=== PATIENT | female | born 1970 | race Caucasian/White ===

== ENCOUNTER 2021-03-16 16:47 | Inpatient (IN) | payer OTHER ==
[2021-03-16] MEDS ORDERED: ACETAMINOPHEN 1000 MG/100 ML VIAL (NON FORMULARY) IVPB ONE (17:46)
[2021-03-16] MEDS ORDERED: LACTATED RINGERS SOLUTION 1000 ML INFUS.BAG IV ONE (18:04)
[2021-03-16] MEDS ORDERED: CEFTRIAXONE 1 GM in DEXTROSE 5%-WATER - 100 ML IVPB ONE (18:04)
[2021-03-16] MEDS ORDERED: ALBUTEROL SO4 2.5/IPRATROPIUM 0.5 INH SOL 3 ML VIAL.NEB. NEB ONE ×5 (18:04→19:19)
[2021-03-16] MEDS ORDERED: ONDANSETRON 4 MG/2 ML VIAL IVPUSH ONE (18:04)
[2021-03-16] MEDS ORDERED: FAMOTIDINE 20 MG/50 ML IVPB 20 MG/50 ML MG IVPB ONE (18:04)
[2021-03-16] MEDS ORDERED: ACETAMINOPHEN INJECTION 100 ML IVPB ONE (18:05)
[2021-03-16] MEDS ORDERED: ONDANSETRON 4 MG/2 ML VIAL ONE (18:05)
[2021-03-16] MEDS ORDERED: PIPERACILLIN/TAZOB 4.5 GM 4.5 GM in DEXTROSE 5%-WATER 100 ML IVPB ONE (18:06)
[2021-03-16 19:08] LABS: VENOUS O2 SATURATION 30.8 % (70-80); VENOUS PCO2 49.2 mmHg (38-52); VENOUS PH 7.3 (7.310-7.410)
[2021-03-16 19:09] LABS: BASO % 0.6 % (0-2.0); EOS % 3.2 % (0-4.5); HEMATOCRIT 32.3 % (32.4-45.2); HEMOGLOBIN 10.9 GM/dL (10.7-15.3); LYMPH % 22.6 % (8-40); MCH 29.3 pg (25.7-33.7); MCHC 33.8 g/dl (32.0-36.0); MEAN CELL VOLUME 86.6 fl (80-96); MEAN PLT VOLUME 8.6 fl (7.5-11.1); NEUT % 59.6 % (42.8-82.8); PLATELET COUNT 246 10^3/uL (134-434); RBC 3.73 M/mm3 (3.60-5.2); RDW 14.6 % (11.6-15.6); WHITE BLOOD COUNT 5.8 K/mm3 (4.0-10.0)
[2021-03-16 19:16] LABS: INR 1.01 (0.83-1.09); PROTHROMBIN TIME (PATIENT) 12.4 SEC (9.7-13.0)
[2021-03-16 19:19] LABS: ACTIVATED PTT 26.4 SECONDS (25.2-36.5)
[2021-03-16] MEDS ORDERED: PIPERACILLIN/TAZOB 4.5 GM 4.5 GM/100 ML BAG IVPB ONE (19:20)
[2021-03-16 19:40] LABS: CHLORIDE 102 mmol/L (98-107); SODIUM 134 mmol/L (136-145)
[2021-03-16 19:44] LABS: BILIRUBIN,DIRECT 0.1 mg/dL (0.0-0.2); CALCIUM 9.4 mg/dL (8.5-10.1)
[2021-03-16 19:45] LABS: ALBUMIN 2.1 g/dl (3.4-5.0); ANION GAP 9 MMOL/L (8-16); CO2 22 mmol/L (21-32)
[2021-03-16 19:46] LABS: EPI CELLS >36 /uL (0-25.1); HYALINE CASTS 192 /uL (0-3.1); PH,URINE 6.5 (5.0-8.0); URINE APPEARANCE TURBID; URINE BACTERIA 132 /uL (0-1359); URINE BILIRUBIN NEGATIVE (NEGATIVE); URINE COLOR YELLOW; URINE GLUCOSE (UA) TRACE (NEGATIVE); URINE KETONE NEGATIVE (NEGATIVE); URINE LEUK ESTERASE 3+ (NEGATIVE); URINE NITRITE NEGATIVE (NEGATIVE); URINE PROTEIN 3+ (NEGATIVE); URINE UROBILINOGEN 0.2 mg/dL (0.2-1.0); URINE WBC 25804 /uL (0-25.8)
[2021-03-16 19:48] LABS: CREATININE 3.4 mg/dL (0.55-1.3); SGOT/AST 6 U/L (15-37); SGPT/ALT 15 U/L (13-61)
[2021-03-16 19:49] LABS: BILIRUBIN,TOTAL 0.7 mg/dL (0.2-1); N-TERMINAL BNP 841.2 pg/ml (5-125)
[2021-03-16 19:50] LABS: TOT PROT 7.2 g/dl (6.4-8.2)
[2021-03-16 19:51] LABS: ALK PHOS 106 U/L (45-117)
[2021-03-16 19:54] LABS: GLUCOSE,RANDOM 431 mg/dL (74-106)
[2021-03-16] MEDS ORDERED: LACTATED RINGERS SOLUTION 1,000 ML/1,000 ML INFUS.BAG IV SCH (21:00)
[2021-03-16 23:57] LABS: URINE RBC 708 /uL (0-23.9); YEAST MODERATE (NEGATIVE)
[2021-03-17] MEDS ORDERED: PIPERACILLIN/TAZOBACTAM 2.25 GM VIAL IVPB ONE ×3 (03:36→20:49)
[2021-03-17] MEDS ORDERED: DEXTROSE 5%-WATER - 50 ML IVPB ONE ×3 (03:36→20:49)
[2021-03-17] MEDS: PIPERACILLIN/TAZOB 2.25 GM 2.25 GM in DEXTROSE 5%-WATER - 50 ML IVPB SCH ×3 (03:47→18:54)
[2021-03-17 05:12] VITALS: BMI 45.1
[2021-03-17] MEDS: INSULIN SLIDING SCALE (NOVOLOG) 1 VIAL SQ SCH ×2 (06:13→12:14)
[2021-03-17 07:59] LABS: HEMATOCRIT 28.8 % (32.4-45.2); HEMOGLOBIN 9.6 GM/dL (10.7-15.3); MCH 29.8 pg (25.7-33.7); MCHC 33.3 g/dl (32.0-36.0); MEAN CELL VOLUME 89.7 fl (80-96); MEAN PLT VOLUME 8.5 fl (7.5-11.1); PLATELET COUNT 234 10^3/uL (134-434); RBC 3.21 M/mm3 (3.60-5.2); RDW 15.1 % (11.6-15.6)
[2021-03-17 08:11] LABS: INR 1.04 (0.83-1.09); PROTHROMBIN TIME (PATIENT) 12.8 SEC (9.7-13.0)
[2021-03-17 08:14] LABS: ACTIVATED PTT 22.4 SECONDS (25.2-36.5)
[2021-03-17 08:29] LABS: ALBUMIN 1.9 g/dl (3.4-5.0)
[2021-03-17 08:30] LABS: BILIRUBIN,TOTAL 0.2 mg/dL (0.2-1); BLOOD UREA NITROGEN 46.5 mg/dL (7-18); TOT PROT 6.8 g/dl (6.4-8.2)
[2021-03-17 08:32] LABS: CALCIUM 8.8 mg/dL (8.5-10.1); MAGNESIUM 1.6 mg/dL (1.8-2.4)
[2021-03-17] MEDS ORDERED: CARVEDILOL 25 MG TABLET (FP) PO SCH (10:00)
[2021-03-17] MEDS ORDERED: amLODIPine BESYLATE 5 MG TABLET (FP) PO SCH (10:00)
[2021-03-17] MEDS ORDERED: LIDOCAINE HCL/PF 2% SDV 5ML VIAL ONE (15:50)
[2021-03-17] MEDS ORDERED: MIDAZOLAM HCL 2 MG/2 ML SINGLE DOSE VIAL ONE (15:51)
[2021-03-17] MEDS ORDERED: PROPOFOL 20 ML ONE ×2 (15:51)
[2021-03-17] MEDS ORDERED: ceFAZolin SODIUM 1 GM VIAL IVPB ONE (16:20)
[2021-03-17] MEDS ORDERED: ceFAZolin SODIUM 1 GM VIAL ONE ×2 (16:25→16:26)
[2021-03-17] MEDS ORDERED: ONDANSETRON 4 MG/2 ML VIAL ONE (17:34)
[2021-03-17] MEDS ORDERED: ONDANSETRON 4 MG/2 ML VIAL IVPUSH ONE (17:35)
[2021-03-17] MEDS ORDERED: LACTATED RINGERS SOLUTION 1,000 ML/1,000 ML INFUS.BAG IV SCH (17:36)
[2021-03-17] MEDS ORDERED: PIPERACILLIN/TAZOB 2.25 GM 2.25 GM in DEXTROSE 5%-WATER - 50 ML IVPB SCH (18:00)
[2021-03-17] MEDS ORDERED: PROMETHAZINE HCL 25 MG/1 ML VIAL ONE (18:22)
[2021-03-17] MEDS ORDERED: PROMETHAZINE HCL 25 MG/1 ML VIAL IVPB ONE (18:34)
[2021-03-17] MEDS ORDERED: PROMETHAZINE HCL 25 MG/1 ML VIAL IVPB PRN (18:38)
[2021-03-17] MEDS ORDERED: NALOXONE HCL 0.4 MG/ML VIAL ONE (18:38)
[2021-03-17] MEDS ORDERED: NALOXONE HCL 0.4 MG/ML VIAL IVPUSH PRN (18:38)
[2021-03-17] MEDS ORDERED: NALOXONE HCL 0.4 MG/ML VIAL IVPUSH ONE (18:41)
[2021-03-17] MEDS ORDERED: ONDANSETRON 4 MG/2 ML VIAL IVPUSH PRN (18:41)
[2021-03-17] MEDS: CARVEDILOL 25 MG TABLET (FP) PO SCH (21:04)
[2021-03-17] MEDS: ATORVASTATIN CA 20 MG TABLET (FP) PO SCH (21:04)
[2021-03-17] MEDS: EZETIMIBE 10 MG TABLET (FP) PO SCH (21:05)
[2021-03-17] MEDS: LACTATED RINGERS SOLUTION 1,000 ML IV SCH (21:07)
[2021-03-17] MEDS: oxyCODONE HCL 5 MG TABLET PO PRN (21:59)
[2021-03-17] MEDS ORDERED: ATORVASTATIN CA 20 MG TABLET (FP) PO SCH (22:00)
[2021-03-17] MEDS ORDERED: INSULIN SLIDING SCALE (NOVOLOG) 1 VIAL SQ SCH (22:00)
[2021-03-17] MEDS ORDERED: EZETIMIBE 10 MG TABLET (FP) PO SCH (22:00)
[2021-03-18] MEDS ORDERED: DEXTROSE 5%-WATER - 50 ML IVPB ONE ×3 (01:05→17:11)
[2021-03-18] MEDS ORDERED: PIPERACILLIN/TAZOBACTAM 2.25 GM VIAL IVPB ONE ×3 (01:05→17:11)
[2021-03-18] MEDS: PIPERACILLIN/TAZOB 2.25 GM 2.25 GM in DEXTROSE 5%-WATER - 50 ML IVPB SCH ×3 (01:19→17:34)
[2021-03-18] MEDS ORDERED: PIPERACILLIN/TAZOB 2.25 GM 2.25 GM in DEXTROSE 5%-WATER - 50 ML IVPB SCH (03:00)
[2021-03-18] MEDS: LACTATED RINGERS SOLUTION 1,000 ML IV SCH ×3 (04:53→22:43)
[2021-03-18] MEDS: ACETAMINOPHEN 325 MG TABLET (FP) PO PRN ×2 (05:30→12:35)
[2021-03-18] MEDS: INSULIN SLIDING SCALE (NOVOLOG) 1 VIAL SQ SCH ×4 (06:31→22:36)
[2021-03-18] MEDS: INSULIN (LEVEMIR) 100 UNITS/ML UNITS SQ SCH (06:31)
[2021-03-18 08:25] LABS: BASO % 0.7 % (0-2.0); EOS % 4.7 % (0-4.5); HEMATOCRIT 27.6 % (32.4-45.2); HEMOGLOBIN 9.3 GM/dL (10.7-15.3); LYMPH % 24.8 % (8-40); MCH 29.5 pg (25.7-33.7); MCHC 33.8 g/dl (32.0-36.0); MEAN CELL VOLUME 87.1 fl (80-96); MEAN PLT VOLUME 8.7 fl (7.5-11.1); MONO % 13.8 % (3.8-10.2); PLATELET COUNT 237 10^3/uL (134-434); RBC 3.17 M/mm3 (3.60-5.2); RDW 14.9 % (11.6-15.6); WHITE BLOOD COUNT 4.8 K/mm3 (4.0-10.0)
[2021-03-18 08:41] LABS: BLOOD UREA NITROGEN 41.7 mg/dL (7-18); CALCIUM 8.2 mg/dL (8.5-10.1); MAGNESIUM 1.6 mg/dL (1.8-2.4)
[2021-03-18 08:44] LABS: CREATININE 4.1 mg/dL (0.55-1.3)
[2021-03-18] MEDS: TAMSULOSIN HCL 0.4 MG CAP PO SCH (09:05)
[2021-03-18] MEDS: CARVEDILOL 25 MG TABLET (FP) PO SCH ×2 (09:05→22:36)
[2021-03-18] MEDS: amLODIPine BESYLATE 5 MG TABLET (FP) PO SCH (09:05)
[2021-03-18] MEDS: oxyCODONE HCL 5 MG TABLET PO PRN (12:35)
[2021-03-18] MEDS ORDERED: FLUCONAZOLE 100 MG/NS 50 ML IVPB ONE (17:00)
[2021-03-18 17:47] LABS: EPI CELLS >36 /uL (0-25.1); HYALINE CASTS 6 /uL (0-3.1); URINE APPEARANCE TURBID; URINE BACTERIA 159 /uL (0-1359); URINE BILIRUBIN NEGATIVE (NEGATIVE); URINE COLOR YELLOW; URINE GLUCOSE (UA) TRACE (NEGATIVE); URINE KETONE NEGATIVE (NEGATIVE); URINE LEUK ESTERASE 3+ (NEGATIVE); URINE NITRITE NEGATIVE (NEGATIVE); URINE PROTEIN 3+ (NEGATIVE); URINE UROBILINOGEN 0.2 mg/dL (0.2-1.0); URINE WBC 7570 /uL (0-25.8)
[2021-03-18] MEDS: EZETIMIBE 10 MG TABLET (FP) PO SCH (22:36)
[2021-03-18] MEDS: ATORVASTATIN CA 20 MG TABLET (FP) PO SCH (22:36)
[2021-03-19] MEDS ORDERED: PIPERACILLIN/TAZOBACTAM 2.25 GM VIAL IVPB ONE ×3 (03:31→17:05)
[2021-03-19] MEDS ORDERED: DEXTROSE 5%-WATER - 50 ML IVPB ONE ×3 (03:32→17:05)
[2021-03-19] MEDS: PIPERACILLIN/TAZOB 2.25 GM 2.25 GM in DEXTROSE 5%-WATER - 50 ML IVPB SCH ×3 (03:33→17:11)
[2021-03-19] MEDS: INSULIN (LEVEMIR) 100 UNITS/ML UNITS SQ SCH (06:31)
[2021-03-19] MEDS: INSULIN SLIDING SCALE (NOVOLOG) 1 VIAL SQ SCH ×4 (06:32→21:52)
[2021-03-19] MEDS: TAMSULOSIN HCL 0.4 MG CAP PO SCH (09:11)
[2021-03-19] MEDS: amLODIPine BESYLATE 5 MG TABLET (FP) PO SCH (09:11)
[2021-03-19] MEDS: CARVEDILOL 25 MG TABLET (FP) PO SCH ×2 (09:11→21:52)
[2021-03-19 09:44] LABS: BASO % 0.7 % (0-2.0); EOS % 4.5 % (0-4.5); HEMATOCRIT 28.7 % (32.4-45.2); HEMOGLOBIN 9.8 GM/dL (10.7-15.3); LYMPH % 29.2 % (8-40); MCH 29.4 pg (25.7-33.7); MEAN CELL VOLUME 86.5 fl (80-96); MEAN PLT VOLUME 8.7 fl (7.5-11.1); MONO % 10.8 % (3.8-10.2); NEUT % 54.8 % (42.8-82.8); PLATELET COUNT 242 10^3/uL (134-434); RBC 3.32 M/mm3 (3.60-5.2); RDW 14.5 % (11.6-15.6); WHITE BLOOD COUNT 5.7 K/mm3 (4.0-10.0)
[2021-03-19 10:13] LABS: CALCIUM 8.4 mg/dL (8.5-10.1)
[2021-03-19 10:14] LABS: ALBUMIN 1.9 g/dl (3.4-5.0); BLOOD UREA NITROGEN 39.2 mg/dL (7-18)
[2021-03-19 10:17] LABS: CREATININE 3.5 mg/dL (0.55-1.3)
[2021-03-19 10:19] LABS: BILIRUBIN,TOTAL 0.1 mg/dL (0.2-1); TOT PROT 6.8 g/dl (6.4-8.2)
[2021-03-19] MEDS ORDERED: INSULIN (NOVOLOG) ASPART 100 UNITS/ML 10ML VIAL ONE (11:06)
[2021-03-19] MEDS ORDERED: ALBUTEROL SO4 2.5/IPRATROPIUM 0.5 INH SOL 3 ML VIAL.NEB. NEB PRN (15:46)
[2021-03-19] MEDS: oxyCODONE HCL 5 MG TABLET PO PRN (16:31)
[2021-03-19] MEDS ORDERED: FLUCONAZOLE 100 MG/NS 50 ML IVPB ONE (19:05)
[2021-03-19] MEDS: EZETIMIBE 10 MG TABLET (FP) PO SCH (21:52)
[2021-03-19] MEDS: ATORVASTATIN CA 20 MG TABLET (FP) PO SCH (21:52)
[2021-03-20] MEDS: oxyCODONE HCL 5 MG TABLET PO PRN ×3 (00:01→15:31)
[2021-03-20] MEDS: ACETAMINOPHEN 325 MG TABLET (FP) PO PRN (00:02)
[2021-03-20] MEDS ORDERED: PIPERACILLIN/TAZOBACTAM 2.25 GM VIAL IVPB ONE ×3 (01:42→17:20)
[2021-03-20] MEDS ORDERED: DEXTROSE 5%-WATER - 50 ML IVPB ONE ×3 (01:42→17:20)
[2021-03-20] MEDS: PIPERACILLIN/TAZOB 2.25 GM 2.25 GM in DEXTROSE 5%-WATER - 50 ML IVPB SCH ×4 (01:59→18:16)
[2021-03-20] MEDS: LACTATED RINGERS SOLUTION 1,000 ML IV SCH ×2 (06:17→20:40)
[2021-03-20] MEDS: INSULIN (LEVEMIR) 100 UNITS/ML UNITS SQ SCH ×2 (06:47→22:14)
[2021-03-20] MEDS: INSULIN SLIDING SCALE (NOVOLOG) 1 VIAL SQ SCH ×4 (06:49→21:09)
[2021-03-20] MEDS: TAMSULOSIN HCL 0.4 MG CAP PO SCH (08:37)
[2021-03-20] MEDS: CARVEDILOL 25 MG TABLET (FP) PO SCH ×2 (09:29→21:04)
[2021-03-20 09:55] LABS: BASO % 0.4 % (0-2.0); EOS % 5.2 % (0-4.5); HEMATOCRIT 25.1 % (32.4-45.2); HEMOGLOBIN 8.4 GM/dL (10.7-15.3); LYMPH % 33.2 % (8-40); MCH 29.3 pg (25.7-33.7); MCHC 33.7 g/dl (32.0-36.0); MEAN CELL VOLUME 87.1 fl (80-96); MEAN PLT VOLUME 8.5 fl (7.5-11.1); MONO % 10.2 % (3.8-10.2); PLATELET COUNT 215 10^3/uL (134-434); RBC 2.88 M/mm3 (3.60-5.2); RDW 14.6 % (11.6-15.6); WHITE BLOOD COUNT 5.1 K/mm3 (4.0-10.0)
[2021-03-20 10:00] LABS: ALK PHOS 68 U/L (45-117)
[2021-03-20 10:01] LABS: SGPT/ALT 11 U/L (13-61)
[2021-03-20] MEDS ORDERED: INSULIN (NOVOLOG) ASPART 100 UNITS/ML 10ML VIAL ONE ×2 (11:15→21:02)
[2021-03-20] MEDS: amLODIPine BESYLATE 5 MG TABLET (FP) PO SCH (11:32)
[2021-03-20 11:43] LABS: ALBUMIN 1.6 g/dl (3.4-5.0); BILIRUBIN,TOTAL 0.1 mg/dL (0.2-1); BLOOD UREA NITROGEN 40.6 mg/dL (7-18); CALCIUM 8.2 mg/dL (8.5-10.1); CHLORIDE 111 mmol/L (98-107); CO2 21 mmol/L (21-32); CREATININE 3.1 mg/dL (0.55-1.3); GLUCOSE,RANDOM 231 mg/dL (74-106); MAGNESIUM 1.5 mg/dL (1.8-2.4); SGOT/AST 12 U/L (15-37); SODIUM 140 mmol/L (136-145); TOT PROT 6.1 g/dl (6.4-8.2)
[2021-03-20] MEDS ORDERED: FLUCONAZOLE 100 MG/NS 50 ML IVPB ONE (17:15)
[2021-03-20] MEDS: EZETIMIBE 10 MG TABLET (FP) PO SCH (21:04)
[2021-03-20] MEDS: ATORVASTATIN CA 20 MG TABLET (FP) PO SCH (21:04)
[2021-03-20] MEDS ORDERED: INSULIN SLIDING SCALE (NOVOLOG) 1 VIAL SQ SCH (21:46)
[2021-03-20] MEDS ORDERED: INSULIN (LEVEMIR) 100 UNITS/ML UNITS SQ SCH ×2 (21:47→22:00)
[2021-03-21] MEDS: PIPERACILLIN/TAZOB 2.25 GM 2.25 GM in DEXTROSE 5%-WATER - 50 ML IVPB SCH ×2 (01:10→09:01)
[2021-03-21] MEDS: oxyCODONE HCL 5 MG TABLET PO PRN ×2 (04:48→21:12)
[2021-03-21] MEDS: INSULIN (LEVEMIR) 100 UNITS/ML UNITS SQ SCH ×2 (05:59→21:17)
[2021-03-21] MEDS: INSULIN SLIDING SCALE (NOVOLOG) 1 VIAL SQ SCH ×5 (06:00→21:17)
[2021-03-21 08:25] LABS: BASO % 0.7 % (0-2.0); EOS % 4.5 % (0-4.5); HEMATOCRIT 25.7 % (32.4-45.2); HEMOGLOBIN 8.6 GM/dL (10.7-15.3); MCH 29.4 pg (25.7-33.7); MCHC 33.6 g/dl (32.0-36.0); MEAN CELL VOLUME 87.4 fl (80-96); MEAN PLT VOLUME 8.4 fl (7.5-11.1); MONO % 11.8 % (3.8-10.2); PLATELET COUNT 252 10^3/uL (134-434); RBC 2.94 M/mm3 (3.60-5.2); RDW 14.3 % (11.6-15.6); WHITE BLOOD COUNT 5.7 K/mm3 (4.0-10.0)
[2021-03-21 08:43] LABS: CALCIUM 8.3 mg/dL (8.5-10.1)
[2021-03-21 08:44] LABS: ALBUMIN 1.8 g/dl (3.4-5.0); BLOOD UREA NITROGEN 40.4 mg/dL (7-18)
[2021-03-21 08:47] LABS: CREATININE 3.1 mg/dL (0.55-1.3); PHOSPHOROUS 4.2 mg/dL (2.5-4.9)
[2021-03-21 08:48] LABS: BILIRUBIN,TOTAL 0.2 mg/dL (0.2-1); TOT PROT 6.8 g/dl (6.4-8.2)
[2021-03-21] MEDS: TAMSULOSIN HCL 0.4 MG CAP PO SCH (08:58)
[2021-03-21] MEDS: amLODIPine BESYLATE 5 MG TABLET (FP) PO SCH (08:59)
[2021-03-21] MEDS: CARVEDILOL 25 MG TABLET (FP) PO SCH ×2 (08:59→21:12)
[2021-03-21] MEDS ORDERED: INSULIN (NOVOLOG) ASPART 100 UNITS/ML 10ML VIAL ONE (11:38)
[2021-03-21] MEDS: POLYETHYLENE GLYCOL (HEALTHYLAX) 3350 17 GM PACKET PO SCH ×2 (13:42→21:12)
[2021-03-21] MEDS: FLUCONAZOLE 100 MG TABLET (UD) PO SCH (17:44)
[2021-03-21] MEDS: AMOX TR/POT CLAV 500MG/125MG TABLETS (FP) PO SCH (17:44)
[2021-03-21] MEDS: ATORVASTATIN CA 20 MG TABLET (FP) PO SCH (21:12)
[2021-03-21] MEDS: EZETIMIBE 10 MG TABLET (FP) PO SCH (21:12)
[2021-03-22] MEDS: POLYETHYLENE GLYCOL (HEALTHYLAX) 3350 17 GM PACKET PO SCH ×3 (06:15→21:33)
[2021-03-22] MEDS: INSULIN (LEVEMIR) 100 UNITS/ML UNITS SQ SCH ×2 (06:16→21:33)
[2021-03-22] MEDS: INSULIN SLIDING SCALE (NOVOLOG) 1 VIAL SQ SCH ×4 (06:16→21:28)
[2021-03-22] MEDS ORDERED: Methylnaltrexone Bromide 12 MG/0.6 ML KIT SQ ONE (10:00)
[2021-03-22] MEDS ORDERED: PEG 3350/NA SULF BICARB CL/KCL 4000 ML SOLN.RECON PO ONE (10:00)
[2021-03-22 10:01] LABS: BASO % 0.6 % (0-2.0); EOS % 5.1 % (0-4.5); HEMATOCRIT 26.9 % (32.4-45.2); LYMPH % 31.8 % (8-40); MCH 29.2 pg (25.7-33.7); MCHC 33.3 g/dl (32.0-36.0); MEAN CELL VOLUME 87.7 fl (80-96); MEAN PLT VOLUME 8.2 fl (7.5-11.1); MONO % 10.4 % (3.8-10.2); NEUT % 52.1 % (42.8-82.8); PLATELET COUNT 296 10^3/uL (134-434); RBC 3.07 M/mm3 (3.60-5.2); RDW 14.9 % (11.6-15.6); WHITE BLOOD COUNT 5.7 K/mm3 (4.0-10.0)
[2021-03-22 10:30] LABS: CALCIUM 8.5 mg/dL (8.5-10.1)
[2021-03-22 10:31] LABS: BLOOD UREA NITROGEN 44.8 mg/dL (7-18)
[2021-03-22 10:34] LABS: CREATININE 2.9 mg/dL (0.55-1.3)
[2021-03-22 10:36] LABS: TOT PROT 7.2 g/dl (6.4-8.2)
[2021-03-22 10:43] LABS: BILIRUBIN,TOTAL 0.3 mg/dL (0.2-1)
[2021-03-22] MEDS: amLODIPine BESYLATE 5 MG TABLET (FP) PO SCH (10:46)
[2021-03-22] MEDS: CARVEDILOL 25 MG TABLET (FP) PO SCH ×2 (10:46→21:33)
[2021-03-22] MEDS: oxyCODONE HCL 5 MG TABLET PO PRN ×2 (10:46→17:48)
[2021-03-22] MEDS: FLUCONAZOLE 100 MG TABLET (UD) PO SCH (10:47)
[2021-03-22] MEDS: TAMSULOSIN HCL 0.4 MG CAP PO SCH (10:47)
[2021-03-22] MEDS ORDERED: INSULIN (NOVOLOG) ASPART 100 UNITS/ML 10ML VIAL ONE (11:49)
[2021-03-22] MEDS: AMOX TR/POT CLAV 500MG/125MG TABLETS (FP) PO SCH (16:33)
[2021-03-22] MEDS ORDERED: BISACODYL 5 MG TABLET.DR (FP) PO ONE (20:00)
[2021-03-22] MEDS: EZETIMIBE 10 MG TABLET (FP) PO SCH (21:33)
[2021-03-22] MEDS: ATORVASTATIN CA 20 MG TABLET (FP) PO SCH (21:33)
[2021-03-23] MEDS: oxyCODONE HCL 5 MG TABLET PO PRN ×2 (01:14→13:57)
[2021-03-23] MEDS: INSULIN SLIDING SCALE (NOVOLOG) 1 VIAL SQ SCH ×4 (06:42→21:24)
[2021-03-23] MEDS: INSULIN (LEVEMIR) 100 UNITS/ML UNITS SQ SCH ×2 (06:54→21:23)
[2021-03-23] MEDS: POLYETHYLENE GLYCOL (HEALTHYLAX) 3350 17 GM PACKET PO SCH ×3 (06:54→21:23)
[2021-03-23 08:12] LABS: ALBUMIN 1.8 g/dl (3.4-5.0); BLOOD UREA NITROGEN 48.7 mg/dL (7-18)
[2021-03-23 08:13] LABS: BASO % 0.3 % (0-2.0); CALCIUM 8.2 mg/dL (8.5-10.1); EOS % 3.3 % (0-4.5); HEMATOCRIT 24.4 % (32.4-45.2); HEMOGLOBIN 8.2 GM/dL (10.7-15.3); MAGNESIUM 1.6 mg/dL (1.8-2.4); MCH 29.5 pg (25.7-33.7); MCHC 33.5 g/dl (32.0-36.0); MEAN CELL VOLUME 88.1 fl (80-96); MONO % 8.9 % (3.8-10.2); NEUT % 69.5 % (42.8-82.8); PLATELET COUNT 247 10^3/uL (134-434); RBC 2.77 M/mm3 (3.60-5.2); RDW 14.5 % (11.6-15.6); WHITE BLOOD COUNT 6.5 K/mm3 (4.0-10.0)
[2021-03-23 08:17] LABS: CREATININE 3.2 mg/dL (0.55-1.3)
[2021-03-23 08:18] LABS: BILIRUBIN,TOTAL 0.2 mg/dL (0.2-1); TOT PROT 6.3 g/dl (6.4-8.2)
[2021-03-23] MEDS: amLODIPine BESYLATE 5 MG TABLET (FP) PO SCH (10:57)
[2021-03-23] MEDS: TAMSULOSIN HCL 0.4 MG CAP PO SCH (10:57)
[2021-03-23] MEDS: FLUCONAZOLE 100 MG TABLET (UD) PO SCH (10:57)
[2021-03-23] MEDS: CARVEDILOL 25 MG TABLET (FP) PO SCH ×2 (10:57→21:22)
[2021-03-23] MEDS ORDERED: SODIUM CHLORIDE 0.45% 1,000 ML IV SCH (14:30)
[2021-03-23] MEDS: AMOX TR/POT CLAV 500MG/125MG TABLETS (FP) PO SCH (17:23)
[2021-03-23] MEDS: EZETIMIBE 10 MG TABLET (FP) PO SCH (21:23)
[2021-03-23] MEDS: ATORVASTATIN CA 20 MG TABLET (FP) PO SCH (21:23)
[2021-03-24] MEDS: POLYETHYLENE GLYCOL (HEALTHYLAX) 3350 17 GM PACKET PO SCH (06:17)
[2021-03-24] MEDS: INSULIN SLIDING SCALE (NOVOLOG) 1 VIAL SQ SCH ×4 (06:35→22:48)
[2021-03-24] MEDS: INSULIN (LEVEMIR) 100 UNITS/ML UNITS SQ SCH ×2 (06:36→22:46)
[2021-03-24] MEDS ORDERED: PT OWN MED DRAWER 7, Y5N ONE ×3 (09:18→17:49)
[2021-03-24] MEDS: TAMSULOSIN HCL 0.4 MG CAP PO SCH (09:24)
[2021-03-24] MEDS: CARVEDILOL 25 MG TABLET (FP) PO SCH ×2 (09:24→22:46)
[2021-03-24] MEDS: FLUCONAZOLE 100 MG TABLET (UD) PO SCH (09:25)
[2021-03-24] MEDS: amLODIPine BESYLATE 5 MG TABLET (FP) PO SCH (09:25)
[2021-03-24 10:29] LABS: BASO % 0.3 % (0-2.0); EOS % 2.3 % (0-4.5); HEMATOCRIT 26.9 % (32.4-45.2); HEMOGLOBIN 9.1 GM/dL (10.7-15.3); MCHC 33.9 g/dl (32.0-36.0); MEAN CELL VOLUME 88.5 fl (80-96); MEAN PLT VOLUME 8.1 fl (7.5-11.1); MONO % 7.6 % (3.8-10.2); NEUT % 74.8 % (42.8-82.8); PLATELET COUNT 278 10^3/uL (134-434); RBC 3.04 M/mm3 (3.60-5.2); WHITE BLOOD COUNT 8.7 K/mm3 (4.0-10.0)
[2021-03-24 10:50] LABS: BLOOD UREA NITROGEN 56.2 mg/dL (7-18); CALCIUM 8.5 mg/dL (8.5-10.1)
[2021-03-24 10:54] LABS: BILIRUBIN,TOTAL 0.6 mg/dL (0.2-1); TOT PROT 7.2 g/dl (6.4-8.2)
[2021-03-24] MEDS: AMOX TR/POT CLAV 500MG/125MG TABLETS (FP) PO SCH (18:18)
[2021-03-24] MEDS: ACETAMINOPHEN 1000 MG/100 ML VIAL (NON FORMULARY) IVPB PRN (18:18)
[2021-03-24] MEDS: ATORVASTATIN CA 20 MG TABLET (FP) PO SCH (22:46)
[2021-03-24] MEDS: EZETIMIBE 10 MG TABLET (FP) PO SCH (22:46)
[2021-03-25] MEDS: ACETAMINOPHEN 1000 MG/100 ML VIAL (NON FORMULARY) IVPB PRN (01:27)
[2021-03-25] MEDS: INSULIN SLIDING SCALE (NOVOLOG) 1 VIAL SQ SCH ×4 (06:35→23:05)
[2021-03-25] MEDS: INSULIN (LEVEMIR) 100 UNITS/ML UNITS SQ SCH ×2 (07:52→23:05)
[2021-03-25] MEDS: TAMSULOSIN HCL 0.4 MG CAP PO SCH (07:52)
[2021-03-25] MEDS ORDERED: PT OWN MED DRAWER 7, Y5N ONE ×2 (10:00→17:06)
[2021-03-25] MEDS: CARVEDILOL 25 MG TABLET (FP) PO SCH ×2 (10:01→23:10)
[2021-03-25] MEDS: FLUCONAZOLE 100 MG TABLET (UD) PO SCH (10:01)
[2021-03-25] MEDS: amLODIPine BESYLATE 5 MG TABLET (FP) PO SCH (10:01)
[2021-03-25] MEDS: HYDROCORTISONE 1% TOPICAL CREAM 30 GM TUBE TP SCH (10:01)
[2021-03-25 11:31] LABS: BASO % 0.2 % (0-2.0); EOS % 1.9 % (0-4.5); HEMATOCRIT 25.3 % (32.4-45.2); HEMOGLOBIN 8.5 GM/dL (10.7-15.3); MCH 29.6 pg (25.7-33.7); MCHC 33.7 g/dl (32.0-36.0); MEAN CELL VOLUME 87.8 fl (80-96); MEAN PLT VOLUME 7.9 fl (7.5-11.1); MONO % 6.3 % (3.8-10.2); NEUT % 82.6 % (42.8-82.8); PLATELET COUNT 300 10^3/uL (134-434); RBC 2.88 M/mm3 (3.60-5.2); RDW 14.8 % (11.6-15.6); WHITE BLOOD COUNT 9.9 K/mm3 (4.0-10.0)
[2021-03-25 12:00] LABS: ALBUMIN 1.8 g/dl (3.4-5.0); BLOOD UREA NITROGEN 55.6 mg/dL (7-18); CALCIUM 8.9 mg/dL (8.5-10.1)
[2021-03-25] MEDS ORDERED: SODIUM CHLORIDE 0.45% 1,000 ML IV SCH (12:00)
[2021-03-25 12:03] LABS: CREATININE 3.6 mg/dL (0.55-1.3)
[2021-03-25 12:05] LABS: BILIRUBIN,TOTAL 0.2 mg/dL (0.2-1); TOT PROT 7.2 g/dl (6.4-8.2)
[2021-03-25] MEDS ORDERED: TRIPLE LUMEN FLUSH 4 ML ML IVPUSH PRN (13:26)
[2021-03-25] MEDS ORDERED: POLYETHYLENE GLYCOL (HEALTHYLAX) 3350 17 GM PACKET PO ONE (16:53)
[2021-03-25] MEDS ORDERED: INSULIN (NOVOLOG) ASPART 100 UNITS/ML 10ML VIAL ONE (17:23)
[2021-03-25] MEDS: AMOX TR/POT CLAV 500MG/125MG TABLETS (FP) PO SCH (17:27)
[2021-03-25] MEDS: NYSTATIN POWDER 100,000 UNITS/GM - 15 GM TOPICAL POWDER TP SCH (20:40)
[2021-03-25] MEDS ORDERED: oxyCODONE HCL 5 MG TABLET PO ONE (23:00)
[2021-03-25] MEDS ORDERED: ACETAMINOPHEN 325 MG TABLET (FP) PO ONE (23:00)
[2021-03-25] MEDS: ATORVASTATIN CA 20 MG TABLET (FP) PO SCH (23:10)
[2021-03-25] MEDS: EZETIMIBE 10 MG TABLET (FP) PO SCH (23:11)
[2021-03-26] MEDS: INSULIN (LEVEMIR) 100 UNITS/ML UNITS SQ SCH ×2 (06:33→21:41)
[2021-03-26] MEDS: INSULIN SLIDING SCALE (NOVOLOG) 1 VIAL SQ SCH ×4 (06:34→21:41)
[2021-03-26] MEDS ORDERED: INSULIN (NOVOLOG) ASPART 100 UNITS/ML 10ML VIAL ONE (06:42)
[2021-03-26] MEDS ORDERED: PT OWN MED DRAWER 7, Y5N ONE (11:58)
[2021-03-26] MEDS: HYDROCORTISONE 1% TOPICAL CREAM 30 GM TUBE TP SCH (12:03)
[2021-03-26] MEDS: amLODIPine BESYLATE 5 MG TABLET (FP) PO SCH (12:03)
[2021-03-26] MEDS: CARVEDILOL 25 MG TABLET (FP) PO SCH ×2 (12:03→21:40)
[2021-03-26] MEDS: FLUCONAZOLE 100 MG TABLET (UD) PO SCH (12:03)
[2021-03-26] MEDS: NYSTATIN POWDER 100,000 UNITS/GM - 15 GM TOPICAL POWDER TP SCH (12:04)
[2021-03-26] MEDS: TAMSULOSIN HCL 0.4 MG CAP PO SCH (12:04)
[2021-03-26 12:24] LABS: BASO % 0.3 % (0-2.0); EOS % 2.9 % (0-4.5); HEMATOCRIT 23.8 % (32.4-45.2); HEMOGLOBIN 7.9 GM/dL (10.7-15.3); LYMPH % 14.8 % (8-40); MCH 29.5 pg (25.7-33.7); MCHC 33.3 g/dl (32.0-36.0); MEAN CELL VOLUME 88.6 fl (80-96); MONO % 7.7 % (3.8-10.2); NEUT % 74.3 % (42.8-82.8); PLATELET COUNT 290 10^3/uL (134-434); RBC 2.69 M/mm3 (3.60-5.2); RDW 15.2 % (11.6-15.6)
[2021-03-26 12:47] LABS: ALBUMIN 1.7 g/dl (3.4-5.0)
[2021-03-26 12:48] LABS: BLOOD UREA NITROGEN 56.8 mg/dL (7-18)
[2021-03-26 12:52] LABS: CREATININE 3.2 mg/dL (0.55-1.3)
[2021-03-26 12:53] LABS: BILIRUBIN,TOTAL 0.2 mg/dL (0.2-1)
[2021-03-26] MEDS: oxyCODONE HCL 5 MG TABLET PO PRN (15:29)
[2021-03-26] MEDS: AMOX TR/POT CLAV 500MG/125MG TABLETS (FP) PO SCH (19:04)
[2021-03-26] MEDS: EZETIMIBE 10 MG TABLET (FP) PO SCH (21:40)
[2021-03-26] MEDS: ATORVASTATIN CA 20 MG TABLET (FP) PO SCH (21:40)
[2021-03-27] MEDS: oxyCODONE HCL 5 MG TABLET PO PRN ×2 (01:12→08:14)
[2021-03-27] MEDS: INSULIN (LEVEMIR) 100 UNITS/ML UNITS SQ SCH ×2 (06:04→21:29)
[2021-03-27] MEDS: INSULIN SLIDING SCALE (NOVOLOG) 1 VIAL SQ SCH ×4 (06:04→21:29)
[2021-03-27] MEDS ORDERED: PT OWN MED DRAWER 7, Y5N ONE ×2 (09:25→16:58)
[2021-03-27] MEDS: NYSTATIN POWDER 100,000 UNITS/GM - 15 GM TOPICAL POWDER TP SCH (09:51)
[2021-03-27] MEDS: TAMSULOSIN HCL 0.4 MG CAP PO SCH (09:51)
[2021-03-27] MEDS: FLUCONAZOLE 100 MG TABLET (UD) PO SCH (09:51)
[2021-03-27] MEDS: amLODIPine BESYLATE 5 MG TABLET (FP) PO SCH (09:51)
[2021-03-27] MEDS: CARVEDILOL 25 MG TABLET (FP) PO SCH ×2 (09:51→21:20)
[2021-03-27] MEDS: HYDROCORTISONE 1% TOPICAL CREAM 30 GM TUBE TP SCH (09:51)
[2021-03-27 10:45] LABS: BASO % 0.4 % (0-2.0); EOS % 3.7 % (0-4.5); HEMATOCRIT 23.6 % (32.4-45.2); HEMOGLOBIN 7.8 GM/dL (10.7-15.3); LYMPH % 18.4 % (8-40); MCH 29.4 pg (25.7-33.7); MCHC 33.1 g/dl (32.0-36.0); MEAN CELL VOLUME 88.9 fl (80-96); MONO % 8.7 % (3.8-10.2); NEUT % 68.8 % (42.8-82.8); PLATELET COUNT 341 10^3/uL (134-434); RBC 2.66 M/mm3 (3.60-5.2); RDW 15.2 % (11.6-15.6); WHITE BLOOD COUNT 8.6 K/mm3 (4.0-10.0)
[2021-03-27 11:20] LABS: ALBUMIN 1.8 g/dl (3.4-5.0); BLOOD UREA NITROGEN 59.8 mg/dL (7-18); CALCIUM 8.8 mg/dL (8.5-10.1)
[2021-03-27 11:23] LABS: CREATININE 3.3 mg/dL (0.55-1.3)
[2021-03-27 11:25] LABS: BILIRUBIN,TOTAL 0.4 mg/dL (0.2-1); TOT PROT 7.2 g/dl (6.4-8.2)
[2021-03-27] MEDS: AMOX TR/POT CLAV 500MG/125MG TABLETS (FP) PO SCH (16:52)
[2021-03-27] MEDS: ATORVASTATIN CA 20 MG TABLET (FP) PO SCH (21:20)
[2021-03-27] MEDS: EZETIMIBE 10 MG TABLET (FP) PO SCH (21:20)
[2021-03-28] MEDS: oxyCODONE HCL 5 MG TABLET PO PRN ×2 (01:03→10:48)
[2021-03-28] MEDS: INSULIN (LEVEMIR) 100 UNITS/ML UNITS SQ SCH ×2 (06:17→21:20)
[2021-03-28] MEDS: INSULIN SLIDING SCALE (NOVOLOG) 1 VIAL SQ SCH ×4 (06:18→21:20)
[2021-03-28 08:27] LABS: BASO % 0.4 % (0-2.0); EOS % 3.8 % (0-4.5); HEMATOCRIT 27.5 % (32.4-45.2); HEMOGLOBIN 9.1 GM/dL (10.7-15.3); LYMPH % 14.7 % (8-40); MCH 28.4 pg (25.7-33.7); MCHC 33.1 g/dl (32.0-36.0); MEAN CELL VOLUME 85.6 fl (80-96); MEAN PLT VOLUME 7.9 fl (7.5-11.1); MONO % 8.1 % (3.8-10.2); PLATELET COUNT 343 10^3/uL (134-434); RBC 3.21 M/mm3 (3.60-5.2); RDW 18.1 % (11.6-15.6); WHITE BLOOD COUNT 8.7 K/mm3 (4.0-10.0)
[2021-03-28 08:50] LABS: BLOOD UREA NITROGEN 57.8 mg/dL (7-18); CALCIUM 8.4 mg/dL (8.5-10.1)
[2021-03-28 08:51] LABS: ALBUMIN 1.8 g/dl (3.4-5.0)
[2021-03-28 08:54] LABS: CREATININE 3.1 mg/dL (0.55-1.3)
[2021-03-28 08:55] LABS: BILIRUBIN,TOTAL 0.2 mg/dL (0.2-1)
[2021-03-28 08:56] LABS: TOT PROT 7.2 g/dl (6.4-8.2)
[2021-03-28] MEDS ORDERED: PT OWN MED DRAWER 7, Y5N ONE ×3 (10:39→16:52)
[2021-03-28] MEDS: TAMSULOSIN HCL 0.4 MG CAP PO SCH (10:46)
[2021-03-28] MEDS: CARVEDILOL 25 MG TABLET (FP) PO SCH ×2 (10:46→21:20)
[2021-03-28] MEDS: amLODIPine BESYLATE 5 MG TABLET (FP) PO SCH (10:46)
[2021-03-28] MEDS: FLUCONAZOLE 100 MG TABLET (UD) PO SCH (10:47)
[2021-03-28] MEDS: HYDROCORTISONE 1% TOPICAL CREAM 30 GM TUBE TP SCH (10:47)
[2021-03-28] MEDS: NYSTATIN POWDER 100,000 UNITS/GM - 15 GM TOPICAL POWDER TP SCH (10:48)
[2021-03-28] MEDS: SODIUM ZIRCONIUM CYCLOSILICATE (LOKELMA) 5 GM PACKET PO SCH (14:12)
[2021-03-28] MEDS: SODIUM CHLORIDE 0.45% 1,000 ML IV SCH (14:12)
[2021-03-28] MEDS: AMOX TR/POT CLAV 500MG/125MG TABLETS (FP) PO SCH (17:26)
[2021-03-28] MEDS ORDERED: diphenhydrAMINE HCL 25 MG CAPSULE (FP) PO ONE (19:35)
[2021-03-28] MEDS ORDERED: MELATONIN 5 MG TABLETS PO ONE (19:59)
[2021-03-28] MEDS ORDERED: INSULIN (NOVOLOG) ASPART 100 UNITS/ML 10ML VIAL ONE (21:16)
[2021-03-28] MEDS: ATORVASTATIN CA 20 MG TABLET (FP) PO SCH (21:20)
[2021-03-28] MEDS: EZETIMIBE 10 MG TABLET (FP) PO SCH (21:20)
[2021-03-29] MEDS: SODIUM CHLORIDE 0.45% 1,000 ML IV SCH (03:53)
[2021-03-29] MEDS: INSULIN SLIDING SCALE (NOVOLOG) 1 VIAL SQ SCH ×2 (05:59→10:57)
[2021-03-29] MEDS: INSULIN (LEVEMIR) 100 UNITS/ML UNITS SQ SCH (05:59)
[2021-03-29] MEDS ORDERED: INSULIN (NOVOLOG) ASPART 100 UNITS/ML 10ML VIAL ONE (07:29)
[2021-03-29] MEDS: TAMSULOSIN HCL 0.4 MG CAP PO SCH (08:47)
[2021-03-29] MEDS ORDERED: PT OWN MED DRAWER 7, Y5N ONE (09:22)
[2021-03-29] MEDS: FLUCONAZOLE 100 MG TABLET (UD) PO SCH (09:23)
[2021-03-29] MEDS: HYDROCORTISONE 1% TOPICAL CREAM 30 GM TUBE TP SCH (09:23)
[2021-03-29] MEDS: amLODIPine BESYLATE 5 MG TABLET (FP) PO SCH (09:23)
[2021-03-29] MEDS: NYSTATIN POWDER 100,000 UNITS/GM - 15 GM TOPICAL POWDER TP SCH (09:23)
[2021-03-29] MEDS: SODIUM ZIRCONIUM CYCLOSILICATE (LOKELMA) 5 GM PACKET PO SCH (09:23)
[2021-03-29] MEDS: CARVEDILOL 25 MG TABLET (FP) PO SCH (09:23)
[2021-03-29 10:48] LABS: HEMATOCRIT 28.5 % (32.4-45.2); HEMOGLOBIN 9.4 GM/dL (10.7-15.3); MCH 28.2 pg (25.7-33.7); MEAN CELL VOLUME 85.4 fl (80-96); MEAN PLT VOLUME 7.4 fl (7.5-11.1); PLATELET COUNT 307 10^3/uL (134-434); RBC 3.34 M/mm3 (3.60-5.2); RDW 17.5 % (11.6-15.6); WHITE BLOOD COUNT 7.6 K/mm3 (4.0-10.0)
[2021-03-29 11:09] LABS: CALCIUM 8.5 mg/dL (8.5-10.1)
[2021-03-29 11:10] LABS: MAGNESIUM 1.7 mg/dL (1.8-2.4)
[2021-03-29 11:13] LABS: CREATININE 2.8 mg/dL (0.55-1.3)
[2021-03-29] MEDS: oxyCODONE HCL 5 MG TABLET PO PRN (13:20)
[2021-03-29 14:27] VITALS: BP 122/69; PULSE 64; TEMP 98.4
[2021-03-29 14:37] LABS: PHOSPHOROUS 4.8 mg/dL (2.5-4.9)
== END 2021-03-29 16:18 | DRG 660 ==
LOC: JER 16:47 → JERBED 20:52 → J6S 03-17 03:10
PROVIDERS: ADMIT Internal Medicine; ATTEND Family Medicine
PROC: BT14ZZZ Fluoroscopy of Kidneys, Ureters and Bladder (ICD-10-PCS; 2021-03-17)
PROC: 0TC68ZZ Extirpation of Matter from Right Ureter, Via Natural or Artificial Opening Endoscopic (ICD-10-PCS; principal; 2021-03-17 15:30)
PROC: 0T788DZ Dilation of Bilateral Ureters with Intraluminal Device, Via Natural or Artificial Opening Endoscopic (ICD-10-PCS; 2021-03-17 15:30)
PROC: 0TP98DZ Removal of Intraluminal Device from Ureter, Via Natural or Artificial Opening Endoscopic (ICD-10-PCS; 2021-03-17 15:30)
PROC: 0T9030Z Drainage of Right Kidney with Drainage Device, Percutaneous Approach (ICD-10-PCS; 2021-03-22)
PROC: 0T9030Z Drainage of Right Kidney with Drainage Device, Percutaneous Approach (ICD-10-PCS; 2021-03-24)
DX: N17.9 Acute kidney failure, unspecified (principal); N39.0 Urinary tract infection, site not specified; Z68.42 Body mass index [BMI] 45.0-49.9, adult; N13.6 Pyonephrosis; E78.5 Hyperlipidemia, unspecified; J45.909 Unspecified asthma, uncomplicated; J44.9 Chronic obstructive pulmonary disease, unspecified; Z79.4 Long term (current) use of insulin; I12.9 Hypertensive chronic kidney disease with stage 1 through stage 4 chronic kidney disease, or unspecified chronic kidney disease; R31.9 Hematuria, unspecified; R30.0 Dysuria; N18.9 Chronic kidney disease, unspecified; D64.9 Anemia, unspecified; E87.5 Hyperkalemia; E11.610 Type 2 diabetes mellitus with diabetic neuropathic arthropathy; E11.65 Type 2 diabetes mellitus with hyperglycemia; E66.01 Morbid (severe) obesity due to excess calories
CPT/HCPCS: 36415; 36430; 50432; 71045-TC-FY; 74176-TC; 76775-TC; 76856-TC; 76942-TC; 80048; 80053; 81003; 82010; 82248; 82550; 82570; 82728; 82803; 82962; 83036; 83540; 83550; 83605; 83615; 83735; 83880; 84100; 84300; 84484; 85025; 85027; 85610; 85730; 86140; 86850; 86900; 86901; 86922; 87040; 87070; 87075; 87086; 87102; 87116; 87205; 87210; 88300-TC; 93005; 93010; 94760; 97116-GP; 97162-GP; 99285-25; C1729; C1769; C9803; J0131; P9058; U0003; U0005

== ENCOUNTER 2021-11-01 16:58 | Inpatient (IN) | payer OTHER ==
[2021-11-01 17:07] VITALS: BMI 45.3
[2021-11-01] MEDS ORDERED: ACETAMINOPHEN 1000 MG/100 ML BAG IVPB ONE (19:25)
[2021-11-01] MEDS ORDERED: SODIUM CHLORIDE 0.9% 500 ML INFUS.BAG IV ONE (19:25)
[2021-11-01] MEDS ORDERED: ACETAMINOPHEN INJECTION 100 ML IVPB ONE (19:48)
[2021-11-01 20:15] LABS: BASO % 0.9 % (0-2.0); EOS % 3.1 % (0-4.5); HEMATOCRIT 30.1 % (32.4-45.2); LYMPH % 21.7 % (8-40); MCH 28.8 pg (25.7-33.7); MCHC 33.1 g/dl (32.0-36.0); MEAN CELL VOLUME 87.1 fl (80-96); MEAN PLT VOLUME 7.7 fl (7.5-11.1); MONO % 9.7 % (3.8-10.2); NEUT % 64.6 % (42.8-82.8); PLATELET COUNT 293 10^3/uL (134-434); RBC 3.45 M/mm3 (3.60-5.2); RDW 14.8 % (11.6-15.6); WHITE BLOOD COUNT 6.3 K/mm3 (4.0-10.0)
[2021-11-01 20:16] LABS: CALCIUM 8.4 mg/dL (8.5-10.1)
[2021-11-01 20:18] LABS: ALBUMIN 2.3 g/dl (3.4-5.0); BLOOD UREA NITROGEN 49.6 mg/dL (7-18)
[2021-11-01 20:20] LABS: CREATININE 2.8 mg/dL (0.55-1.3)
[2021-11-01 20:21] LABS: TOT PROT 6.4 g/dl (6.4-8.2)
[2021-11-01 20:22] LABS: BILIRUBIN,TOTAL 0.1 mg/dL (0.2-1)
[2021-11-01 23:38] LABS: EPI CELLS >36 /uL (0-25.1); HYALINE CASTS 9 /uL (0-3.1); PH,URINE 6.5 (5.0-8.0); URINE APPEARANCE TURBID; URINE BACTERIA 6230 /uL (0-1359); URINE BILIRUBIN NEGATIVE (NEGATIVE); URINE COLOR YELLOW; URINE GLUCOSE (UA) NEGATIVE (NEGATIVE); URINE KETONE NEGATIVE (NEGATIVE); URINE LEUK ESTERASE 3+ (NEGATIVE); URINE NITRITE POSITIVE (NEGATIVE); URINE PROTEIN 4+ (NEGATIVE); URINE UROBILINOGEN 0.2 mg/dL (0.2-1.0); URINE WBC 9082 /uL (0-25.8)
[2021-11-01] MEDS ORDERED: CEFTRIAXONE 1 GM in DEXTROSE 5%-WATER - 100 ML IVPB ONE (23:40)
[2021-11-01] MEDS ORDERED: CEFTRIAXONE 1 GM/50 ML BAG ONE (23:51)
[2021-11-02 00:20] LABS: URINE RBC 166.6 /uL (0-23.9); YEAST NONE SEEN (NEGATIVE)
[2021-11-02] MEDS ORDERED: SODIUM CHLORIDE 1,000 ML IV SCH (01:45)
[2021-11-02] MEDS ORDERED: INSULIN (LEVEMIR) 100 UNITS/ML UNITS SQ ONE (01:50)
[2021-11-02] MEDS ORDERED: ALBUTEROL SO4 2.5/IPRATROPIUM 0.5 INH SOL 3 ML VIAL.NEB. NEB PRN (01:54)
[2021-11-02] MEDS ORDERED: PIPERACILLIN/TAZOB 2.25 GM 2.25 GM/50 ML BAG IVPB ONE (01:56)
[2021-11-02] MEDS: PIPERACILLIN/TAZOB 2.25 GM 2.25 GM in DEXTROSE 5%-WATER - 50 ML IVPB SCH ×5 (02:12→19:24)
[2021-11-02] MEDS: FLUCONAZOLE 100 MG TABLET (UD) PO SCH ×2 (02:12→09:24)
[2021-11-02] MEDS: TAMSULOSIN HCL 0.4 MG CAP PO SCH ×4 (02:12→21:26)
[2021-11-02] MEDS ORDERED: DEXTROSE 5%-WATER - 50 ML IVPB ONE ×3 (05:07→11:06)
[2021-11-02] MEDS ORDERED: PIPERACILLIN/TAZOBACTAM 2.25 GM VIAL IVPB ONE ×2 (05:07→09:20)
[2021-11-02] MEDS ORDERED: amLODIPine BESYLATE 5 MG TABLET (FP) PO ONE (05:15)
[2021-11-02] MEDS ORDERED: LOSARTAN POTASSIUM 50 MG TABLET PO ONE (05:15)
[2021-11-02] MEDS ORDERED: cefTRIAXone SODIUM 1 GM VIAL ONE (11:06)
[2021-11-02] MEDS: amLODIPine BESYLATE 5 MG TABLET (FP) PO SCH (11:09)
[2021-11-02] MEDS: CEFTRIAXONE 1 GM in DEXTROSE 5%-WATER - 50 ML IVPB SCH (11:09)
[2021-11-02] MEDS: CARVEDILOL 25 MG TABLET (FP) PO SCH ×2 (11:09→21:26)
[2021-11-02] MEDS ORDERED: INSULIN (NOVOLOG) ASPART 100 UNITS/ML 10ML VIAL ONE (11:33)
[2021-11-02] MEDS: INSULIN SLIDING SCALE (NOVOLOG) 1 VIAL SQ SCH ×3 (12:03→21:28)
[2021-11-02] MEDS: HYDROCORTISONE 1% TOPICAL CREAM 30 GM TUBE TP SCH ×2 (16:46→21:27)
[2021-11-02] MEDS: NYSTATIN POWDER 100,000 UNITS/GM - 15 GM TOPICAL POWDER TP SCH (16:47)
[2021-11-02] MEDS: INSULIN (LEVEMIR) 100 UNITS/ML UNITS SQ SCH (21:26)
[2021-11-02] MEDS ORDERED: EZETIMIBE 10 MG TABLET (FP) PO SCH (22:00)
[2021-11-02] MEDS ORDERED: ATORVASTATIN CA 40 MG TABLET (FP) PO SCH (22:00)
[2021-11-02] MEDS ORDERED: MELATONIN 5 MG TABLETS PO PRN (23:28)
[2021-11-02] MEDS ORDERED: ACETAMINOPHEN 1000 MG/100 ML BAG IVPB ONE (23:28)
[2021-11-03] MEDS: BUDESONIDE/FORMETEROL FUMARATE 160/4.5 mcg INHALER IH SCH ×3 (01:18→21:01)
[2021-11-03] MEDS: INSULIN SLIDING SCALE (NOVOLOG) 1 VIAL SQ SCH ×4 (06:10→21:01)
[2021-11-03] MEDS: INSULIN (LEVEMIR) 100 UNITS/ML UNITS SQ SCH ×2 (06:11→21:00)
[2021-11-03 08:38] LABS: INR 1.03 (0.83-1.09); PROTHROMBIN TIME (PATIENT) 11.8 SEC (9.7-13.0)
[2021-11-03 08:41] LABS: ACTIVATED PTT 21.9 SECONDS (25.2-36.5)
[2021-11-03] MEDS: amLODIPine BESYLATE 5 MG TABLET (FP) PO SCH ×2 (08:46→10:44)
[2021-11-03] MEDS: CARVEDILOL 25 MG TABLET (FP) PO SCH ×3 (08:46→21:13)
[2021-11-03 08:47] LABS: BASO % 0.6 % (0-2.0); EOS % 2.9 % (0-4.5); HEMATOCRIT 28.5 % (32.4-45.2); HEMOGLOBIN 9.1 GM/dL (10.7-15.3); LYMPH % 23.5 % (8-40); MCH 28.8 pg (25.7-33.7); MCHC 32.1 g/dl (32.0-36.0); MEAN CELL VOLUME 89.6 fl (80-96); MEAN PLT VOLUME 7.8 fl (7.5-11.1); MONO % 8.7 % (3.8-10.2); NEUT % 64.3 % (42.8-82.8); PLATELET COUNT 241 10^3/uL (134-434); RBC 3.18 M/mm3 (3.60-5.2); RDW 14.8 % (11.6-15.6); WHITE BLOOD COUNT 5.3 K/mm3 (4.0-10.0)
[2021-11-03 09:05] LABS: ALBUMIN 2.1 g/dl (3.4-5.0); CALCIUM 8.6 mg/dL (8.5-10.1)
[2021-11-03 09:06] LABS: BLOOD UREA NITROGEN 49.7 mg/dL (7-18)
[2021-11-03 09:08] LABS: CREATININE 3.1 mg/dL (0.55-1.3); PHOSPHOROUS 5.4 mg/dL (2.5-4.9)
[2021-11-03 09:09] LABS: BILIRUBIN,TOTAL 0.3 mg/dL (0.2-1); TOT PROT 5.7 g/dl (6.4-8.2)
[2021-11-03] MEDS ORDERED: ONDANSETRON 4 MG/2 ML VIAL IVPUSH PRN ×2 (09:52→12:34)
[2021-11-03] MEDS ORDERED: cefTRIAXone SODIUM 1 GM VIAL ONE (09:53)
[2021-11-03] MEDS ORDERED: DEXTROSE 5%-WATER - 50 ML IVPB ONE (09:53)
[2021-11-03] MEDS: CEFTRIAXONE 1 GM in DEXTROSE 5%-WATER - 50 ML IVPB SCH (09:56)
[2021-11-03] MEDS ORDERED: LACTATED RINGERS SOLUTION 1,000 ML IV SCH ×2 (10:00→12:34)
[2021-11-03] MEDS ORDERED: PROPOFOL 20 ML ONE (11:07)
[2021-11-03] MEDS ORDERED: SUCCINYLCHOLINE CHLORIDE 200 MG/10 ML SYRINGE ONE (11:07)
[2021-11-03] MEDS ORDERED: FENTANYL CITRATE/PF 50 MCG/ML VIAL ONE ×3 (11:07→11:39)
[2021-11-03] MEDS ORDERED: MIDAZOLAM HCL 2 MG/2 ML SINGLE DOSE VIAL ONE ×3 (11:08→11:55)
[2021-11-03] MEDS ORDERED: PHENYLEPHRINE HCL 10 MG/1 ML SINGLE DOSE VIAL ONE (11:51)
[2021-11-03] MEDS ORDERED: ALBUTEROL SO4 2.5/IPRATROPIUM 0.5 INH SOL 3 ML VIAL.NEB. NEB PRN (12:34)
[2021-11-03] MEDS ORDERED: FENTANYL CITRATE/PF 50 MCG/ML VIAL IVPUSH PRN ×2 (12:34)
[2021-11-03] MEDS ORDERED: VANCOMYCIN/WATER FOR INJ (PEG) 1,000 MG/200 ML BAG IVPB ONE (14:45)
[2021-11-03] MEDS: TAMSULOSIN HCL 0.4 MG CAP PO SCH ×2 (14:46→21:13)
[2021-11-03] MEDS: FLUCONAZOLE 100 MG TABLET (UD) PO SCH (14:46)
[2021-11-03] MEDS: NYSTATIN POWDER 100,000 UNITS/GM - 15 GM TOPICAL POWDER TP SCH (14:46)
[2021-11-03] MEDS: HYDROCORTISONE 1% TOPICAL CREAM 30 GM TUBE TP SCH ×2 (14:46→21:14)
[2021-11-03] MEDS: SODIUM CHLORIDE NASAL SPRAY 44 ML BOTTLE NS PRN (16:28)
[2021-11-03] MEDS ORDERED: INSULIN (NOVOLOG) ASPART 100 UNITS/ML 10ML VIAL ONE (20:57)
[2021-11-03] MEDS ORDERED: INSULIN (LEVEMIR) 100 UNITS/ML UNITS SQ ONE (20:57)
[2021-11-03] MEDS: EZETIMIBE 10 MG TABLET (FP) PO SCH (21:13)
[2021-11-03] MEDS: ATORVASTATIN CA 40 MG TABLET (FP) PO SCH (21:13)
[2021-11-04] MEDS: MELATONIN 5 MG TABLETS PO PRN ×2 (01:01→22:07)
[2021-11-04] MEDS: INSULIN (LEVEMIR) 100 UNITS/ML UNITS SQ SCH ×2 (06:16→22:09)
[2021-11-04] MEDS: INSULIN SLIDING SCALE (NOVOLOG) 1 VIAL SQ SCH ×4 (06:17→22:05)
[2021-11-04] MEDS ORDERED: cefTRIAXone SODIUM 1 GM VIAL ONE (09:46)
[2021-11-04] MEDS ORDERED: DEXTROSE 5%-WATER - 50 ML IVPB ONE (09:47)
[2021-11-04] MEDS: CARVEDILOL 25 MG TABLET (FP) PO SCH ×2 (09:53→22:05)
[2021-11-04] MEDS: amLODIPine BESYLATE 5 MG TABLET (FP) PO SCH (09:53)
[2021-11-04] MEDS: TAMSULOSIN HCL 0.4 MG CAP PO SCH ×2 (09:54→22:05)
[2021-11-04] MEDS: CEFTRIAXONE 1 GM in DEXTROSE 5%-WATER - 50 ML IVPB SCH (09:55)
[2021-11-04] MEDS: NYSTATIN POWDER 100,000 UNITS/GM - 15 GM TOPICAL POWDER TP SCH (10:00)
[2021-11-04] MEDS ORDERED: FLUCONAZOLE 100 MG TABLET (UD) PO SCH (10:00)
[2021-11-04] MEDS: SODIUM BICARBONATE 8.4% - 75 MEQ in SODIUM CHLORIDE 0.45% 1,000 ML IV SCH (10:01)
[2021-11-04] MEDS: BUDESONIDE/FORMETEROL FUMARATE 160/4.5 mcg INHALER IH SCH ×2 (10:01→22:06)
[2021-11-04 10:47] LABS: CALCIUM 8.6 mg/dL (8.5-10.1)
[2021-11-04 10:48] LABS: ALBUMIN 2.2 g/dl (3.4-5.0); BLOOD UREA NITROGEN 54.4 mg/dL (7-18)
[2021-11-04 10:51] LABS: CREATININE 3.5 mg/dL (0.55-1.3); PHOSPHOROUS 5.8 mg/dL (2.5-4.9)
[2021-11-04 10:52] LABS: BILIRUBIN,TOTAL 0.2 mg/dL (0.2-1)
[2021-11-04] MEDS ORDERED: SODIUM ZIRCONIUM CYCLOSILICATE (LOKELMA) 5 GM PACKET PO SCH (11:39)
[2021-11-04 12:21] LABS: BASO % 0.6 % (0-2.0); EOS % 3.3 % (0-4.5); HEMATOCRIT 26.8 % (32.4-45.2); HEMOGLOBIN 8.6 GM/dL (10.7-15.3); MCH 28.6 pg (25.7-33.7); MCHC 32.1 g/dl (32.0-36.0); MEAN CELL VOLUME 89.2 fl (80-96); MEAN PLT VOLUME 7.9 fl (7.5-11.1); MONO % 9.1 % (3.8-10.2); PLATELET COUNT 221 10^3/uL (134-434); RBC 3.01 M/mm3 (3.60-5.2); RDW 14.5 % (11.6-15.6); WHITE BLOOD COUNT 5.6 K/mm3 (4.0-10.0)
[2021-11-04] MEDS: HYDROCORTISONE 1% TOPICAL CREAM 30 GM TUBE TP SCH ×2 (12:27→22:08)
[2021-11-04] MEDS ORDERED: VANCOMYCIN/WATER FOR INJ (PEG) 1,000 MG/200 ML BAG IVPB ONE (15:30)
[2021-11-04] MEDS: POLYETHYLENE GLYCOL (HEALTHYLAX) 3350 17 GM PACKET PO SCH (22:04)
[2021-11-04] MEDS: SODIUM ZIRCONIUM CYCLOSILICATE (LOKELMA) 5 GM PACKET PO SCH (22:04)
[2021-11-04] MEDS: EZETIMIBE 10 MG TABLET (FP) PO SCH (22:05)
[2021-11-04] MEDS: ATORVASTATIN CA 40 MG TABLET (FP) PO SCH (22:05)
[2021-11-05] MEDS: INSULIN (LEVEMIR) 100 UNITS/ML UNITS SQ SCH ×2 (06:11→21:07)
[2021-11-05] MEDS: INSULIN SLIDING SCALE (NOVOLOG) 1 VIAL SQ SCH ×4 (06:11→21:08)
[2021-11-05] MEDS ORDERED: cefTRIAXone SODIUM 1 GM VIAL ONE (09:49)
[2021-11-05] MEDS ORDERED: DEXTROSE 5%-WATER - 50 ML IVPB ONE (09:49)
[2021-11-05] MEDS: CARVEDILOL 25 MG TABLET (FP) PO SCH ×2 (09:51→21:07)
[2021-11-05] MEDS: CEFTRIAXONE 1 GM in DEXTROSE 5%-WATER - 50 ML IVPB SCH (09:51)
[2021-11-05] MEDS: POLYETHYLENE GLYCOL (HEALTHYLAX) 3350 17 GM PACKET PO SCH ×2 (09:51→21:07)
[2021-11-05] MEDS: amLODIPine BESYLATE 5 MG TABLET (FP) PO SCH (09:51)
[2021-11-05] MEDS: TAMSULOSIN HCL 0.4 MG CAP PO SCH ×2 (09:51→21:07)
[2021-11-05] MEDS: BUDESONIDE/FORMETEROL FUMARATE 160/4.5 mcg INHALER IH SCH ×2 (09:52→21:08)
[2021-11-05] MEDS: NYSTATIN POWDER 100,000 UNITS/GM - 15 GM TOPICAL POWDER TP SCH (09:52)
[2021-11-05] MEDS: HYDROCORTISONE 1% TOPICAL CREAM 30 GM TUBE TP SCH ×2 (09:52→21:07)
[2021-11-05 09:55] LABS: BASO % 0.7 % (0-2.0); EOS % 3.3 % (0-4.5); HEMATOCRIT 30.4 % (32.4-45.2); HEMOGLOBIN 9.7 GM/dL (10.7-15.3); LYMPH % 17.6 % (8-40); MCH 28.9 pg (25.7-33.7); MEAN CELL VOLUME 90.3 fl (80-96); MEAN PLT VOLUME 7.8 fl (7.5-11.1); MONO % 7.6 % (3.8-10.2); NEUT % 70.8 % (42.8-82.8); PLATELET COUNT 234 10^3/uL (134-434); RBC 3.36 M/mm3 (3.60-5.2); RDW 14.9 % (11.6-15.6)
[2021-11-05] MEDS ORDERED: SODIUM ZIRCONIUM CYCLOSILICATE (LOKELMA) 5 GM PACKET PO SCH (10:00)
[2021-11-05 11:03] LABS: ALBUMIN 2.4 g/dl (3.4-5.0); CALCIUM 8.8 mg/dL (8.5-10.1)
[2021-11-05 11:04] LABS: BLOOD UREA NITROGEN 56.7 mg/dL (7-18)
[2021-11-05] MEDS ORDERED: INSULIN (NOVOLOG) ASPART 100 UNITS/ML 10ML VIAL ONE (11:05)
[2021-11-05 11:06] LABS: PHOSPHOROUS 5.6 mg/dL (2.5-4.9)
[2021-11-05 11:07] LABS: CREATININE 3.5 mg/dL (0.55-1.3)
[2021-11-05 11:08] LABS: BILIRUBIN,TOTAL 0.2 mg/dL (0.2-1)
[2021-11-05 11:10] LABS: TOT PROT 6.3 g/dl (6.4-8.2)
[2021-11-05] MEDS: SODIUM BICARBONATE 8.4% - 75 MEQ in SODIUM CHLORIDE 0.45% 1,000 ML IV SCH (11:18)
[2021-11-05] MEDS: SODIUM ZIRCONIUM CYCLOSILICATE (LOKELMA) 5 GM PACKET PO SCH (12:14)
[2021-11-05] MEDS: SODIUM BICARBONATE 8.4% - 150 MEQ in DEXTROSE 5%-WATER - 1,000 ML IV SCH (15:13)
[2021-11-05] MEDS: DOCUSATE SODIUM 100 MG CAPSULE (FP) PO SCH (21:06)
[2021-11-05] MEDS: ATORVASTATIN CA 40 MG TABLET (FP) PO SCH (21:07)
[2021-11-05] MEDS: EZETIMIBE 10 MG TABLET (FP) PO SCH (21:08)
[2021-11-06] MEDS: SODIUM BICARBONATE 8.4% - 150 MEQ in DEXTROSE 5%-WATER - 1,000 ML IV SCH ×3 (05:05→16:52)
[2021-11-06] MEDS: INSULIN (LEVEMIR) 100 UNITS/ML UNITS SQ SCH ×2 (06:47→21:29)
[2021-11-06] MEDS: INSULIN SLIDING SCALE (NOVOLOG) 1 VIAL SQ SCH ×4 (06:51→21:30)
[2021-11-06] MEDS ORDERED: DEXTROSE 5%-WATER - 50 ML IVPB ONE (10:08)
[2021-11-06] MEDS ORDERED: cefTRIAXone SODIUM 1 GM VIAL ONE (10:08)
[2021-11-06] MEDS: amLODIPine BESYLATE 5 MG TABLET (FP) PO SCH (10:14)
[2021-11-06] MEDS: CARVEDILOL 25 MG TABLET (FP) PO SCH ×2 (10:14→21:11)
[2021-11-06] MEDS: TAMSULOSIN HCL 0.4 MG CAP PO SCH ×2 (10:14→21:11)
[2021-11-06] MEDS: POLYETHYLENE GLYCOL (HEALTHYLAX) 3350 17 GM PACKET PO SCH ×2 (10:14→21:11)
[2021-11-06] MEDS: SODIUM ZIRCONIUM CYCLOSILICATE (LOKELMA) 5 GM PACKET PO SCH (10:14)
[2021-11-06] MEDS: CEFTRIAXONE 1 GM in DEXTROSE 5%-WATER - 50 ML IVPB SCH (10:15)
[2021-11-06] MEDS: BUDESONIDE/FORMETEROL FUMARATE 160/4.5 mcg INHALER IH SCH ×2 (10:18→21:31)
[2021-11-06] MEDS: NYSTATIN POWDER 100,000 UNITS/GM - 15 GM TOPICAL POWDER TP SCH (10:19)
[2021-11-06 10:40] LABS: BASO % 0.6 % (0-2.0); EOS % 3.7 % (0-4.5); HEMATOCRIT 27.2 % (32.4-45.2); HEMOGLOBIN 8.9 GM/dL (10.7-15.3); LYMPH % 13.7 % (8-40); MCH 28.6 pg (25.7-33.7); MCHC 32.7 g/dl (32.0-36.0); MEAN CELL VOLUME 87.7 fl (80-96); MEAN PLT VOLUME 8.1 fl (7.5-11.1); MONO % 8.2 % (3.8-10.2); NEUT % 73.8 % (42.8-82.8); PLATELET COUNT 235 10^3/uL (134-434); RDW 14.9 % (11.6-15.6); WHITE BLOOD COUNT 6.5 K/mm3 (4.0-10.0)
[2021-11-06 11:08] LABS: ALBUMIN 2.3 g/dl (3.4-5.0); BLOOD UREA NITROGEN 58.6 mg/dL (7-18); CALCIUM 8.5 mg/dL (8.5-10.1); MAGNESIUM 1.9 mg/dL (1.8-2.4)
[2021-11-06 11:11] LABS: CREATININE 3.4 mg/dL (0.55-1.3); PHOSPHOROUS 5.4 mg/dL (2.5-4.9); URIC ACID 7.2 mg/dL (2.6-7.2)
[2021-11-06 11:13] LABS: BILIRUBIN,TOTAL 0.2 mg/dL (0.2-1); TOT PROT 6.1 g/dl (6.4-8.2)
[2021-11-06] MEDS: HYDROCORTISONE 1% TOPICAL CREAM 30 GM TUBE TP SCH ×2 (12:25→21:29)
[2021-11-06] MEDS ORDERED: SODIUM BICARBONATE 8.4% - 150 MEQ in DEXTROSE 5%-WATER - 1,000 ML IV SCH (16:00)
[2021-11-06] MEDS ORDERED: INSULIN (NOVOLOG) ASPART 100 UNITS/ML 10ML VIAL ONE (21:06)
[2021-11-06] MEDS: ATORVASTATIN CA 40 MG TABLET (FP) PO SCH (21:11)
[2021-11-06] MEDS: EZETIMIBE 10 MG TABLET (FP) PO SCH (21:11)
[2021-11-06] MEDS: DOCUSATE SODIUM 100 MG CAPSULE (FP) PO SCH (21:11)
[2021-11-06] MEDS: MELATONIN 5 MG TABLETS PO PRN (21:28)
[2021-11-07] MEDS: INSULIN SLIDING SCALE (NOVOLOG) 1 VIAL SQ SCH ×4 (06:23→22:13)
[2021-11-07] MEDS: INSULIN (LEVEMIR) 100 UNITS/ML UNITS SQ SCH ×2 (06:24→22:12)
[2021-11-07 08:56] LABS: BASO % 0.3 % (0-2.0); EOS % 2.1 % (0-4.5); HEMOGLOBIN 8.4 GM/dL (10.7-15.3); LYMPH % 12.4 % (8-40); MCH 28.3 pg (25.7-33.7); MCHC 32.2 g/dl (32.0-36.0); MEAN CELL VOLUME 87.9 fl (80-96); MEAN PLT VOLUME 8.6 fl (7.5-11.1); MONO % 7.4 % (3.8-10.2); NEUT % 77.8 % (42.8-82.8); PLATELET COUNT 204 10^3/uL (134-434); RBC 2.95 M/mm3 (3.60-5.2); RDW 14.6 % (11.6-15.6); WHITE BLOOD COUNT 9.8 K/mm3 (4.0-10.0)
[2021-11-07] MEDS: CARVEDILOL 25 MG TABLET (FP) PO SCH ×2 (09:07→22:00)
[2021-11-07] MEDS: amLODIPine BESYLATE 5 MG TABLET (FP) PO SCH (09:07)
[2021-11-07] MEDS: POLYETHYLENE GLYCOL (HEALTHYLAX) 3350 17 GM PACKET PO SCH ×2 (09:07→22:00)
[2021-11-07] MEDS: SODIUM ZIRCONIUM CYCLOSILICATE (LOKELMA) 5 GM PACKET PO SCH (09:07)
[2021-11-07] MEDS: TAMSULOSIN HCL 0.4 MG CAP PO SCH ×2 (09:07→22:00)
[2021-11-07] MEDS: BUDESONIDE/FORMETEROL FUMARATE 160/4.5 mcg INHALER IH SCH ×2 (09:08→22:41)
[2021-11-07] MEDS: HYDROCORTISONE 1% TOPICAL CREAM 30 GM TUBE TP SCH ×3 (09:09→22:25)
[2021-11-07] MEDS: NYSTATIN POWDER 100,000 UNITS/GM - 15 GM TOPICAL POWDER TP SCH (09:09)
[2021-11-07] MEDS: LINEZOLID 600 MG TABLET (RESTRICTED TO ID) PO SCH ×2 (09:10→22:00)
[2021-11-07 09:30] LABS: CALCIUM 8.2 mg/dL (8.5-10.1)
[2021-11-07 09:31] LABS: BLOOD UREA NITROGEN 57.6 mg/dL (7-18); MAGNESIUM 1.8 mg/dL (1.8-2.4)
[2021-11-07 09:34] LABS: BILIRUBIN,TOTAL 0.7 mg/dL (0.2-1)
[2021-11-07 09:35] LABS: TOT PROT 5.4 g/dl (6.4-8.2)
[2021-11-07 09:36] LABS: CREATININE 3.2 mg/dL (0.55-1.3)
[2021-11-07] MEDS: SODIUM BICARBONATE 8.4% - 150 MEQ in DEXTROSE 5%-WATER - 1,000 ML IV SCH (10:46)
[2021-11-07] MEDS: oxyCODONE HCL 5 MG TABLET PO PRN (14:04)
[2021-11-07] MEDS: DOCUSATE SODIUM 100 MG CAPSULE (FP) PO SCH (22:00)
[2021-11-07] MEDS: ATORVASTATIN CA 40 MG TABLET (FP) PO SCH (22:00)
[2021-11-07] MEDS: EZETIMIBE 10 MG TABLET (FP) PO SCH (22:00)
[2021-11-08] MEDS: MELATONIN 5 MG TABLETS PO PRN ×3 (00:01→23:51)
[2021-11-08] MEDS: oxyCODONE HCL 5 MG TABLET PO PRN ×4 (03:19→23:51)
[2021-11-08] MEDS: INSULIN (LEVEMIR) 100 UNITS/ML UNITS SQ SCH ×2 (06:22→23:04)
[2021-11-08] MEDS: INSULIN SLIDING SCALE (NOVOLOG) 1 VIAL SQ SCH ×4 (06:23→23:03)
[2021-11-08] MEDS ORDERED: INSULIN (LEVEMIR) 100 UNITS/ML UNITS SQ ONE (06:49)
[2021-11-08] MEDS: TAMSULOSIN HCL 0.4 MG CAP PO SCH ×2 (09:07→21:52)
[2021-11-08] MEDS ORDERED: INSULIN (NOVOLOG) ASPART 100 UNITS/ML 10ML VIAL ONE (10:28)
[2021-11-08] MEDS: CARVEDILOL 25 MG TABLET (FP) PO SCH ×2 (10:37→21:52)
[2021-11-08] MEDS: amLODIPine BESYLATE 5 MG TABLET (FP) PO SCH (10:37)
[2021-11-08] MEDS: POLYETHYLENE GLYCOL (HEALTHYLAX) 3350 17 GM PACKET PO SCH ×2 (10:37→21:51)
[2021-11-08] MEDS: HYDROCORTISONE 1% TOPICAL CREAM 30 GM TUBE TP SCH ×2 (10:38→21:52)
[2021-11-08] MEDS: NYSTATIN POWDER 100,000 UNITS/GM - 15 GM TOPICAL POWDER TP SCH (10:38)
[2021-11-08] MEDS: BUDESONIDE/FORMETEROL FUMARATE 160/4.5 mcg INHALER IH SCH ×2 (10:38→21:52)
[2021-11-08] MEDS: LINEZOLID 600 MG TABLET (RESTRICTED TO ID) PO SCH ×2 (10:39→21:52)
[2021-11-08 11:10] LABS: BASO % 0.2 % (0-2.0); EOS % 2.8 % (0-4.5); HEMATOCRIT 27.4 % (32.4-45.2); LYMPH % 10.6 % (8-40); MCH 28.7 pg (25.7-33.7); MCHC 32.9 g/dl (32.0-36.0); MEAN CELL VOLUME 87.4 fl (80-96); MEAN PLT VOLUME 8.1 fl (7.5-11.1); MONO % 8.4 % (3.8-10.2); PLATELET COUNT 226 10^3/uL (134-434); RBC 3.13 M/mm3 (3.60-5.2); RDW 14.9 % (11.6-15.6); WHITE BLOOD COUNT 8.7 K/mm3 (4.0-10.0)
[2021-11-08] MEDS: SODIUM ZIRCONIUM CYCLOSILICATE (LOKELMA) 5 GM PACKET PO SCH (11:55)
[2021-11-08 11:56] LABS: ALBUMIN 2.2 g/dl (3.4-5.0); CALCIUM 8.7 mg/dL (8.5-10.1)
[2021-11-08 11:57] LABS: MAGNESIUM 1.9 mg/dL (1.8-2.4)
[2021-11-08 11:58] LABS: BLOOD UREA NITROGEN 60.1 mg/dL (7-18); TOT PROT 6.2 g/dl (6.4-8.2)
[2021-11-08 12:02] LABS: CREATININE 3.5 mg/dL (0.55-1.3)
[2021-11-08 12:10] LABS: BILIRUBIN,TOTAL 0.2 mg/dL (0.2-1)
[2021-11-08] MEDS: SODIUM CHLORIDE NASAL SPRAY 44 ML BOTTLE NS PRN (17:40)
[2021-11-08] MEDS: DOCUSATE SODIUM 100 MG CAPSULE (FP) PO SCH (21:51)
[2021-11-08] MEDS: ATORVASTATIN CA 40 MG TABLET (FP) PO SCH (21:52)
[2021-11-08] MEDS: EZETIMIBE 10 MG TABLET (FP) PO SCH (21:52)
[2021-11-09] MEDS: oxyCODONE HCL 5 MG TABLET PO PRN (04:59)
[2021-11-09] MEDS: INSULIN (LEVEMIR) 100 UNITS/ML UNITS SQ SCH ×2 (06:12→21:04)
[2021-11-09] MEDS: INSULIN SLIDING SCALE (NOVOLOG) 1 VIAL SQ SCH ×4 (06:12→21:06)
[2021-11-09] MEDS ORDERED: INSULIN (NOVOLOG) ASPART 100 UNITS/ML 10ML VIAL ONE (06:41)
[2021-11-09 09:37] LABS: BASO % 0.5 % (0-2.0); EOS % 4.7 % (0-4.5); HEMATOCRIT 23.4 % (32.4-45.2); HEMOGLOBIN 7.6 GM/dL (10.7-15.3); LYMPH % 19.4 % (8-40); MCH 28.7 pg (25.7-33.7); MCHC 32.3 g/dl (32.0-36.0); MEAN CELL VOLUME 88.6 fl (80-96); MEAN PLT VOLUME 8.5 fl (7.5-11.1); MONO % 7.6 % (3.8-10.2); NEUT % 67.8 % (42.8-82.8); PLATELET COUNT 201 10^3/uL (134-434); RBC 2.64 M/mm3 (3.60-5.2); RDW 14.5 % (11.6-15.6); WHITE BLOOD COUNT 6.6 K/mm3 (4.0-10.0)
[2021-11-09] MEDS: POLYETHYLENE GLYCOL (HEALTHYLAX) 3350 17 GM PACKET PO SCH ×2 (09:45→20:59)
[2021-11-09] MEDS: CARVEDILOL 25 MG TABLET (FP) PO SCH ×2 (09:46→20:59)
[2021-11-09] MEDS: amLODIPine BESYLATE 5 MG TABLET (FP) PO SCH (09:46)
[2021-11-09] MEDS: TAMSULOSIN HCL 0.4 MG CAP PO SCH ×2 (09:47→20:59)
[2021-11-09] MEDS: SODIUM ZIRCONIUM CYCLOSILICATE (LOKELMA) 5 GM PACKET PO SCH (09:47)
[2021-11-09] MEDS: LINEZOLID 600 MG TABLET (RESTRICTED TO ID) PO SCH ×2 (09:47→22:43)
[2021-11-09] MEDS: NYSTATIN POWDER 100,000 UNITS/GM - 15 GM TOPICAL POWDER TP SCH (09:49)
[2021-11-09] MEDS: HYDROCORTISONE 1% TOPICAL CREAM 30 GM TUBE TP SCH ×2 (09:49→21:07)
[2021-11-09] MEDS: BUDESONIDE/FORMETEROL FUMARATE 160/4.5 mcg INHALER IH SCH ×2 (09:49→21:05)
[2021-11-09 10:14] LABS: ALBUMIN 1.9 g/dl (3.4-5.0); BLOOD UREA NITROGEN 61.1 mg/dL (7-18); CALCIUM 8.4 mg/dL (8.5-10.1)
[2021-11-09 10:15] LABS: MAGNESIUM 1.9 mg/dL (1.8-2.4)
[2021-11-09 10:17] LABS: CREATININE 3.7 mg/dL (0.55-1.3)
[2021-11-09 10:19] LABS: BILIRUBIN,TOTAL 0.8 mg/dL (0.2-1); TOT PROT 5.3 g/dl (6.4-8.2)
[2021-11-09] MEDS: SODIUM BICARBONATE 650 MG TABLET PO SCH ×2 (11:13→20:59)
[2021-11-09] MEDS ORDERED: FUROSEMIDE 40 MG/4 ML INJECTABLE VIAL IVPUSH ONE (14:37)
[2021-11-09] MEDS: ATORVASTATIN CA 40 MG TABLET (FP) PO SCH (20:59)
[2021-11-09] MEDS: MELATONIN 5 MG TABLETS PO PRN (20:59)
[2021-11-09] MEDS: DOCUSATE SODIUM 100 MG CAPSULE (FP) PO SCH (20:59)
[2021-11-09] MEDS: EZETIMIBE 10 MG TABLET (FP) PO SCH (20:59)
[2021-11-10] MEDS: INSULIN SLIDING SCALE (NOVOLOG) 1 VIAL SQ SCH ×4 (06:03→21:16)
[2021-11-10] MEDS: INSULIN (LEVEMIR) 100 UNITS/ML UNITS SQ SCH ×2 (06:27→21:15)
[2021-11-10] MEDS: TAMSULOSIN HCL 0.4 MG CAP PO SCH ×2 (09:25→21:15)
[2021-11-10 09:38] LABS: BASO % 0.6 % (0-2.0); EOS % 6.2 % (0-4.5); HEMATOCRIT 23.6 % (32.4-45.2); HEMOGLOBIN 7.8 GM/dL (10.7-15.3); LYMPH % 19.6 % (8-40); MCHC 33.2 g/dl (32.0-36.0); MEAN CELL VOLUME 87.3 fl (80-96); MEAN PLT VOLUME 8.4 fl (7.5-11.1); MONO % 9.2 % (3.8-10.2); NEUT % 64.4 % (42.8-82.8); PLATELET COUNT 191 10^3/uL (134-434); RBC 2.71 M/mm3 (3.60-5.2); RDW 14.7 % (11.6-15.6); WHITE BLOOD COUNT 5.1 K/mm3 (4.0-10.0)
[2021-11-10 10:06] LABS: ALBUMIN 1.9 g/dl (3.4-5.0)
[2021-11-10 10:07] LABS: BLOOD UREA NITROGEN 58.4 mg/dL (7-18); CREATININE 3.6 mg/dL (0.55-1.3)
[2021-11-10 10:08] LABS: BILIRUBIN,TOTAL 0.2 mg/dL (0.2-1); CALCIUM 8.6 mg/dL (8.5-10.1); TOT PROT 5.5 g/dl (6.4-8.2)
[2021-11-10 10:09] LABS: MAGNESIUM 1.9 mg/dL (1.8-2.4)
[2021-11-10] MEDS: LINEZOLID 600 MG TABLET (RESTRICTED TO ID) PO SCH ×2 (10:24→21:15)
[2021-11-10] MEDS: TORSEMIDE 20 MG TABLET (FP) PO SCH (10:24)
[2021-11-10] MEDS: amLODIPine BESYLATE 5 MG TABLET (FP) PO SCH (10:24)
[2021-11-10] MEDS: SODIUM ZIRCONIUM CYCLOSILICATE (LOKELMA) 5 GM PACKET PO SCH (10:24)
[2021-11-10] MEDS: SODIUM BICARBONATE 650 MG TABLET PO SCH ×2 (10:25→21:15)
[2021-11-10] MEDS: CARVEDILOL 25 MG TABLET (FP) PO SCH ×2 (10:25→21:15)
[2021-11-10] MEDS: POLYETHYLENE GLYCOL (HEALTHYLAX) 3350 17 GM PACKET PO SCH ×2 (10:25→21:15)
[2021-11-10] MEDS: HYDROCORTISONE 1% TOPICAL CREAM 30 GM TUBE TP SCH ×2 (10:26→21:19)
[2021-11-10] MEDS: NYSTATIN POWDER 100,000 UNITS/GM - 15 GM TOPICAL POWDER TP SCH (10:26)
[2021-11-10] MEDS: BUDESONIDE/FORMETEROL FUMARATE 160/4.5 mcg INHALER IH SCH ×2 (10:26→21:18)
[2021-11-10] MEDS: ATORVASTATIN CA 40 MG TABLET (FP) PO SCH (21:14)
[2021-11-10] MEDS: DOCUSATE SODIUM 100 MG CAPSULE (FP) PO SCH (21:15)
[2021-11-10] MEDS: EZETIMIBE 10 MG TABLET (FP) PO SCH (21:15)
[2021-11-11] MEDS ORDERED: oxyCODONE HCL 5 MG TABLET PO ONE (03:24)
[2021-11-11] MEDS: INSULIN SLIDING SCALE (NOVOLOG) 1 VIAL SQ SCH ×2 (06:14→11:11)
[2021-11-11] MEDS: INSULIN (LEVEMIR) 100 UNITS/ML UNITS SQ SCH (06:14)
[2021-11-11] MEDS: CARVEDILOL 25 MG TABLET (FP) PO SCH (09:29)
[2021-11-11] MEDS: TORSEMIDE 20 MG TABLET (FP) PO SCH (09:29)
[2021-11-11] MEDS: SODIUM BICARBONATE 650 MG TABLET PO SCH (09:29)
[2021-11-11] MEDS: POLYETHYLENE GLYCOL (HEALTHYLAX) 3350 17 GM PACKET PO SCH ×2 (09:29→09:42)
[2021-11-11] MEDS: amLODIPine BESYLATE 5 MG TABLET (FP) PO SCH (09:29)
[2021-11-11] MEDS: TAMSULOSIN HCL 0.4 MG CAP PO SCH (09:29)
[2021-11-11] MEDS: LINEZOLID 600 MG TABLET (RESTRICTED TO ID) PO SCH (09:30)
[2021-11-11] MEDS: SODIUM ZIRCONIUM CYCLOSILICATE (LOKELMA) 5 GM PACKET PO SCH (09:30)
[2021-11-11] MEDS: NYSTATIN POWDER 100,000 UNITS/GM - 15 GM TOPICAL POWDER TP SCH (09:38)
[2021-11-11] MEDS: HYDROCORTISONE 1% TOPICAL CREAM 30 GM TUBE TP SCH (09:40)
[2021-11-11] MEDS: BUDESONIDE/FORMETEROL FUMARATE 160/4.5 mcg INHALER IH SCH (09:40)
[2021-11-11] MEDS ORDERED: oxyCODONE HCL 5 MG TABLET PO PRN (11:00)
[2021-11-11 11:21] VITALS: BP 134/74; PULSE 62; TEMP 97.8
== END 2021-11-11 13:00 | disposition home or self-care (01) | DRG 699 ==
LOC: JER 16:58 → JERBED 23:41 → J8W 11-02 03:55 → J5S 11-04 13:54 → J6S 11-05 02:34
PROVIDERS: ADMIT Hospitalist; ATTEND Nurse Practitioner Family
PROC: 0TP97DZ Removal of Intraluminal Device from Ureter, Via Natural or Artificial Opening (ICD-10-PCS; 2021-11-03)
PROC: 0T777DZ Dilation of Left Ureter with Intraluminal Device, Via Natural or Artificial Opening (ICD-10-PCS; 2021-11-03)
PROC: 0T767DZ Dilation of Right Ureter with Intraluminal Device, Via Natural or Artificial Opening (ICD-10-PCS; principal; 2021-11-03 11:00)
DX: T83.592A Infection and inflammatory reaction due to indwelling ureteral stent, initial encounter (principal); N13.6 Pyonephrosis; Z68.42 Body mass index [BMI] 45.0-49.9, adult; E87.2 Acidosis; E66.01 Morbid (severe) obesity due to excess calories; E11.9 Type 2 diabetes mellitus without complications; J44.9 Chronic obstructive pulmonary disease, unspecified; A49.02 Methicillin resistant Staphylococcus aureus infection, unspecified site; N18.9 Chronic kidney disease, unspecified; Y83.9 Surgical procedure, unspecified as the cause of abnormal reaction of the patient, or of later complication, without mention of misadventure at the time of the procedure; G47.33 Obstructive sleep apnea (adult) (pediatric); E87.5 Hyperkalemia; I10 Essential (primary) hypertension; E88.09 Other disorders of plasma-protein metabolism, not elsewhere classified
CPT/HCPCS: 0241U-QW; 36415; 71045-TC-FY; 74176-TC; 76000-TC-FY; 80048; 80053; 81003; 82570; 82962; 83735; 83880; 84100; 84156; 84300; 84484; 84550; 85025; 85610; 85730; 86850; 86900; 86901; 87040; 87077; 87086; 87186; 93005; 93010; 94640; 94760; 97116-GP; 97162-GP; 99285-25; C9803-CS; G0480; U0003; U0005

== ENCOUNTER 2021-11-17 12:55 | Inpatient (IN) | payer OTHER ==
[2021-11-17] MEDS: ALBUTEROL SO4 2.5/IPRATROPIUM 0.5 INH SOL 3 ML VIAL.NEB. NEB SCH ×4 (16:00→16:53)
[2021-11-17] MEDS ORDERED: ACETAMINOPHEN 1000 MG/100 ML BAG IVPB ONE (16:01)
[2021-11-17] MEDS ORDERED: ALBUTEROL SO4 2.5/IPRATROPIUM 0.5 INH SOL 3 ML VIAL.NEB. NEB ONE (16:02)
[2021-11-17] MEDS ORDERED: ACETAMINOPHEN INJECTION 100 ML IVPB ONE (16:02)
[2021-11-17 16:20] LABS: EOS % 3.9 % (0-4.5); HEMATOCRIT 26.9 % (32.4-45.2); HEMOGLOBIN 8.8 GM/dL (10.7-15.3); LYMPH % 22.8 % (8-40); MCH 28.1 pg (25.7-33.7); MCHC 32.5 g/dl (32.0-36.0); MEAN CELL VOLUME 86.3 fl (80-96); MEAN PLT VOLUME 7.8 fl (7.5-11.1); NEUT % 65.3 % (42.8-82.8); PLATELET COUNT 199 10^3/uL (134-434); RBC 3.11 M/mm3 (3.60-5.2); RDW 14.2 % (11.6-15.6); WHITE BLOOD COUNT 6.2 K/mm3 (4.0-10.0)
[2021-11-17 16:31] LABS: EPI CELLS 6 /uL (0-25.1); HYALINE CASTS 2 /uL (0-3.1); PH,URINE 6.5 (5.0-8.0); URINE APPEARANCE CLOUDY; URINE BACTERIA 53 /uL (0-1359); URINE BILIRUBIN NEGATIVE (NEGATIVE); URINE COLOR YELLOW; URINE GLUCOSE (UA) TRACE (NEGATIVE); URINE KETONE NEGATIVE (NEGATIVE); URINE LEUK ESTERASE 3+ (NEGATIVE); URINE NITRITE NEGATIVE (NEGATIVE); URINE PROTEIN 4+ (NEGATIVE); URINE RBC 86 /uL (0-23.9); URINE UROBILINOGEN 0.2 mg/dL (0.2-1.0); URINE WBC 2120 /uL (0-25.8)
[2021-11-17 16:36] LABS: VENOUS O2 SATURATION 77.4 % (70-80); VENOUS PCO2 38.9 mmHg (38-52); VENOUS PH 7.353 (7.310-7.410)
[2021-11-17 16:45] LABS: INR 1.11 (0.83-1.09); PROTHROMBIN TIME (PATIENT) 12.8 SEC (9.7-13.0)
[2021-11-17 16:47] LABS: ACTIVATED PTT 32.2 SECONDS (25.2-36.5)
[2021-11-17 16:48] LABS: CALCIUM 8.3 mg/dL (8.5-10.1); MAGNESIUM 1.7 mg/dL (1.8-2.4)
[2021-11-17 16:49] LABS: BLOOD UREA NITROGEN 38.2 mg/dL (7-18)
[2021-11-17 16:51] LABS: CREATININE 2.8 mg/dL (0.55-1.3)
[2021-11-17 16:52] LABS: PHOSPHOROUS 4.4 mg/dL (2.5-4.9)
[2021-11-17 16:53] LABS: BILIRUBIN,TOTAL 0.2 mg/dL (0.2-1); TOT PROT 6.4 g/dl (6.4-8.2)
[2021-11-17 16:57] LABS: N-TERMINAL BNP 5670.1 pg/ml (5-125)
[2021-11-17 17:01] LABS: ALBUMIN 2.4 g/dl (3.4-5.0)
[2021-11-17] MEDS ORDERED: ASPIRIN 81 MG CHEWABLE TABLETS PO ONE (18:22)
[2021-11-17] MEDS ORDERED: NITROGLYCERIN SUBLINGUAL 1/150 0.4 MG TAB SL ONE (18:22)
[2021-11-17] MEDS ORDERED: ASPIRIN 81 MG CHEWABLE TABLETS ONE (18:38)
[2021-11-17] MEDS ORDERED: NITROGLYCERIN SUBLINGUAL 1/150 0.4 MG TAB ONE (18:38)
[2021-11-17] MEDS ORDERED: ALBUTEROL SO4 2.5/IPRATROPIUM 0.5 INH SOL 3 ML VIAL.NEB. NEB PRN (22:04)
[2021-11-17] MEDS ORDERED: VANCOMYCIN 750 MG in DEXTROSE 5%-WATER - 150 ML IVPB SCH ×2 (22:15→22:30)
[2021-11-17] MEDS ORDERED: ALPRAZolam 1 MG TABLET PO PRN (22:34)
[2021-11-17] MEDS ORDERED: MELATONIN 5 MG TABLETS PO ONE (22:35)
[2021-11-17] MEDS ORDERED: HEPARIN NA (PORCINE) 5,000 UNITS/ML 1ML VIAL ONE (23:44)
[2021-11-17] MEDS ORDERED: MELATONIN 5 MG TABLETS ONE (23:44)
[2021-11-17] MEDS ORDERED: ALPRAZolam 1 MG TABLET ONE (23:44)
[2021-11-17] MEDS: INSULIN SLIDING SCALE (NOVOLOG) 1 VIAL SQ SCH (23:58)
[2021-11-18] MEDS: BUDESONIDE/FORMETEROL FUMARATE 80/4.5 mcg INHALER IH SCH ×3 (00:02→22:38)
[2021-11-18] MEDS: HEPARIN NA (PORCINE) 5,000 UNITS/ML 1ML VIAL SQ SCH ×4 (00:13→22:36)
[2021-11-18] MEDS ORDERED: MAGNESIUM SULF 50% (8.12 MEQ/2 ML-1 GM VIAL) IVPB ONE ×3 (00:20→05:30)
[2021-11-18 04:32] VITALS: BMI 42.7
[2021-11-18] MEDS: INSULIN SLIDING SCALE (NOVOLOG) 1 VIAL SQ SCH ×4 (06:29→22:36)
[2021-11-18 08:19] LABS: BASO % 0.6 % (0-2.0); EOS % 4.8 % (0-4.5); HEMATOCRIT 24.5 % (32.4-45.2); HEMOGLOBIN 8.2 GM/dL (10.7-15.3); LYMPH % 25.1 % (8-40); MCH 28.6 pg (25.7-33.7); MCHC 33.2 g/dl (32.0-36.0); MEAN PLT VOLUME 7.3 fl (7.5-11.1); MONO % 8.8 % (3.8-10.2); NEUT % 60.7 % (42.8-82.8); PLATELET COUNT 170 10^3/uL (134-434); RBC 2.85 M/mm3 (3.60-5.2); RDW 14.5 % (11.6-15.6); WHITE BLOOD COUNT 5.1 K/mm3 (4.0-10.0)
[2021-11-18 08:48] LABS: CHOLESTEROL 198 mg/dL (50-200); TRIGLYCERIDES 173 mg/dL (0-150)
[2021-11-18 08:55] LABS: HDL CHOLESTEROL 52 mg/dL (40-60); LDL CHOLESTEROL (ONLY SJRH) 120 mg/dL (5-100)
[2021-11-18 09:00] LABS: ALBUMIN 2.2 g/dl (3.4-5.0); BILIRUBIN,TOTAL 0.2 mg/dL (0.2-1); BLOOD UREA NITROGEN 42.2 mg/dL (7-18); CALCIUM 8.2 mg/dL (8.5-10.1); CREATININE 3.1 mg/dL (0.55-1.3); MAGNESIUM 2.1 mg/dL (1.8-2.4); PHOSPHOROUS 4.9 mg/dL (2.5-4.9); TOT PROT 5.7 g/dl (6.4-8.2)
[2021-11-18] MEDS: TORSEMIDE 20 MG TABLET (FP) PO SCH (09:39)
[2021-11-18] MEDS: TAMSULOSIN HCL 0.4 MG CAP PO SCH ×2 (09:39→22:36)
[2021-11-18] MEDS: CARVEDILOL 25 MG TABLET (FP) PO SCH ×2 (09:39→22:35)
[2021-11-18] MEDS: amLODIPine BESYLATE 5 MG TABLET (FP) PO SCH (09:39)
[2021-11-18] MEDS: NYSTATIN POWDER 100,000 UNITS/GM - 15 GM TOPICAL POWDER TP SCH ×2 (09:47→22:37)
[2021-11-18] MEDS ORDERED: UMECLIDINIUM/VILANTEROL (ANORO) 62.5/25 MCG INHALER IH SCH (10:00)
[2021-11-18] MEDS ORDERED: POTASSIUM CHLORIDE TABS 20 MEQ TABLET.ER (FP) PO ONE (10:05)
[2021-11-18] MEDS: ATORVASTATIN CA 20 MG TABLET (FP) PO SCH (22:35)
[2021-11-18] MEDS: EZETIMIBE 10 MG TABLET (FP) PO SCH (22:36)
[2021-11-18] MEDS: MONTELUKAST NA 5 MG TAB.CHEW PO SCH (22:38)
[2021-11-19] MEDS: HEPARIN NA (PORCINE) 5,000 UNITS/ML 1ML VIAL SQ SCH ×3 (06:04→21:31)
[2021-11-19] MEDS: INSULIN SLIDING SCALE (NOVOLOG) 1 VIAL SQ SCH ×4 (06:04→21:33)
[2021-11-19] MEDS: amLODIPine BESYLATE 5 MG TABLET (FP) PO SCH (09:51)
[2021-11-19] MEDS: TORSEMIDE 20 MG TABLET (FP) PO SCH (09:51)
[2021-11-19] MEDS: CARVEDILOL 25 MG TABLET (FP) PO SCH ×2 (09:51→21:32)
[2021-11-19] MEDS: TAMSULOSIN HCL 0.4 MG CAP PO SCH ×2 (09:51→21:32)
[2021-11-19] MEDS: NYSTATIN POWDER 100,000 UNITS/GM - 15 GM TOPICAL POWDER TP SCH ×2 (09:52→21:33)
[2021-11-19] MEDS: BUDESONIDE/FORMETEROL FUMARATE 80/4.5 mcg INHALER IH SCH ×2 (09:53→21:34)
[2021-11-19] MEDS: EZETIMIBE 10 MG TABLET (FP) PO SCH (21:32)
[2021-11-19] MEDS: ATORVASTATIN CA 20 MG TABLET (FP) PO SCH (21:32)
[2021-11-19] MEDS: MONTELUKAST NA 5 MG TAB.CHEW PO SCH (21:34)
[2021-11-20] MEDS ORDERED: MELATONIN 1 MG TABLET PO ONE (02:00)
[2021-11-20] MEDS: HEPARIN NA (PORCINE) 5,000 UNITS/ML 1ML VIAL SQ SCH ×3 (06:00→22:19)
[2021-11-20] MEDS: INSULIN SLIDING SCALE (NOVOLOG) 1 VIAL SQ SCH ×4 (06:00→22:29)
[2021-11-20 07:02] LABS: BASO % 0.6 % (0-2.0); HEMATOCRIT 24.6 % (32.4-45.2); HEMOGLOBIN 8.1 GM/dL (10.7-15.3); LYMPH % 26.3 % (8-40); MCH 28.7 pg (25.7-33.7); MCHC 32.8 g/dl (32.0-36.0); MEAN CELL VOLUME 87.3 fl (80-96); MEAN PLT VOLUME 8.1 fl (7.5-11.1); MONO % 9.2 % (3.8-10.2); NEUT % 58.9 % (42.8-82.8); PLATELET COUNT 188 10^3/uL (134-434); RBC 2.82 M/mm3 (3.60-5.2); RDW 14.6 % (11.6-15.6); WHITE BLOOD COUNT 6.2 K/mm3 (4.0-10.0)
[2021-11-20 07:33] LABS: CALCIUM 8.2 mg/dL (8.5-10.1)
[2021-11-20 07:34] LABS: ALBUMIN 2.3 g/dl (3.4-5.0); BLOOD UREA NITROGEN 61.4 mg/dL (7-18); MAGNESIUM 2.1 mg/dL (1.8-2.4)
[2021-11-20 07:37] LABS: CREATININE 4.2 mg/dL (0.55-1.3)
[2021-11-20 07:38] LABS: BILIRUBIN,TOTAL 0.2 mg/dL (0.2-1); TOT PROT 5.7 g/dl (6.4-8.2)
[2021-11-20] MEDS: TORSEMIDE 20 MG TABLET (FP) PO SCH (10:05)
[2021-11-20] MEDS: amLODIPine BESYLATE 5 MG TABLET (FP) PO SCH (10:06)
[2021-11-20] MEDS: CARVEDILOL 25 MG TABLET (FP) PO SCH ×2 (10:06→22:19)
[2021-11-20] MEDS: TAMSULOSIN HCL 0.4 MG CAP PO SCH ×2 (10:06→22:19)
[2021-11-20] MEDS: BUDESONIDE/FORMETEROL FUMARATE 80/4.5 mcg INHALER IH SCH ×2 (10:07→22:33)
[2021-11-20] MEDS: NYSTATIN POWDER 100,000 UNITS/GM - 15 GM TOPICAL POWDER TP SCH ×2 (10:11→22:29)
[2021-11-20] MEDS: ATORVASTATIN CA 20 MG TABLET (FP) PO SCH (22:12)
[2021-11-20] MEDS: EZETIMIBE 10 MG TABLET (FP) PO SCH (22:19)
[2021-11-20] MEDS: MONTELUKAST NA 5 MG TAB.CHEW PO SCH (22:20)
[2021-11-21] MEDS ORDERED: MELATONIN 5 MG TABLETS PO PRN (00:54)
[2021-11-21] MEDS: HEPARIN NA (PORCINE) 5,000 UNITS/ML 1ML VIAL SQ SCH ×3 (06:00→23:09)
[2021-11-21] MEDS: INSULIN SLIDING SCALE (NOVOLOG) 1 VIAL SQ SCH ×4 (06:00→23:20)
[2021-11-21 07:01] LABS: BASO % 0.6 % (0-2.0); HEMATOCRIT 24.8 % (32.4-45.2); HEMOGLOBIN 8.2 GM/dL (10.7-15.3); LYMPH % 21.5 % (8-40); MCH 28.8 pg (25.7-33.7); MCHC 33.2 g/dl (32.0-36.0); MEAN CELL VOLUME 86.8 fl (80-96); MEAN PLT VOLUME 7.9 fl (7.5-11.1); MONO % 8.2 % (3.8-10.2); NEUT % 64.7 % (42.8-82.8); PLATELET COUNT 193 10^3/uL (134-434); RBC 2.86 M/mm3 (3.60-5.2); RDW 14.8 % (11.6-15.6); WHITE BLOOD COUNT 6.1 K/mm3 (4.0-10.0)
[2021-11-21 07:26] LABS: CALCIUM 8.3 mg/dL (8.5-10.1)
[2021-11-21 07:27] LABS: ALBUMIN 2.3 g/dl (3.4-5.0); BLOOD UREA NITROGEN 72.3 mg/dL (7-18)
[2021-11-21 07:31] LABS: BILIRUBIN,TOTAL 0.2 mg/dL (0.2-1); TOT PROT 5.7 g/dl (6.4-8.2)
[2021-11-21] MEDS: TAMSULOSIN HCL 0.4 MG CAP PO SCH ×2 (09:25→23:09)
[2021-11-21] MEDS ORDERED: VANCOMYCIN 1 GM/200 ML PREMIX BAG IVPB ONE ×3 (10:00→16:00)
[2021-11-21] MEDS: amLODIPine BESYLATE 5 MG TABLET (FP) PO SCH (10:55)
[2021-11-21] MEDS: CARVEDILOL 25 MG TABLET (FP) PO SCH ×2 (10:55→23:09)
[2021-11-21] MEDS: BUDESONIDE/FORMETEROL FUMARATE 80/4.5 mcg INHALER IH SCH ×2 (10:55→23:11)
[2021-11-21] MEDS: NYSTATIN POWDER 100,000 UNITS/GM - 15 GM TOPICAL POWDER TP SCH ×2 (10:55→23:12)
[2021-11-21] MEDS ORDERED: MIDAZOLAM HCL 2 MG/2 ML SINGLE DOSE VIAL ONE ×2 (13:10→13:41)
[2021-11-21] MEDS ORDERED: PROPOFOL 20 ML ONE (13:10)
[2021-11-21] MEDS ORDERED: FENTANYL CITRATE/PF 50 MCG/ML VIAL ONE ×2 (13:10)
[2021-11-21] MEDS ORDERED: SODIUM CHLORIDE 0.45% 1,000 ML IV SCH (13:15)
[2021-11-21] MEDS ORDERED: ceFAZolin SODIUM 1 GM VIAL IVPB ONE (13:40)
[2021-11-21] MEDS ORDERED: DEXAMETHASONE SOD PHOSPHATE 4 MG/1 ML VIAL ONE (14:17)
[2021-11-21] MEDS ORDERED: ceFAZolin SODIUM 1 GM VIAL ONE (14:17)
[2021-11-21] MEDS ORDERED: ALBUTEROL SO4 2.5/IPRATROPIUM 0.5 INH SOL 3 ML VIAL.NEB. NEB PRN (14:30)
[2021-11-21] MEDS ORDERED: ONDANSETRON 4 MG/2 ML VIAL IVPUSH PRN (14:42)
[2021-11-21] MEDS ORDERED: LACTATED RINGERS SOLUTION 1,000 ML IV SCH (14:45)
[2021-11-21] MEDS: SODIUM CHLORIDE 0.45% 1,000 ML IV SCH (18:34)
[2021-11-21] MEDS: EZETIMIBE 10 MG TABLET (FP) PO SCH (23:09)
[2021-11-21] MEDS: ATORVASTATIN CA 20 MG TABLET (FP) PO SCH (23:10)
[2021-11-21] MEDS: MONTELUKAST NA 5 MG TAB.CHEW PO SCH (23:11)
[2021-11-22] MEDS ORDERED: oxyCODONE HCL 5 MG TABLET PO ONE (02:48)
[2021-11-22] MEDS: HEPARIN NA (PORCINE) 5,000 UNITS/ML 1ML VIAL SQ SCH ×3 (06:58→21:42)
[2021-11-22] MEDS: INSULIN SLIDING SCALE (NOVOLOG) 1 VIAL SQ SCH ×4 (06:58→21:52)
[2021-11-22] MEDS: CARVEDILOL 25 MG TABLET (FP) PO SCH ×2 (10:21→21:42)
[2021-11-22] MEDS: TAMSULOSIN HCL 0.4 MG CAP PO SCH ×2 (10:21→21:42)
[2021-11-22] MEDS: amLODIPine BESYLATE 5 MG TABLET (FP) PO SCH (10:21)
[2021-11-22] MEDS: NYSTATIN POWDER 100,000 UNITS/GM - 15 GM TOPICAL POWDER TP SCH ×2 (10:21→21:43)
[2021-11-22] MEDS: BUDESONIDE/FORMETEROL FUMARATE 80/4.5 mcg INHALER IH SCH ×2 (10:22→21:53)
[2021-11-22] MEDS: SODIUM CHLORIDE 0.45% 1,000 ML IV SCH ×2 (10:22→18:20)
[2021-11-22 12:59] LABS: BASO % 0.4 % (0-2.0); EOS % 0.8 % (0-4.5); HEMOGLOBIN 8.8 GM/dL (10.7-15.3); LYMPH % 10.1 % (8-40); MCH 27.9 pg (25.7-33.7); MCHC 31.6 g/dl (32.0-36.0); MEAN CELL VOLUME 88.3 fl (80-96); MEAN PLT VOLUME 7.9 fl (7.5-11.1); MONO % 7.9 % (3.8-10.2); NEUT % 80.8 % (42.8-82.8); PLATELET COUNT 266 10^3/uL (134-434); RBC 3.16 M/mm3 (3.60-5.2); RDW 14.8 % (11.6-15.6); WHITE BLOOD COUNT 7.1 K/mm3 (4.0-10.0)
[2021-11-22 14:09] LABS: CALCIUM 8.5 mg/dL (8.5-10.1)
[2021-11-22 14:10] LABS: ALBUMIN 2.5 g/dl (3.4-5.0); BLOOD UREA NITROGEN 75.4 mg/dL (7-18)
[2021-11-22 14:13] LABS: CREATININE 3.7 mg/dL (0.55-1.3); PHOSPHOROUS 5.7 mg/dL (2.5-4.9)
[2021-11-22 14:14] LABS: BILIRUBIN,TOTAL 0.2 mg/dL (0.2-1); TOT PROT 6.5 g/dl (6.4-8.2)
[2021-11-22] MEDS ORDERED: ACETAMINOPHEN 1000 MG/100 ML BAG IVPB PRN (16:45)
[2021-11-22] MEDS: oxyCODONE HCL 5 MG TABLET PO PRN (16:57)
[2021-11-22] MEDS: ATORVASTATIN CA 20 MG TABLET (FP) PO SCH (21:42)
[2021-11-22] MEDS: EZETIMIBE 10 MG TABLET (FP) PO SCH (21:42)
[2021-11-22] MEDS: MELATONIN 5 MG TABLETS PO PRN (21:42)
[2021-11-22] MEDS: DOCUSATE SODIUM 100 MG CAPSULE (FP) PO SCH (21:42)
[2021-11-22] MEDS: MONTELUKAST NA 5 MG TAB.CHEW PO SCH (21:43)
[2021-11-23] MEDS: HEPARIN NA (PORCINE) 5,000 UNITS/ML 1ML VIAL SQ SCH ×3 (05:56→21:22)
[2021-11-23] MEDS: INSULIN SLIDING SCALE (NOVOLOG) 1 VIAL SQ SCH ×4 (06:02→21:31)
[2021-11-23] MEDS: TAMSULOSIN HCL 0.4 MG CAP PO SCH ×2 (09:59→21:24)
[2021-11-23] MEDS: NYSTATIN POWDER 100,000 UNITS/GM - 15 GM TOPICAL POWDER TP SCH ×2 (09:59→21:24)
[2021-11-23] MEDS: CARVEDILOL 25 MG TABLET (FP) PO SCH ×2 (09:59→21:23)
[2021-11-23] MEDS: amLODIPine BESYLATE 5 MG TABLET (FP) PO SCH (09:59)
[2021-11-23] MEDS: BUDESONIDE/FORMETEROL FUMARATE 80/4.5 mcg INHALER IH SCH ×2 (10:00→21:24)
[2021-11-23 12:55] LABS: BASO % 0.5 % (0-2.0); HEMATOCRIT 27.1 % (32.4-45.2); HEMOGLOBIN 8.7 GM/dL (10.7-15.3); LYMPH % 11.4 % (8-40); MCH 28.1 pg (25.7-33.7); MEAN CELL VOLUME 87.6 fl (80-96); MEAN PLT VOLUME 8.2 fl (7.5-11.1); MONO % 8.3 % (3.8-10.2); NEUT % 75.8 % (42.8-82.8); PLATELET COUNT 244 10^3/uL (134-434); RBC 3.09 M/mm3 (3.60-5.2); RDW 15.3 % (11.6-15.6); WHITE BLOOD COUNT 7.8 K/mm3 (4.0-10.0)
[2021-11-23 13:19] LABS: CALCIUM 8.4 mg/dL (8.5-10.1)
[2021-11-23 13:20] LABS: ALBUMIN 2.5 g/dl (3.4-5.0); BLOOD UREA NITROGEN 76.9 mg/dL (7-18)
[2021-11-23 13:23] LABS: CREATININE 3.5 mg/dL (0.55-1.3); PHOSPHOROUS 5.7 mg/dL (2.5-4.9)
[2021-11-23 13:24] LABS: BILIRUBIN,TOTAL 0.3 mg/dL (0.2-1); TOT PROT 6.1 g/dl (6.4-8.2)
[2021-11-23] MEDS: SODIUM ZIRCONIUM CYCLOSILICATE (LOKELMA) 5 GM PACKET PO SCH (14:48)
[2021-11-23] MEDS: SODIUM BICARBONATE 650 MG TABLET PO SCH ×2 (14:48→21:23)
[2021-11-23] MEDS: MONTELUKAST NA 10 MG TABLET PO SCH (21:23)
[2021-11-23] MEDS: oxyCODONE HCL 5 MG TABLET PO PRN (21:23)
[2021-11-23] MEDS: ATORVASTATIN CA 20 MG TABLET (FP) PO SCH (21:24)
[2021-11-23] MEDS: EZETIMIBE 10 MG TABLET (FP) PO SCH (21:24)
[2021-11-23] MEDS: DOCUSATE SODIUM 100 MG CAPSULE (FP) PO SCH (21:24)
[2021-11-24] MEDS: INSULIN SLIDING SCALE (NOVOLOG) 1 VIAL SQ SCH ×4 (06:16→21:23)
[2021-11-24] MEDS: HEPARIN NA (PORCINE) 5,000 UNITS/ML 1ML VIAL SQ SCH ×3 (06:18→21:13)
[2021-11-24] MEDS: amLODIPine BESYLATE 5 MG TABLET (FP) PO SCH (09:34)
[2021-11-24] MEDS: TAMSULOSIN HCL 0.4 MG CAP PO SCH ×2 (09:34→21:13)
[2021-11-24] MEDS: SODIUM BICARBONATE 650 MG TABLET PO SCH ×2 (09:34→21:13)
[2021-11-24] MEDS: CARVEDILOL 25 MG TABLET (FP) PO SCH ×2 (09:34→21:32)
[2021-11-24] MEDS: NYSTATIN POWDER 100,000 UNITS/GM - 15 GM TOPICAL POWDER TP SCH ×2 (09:35→21:19)
[2021-11-24] MEDS: BUDESONIDE/FORMETEROL FUMARATE 80/4.5 mcg INHALER IH SCH ×2 (09:35→21:18)
[2021-11-24 10:28] LABS: BASO % 0.6 % (0-2.0); EOS % 5.5 % (0-4.5); HEMATOCRIT 26.8 % (32.4-45.2); HEMOGLOBIN 8.5 GM/dL (10.7-15.3); LYMPH % 16.7 % (8-40); MCH 27.7 pg (25.7-33.7); MCHC 31.7 g/dl (32.0-36.0); MEAN CELL VOLUME 87.5 fl (80-96); MEAN PLT VOLUME 7.9 fl (7.5-11.1); MONO % 10.1 % (3.8-10.2); NEUT % 67.1 % (42.8-82.8); PLATELET COUNT 233 10^3/uL (134-434); RBC 3.06 M/mm3 (3.60-5.2); RDW 15.2 % (11.6-15.6); WHITE BLOOD COUNT 5.6 K/mm3 (4.0-10.0)
[2021-11-24 10:51] LABS: CALCIUM 8.5 mg/dL (8.5-10.1)
[2021-11-24 10:52] LABS: ALBUMIN 2.4 g/dl (3.4-5.0); BLOOD UREA NITROGEN 81.5 mg/dL (7-18)
[2021-11-24 10:55] LABS: CREATININE 3.5 mg/dL (0.55-1.3); PHOSPHOROUS 6.1 mg/dL (2.5-4.9)
[2021-11-24 10:56] LABS: BILIRUBIN,TOTAL 0.4 mg/dL (0.2-1); TOT PROT 6.1 g/dl (6.4-8.2)
[2021-11-24] MEDS: SODIUM ZIRCONIUM CYCLOSILICATE (LOKELMA) 5 GM PACKET PO SCH (12:03)
[2021-11-24] MEDS: DOCUSATE SODIUM 100 MG CAPSULE (FP) PO SCH (21:13)
[2021-11-24] MEDS: EZETIMIBE 10 MG TABLET (FP) PO SCH (21:13)
[2021-11-24] MEDS: ATORVASTATIN CA 20 MG TABLET (FP) PO SCH (21:13)
[2021-11-24] MEDS: MELATONIN 5 MG TABLETS PO PRN (21:14)
[2021-11-24] MEDS: oxyCODONE HCL 5 MG TABLET PO PRN (21:16)
[2021-11-24] MEDS: MONTELUKAST NA 10 MG TABLET PO SCH (21:32)
[2021-11-25] MEDS: HEPARIN NA (PORCINE) 5,000 UNITS/ML 1ML VIAL SQ SCH ×3 (05:56→21:34)
[2021-11-25] MEDS: INSULIN SLIDING SCALE (NOVOLOG) 1 VIAL SQ SCH ×4 (06:11→21:51)
[2021-11-25] MEDS: SODIUM BICARBONATE 650 MG TABLET PO SCH ×2 (09:59→21:32)
[2021-11-25] MEDS: BUDESONIDE/FORMETEROL FUMARATE 80/4.5 mcg INHALER IH SCH ×2 (10:00→21:30)
[2021-11-25] MEDS: amLODIPine BESYLATE 5 MG TABLET (FP) PO SCH (10:00)
[2021-11-25] MEDS: TAMSULOSIN HCL 0.4 MG CAP PO SCH ×2 (10:00→21:32)
[2021-11-25] MEDS: CARVEDILOL 25 MG TABLET (FP) PO SCH ×2 (10:00→21:32)
[2021-11-25] MEDS: NYSTATIN POWDER 100,000 UNITS/GM - 15 GM TOPICAL POWDER TP SCH ×2 (10:00→21:30)
[2021-11-25] MEDS: SODIUM ZIRCONIUM CYCLOSILICATE (LOKELMA) 5 GM PACKET PO SCH (12:05)
[2021-11-25] MEDS ORDERED: FUROSEMIDE 40 MG/4 ML INJECTABLE VIAL IVPUSH ONE (13:45)
[2021-11-25 15:24] LABS: BASO % 0.8 % (0-2.0); EOS % 6.1 % (0-4.5); HEMATOCRIT 25.3 % (32.4-45.2); HEMOGLOBIN 8.2 GM/dL (10.7-15.3); LYMPH % 17.5 % (8-40); MCH 28.6 pg (25.7-33.7); MCHC 32.6 g/dl (32.0-36.0); MEAN CELL VOLUME 87.7 fl (80-96); MEAN PLT VOLUME 8.3 fl (7.5-11.1); MONO % 8.2 % (3.8-10.2); NEUT % 67.4 % (42.8-82.8); PLATELET COUNT 233 10^3/uL (134-434); RBC 2.88 M/mm3 (3.60-5.2); WHITE BLOOD COUNT 5.3 K/mm3 (4.0-10.0)
[2021-11-25 15:48] LABS: ALBUMIN 2.4 g/dl (3.4-5.0); CALCIUM 8.2 mg/dL (8.5-10.1)
[2021-11-25 15:49] LABS: BLOOD UREA NITROGEN 84.7 mg/dL (7-18)
[2021-11-25 15:52] LABS: CREATININE 3.4 mg/dL (0.55-1.3); PHOSPHOROUS 5.7 mg/dL (2.5-4.9)
[2021-11-25 15:53] LABS: TOT PROT 6.2 g/dl (6.4-8.2)
[2021-11-25 15:56] LABS: BILIRUBIN,TOTAL 0.2 mg/dL (0.2-1)
[2021-11-25] MEDS: DOCUSATE SODIUM 100 MG CAPSULE (FP) PO SCH (21:32)
[2021-11-25] MEDS: ATORVASTATIN CA 20 MG TABLET (FP) PO SCH (21:32)
[2021-11-25] MEDS: EZETIMIBE 10 MG TABLET (FP) PO SCH (21:32)
[2021-11-25] MEDS: MELATONIN 5 MG TABLETS PO PRN (21:32)
[2021-11-25] MEDS: MONTELUKAST NA 10 MG TABLET PO SCH (21:32)
[2021-11-25] MEDS: oxyCODONE HCL 5 MG TABLET PO PRN (22:05)
[2021-11-26] MEDS: HEPARIN NA (PORCINE) 5,000 UNITS/ML 1ML VIAL SQ SCH ×4 (05:28→22:22)
[2021-11-26] MEDS: INSULIN SLIDING SCALE (NOVOLOG) 1 VIAL SQ SCH ×4 (06:02→22:22)
[2021-11-26] MEDS: SODIUM BICARBONATE 650 MG TABLET PO SCH ×2 (09:50→22:23)
[2021-11-26] MEDS: CARVEDILOL 25 MG TABLET (FP) PO SCH ×2 (09:51→22:22)
[2021-11-26] MEDS: amLODIPine BESYLATE 10 MG TABLET (FP) PO SCH (09:51)
[2021-11-26] MEDS: TAMSULOSIN HCL 0.4 MG CAP PO SCH ×2 (09:51→22:22)
[2021-11-26] MEDS: BUDESONIDE/FORMETEROL FUMARATE 80/4.5 mcg INHALER IH SCH ×2 (09:52→22:25)
[2021-11-26] MEDS: NYSTATIN POWDER 100,000 UNITS/GM - 15 GM TOPICAL POWDER TP SCH ×2 (09:53→22:25)
[2021-11-26] MEDS: SODIUM ZIRCONIUM CYCLOSILICATE (LOKELMA) 5 GM PACKET PO SCH (11:30)
[2021-11-26 12:36] LABS: CALCIUM 8.6 mg/dL (8.5-10.1)
[2021-11-26 12:37] LABS: ALBUMIN 2.4 g/dl (3.4-5.0); BLOOD UREA NITROGEN 85.5 mg/dL (7-18)
[2021-11-26 12:40] LABS: CREATININE 3.3 mg/dL (0.55-1.3)
[2021-11-26 12:42] LABS: BILIRUBIN,TOTAL 0.2 mg/dL (0.2-1); TOT PROT 6.1 g/dl (6.4-8.2)
[2021-11-26] MEDS ORDERED: MELATONIN 5 MG TABLETS PO PRN (13:40)
[2021-11-26] MEDS ORDERED: ALBUTEROL SO4 2.5/IPRATROPIUM 0.5 INH SOL 3 ML VIAL.NEB. NEB PRN (13:40)
[2021-11-26] MEDS: oxyCODONE HCL 5 MG TABLET PO PRN (22:20)
[2021-11-26] MEDS: DOCUSATE SODIUM 100 MG CAPSULE (FP) PO SCH (22:21)
[2021-11-26] MEDS: ATORVASTATIN CA 20 MG TABLET (FP) PO SCH (22:22)
[2021-11-26] MEDS: MONTELUKAST NA 10 MG TABLET PO SCH (22:23)
[2021-11-26] MEDS: EZETIMIBE 10 MG TABLET (FP) PO SCH (22:58)
[2021-11-27] MEDS: HEPARIN NA (PORCINE) 5,000 UNITS/ML 1ML VIAL SQ SCH ×3 (05:01→21:40)
[2021-11-27] MEDS: oxyCODONE HCL 5 MG TABLET PO PRN ×2 (05:11→17:31)
[2021-11-27] MEDS: INSULIN SLIDING SCALE (NOVOLOG) 1 VIAL SQ SCH ×4 (06:22→21:41)
[2021-11-27] MEDS: TAMSULOSIN HCL 0.4 MG CAP PO SCH ×2 (09:56→21:40)
[2021-11-27] MEDS: amLODIPine BESYLATE 10 MG TABLET (FP) PO SCH (09:56)
[2021-11-27] MEDS: SODIUM ZIRCONIUM CYCLOSILICATE (LOKELMA) 5 GM PACKET PO SCH (09:56)
[2021-11-27] MEDS: CARVEDILOL 25 MG TABLET (FP) PO SCH ×2 (09:56→21:39)
[2021-11-27] MEDS: SODIUM BICARBONATE 650 MG TABLET PO SCH ×3 (09:56→21:39)
[2021-11-27] MEDS: BUDESONIDE/FORMETEROL FUMARATE 80/4.5 mcg INHALER IH SCH ×2 (09:57→21:39)
[2021-11-27] MEDS: NYSTATIN POWDER 100,000 UNITS/GM - 15 GM TOPICAL POWDER TP SCH ×2 (10:05→21:38)
[2021-11-27] MEDS: MONTELUKAST NA 10 MG TABLET PO SCH (21:39)
[2021-11-27] MEDS: ATORVASTATIN CA 20 MG TABLET (FP) PO SCH (21:39)
[2021-11-27] MEDS: DOCUSATE SODIUM 100 MG CAPSULE (FP) PO SCH (21:40)
[2021-11-27] MEDS: EZETIMIBE 10 MG TABLET (FP) PO SCH (22:45)
[2021-11-28] MEDS: SODIUM BICARBONATE 650 MG TABLET PO SCH ×3 (05:48→22:38)
[2021-11-28] MEDS: INSULIN SLIDING SCALE (NOVOLOG) 1 VIAL SQ SCH ×4 (06:01→23:00)
[2021-11-28] MEDS: HEPARIN NA (PORCINE) 5,000 UNITS/ML 1ML VIAL SQ SCH ×3 (06:01→22:36)
[2021-11-28] MEDS: NYSTATIN POWDER 100,000 UNITS/GM - 15 GM TOPICAL POWDER TP SCH ×2 (11:16→22:39)
[2021-11-28] MEDS: CARVEDILOL 25 MG TABLET (FP) PO SCH ×2 (11:16→22:37)
[2021-11-28] MEDS: TAMSULOSIN HCL 0.4 MG CAP PO SCH ×2 (11:16→22:36)
[2021-11-28] MEDS: amLODIPine BESYLATE 10 MG TABLET (FP) PO SCH (11:16)
[2021-11-28] MEDS: SODIUM ZIRCONIUM CYCLOSILICATE (LOKELMA) 5 GM PACKET PO SCH (11:16)
[2021-11-28] MEDS: BUDESONIDE/FORMETEROL FUMARATE 80/4.5 mcg INHALER IH SCH ×2 (11:19→22:39)
[2021-11-28 13:24] LABS: BLOOD UREA NITROGEN 89.1 mg/dL (7-18); CALCIUM 8.7 mg/dL (8.5-10.1)
[2021-11-28 13:27] LABS: CREATININE 3.5 mg/dL (0.55-1.3)
[2021-11-28 15:54] LABS: EPI CELLS 15 /uL (0-25.1); HYALINE CASTS 5 /uL (0-3.1); URINE APPEARANCE TURBID; URINE BILIRUBIN NEGATIVE (NEGATIVE); URINE COLOR YELLOW; URINE GLUCOSE (UA) NEGATIVE (NEGATIVE); URINE KETONE NEGATIVE (NEGATIVE); URINE LEUK ESTERASE 3+ (NEGATIVE); URINE NITRITE POSITIVE (NEGATIVE); URINE PROTEIN 3+ (NEGATIVE); URINE RBC 82 /uL (0-23.9); URINE UROBILINOGEN 0.2 mg/dL (0.2-1.0); URINE WBC 5636 /uL (0-25.8)
[2021-11-28] MEDS: TORSEMIDE 20 MG TABLET (FP) PO SCH (16:49)
[2021-11-28 18:34] LABS: URINE BACTERIA 401.8 /uL (0-1359)
[2021-11-28] MEDS: DOCUSATE SODIUM 100 MG CAPSULE (FP) PO SCH (22:36)
[2021-11-28] MEDS: MONTELUKAST NA 10 MG TABLET PO SCH (22:38)
[2021-11-28] MEDS: ATORVASTATIN CA 20 MG TABLET (FP) PO SCH (22:38)
[2021-11-28] MEDS: EZETIMIBE 10 MG TABLET (FP) PO SCH (22:47)
[2021-11-29] MEDS: HEPARIN NA (PORCINE) 5,000 UNITS/ML 1ML VIAL SQ SCH ×3 (06:40→21:50)
[2021-11-29] MEDS: SODIUM BICARBONATE 650 MG TABLET PO SCH ×3 (06:40→21:51)
[2021-11-29] MEDS: INSULIN SLIDING SCALE (NOVOLOG) 1 VIAL SQ SCH ×4 (06:44→22:05)
[2021-11-29] MEDS: TORSEMIDE 20 MG TABLET (FP) PO SCH (09:49)
[2021-11-29] MEDS: TAMSULOSIN HCL 0.4 MG CAP PO SCH ×2 (09:49→21:50)
[2021-11-29] MEDS: amLODIPine BESYLATE 10 MG TABLET (FP) PO SCH (09:49)
[2021-11-29] MEDS: NYSTATIN POWDER 100,000 UNITS/GM - 15 GM TOPICAL POWDER TP SCH ×2 (09:49→22:05)
[2021-11-29] MEDS: SODIUM ZIRCONIUM CYCLOSILICATE (LOKELMA) 5 GM PACKET PO SCH (09:49)
[2021-11-29] MEDS: BUDESONIDE/FORMETEROL FUMARATE 80/4.5 mcg INHALER IH SCH ×2 (09:49→22:04)
[2021-11-29] MEDS: CARVEDILOL 25 MG TABLET (FP) PO SCH ×2 (09:49→21:49)
[2021-11-29 11:46] LABS: CALCIUM 8.4 mg/dL (8.5-10.1)
[2021-11-29 11:47] LABS: BLOOD UREA NITROGEN 95.3 mg/dL (7-18)
[2021-11-29 11:50] LABS: CREATININE 3.8 mg/dL (0.55-1.3); PHOSPHOROUS 5.7 mg/dL (2.5-4.9)
[2021-11-29] MEDS: DOCUSATE SODIUM 100 MG CAPSULE (FP) PO SCH (21:49)
[2021-11-29] MEDS: MONTELUKAST NA 10 MG TABLET PO SCH (21:50)
[2021-11-29] MEDS: ATORVASTATIN CA 20 MG TABLET (FP) PO SCH (21:50)
[2021-11-29] MEDS: EZETIMIBE 10 MG TABLET (FP) PO SCH (21:56)
[2021-11-30] MEDS: HEPARIN NA (PORCINE) 5,000 UNITS/ML 1ML VIAL SQ SCH (06:21)
[2021-11-30] MEDS: SODIUM BICARBONATE 650 MG TABLET PO SCH (06:21)
[2021-11-30] MEDS: INSULIN SLIDING SCALE (NOVOLOG) 1 VIAL SQ SCH (06:26)
[2021-11-30 06:33] VITALS: TEMP 98.3
[2021-11-30] MEDS: amLODIPine BESYLATE 10 MG TABLET (FP) PO SCH (10:10)
[2021-11-30] MEDS: SODIUM ZIRCONIUM CYCLOSILICATE (LOKELMA) 5 GM PACKET PO SCH (10:10)
[2021-11-30] MEDS: TAMSULOSIN HCL 0.4 MG CAP PO SCH (10:10)
[2021-11-30] MEDS: CARVEDILOL 25 MG TABLET (FP) PO SCH (10:10)
[2021-11-30] MEDS: TORSEMIDE 20 MG TABLET (FP) PO SCH (10:10)
[2021-11-30] MEDS: NYSTATIN POWDER 100,000 UNITS/GM - 15 GM TOPICAL POWDER TP SCH (10:25)
[2021-11-30] MEDS: BUDESONIDE/FORMETEROL FUMARATE 80/4.5 mcg INHALER IH SCH (10:25)
[2021-11-30 10:34] VITALS: BP 144/92; PULSE 78
== END 2021-11-30 10:45 | disposition home health service (06) | DRG 660 ==
LOC: JER 12:55 → JERBED 17:44 → OBSVTOIN 21:50 → J4W 11-18 03:39 → J4S 11-25 20:28 → J4W 11-25 21:07 → J7W 11-26 13:33
PROVIDERS: ADMIT Internal Medicine; ATTEND Nurse Practitioner Acute Care
PROC: BT14ZZZ Fluoroscopy of Kidneys, Ureters and Bladder (ICD-10-PCS; 2021-11-21)
PROC: 0TP97DZ Removal of Intraluminal Device from Ureter, Via Natural or Artificial Opening (ICD-10-PCS; principal; 2021-11-21 15:00)
PROC: 0T788DZ Dilation of Bilateral Ureters with Intraluminal Device, Via Natural or Artificial Opening Endoscopic (ICD-10-PCS; 2021-11-21 15:00)
DX: T83.89XA Other specified complication of genitourinary prosthetic devices, implants and grafts, initial encounter (principal); Z68.41 Body mass index [BMI] 40.0-44.9, adult; N13.30 Unspecified hydronephrosis; N17.9 Acute kidney failure, unspecified; N13.2 Hydronephrosis with renal and ureteral calculous obstruction; N18.4 Chronic kidney disease, stage 4 (severe); J44.9 Chronic obstructive pulmonary disease, unspecified; Z79.4 Long term (current) use of insulin; E78.5 Hyperlipidemia, unspecified; E11.22 Type 2 diabetes mellitus with diabetic chronic kidney disease; I12.9 Hypertensive chronic kidney disease with stage 1 through stage 4 chronic kidney disease, or unspecified chronic kidney disease; E66.01 Morbid (severe) obesity due to excess calories; R26.81 Unsteadiness on feet; G47.33 Obstructive sleep apnea (adult) (pediatric); R07.89 Other chest pain; D50.9 Iron deficiency anemia, unspecified; Y83.8 Other surgical procedures as the cause of abnormal reaction of the patient, or of later complication, without mention of misadventure at the time of the procedure; E87.5 Hyperkalemia
CPT/HCPCS: 0241U-QW; 36415; 70450-TC; 71045-TC-FY; 74176-TC; 76000-TC-FY; 76775-TC; 80048; 80053; 80061; 81003; 82272; 82728; 82803; 82962; 83540; 83550; 83735; 83880; 84100; 84443; 84484; 85025; 85045; 85610; 85730; 87077; 87086; 87186; 88300-TC; 93005; 93010; 93306-TC; 93970-TC; 93971; 94150; 94640; 94760; 97116-GP; 97162-GP; 99285-25; G0378; J1644

== ENCOUNTER 2021-12-08 17:53 | Inpatient (IN) | payer OTHER ==
[2021-12-08 18:30] VITALS: BMI 43.9
[2021-12-08] MEDS ORDERED: amLODIPine BESYLATE 10 MG TABLET (FP) PO ONE (19:24)
[2021-12-08] MEDS ORDERED: TORSEMIDE 20 MG TABLET (FP) PO ONE (19:25)
[2021-12-08] MEDS ORDERED: amLODIPine BESYLATE 10 MG TABLET (FP) ONE (19:28)
[2021-12-08 19:48] LABS: VENOUS BASE EXCESS -4.5 mmol/L (-2-2); VENOUS O2 SATURATION 98.9 % (70-80); VENOUS PCO2 32.1 mmHg (38-52); VENOUS PH 7.402 (7.310-7.410)
[2021-12-08 20:13] LABS: BASO % 0.7 % (0-2.0); EOS % 5.5 % (0-4.5); HEMATOCRIT 28.1 % (32.4-45.2); HEMOGLOBIN 8.8 GM/dL (10.7-15.3); LYMPH % 16.9 % (8-40); MCH 28.7 pg (25.7-33.7); MCHC 31.5 g/dl (32.0-36.0); MEAN CELL VOLUME 91.3 fl (80-96); MEAN PLT VOLUME 8.1 fl (7.5-11.1); MONO % 7.7 % (3.8-10.2); NEUT % 69.2 % (42.8-82.8); PLATELET COUNT 201 10^3/uL (134-434); RBC 3.08 M/mm3 (3.60-5.2); WHITE BLOOD COUNT 5.6 K/mm3 (4.0-10.0)
[2021-12-08 20:15] LABS: CHLORIDE 114 mmol/L (98-107); SODIUM 131 mmol/L (136-145)
[2021-12-08 20:16] LABS: ALBUMIN 1.9 g/dl (3.4-5.0); CALCIUM 8.4 mg/dL (8.5-10.1); CO2 24 mmol/L (21-32); GLUCOSE,RANDOM 99 mg/dL (74-106); MAGNESIUM 2.5 mg/dL (1.8-2.4)
[2021-12-08 20:20] LABS: CREATININE 2.6 mg/dL (0.55-1.3)
[2021-12-08 20:23] LABS: ALK PHOS 82 U/L (45-117)
[2021-12-08] MEDS ORDERED: ACETAMINOPHEN 500 MG TABLET (FP) PO ONE (20:25)
[2021-12-08 20:33] LABS: ANION GAP -7 MMOL/L (8-16); BLOOD UREA NITROGEN 50.4 mg/dL (7-18)
[2021-12-08] MEDS ORDERED: diazePAM 2 MG TABLET PO ONE (20:40)
[2021-12-08] MEDS ORDERED: diazePAM 2 MG TABLET ONE (20:41)
[2021-12-08] MEDS ORDERED: ACETAMINOPHEN 325 MG TABLET (FP) ONE (20:44)
[2021-12-08 21:22] LABS: EPI CELLS 7 /uL (0-25.1); HYALINE CASTS 8 /uL (0-3.1); PH,URINE 7.5 (5.0-8.0); URINE APPEARANCE TURBID; URINE BACTERIA 203 /uL (0-1359); URINE BILIRUBIN NEGATIVE (NEGATIVE); URINE COLOR YELLOW; URINE GLUCOSE (UA) NEGATIVE (NEGATIVE); URINE KETONE NEGATIVE (NEGATIVE); URINE LEUK ESTERASE 3+ (NEGATIVE); URINE NITRITE NEGATIVE (NEGATIVE); URINE PROTEIN 4+ (NEGATIVE); URINE RBC 58 /uL (0-23.9); URINE UROBILINOGEN 0.2 mg/dL (0.2-1.0); URINE WBC 3954 /uL (0-25.8)
[2021-12-08] MEDS ORDERED: VANCOMYCIN 1 GM in D5W (PRE-DOCKED) 1,000 MG/250 ML IVPB ONE (21:43)
[2021-12-08] MEDS ORDERED: CEFTRIAXONE 1 GM/50 ML BAG ONE (21:54)
[2021-12-08 22:25] LABS: BLOOD UREA NITROGEN 51.4 mg/dL (7-18); CALCIUM 8.5 mg/dL (8.5-10.1)
[2021-12-08 22:28] LABS: CREATININE 2.8 mg/dL (0.55-1.3)
[2021-12-08 22:31] LABS: BILIRUBIN,TOTAL 0.2 mg/dL (0.2-1); TOT PROT 6.5 g/dl (6.4-8.2)
[2021-12-08 22:59] LABS: ALBUMIN 2.6 g/dl (3.4-5.0)
[2021-12-08] MEDS ORDERED: VANCOMYCIN 500 MG VIAL (RESTRICTED TO ID ONLY) ONE (23:02)
[2021-12-09] MEDS ORDERED: ONDANSETRON 4 MG/2 ML VIAL IVPUSH PRN (01:36)
[2021-12-09] MEDS ORDERED: TIGECYCLINE 100 MG in DEXTROSE 5%-WATER - 100 ML IVPB ONE (01:44)
[2021-12-09] MEDS ORDERED: diphenhydrAMINE HCL 25 MG CAPSULE (FP) PO ONE (01:45)
[2021-12-09] MEDS ORDERED: ALBUTEROL SO4 HFA INHALER IH PRN ×2 (01:46→09:07)
[2021-12-09] MEDS ORDERED: UMECLIDINIUM/VILANTEROL (ANORO) 62.5/25 MCG INHALER IH SCH (02:00)
[2021-12-09] MEDS ORDERED: TAMSULOSIN HCL 0.4 MG CAP ONE ×2 (02:06→23:43)
[2021-12-09] MEDS: TAMSULOSIN HCL 0.4 MG CAP PO SCH ×2 (02:20→23:57)
[2021-12-09] MEDS: HEPARIN NA (PORCINE) 5,000 UNITS/ML 1ML VIAL SQ SCH ×3 (05:25→23:57)
[2021-12-09] MEDS ORDERED: ACETAMINOPHEN 325 MG TABLET (FP) ONE (06:17)
[2021-12-09] MEDS: ACETAMINOPHEN 325 MG TABLET (FP) PO PRN (06:19)
[2021-12-09] MEDS ORDERED: INSULIN SLIDING SCALE (NOVOLOG) 1 VIAL SQ SCH (07:00)
[2021-12-09] MEDS ORDERED: amLODIPine BESYLATE 5 MG TABLET (FP) ONE (09:57)
[2021-12-09] MEDS ORDERED: SODIUM ZIRCONIUM CYCLOSILICATE (LOKELMA) 5 GM PACKET ONE ×3 (09:57→20:15)
[2021-12-09] MEDS ORDERED: CARVEDILOL 25 MG TABLET (FP) ONE ×3 (09:58→23:44)
[2021-12-09] MEDS ORDERED: LOSARTAN 50MG/HCTZ 12.5MG 1 TAB PO SCH (10:00)
[2021-12-09] MEDS ORDERED: SODIUM ZIRCONIUM CYCLOSILICATE (LOKELMA) 5 GM PACKET PO SCH (10:00)
[2021-12-09] MEDS ORDERED: BREXPIPRAZOLE 0.5 MG PO SCH (10:00)
[2021-12-09] MEDS: CARVEDILOL 25 MG TABLET (FP) PO SCH ×3 (10:22→23:57)
[2021-12-09] MEDS: amLODIPine BESYLATE 5 MG TABLET (FP) PO SCH (10:23)
[2021-12-09] MEDS: NYSTATIN POWDER 100,000 UNITS/GM - 15 GM TOPICAL POWDER TP SCH (11:33)
[2021-12-09] MEDS: TORSEMIDE 20 MG TABLET (FP) PO SCH (11:44)
[2021-12-09] MEDS: UMECLIDINIUM/VILANTEROL (ANORO) 62.5/25 MCG INHALER IH SCH (11:44)
[2021-12-09] MEDS: INSULIN SLIDING SCALE (NOVOLOG) 1 VIAL SQ SCH ×3 (12:40→23:58)
[2021-12-09 14:00] LABS: BASO % 0.8 % (0-2.0); EOS % 6.2 % (0-4.5); HEMATOCRIT 27.8 % (32.4-45.2); LYMPH % 19.1 % (8-40); MCH 28.5 pg (25.7-33.7); MCHC 32.4 g/dl (32.0-36.0); MEAN CELL VOLUME 88.1 fl (80-96); MEAN PLT VOLUME 8.3 fl (7.5-11.1); MONO % 7.1 % (3.8-10.2); NEUT % 66.8 % (42.8-82.8); PLATELET COUNT 208 10^3/uL (134-434); RBC 3.16 M/mm3 (3.60-5.2); RDW 15.5 % (11.6-15.6); WHITE BLOOD COUNT 5.7 K/mm3 (4.0-10.0)
[2021-12-09 14:15] LABS: ALBUMIN 2.4 g/dl (3.4-5.0); BLOOD UREA NITROGEN 58.1 mg/dL (7-18); CALCIUM 8.7 mg/dL (8.5-10.1); MAGNESIUM 2.1 mg/dL (1.8-2.4)
[2021-12-09 14:19] LABS: CREATININE 2.9 mg/dL (0.55-1.3); PHOSPHOROUS 4.6 mg/dL (2.5-4.9)
[2021-12-09 14:21] LABS: BILIRUBIN,TOTAL 0.2 mg/dL (0.2-1); TOT PROT 6.2 g/dl (6.4-8.2)
[2021-12-09] MEDS ORDERED: SODIUM ZIRCONIUM CYCLOSILICATE (LOKELMA) 5 GM PACKET PO ONE ×2 (14:21→20:00)
[2021-12-09] MEDS ORDERED: HEPARIN NA (PORCINE) 5,000 UNITS/ML 1ML VIAL ONE ×2 (14:22→23:43)
[2021-12-09] MEDS ORDERED: INSULIN REGULAR HUMAN 100 UNITS/ML *VIAL* (FOR IVP) IVPUSH ONE (14:43)
[2021-12-09] MEDS ORDERED: DEXTROSE 50%-WATER 25 GM/50 ML DISP.SYRIN IVPUSH ONE (14:43)
[2021-12-09] MEDS ORDERED: DEXTROSE 50%-WATER 25 GM/50 ML DISP.SYRIN ONE (14:58)
[2021-12-09] MEDS ORDERED: FUROSEMIDE 40 MG/4 ML INJECTABLE VIAL IVPUSH ONE (15:51)
[2021-12-09] MEDS ORDERED: FUROSEMIDE 40 MG/4 ML INJECTABLE VIAL ONE (16:04)
[2021-12-09] MEDS ORDERED: BACITRACIN 15 GM TUBE TOPICAL OINTMENT TP SCH (22:00)
[2021-12-09] MEDS ORDERED: CEFTRIAXONE 1 GM in DEXTROSE 5%-WATER - 50 ML IVPB SCH (22:00)
[2021-12-09] MEDS ORDERED: ATORVASTATIN CA 20 MG TABLET (FP) ONE (23:42)
[2021-12-09] MEDS ORDERED: MELATONIN 5 MG TABLETS ONE (23:44)
[2021-12-09] MEDS: MELATONIN 5 MG TABLETS PO SCH (23:57)
[2021-12-09] MEDS: ATORVASTATIN CA 20 MG TABLET (FP) PO SCH (23:57)
[2021-12-10] MEDS: BACITRACIN 0.9 GM PACKET TP SCH ×2 (02:09→09:22)
[2021-12-10] MEDS: HEPARIN NA (PORCINE) 5,000 UNITS/ML 1ML VIAL SQ SCH ×3 (06:12→22:16)
[2021-12-10] MEDS ORDERED: CARVEDILOL 25 MG TABLET (FP) ONE ×3 (06:14→21:39)
[2021-12-10] MEDS: CARVEDILOL 25 MG TABLET (FP) PO SCH ×3 (06:21→21:57)
[2021-12-10] MEDS: INSULIN SLIDING SCALE (NOVOLOG) 1 VIAL SQ SCH ×4 (07:24→22:34)
[2021-12-10 07:40] LABS: HEMATOCRIT 28.3 % (32.4-45.2); HEMOGLOBIN 9.2 GM/dL (10.7-15.3); LYMPH % 24.7 % (8-40); MCH 28.3 pg (25.7-33.7); MCHC 32.6 g/dl (32.0-36.0); MEAN CELL VOLUME 86.6 fl (80-96); MEAN PLT VOLUME 8.1 fl (7.5-11.1); MONO % 8.7 % (3.8-10.2); NEUT % 58.6 % (42.8-82.8); PLATELET COUNT 236 10^3/uL (134-434); RBC 3.27 M/mm3 (3.60-5.2); RDW 15.3 % (11.6-15.6); WHITE BLOOD COUNT 5.7 K/mm3 (4.0-10.0)
[2021-12-10 07:55] LABS: BLOOD UREA NITROGEN 69.7 mg/dL (7-18); CALCIUM 8.8 mg/dL (8.5-10.1)
[2021-12-10 07:56] LABS: ALBUMIN 2.6 g/dl (3.4-5.0); MAGNESIUM 2.2 mg/dL (1.8-2.4)
[2021-12-10 08:00] LABS: BILIRUBIN,TOTAL 0.3 mg/dL (0.2-1); CREATININE 3.4 mg/dL (0.55-1.3); TOT PROT 6.3 g/dl (6.4-8.2)
[2021-12-10] MEDS ORDERED: TAMSULOSIN HCL 0.4 MG CAP ONE ×2 (08:31→21:39)
[2021-12-10] MEDS: TAMSULOSIN HCL 0.4 MG CAP PO SCH ×2 (08:34→21:57)
[2021-12-10] MEDS ORDERED: SODIUM ZIRCONIUM CYCLOSILICATE (LOKELMA) 5 GM PACKET ONE ×2 (09:10→19:00)
[2021-12-10] MEDS ORDERED: amLODIPine BESYLATE 5 MG TABLET (FP) ONE (09:10)
[2021-12-10] MEDS: UMECLIDINIUM/VILANTEROL (ANORO) 62.5/25 MCG INHALER IH SCH (09:22)
[2021-12-10] MEDS: amLODIPine BESYLATE 5 MG TABLET (FP) PO SCH (09:22)
[2021-12-10] MEDS: NYSTATIN POWDER 100,000 UNITS/GM - 15 GM TOPICAL POWDER TP SCH (09:22)
[2021-12-10] MEDS: TORSEMIDE 20 MG TABLET (FP) PO SCH (09:22)
[2021-12-10] MEDS: SODIUM ZIRCONIUM CYCLOSILICATE (LOKELMA) 5 GM PACKET PO SCH (09:22)
[2021-12-10] MEDS ORDERED: SODIUM ZIRCONIUM CYCLOSILICATE (LOKELMA) 5 GM PACKET PO ONE ×2 (11:15→16:52)
[2021-12-10] MEDS ORDERED: HEPARIN NA (PORCINE) 5,000 UNITS/ML 1ML VIAL ONE (13:58)
[2021-12-10] MEDS ORDERED: INSULIN (NOVOLOG) ASPART 100 UNITS/ML 10ML VIAL SQ ONE (16:50)
[2021-12-10] MEDS ORDERED: DEXTROSE 50%-WATER - 25 GM/50 ML VIAL IVPUSH ONE (16:51)
[2021-12-10] MEDS ORDERED: MELATONIN 5 MG TABLETS ONE (21:38)
[2021-12-10] MEDS ORDERED: BACITRACIN 0.9 GM PACKET ONE (21:38)
[2021-12-10] MEDS ORDERED: ATORVASTATIN CA 20 MG TABLET (FP) ONE (21:38)
[2021-12-10] MEDS: MELATONIN 5 MG TABLETS PO SCH (21:58)
[2021-12-10] MEDS: ATORVASTATIN CA 20 MG TABLET (FP) PO SCH (21:58)
[2021-12-10] MEDS ORDERED: VANCOMYCIN 1 GM in D5W (PRE-DOCKED) 1,000 MG/250 ML IVPB SCH (22:00)
[2021-12-11] MEDS: HEPARIN NA (PORCINE) 5,000 UNITS/ML 1ML VIAL SQ SCH ×3 (06:23→22:30)
[2021-12-11] MEDS: CARVEDILOL 25 MG TABLET (FP) PO SCH ×3 (10:08→22:31)
[2021-12-11] MEDS ORDERED: amLODIPine BESYLATE 10 MG TABLET (FP) ONE (10:12)
[2021-12-11] MEDS ORDERED: SODIUM ZIRCONIUM CYCLOSILICATE (LOKELMA) 5 GM PACKET ONE (10:12)
[2021-12-11] MEDS ORDERED: TAMSULOSIN HCL 0.4 MG CAP ONE (10:13)
[2021-12-11] MEDS: UMECLIDINIUM/VILANTEROL (ANORO) 62.5/25 MCG INHALER IH SCH (10:22)
[2021-12-11] MEDS: TAMSULOSIN HCL 0.4 MG CAP PO SCH ×2 (10:22→22:31)
[2021-12-11] MEDS: NYSTATIN POWDER 100,000 UNITS/GM - 15 GM TOPICAL POWDER TP SCH (10:23)
[2021-12-11] MEDS: TORSEMIDE 20 MG TABLET (FP) PO SCH (10:23)
[2021-12-11] MEDS: SODIUM ZIRCONIUM CYCLOSILICATE (LOKELMA) 5 GM PACKET PO SCH (10:23)
[2021-12-11] MEDS: amLODIPine BESYLATE 10 MG TABLET (FP) PO SCH (10:23)
[2021-12-11] MEDS: BACITRACIN 0.9 GM PACKET TP SCH ×4 (11:22→22:32)
[2021-12-11] MEDS: INSULIN SLIDING SCALE (NOVOLOG) 1 VIAL SQ SCH ×4 (11:23→22:30)
[2021-12-11 13:46] LABS: BASO % 0.9 % (0-2.0); EOS % 6.4 % (0-4.5); HEMATOCRIT 28.8 % (32.4-45.2); HEMOGLOBIN 9.4 GM/dL (10.7-15.3); LYMPH % 19.5 % (8-40); MCH 28.3 pg (25.7-33.7); MCHC 32.6 g/dl (32.0-36.0); MEAN CELL VOLUME 86.8 fl (80-96); MEAN PLT VOLUME 8.1 fl (7.5-11.1); MONO % 9.1 % (3.8-10.2); NEUT % 64.1 % (42.8-82.8); PLATELET COUNT 220 10^3/uL (134-434); RBC 3.32 M/mm3 (3.60-5.2); RDW 15.2 % (11.6-15.6); WHITE BLOOD COUNT 4.4 K/mm3 (4.0-10.0)
[2021-12-11 13:56] LABS: ALBUMIN 2.5 g/dl (3.4-5.0); CALCIUM 8.4 mg/dL (8.5-10.1)
[2021-12-11 13:57] LABS: BLOOD UREA NITROGEN 71.2 mg/dL (7-18); MAGNESIUM 2.2 mg/dL (1.8-2.4)
[2021-12-11 13:59] LABS: CREATININE 3.6 mg/dL (0.55-1.3)
[2021-12-11 14:01] LABS: BILIRUBIN,TOTAL 0.2 mg/dL (0.2-1); TOT PROT 6.2 g/dl (6.4-8.2)
[2021-12-11] MEDS: MELATONIN 5 MG TABLETS PO SCH (22:30)
[2021-12-11] MEDS: ATORVASTATIN CA 20 MG TABLET (FP) PO SCH (22:30)
[2021-12-11] MEDS: ACETAMINOPHEN 325 MG TABLET (FP) PO PRN (22:44)
[2021-12-12] MEDS: HEPARIN NA (PORCINE) 5,000 UNITS/ML 1ML VIAL SQ SCH ×4 (02:33→22:58)
[2021-12-12] MEDS: MELATONIN 5 MG TABLETS PO SCH ×3 (02:35→22:58)
[2021-12-12] MEDS: CARVEDILOL 25 MG TABLET (FP) PO SCH ×3 (06:15→22:57)
[2021-12-12] MEDS: INSULIN SLIDING SCALE (NOVOLOG) 1 VIAL SQ SCH ×4 (06:16→23:12)
[2021-12-12] MEDS: TORSEMIDE 20 MG TABLET (FP) PO SCH (11:37)
[2021-12-12] MEDS: BACITRACIN 0.9 GM PACKET TP SCH ×3 (11:37→22:59)
[2021-12-12] MEDS: TAMSULOSIN HCL 0.4 MG CAP PO SCH ×2 (11:38→22:58)
[2021-12-12] MEDS: amLODIPine BESYLATE 10 MG TABLET (FP) PO SCH (11:38)
[2021-12-12] MEDS: SODIUM ZIRCONIUM CYCLOSILICATE (LOKELMA) 5 GM PACKET PO SCH ×2 (11:38→11:48)
[2021-12-12 11:53] LABS: BASO % 0.7 % (0-2.0); EOS % 5.8 % (0-4.5); HEMATOCRIT 27.3 % (32.4-45.2); HEMOGLOBIN 8.9 GM/dL (10.7-15.3); LYMPH % 27.2 % (8-40); MCH 28.4 pg (25.7-33.7); MCHC 32.5 g/dl (32.0-36.0); MEAN CELL VOLUME 87.6 fl (80-96); MEAN PLT VOLUME 8.5 fl (7.5-11.1); MONO % 10.5 % (3.8-10.2); NEUT % 55.8 % (42.8-82.8); PLATELET COUNT 215 10^3/uL (134-434); RBC 3.11 M/mm3 (3.60-5.2)
[2021-12-12] MEDS ORDERED: diphenhydrAMINE HCL 25 MG CAPSULE (FP) PO PRN (12:06)
[2021-12-12 12:10] LABS: ALBUMIN 2.4 g/dl (3.4-5.0); BLOOD UREA NITROGEN 82.9 mg/dL (7-18); CALCIUM 8.1 mg/dL (8.5-10.1); MAGNESIUM 2.4 mg/dL (1.8-2.4)
[2021-12-12 12:13] LABS: CREATININE 3.6 mg/dL (0.55-1.3)
[2021-12-12 12:14] LABS: BILIRUBIN,TOTAL 0.2 mg/dL (0.2-1); TOT PROT 5.9 g/dl (6.4-8.2)
[2021-12-12] MEDS: NYSTATIN POWDER 100,000 UNITS/GM - 15 GM TOPICAL POWDER TP SCH (13:48)
[2021-12-12] MEDS: UMECLIDINIUM/VILANTEROL (ANORO) 62.5/25 MCG INHALER IH SCH (14:29)
[2021-12-12] MEDS: ATORVASTATIN CA 20 MG TABLET (FP) PO SCH (22:57)
[2021-12-12] MEDS: ACETAMINOPHEN 325 MG TABLET (FP) PO PRN (23:35)
[2021-12-13] MEDS: CARVEDILOL 25 MG TABLET (FP) PO SCH (06:27)
[2021-12-13] MEDS: HEPARIN NA (PORCINE) 5,000 UNITS/ML 1ML VIAL SQ SCH (06:27)
[2021-12-13] MEDS: INSULIN SLIDING SCALE (NOVOLOG) 1 VIAL SQ SCH ×2 (06:47→11:30)
[2021-12-13] MEDS: TAMSULOSIN HCL 0.4 MG CAP PO SCH (10:07)
[2021-12-13] MEDS: TORSEMIDE 20 MG TABLET (FP) PO SCH (10:07)
[2021-12-13] MEDS: amLODIPine BESYLATE 10 MG TABLET (FP) PO SCH (10:08)
[2021-12-13] MEDS: SODIUM ZIRCONIUM CYCLOSILICATE (LOKELMA) 5 GM PACKET PO SCH ×2 (10:09→10:17)
[2021-12-13] MEDS: UMECLIDINIUM/VILANTEROL (ANORO) 62.5/25 MCG INHALER IH SCH (10:18)
[2021-12-13] MEDS: NYSTATIN POWDER 100,000 UNITS/GM - 15 GM TOPICAL POWDER TP SCH (10:19)
[2021-12-13] MEDS: BACITRACIN 0.9 GM PACKET TP SCH (10:55)
[2021-12-13 12:37] VITALS: BP 140/72; PULSE 78; TEMP 98.4
== END 2021-12-13 13:09 | disposition home or self-care (01) | DRG 690 ==
LOC: JER 17:53 → JERBED 22:44 → J8W 12-11 11:14
PROVIDERS: ADMIT Hospitalist; ATTEND Nurse Practitioner Acute Care
DX: N39.0 Urinary tract infection, site not specified (principal); L03.116 Cellulitis of left lower limb; N18.4 Chronic kidney disease, stage 4 (severe); N13.2 Hydronephrosis with renal and ureteral calculous obstruction; J45.909 Unspecified asthma, uncomplicated; J44.9 Chronic obstructive pulmonary disease, unspecified; E10.9 Type 1 diabetes mellitus without complications; I12.9 Hypertensive chronic kidney disease with stage 1 through stage 4 chronic kidney disease, or unspecified chronic kidney disease; E66.01 Morbid (severe) obesity due to excess calories; D50.9 Iron deficiency anemia, unspecified; E78.5 Hyperlipidemia, unspecified; R21 Rash and other nonspecific skin eruption; R30.0 Dysuria; E87.5 Hyperkalemia; M25.572 Pain in left ankle and joints of left foot; R07.9 Chest pain, unspecified; M54.50 Low back pain, unspecified
CPT/HCPCS: 36415; 71045-TC-FY; 74176-TC; 80053; 81003; 82803; 82962; 83036; 83735; 84100; 84132; 84484; 85025; 87086; 87186; 93005; 93010; 93970-TC; 99285-25; C9803-CS; J1644; J3243; U0003; U0005

== ENCOUNTER 2021-12-30 14:10 | Inpatient (IN) | payer OTHER ==
[2021-12-30 17:35] LABS: EPI CELLS 14 /uL (0-25.1); HYALINE CASTS 9 /uL (0-3.1); PH,URINE 6.5 (5.0-8.0); URINE APPEARANCE TURBID; URINE BACTERIA 276 /uL (0-1359); URINE BILIRUBIN NEGATIVE (NEGATIVE); URINE COLOR YELLOW; URINE GLUCOSE (UA) NEGATIVE (NEGATIVE); URINE KETONE NEGATIVE (NEGATIVE); URINE LEUK ESTERASE 3+ (NEGATIVE); URINE NITRITE NEGATIVE (NEGATIVE); URINE PROTEIN 4+ (NEGATIVE); URINE RBC 96 /uL (0-23.9); URINE UROBILINOGEN 0.2 mg/dL (0.2-1.0); URINE WBC 6557 /uL (0-25.8)
[2021-12-30 18:11] LABS: BASO % 0.8 % (0-2.0); EOS % 4.6 % (0-4.5); HEMATOCRIT 27.5 % (32.4-45.2); LYMPH % 22.7 % (8-40); MCH 28.3 pg (25.7-33.7); MCHC 32.8 g/dl (32.0-36.0); MEAN CELL VOLUME 86.3 fl (80-96); MEAN PLT VOLUME 7.2 fl (7.5-11.1); MONO % 9.8 % (3.8-10.2); NEUT % 62.1 % (42.8-82.8); PLATELET COUNT 248 10^3/uL (134-434); RBC 3.19 M/mm3 (3.60-5.2); RDW 14.9 % (11.6-15.6); WHITE BLOOD COUNT 4.6 K/mm3 (4.0-10.0)
[2021-12-30 18:30] LABS: ALBUMIN 2.3 g/dl (3.4-5.0); CALCIUM 8.4 mg/dL (8.5-10.1)
[2021-12-30 18:31] LABS: BLOOD UREA NITROGEN 43.5 mg/dL (7-18); MAGNESIUM 1.8 mg/dL (1.8-2.4)
[2021-12-30 18:33] LABS: CHOLESTEROL 282 mg/dL (50-200)
[2021-12-30 18:33] LABS: CREATININE 3.1 mg/dL (0.55-1.3); PHOSPHOROUS 4.5 mg/dL (2.5-4.9)
[2021-12-30 18:34] LABS: LDL CHOLESTEROL (ONLY SJRH) 167 mg/dL (5-100); TRIGLYCERIDES 263 mg/dL (0-150)
[2021-12-30 18:35] LABS: BILIRUBIN,TOTAL 0.1 mg/dL (0.2-1); TOT PROT 6.1 g/dl (6.4-8.2)
[2021-12-30 18:36] LABS: ACTIVATED PTT 28.4 SECONDS (25.2-36.5); HDL CHOLESTEROL 57 mg/dL (40-60); INR 0.97 (0.83-1.09); PROTHROMBIN TIME (PATIENT) 11.2 SEC (9.7-13.0)
[2021-12-30] MEDS ORDERED: CEFTRIAXONE 1,000 MG in DEXTROSE 5%-WATER - 50 ML IVPB ONE (19:07)
[2021-12-30] MEDS ORDERED: CEFTRIAXONE 1 GM/50 ML BAG ONE (19:19)
[2021-12-30] MEDS: SODIUM CHLORIDE 1,000 ML IV SCH (19:32)
[2021-12-30] MEDS ORDERED: ACETAMINOPHEN 1000 MG/100 ML BAG IVPB ONE (19:54)
[2021-12-30] MEDS ORDERED: ACETAMINOPHEN INJECTION 100 ML IVPB ONE (23:03)
[2021-12-30] MEDS ORDERED: CARVEDILOL 25 MG TABLET (FP) ONE (23:03)
[2021-12-30] MEDS: CARVEDILOL 25 MG TABLET (FP) PO SCH (23:10)
[2021-12-30] MEDS ORDERED: LINEZOLID 600 MG PREMIX BAG 600 MG in PREMIX 300 IVPB SCH (23:45)
[2021-12-31] MEDS ORDERED: CARVEDILOL 25 MG TABLET (FP) ONE ×3 (07:11→22:53)
[2021-12-31] MEDS: CARVEDILOL 25 MG TABLET (FP) PO SCH ×3 (07:22→23:04)
[2021-12-31] MEDS: INSULIN SLIDING SCALE (NOVOLOG) 1 VIAL SQ SCH ×4 (07:30→23:04)
[2021-12-31] MEDS ORDERED: amLODIPine BESYLATE 10 MG TABLET (FP) PO SCH (10:00)
[2021-12-31] MEDS ORDERED: POLYETHYLENE GLYCOL (HEALTHYLAX) 3350 17 GM PACKET ONE (10:01)
[2021-12-31] MEDS ORDERED: amLODIPine BESYLATE 10 MG TABLET (FP) ONE (10:01)
[2021-12-31] MEDS: POLYETHYLENE GLYCOL (HEALTHYLAX) 3350 17 GM PACKET PO SCH (11:30)
[2021-12-31] MEDS: amLODIPine BESYLATE 10 MG TABLET (FP) PO SCH (11:30)
[2021-12-31 12:06] LABS: BASO % 0.8 % (0-2.0); EOS % 5.7 % (0-4.5); HEMATOCRIT 27.3 % (32.4-45.2); HEMOGLOBIN 8.9 GM/dL (10.7-15.3); LYMPH % 18.8 % (8-40); MCH 28.7 pg (25.7-33.7); MCHC 32.7 g/dl (32.0-36.0); MEAN CELL VOLUME 87.8 fl (80-96); MEAN PLT VOLUME 7.6 fl (7.5-11.1); MONO % 10.5 % (3.8-10.2); NEUT % 64.2 % (42.8-82.8); PLATELET COUNT 240 10^3/uL (134-434); RDW 15.3 % (11.6-15.6); WHITE BLOOD COUNT 4.5 K/mm3 (4.0-10.0)
[2021-12-31 12:34] LABS: CALCIUM 8.4 mg/dL (8.5-10.1); MAGNESIUM 1.7 mg/dL (1.8-2.4)
[2021-12-31 12:35] LABS: ALBUMIN 2.2 g/dl (3.4-5.0)
[2021-12-31 12:37] LABS: PHOSPHOROUS 5.2 mg/dL (2.5-4.9)
[2021-12-31 12:38] LABS: CREATININE 3.4 mg/dL (0.55-1.3)
[2021-12-31 12:39] LABS: BILIRUBIN,TOTAL 0.2 mg/dL (0.2-1); TOT PROT 5.9 g/dl (6.4-8.2)
[2021-12-31] MEDS: LINEZOLID 600 MG PREMIX BAG 600 MG/300 ML BAG IVPB SCH ×2 (13:17→14:25)
[2021-12-31] MEDS: SODIUM CHLORIDE 1,000 ML IV SCH (16:26)
[2021-12-31] MEDS ORDERED: ATORVASTATIN CA 20 MG TABLET (FP) ONE (22:53)
[2021-12-31] MEDS: ATORVASTATIN CA 20 MG TABLET (FP) PO SCH (23:04)
[2022-01-01] MEDS ORDERED: CARVEDILOL 25 MG TABLET (FP) ONE ×3 (06:20→22:17)
[2022-01-01] MEDS: CARVEDILOL 25 MG TABLET (FP) PO SCH ×3 (06:27→22:23)
[2022-01-01] MEDS: INSULIN SLIDING SCALE (NOVOLOG) 1 VIAL SQ SCH ×4 (07:55→22:23)
[2022-01-01] MEDS ORDERED: POLYETHYLENE GLYCOL (HEALTHYLAX) 3350 17 GM PACKET ONE (09:20)
[2022-01-01] MEDS ORDERED: amLODIPine BESYLATE 10 MG TABLET (FP) ONE (09:20)
[2022-01-01] MEDS: POLYETHYLENE GLYCOL (HEALTHYLAX) 3350 17 GM PACKET PO SCH (09:23)
[2022-01-01] MEDS: amLODIPine BESYLATE 10 MG TABLET (FP) PO SCH (09:23)
[2022-01-01] MEDS ORDERED: ALBUTEROL SO4 0.042% IH SOL 1.25 MG/3 ML VIAL.NEB NEB PRN (11:25)
[2022-01-01] MEDS: SODIUM BICARBONATE 8.4% - 75 MEQ in SODIUM CHLORIDE 0.45% 1,000 ML IV SCH (12:33)
[2022-01-01] MEDS ORDERED: ATORVASTATIN CA 20 MG TABLET (FP) ONE (22:17)
[2022-01-01] MEDS: ATORVASTATIN CA 20 MG TABLET (FP) PO SCH (22:22)
[2022-01-02] MEDS ORDERED: CARVEDILOL 25 MG TABLET (FP) ONE ×3 (06:02→22:36)
[2022-01-02] MEDS: CARVEDILOL 25 MG TABLET (FP) PO SCH ×3 (06:09→22:59)
[2022-01-02] MEDS: INSULIN SLIDING SCALE (NOVOLOG) 1 VIAL SQ SCH ×4 (07:58→22:59)
[2022-01-02] MEDS ORDERED: POLYETHYLENE GLYCOL (HEALTHYLAX) 3350 17 GM PACKET ONE (09:43)
[2022-01-02] MEDS ORDERED: amLODIPine BESYLATE 10 MG TABLET (FP) ONE (09:44)
[2022-01-02] MEDS: amLODIPine BESYLATE 10 MG TABLET (FP) PO SCH (09:46)
[2022-01-02] MEDS: POLYETHYLENE GLYCOL (HEALTHYLAX) 3350 17 GM PACKET PO SCH (09:46)
[2022-01-02 13:38] LABS: BASO % 0.8 % (0-2.0); EOS % 6.2 % (0-4.5); HEMATOCRIT 27.4 % (32.4-45.2); HEMOGLOBIN 8.8 GM/dL (10.7-15.3); LYMPH % 19.9 % (8-40); MCH 28.2 pg (25.7-33.7); MCHC 32.2 g/dl (32.0-36.0); MEAN CELL VOLUME 87.8 fl (80-96); MEAN PLT VOLUME 7.8 fl (7.5-11.1); MONO % 10.3 % (3.8-10.2); NEUT % 62.8 % (42.8-82.8); PLATELET COUNT 268 10^3/uL (134-434); RBC 3.13 M/mm3 (3.60-5.2); RDW 14.6 % (11.6-15.6); WHITE BLOOD COUNT 4.3 K/mm3 (4.0-10.0)
[2022-01-02 13:51] LABS: CALCIUM 8.5 mg/dL (8.5-10.1)
[2022-01-02 13:52] LABS: ALBUMIN 2.3 g/dl (3.4-5.0); BLOOD UREA NITROGEN 64.9 mg/dL (7-18); MAGNESIUM 1.9 mg/dL (1.8-2.4)
[2022-01-02 13:55] LABS: PHOSPHOROUS 5.8 mg/dL (2.5-4.9)
[2022-01-02 13:56] LABS: BILIRUBIN,TOTAL 0.3 mg/dL (0.2-1); TOT PROT 6.3 g/dl (6.4-8.2)
[2022-01-02] MEDS ORDERED: SODIUM ZIRCONIUM CYCLOSILICATE (LOKELMA) 5 GM PACKET PO ONE (14:28)
[2022-01-02] MEDS: SODIUM BICARBONATE 8.4% - 75 MEQ in SODIUM CHLORIDE 0.45% 1,000 ML IV SCH (14:38)
[2022-01-02] MEDS ORDERED: SODIUM ZIRCONIUM CYCLOSILICATE (LOKELMA) 5 GM PACKET ONE (14:40)
[2022-01-02] MEDS: SODIUM BICARBONATE 650 MG TABLET PO SCH ×2 (18:23→23:00)
[2022-01-02] MEDS ORDERED: DOCUSATE SODIUM 100 MG CAPSULE (FP) PO SCH (22:00)
[2022-01-02] MEDS ORDERED: ATORVASTATIN CA 20 MG TABLET (FP) ONE (22:35)
[2022-01-02] MEDS ORDERED: SENNOSIDES 8.6MG TABLET (FP) PO ONE (22:36)
[2022-01-02] MEDS ORDERED: DOCUSATE SODIUM 100 MG CAPSULE (FP) PO ONE (22:36)
[2022-01-02] MEDS ORDERED: MELATONIN 5 MG TABLETS ONE (22:51)
[2022-01-02] MEDS ORDERED: MELATONIN 5 MG TABLETS PO ONE (22:56)
[2022-01-02] MEDS: ATORVASTATIN CA 20 MG TABLET (FP) PO SCH (22:59)
[2022-01-02] MEDS: SENNOSIDES 8.6MG TABLET (FP) PO SCH (23:00)
[2022-01-03] MEDS ORDERED: CARVEDILOL 25 MG TABLET (FP) ONE (06:54)
[2022-01-03] MEDS: CARVEDILOL 25 MG TABLET (FP) PO SCH ×4 (06:58→22:02)
[2022-01-03] MEDS ORDERED: POLYETHYLENE GLYCOL (HEALTHYLAX) 3350 17 GM PACKET ONE (09:08)
[2022-01-03] MEDS ORDERED: SENNOSIDES 8.6MG TABLET (FP) PO ONE (09:09)
[2022-01-03] MEDS ORDERED: amLODIPine BESYLATE 10 MG TABLET (FP) ONE (09:09)
[2022-01-03] MEDS: INSULIN SLIDING SCALE (NOVOLOG) 1 VIAL SQ SCH ×4 (09:19→22:04)
[2022-01-03] MEDS: POLYETHYLENE GLYCOL (HEALTHYLAX) 3350 17 GM PACKET PO SCH (11:32)
[2022-01-03] MEDS: amLODIPine BESYLATE 10 MG TABLET (FP) PO SCH (11:32)
[2022-01-03] MEDS: SENNOSIDES 8.6MG TABLET (FP) PO SCH ×2 (11:32→22:03)
[2022-01-03] MEDS ORDERED: GENTAMICIN 80 MG PREMIXED IVPB 80 MG/100 ML BAG IVPB ONE ×2 (11:36→14:00)
[2022-01-03] MEDS ORDERED: MIDAZOLAM HCL 2 MG/2 ML SINGLE DOSE VIAL ONE (12:25)
[2022-01-03] MEDS ORDERED: ceFAZolin SODIUM 1 GM VIAL ONE (12:58)
[2022-01-03] MEDS ORDERED: ceFAZolin SODIUM 1 GM VIAL IVPB ONE (12:59)
[2022-01-03] MEDS ORDERED: ONDANSETRON 4 MG/2 ML VIAL IVPUSH PRN (13:45)
[2022-01-03] MEDS ORDERED: ALBUTEROL SO4 0.042% IH SOL 1.25 MG/3 ML VIAL.NEB NEB PRN (14:00)
[2022-01-03] MEDS ORDERED: GENTAMICIN SO4 80 MG/2 ML VIAL ONE (14:05)
[2022-01-03] MEDS: LACTATED RINGERS SOLUTION 1,000 ML IV SCH (15:00)
[2022-01-03] MEDS: SODIUM BICARBONATE 650 MG TABLET PO SCH ×2 (19:06→22:02)
[2022-01-03] MEDS: DOCUSATE SODIUM 100 MG CAPSULE (FP) PO SCH (22:02)
[2022-01-03] MEDS: ATORVASTATIN CA 20 MG TABLET (FP) PO SCH (22:02)
[2022-01-03] MEDS: ACETAMINOPHEN 325 MG TABLET (FP) PO PRN (22:03)
[2022-01-04] MEDS: LACTATED RINGERS SOLUTION 1,000 ML IV SCH (04:18)
[2022-01-04] MEDS: CARVEDILOL 25 MG TABLET (FP) PO SCH ×3 (07:55→22:01)
[2022-01-04] MEDS: INSULIN SLIDING SCALE (NOVOLOG) 1 VIAL SQ SCH ×4 (07:56→22:01)
[2022-01-04 10:25] LABS: BASO % 0.7 % (0-2.0); EOS % 5.4 % (0-4.5); HEMOGLOBIN 7.6 GM/dL (10.7-15.3); LYMPH % 19.5 % (8-40); MCH 29.1 pg (25.7-33.7); MCHC 33.2 g/dl (32.0-36.0); MEAN CELL VOLUME 87.5 fl (80-96); MEAN PLT VOLUME 8.2 fl (7.5-11.1); MONO % 13.1 % (3.8-10.2); NEUT % 61.3 % (42.8-82.8); PLATELET COUNT 235 10^3/uL (134-434); RBC 2.63 M/mm3 (3.60-5.2); RDW 14.9 % (11.6-15.6); WHITE BLOOD COUNT 3.7 K/mm3 (4.0-10.0)
[2022-01-04 10:44] LABS: MAGNESIUM 1.9 mg/dL (1.8-2.4)
[2022-01-04 10:46] LABS: PHOSPHOROUS 6.7 mg/dL (2.5-4.9)
[2022-01-04 10:47] LABS: CREATININE 4.5 mg/dL (0.55-1.3)
[2022-01-04] MEDS: SENNOSIDES 8.6MG TABLET (FP) PO SCH ×2 (11:22→22:01)
[2022-01-04] MEDS: SODIUM BICARBONATE 650 MG TABLET PO SCH ×2 (11:22→22:01)
[2022-01-04] MEDS: POLYETHYLENE GLYCOL (HEALTHYLAX) 3350 17 GM PACKET PO SCH (11:22)
[2022-01-04] MEDS: amLODIPine BESYLATE 10 MG TABLET (FP) PO SCH (11:22)
[2022-01-04] MEDS: SODIUM CHLORIDE 0.45% 1,000 ML IV SCH (14:06)
[2022-01-04] MEDS: SODIUM ZIRCONIUM CYCLOSILICATE (LOKELMA) 5 GM PACKET PO SCH (14:06)
[2022-01-04] MEDS: ATORVASTATIN CA 20 MG TABLET (FP) PO SCH (22:01)
[2022-01-04] MEDS: DOCUSATE SODIUM 100 MG CAPSULE (FP) PO SCH (22:01)
[2022-01-05] MEDS: SODIUM CHLORIDE 0.45% 1,000 ML IV SCH ×2 (06:29→15:35)
[2022-01-05] MEDS: CARVEDILOL 25 MG TABLET (FP) PO SCH ×3 (06:29→21:40)
[2022-01-05] MEDS: INSULIN SLIDING SCALE (NOVOLOG) 1 VIAL SQ SCH ×4 (06:29→21:41)
[2022-01-05 09:40] LABS: BASO % 0.8 % (0-2.0); EOS % 6.3 % (0-4.5); HEMATOCRIT 23.2 % (32.4-45.2); HEMOGLOBIN 7.6 GM/dL (10.7-15.3); LYMPH % 19.7 % (8-40); MCH 28.8 pg (25.7-33.7); MCHC 32.7 g/dl (32.0-36.0); MEAN PLT VOLUME 8.5 fl (7.5-11.1); MONO % 12.7 % (3.8-10.2); NEUT % 60.5 % (42.8-82.8); PLATELET COUNT 228 10^3/uL (134-434); RBC 2.63 M/mm3 (3.60-5.2); WHITE BLOOD COUNT 3.6 K/mm3 (4.0-10.0)
[2022-01-05 09:56] LABS: ALBUMIN 1.9 g/dl (3.4-5.0); BLOOD UREA NITROGEN 83.4 mg/dL (7-18); CALCIUM 7.9 mg/dL (8.5-10.1)
[2022-01-05 09:57] LABS: MAGNESIUM 1.8 mg/dL (1.8-2.4)
[2022-01-05 09:59] LABS: CREATININE 4.6 mg/dL (0.55-1.3); PHOSPHOROUS 6.4 mg/dL (2.5-4.9)
[2022-01-05 10:00] LABS: TOT PROT 5.3 g/dl (6.4-8.2)
[2022-01-05 10:01] LABS: BILIRUBIN,TOTAL 0.1 mg/dL (0.2-1)
[2022-01-05] MEDS: SENNOSIDES 8.6MG TABLET (FP) PO SCH ×2 (10:43→21:40)
[2022-01-05] MEDS: POLYETHYLENE GLYCOL (HEALTHYLAX) 3350 17 GM PACKET PO SCH (10:43)
[2022-01-05] MEDS: amLODIPine BESYLATE 10 MG TABLET (FP) PO SCH (10:43)
[2022-01-05] MEDS: SODIUM ZIRCONIUM CYCLOSILICATE (LOKELMA) 5 GM PACKET PO SCH (10:43)
[2022-01-05] MEDS: SODIUM BICARBONATE 650 MG TABLET PO SCH (10:44)
[2022-01-05] MEDS: SODIUM BICARBONATE 8.4% - 75 MEQ in DEXTROSE 5%-WATER - 1,000 ML IV SCH (18:31)
[2022-01-05] MEDS: ATORVASTATIN CA 20 MG TABLET (FP) PO SCH (21:40)
[2022-01-05] MEDS: DOCUSATE SODIUM 100 MG CAPSULE (FP) PO SCH (21:40)
[2022-01-06] MEDS: INSULIN SLIDING SCALE (NOVOLOG) 1 VIAL SQ SCH ×4 (06:37→21:25)
[2022-01-06] MEDS: CARVEDILOL 25 MG TABLET (FP) PO SCH ×3 (06:38→21:16)
[2022-01-06] MEDS: SODIUM BICARBONATE 8.4% - 75 MEQ in DEXTROSE 5%-WATER - 1,000 ML IV SCH ×2 (10:21→22:00)
[2022-01-06] MEDS: SODIUM ZIRCONIUM CYCLOSILICATE (LOKELMA) 5 GM PACKET PO SCH (10:22)
[2022-01-06] MEDS: SENNOSIDES 8.6MG TABLET (FP) PO SCH ×2 (10:22→21:17)
[2022-01-06] MEDS: amLODIPine BESYLATE 10 MG TABLET (FP) PO SCH (10:22)
[2022-01-06] MEDS: POLYETHYLENE GLYCOL (HEALTHYLAX) 3350 17 GM PACKET PO SCH (10:22)
[2022-01-06 11:00] LABS: BASO % 0.8 % (0-2.0); EOS % 6.4 % (0-4.5); HEMATOCRIT 22.5 % (32.4-45.2); HEMOGLOBIN 7.5 GM/dL (10.7-15.3); LYMPH % 22.4 % (8-40); MCH 28.6 pg (25.7-33.7); MCHC 33.1 g/dl (32.0-36.0); MEAN CELL VOLUME 86.4 fl (80-96); MEAN PLT VOLUME 8.2 fl (7.5-11.1); MONO % 11.9 % (3.8-10.2); NEUT % 58.5 % (42.8-82.8); PLATELET COUNT 232 10^3/uL (134-434); RBC 2.61 M/mm3 (3.60-5.2); RDW 15.2 % (11.6-15.6); WHITE BLOOD COUNT 3.6 K/mm3 (4.0-10.0)
[2022-01-06 11:26] LABS: CALCIUM 7.9 mg/dL (8.5-10.1)
[2022-01-06 11:27] LABS: BLOOD UREA NITROGEN 80.4 mg/dL (7-18); MAGNESIUM 1.7 mg/dL (1.8-2.4)
[2022-01-06 11:30] LABS: CREATININE 4.3 mg/dL (0.55-1.3); PHOSPHOROUS 6.9 mg/dL (2.5-4.9)
[2022-01-06] MEDS ORDERED: IRON SUCROSE INJECTION 100 MG in SODIUM CHLORIDE 95 ML IVPB ONE (11:30)
[2022-01-06] MEDS ORDERED: SODIUM ZIRCONIUM CYCLOSILICATE (LOKELMA) 5 GM PACKET PO ONE (13:30)
[2022-01-06] MEDS: ATORVASTATIN CA 20 MG TABLET (FP) PO SCH (21:16)
[2022-01-06] MEDS: DOCUSATE SODIUM 100 MG CAPSULE (FP) PO SCH (21:16)
[2022-01-06] MEDS: ACETAMINOPHEN 325 MG TABLET (FP) PO PRN (21:34)
[2022-01-07] MEDS: CARVEDILOL 25 MG TABLET (FP) PO SCH ×3 (05:45→21:37)
[2022-01-07] MEDS ORDERED: INSULIN (NOVOLOG) ASPART 100 UNITS/ML 10ML VIAL ONE (07:54)
[2022-01-07] MEDS: INSULIN SLIDING SCALE (NOVOLOG) 1 VIAL SQ SCH ×4 (10:15→21:35)
[2022-01-07] MEDS: POLYETHYLENE GLYCOL (HEALTHYLAX) 3350 17 GM PACKET PO SCH (10:16)
[2022-01-07] MEDS: amLODIPine BESYLATE 10 MG TABLET (FP) PO SCH (10:16)
[2022-01-07] MEDS: SENNOSIDES 8.6MG TABLET (FP) PO SCH ×2 (10:16→21:37)
[2022-01-07] MEDS: SODIUM BICARBONATE 8.4% - 75 MEQ in DEXTROSE 5%-WATER - 1,000 ML IV SCH ×3 (10:22→21:39)
[2022-01-07 13:26] LABS: BASO % 0.7 % (0-2.0); EOS % 5.5 % (0-4.5); HEMATOCRIT 27.3 % (32.4-45.2); LYMPH % 19.5 % (8-40); MCH 28.3 pg (25.7-33.7); MEAN CELL VOLUME 85.8 fl (80-96); MEAN PLT VOLUME 8.3 fl (7.5-11.1); MONO % 9.1 % (3.8-10.2); NEUT % 65.2 % (42.8-82.8); PLATELET COUNT 298 10^3/uL (134-434); RBC 3.18 M/mm3 (3.60-5.2); RDW 15.1 % (11.6-15.6); WHITE BLOOD COUNT 4.7 K/mm3 (4.0-10.0)
[2022-01-07 13:39] LABS: CALCIUM 8.3 mg/dL (8.5-10.1)
[2022-01-07 13:40] LABS: BLOOD UREA NITROGEN 79.4 mg/dL (7-18); MAGNESIUM 1.6 mg/dL (1.8-2.4)
[2022-01-07 13:43] LABS: CREATININE 4.2 mg/dL (0.55-1.3); PHOSPHOROUS 7.1 mg/dL (2.5-4.9)
[2022-01-07] MEDS: SODIUM ZIRCONIUM CYCLOSILICATE (LOKELMA) 10 GM PACKET PO SCH (14:19)
[2022-01-07] MEDS: DOCUSATE SODIUM 100 MG CAPSULE (FP) PO SCH (21:37)
[2022-01-07] MEDS: ATORVASTATIN CA 20 MG TABLET (FP) PO SCH (21:37)
[2022-01-07] MEDS: ACETAMINOPHEN 325 MG TABLET (FP) PO PRN (22:05)
[2022-01-08] MEDS: SODIUM BICARBONATE 8.4% - 75 MEQ in DEXTROSE 5%-WATER - 1,000 ML IV SCH (01:21)
[2022-01-08] MEDS: CARVEDILOL 25 MG TABLET (FP) PO SCH ×3 (06:09→22:55)
[2022-01-08] MEDS: INSULIN SLIDING SCALE (NOVOLOG) 1 VIAL SQ SCH ×4 (06:09→22:55)
[2022-01-08] MEDS: SODIUM ZIRCONIUM CYCLOSILICATE (LOKELMA) 10 GM PACKET PO SCH (09:52)
[2022-01-08] MEDS: SENNOSIDES 8.6MG TABLET (FP) PO SCH ×2 (09:52→22:55)
[2022-01-08] MEDS: amLODIPine BESYLATE 10 MG TABLET (FP) PO SCH (09:52)
[2022-01-08] MEDS: POLYETHYLENE GLYCOL (HEALTHYLAX) 3350 17 GM PACKET PO SCH (09:52)
[2022-01-08] MEDS ORDERED: SODIUM CHLORIDE 0.45% 1,000 ML IV SCH (14:00)
[2022-01-08] MEDS: SODIUM BICARBONATE 650 MG TABLET PO SCH ×2 (14:08→22:55)
[2022-01-08] MEDS ORDERED: SODIUM CHLORIDE NASAL SPRAY 44 ML BOTTLE NS PRN (18:53)
[2022-01-08] MEDS: ATORVASTATIN CA 20 MG TABLET (FP) PO SCH (22:54)
[2022-01-08] MEDS: DOCUSATE SODIUM 100 MG CAPSULE (FP) PO SCH (22:54)
[2022-01-09] MEDS: INSULIN SLIDING SCALE (NOVOLOG) 1 VIAL SQ SCH ×4 (06:27→23:19)
[2022-01-09] MEDS: SODIUM BICARBONATE 650 MG TABLET PO SCH ×4 (06:27→23:12)
[2022-01-09] MEDS: CARVEDILOL 25 MG TABLET (FP) PO SCH ×4 (06:27→23:11)
[2022-01-09] MEDS: SODIUM ZIRCONIUM CYCLOSILICATE (LOKELMA) 10 GM PACKET PO SCH (10:00)
[2022-01-09] MEDS: POLYETHYLENE GLYCOL (HEALTHYLAX) 3350 17 GM PACKET PO SCH (10:00)
[2022-01-09] MEDS: amLODIPine BESYLATE 10 MG TABLET (FP) PO SCH (10:01)
[2022-01-09] MEDS: SENNOSIDES 8.6MG TABLET (FP) PO SCH ×2 (10:01→23:12)
[2022-01-09 11:14] LABS: CALCIUM 7.7 mg/dL (8.5-10.1)
[2022-01-09 11:15] LABS: ALBUMIN 1.9 g/dl (3.4-5.0); BLOOD UREA NITROGEN 84.3 mg/dL (7-18); MAGNESIUM 1.6 mg/dL (1.8-2.4)
[2022-01-09 11:16] LABS: EOS % 5.3 % (0-4.5); HEMATOCRIT 21.6 % (32.4-45.2); HEMOGLOBIN 7.2 GM/dL (10.7-15.3); LYMPH % 23.2 % (8-40); MCH 28.8 pg (25.7-33.7); MCHC 33.2 g/dl (32.0-36.0); MEAN CELL VOLUME 86.9 fl (80-96); MEAN PLT VOLUME 8.8 fl (7.5-11.1); MONO % 13.4 % (3.8-10.2); NEUT % 57.1 % (42.8-82.8); PLATELET COUNT 224 10^3/uL (134-434); RBC 2.48 M/mm3 (3.60-5.2); RDW 15.1 % (11.6-15.6); WHITE BLOOD COUNT 4.1 K/mm3 (4.0-10.0)
[2022-01-09 11:18] LABS: PHOSPHOROUS 7.4 mg/dL (2.5-4.9)
[2022-01-09 11:19] LABS: BILIRUBIN,TOTAL 0.2 mg/dL (0.2-1); TOT PROT 5.2 g/dl (6.4-8.2)
[2022-01-09] MEDS ORDERED: SODIUM CHLORIDE 0.45% 1,000 ML IV SCH (11:21)
[2022-01-09] MEDS ORDERED: MAGNESIUM 2GM/50ML STERILE WATER IVPB IVPB ONE (12:15)
[2022-01-09] MEDS: SODIUM CHLORIDE 0.45% 1,000 ML IV SCH (12:18)
[2022-01-09] MEDS ORDERED: MAGNESIUM OXIDE 400 MG TABLET (FP) PO ONE (12:19)
[2022-01-09] MEDS: CALCIUM ACETATE 667 MG CAPSULE (FP) PO SCH (17:18)
[2022-01-09] MEDS: DOCUSATE SODIUM 100 MG CAPSULE (FP) PO SCH (23:11)
[2022-01-09] MEDS: ATORVASTATIN CA 20 MG TABLET (FP) PO SCH (23:11)
[2022-01-10] MEDS: MELATONIN 5 MG TABLETS PO PRN ×2 (00:45→22:16)
[2022-01-10] MEDS: INSULIN SLIDING SCALE (NOVOLOG) 1 VIAL SQ SCH ×4 (06:29→22:30)
[2022-01-10] MEDS: SODIUM BICARBONATE 650 MG TABLET PO SCH ×3 (06:30→22:12)
[2022-01-10] MEDS: CARVEDILOL 25 MG TABLET (FP) PO SCH ×3 (06:30→22:12)
[2022-01-10] MEDS: POLYETHYLENE GLYCOL (HEALTHYLAX) 3350 17 GM PACKET PO SCH (09:30)
[2022-01-10] MEDS: SODIUM ZIRCONIUM CYCLOSILICATE (LOKELMA) 10 GM PACKET PO SCH (09:30)
[2022-01-10] MEDS: SENNOSIDES 8.6MG TABLET (FP) PO SCH ×2 (09:30→22:12)
[2022-01-10] MEDS: amLODIPine BESYLATE 10 MG TABLET (FP) PO SCH (09:30)
[2022-01-10] MEDS: CALCIUM ACETATE 667 MG CAPSULE (FP) PO SCH ×3 (09:30→18:04)
[2022-01-10] MEDS: SODIUM CHLORIDE 0.45% 1,000 ML IV SCH (12:14)
[2022-01-10] MEDS: DOCUSATE SODIUM 100 MG CAPSULE (FP) PO SCH (22:12)
[2022-01-10] MEDS: ATORVASTATIN CA 20 MG TABLET (FP) PO SCH (22:16)
[2022-01-11] MEDS: CARVEDILOL 25 MG TABLET (FP) PO SCH ×3 (06:43→21:27)
[2022-01-11] MEDS: SODIUM BICARBONATE 650 MG TABLET PO SCH ×3 (06:43→21:27)
[2022-01-11] MEDS: INSULIN SLIDING SCALE (NOVOLOG) 1 VIAL SQ SCH ×4 (06:43→23:10)
[2022-01-11 09:07] LABS: BASO % 0.6 % (0-2.0); EOS % 4.9 % (0-4.5); HEMATOCRIT 21.7 % (32.4-45.2); HEMOGLOBIN 7.1 GM/dL (10.7-15.3); LYMPH % 20.8 % (8-40); MCH 28.4 pg (25.7-33.7); MCHC 32.6 g/dl (32.0-36.0); MEAN PLT VOLUME 8.4 fl (7.5-11.1); MONO % 12.4 % (3.8-10.2); NEUT % 61.3 % (42.8-82.8); PLATELET COUNT 209 10^3/uL (134-434); RDW 14.6 % (11.6-15.6); WHITE BLOOD COUNT 4.5 K/mm3 (4.0-10.0)
[2022-01-11 09:56] LABS: BLOOD UREA NITROGEN 81.4 mg/dL (7-18); CALCIUM 8.1 mg/dL (8.5-10.1)
[2022-01-11 09:59] LABS: CREATININE 4.1 mg/dL (0.55-1.3); PHOSPHOROUS 7.1 mg/dL (2.5-4.9)
[2022-01-11 10:01] LABS: BILIRUBIN,TOTAL 0.2 mg/dL (0.2-1); TOT PROT 5.4 g/dl (6.4-8.2)
[2022-01-11] MEDS: POLYETHYLENE GLYCOL (HEALTHYLAX) 3350 17 GM PACKET PO SCH (10:17)
[2022-01-11] MEDS: SENNOSIDES 8.6MG TABLET (FP) PO SCH ×2 (10:17→21:27)
[2022-01-11] MEDS: amLODIPine BESYLATE 10 MG TABLET (FP) PO SCH (10:18)
[2022-01-11] MEDS: SODIUM ZIRCONIUM CYCLOSILICATE (LOKELMA) 10 GM PACKET PO SCH (10:18)
[2022-01-11] MEDS: CALCIUM ACETATE 667 MG CAPSULE (FP) PO SCH ×3 (10:18→18:17)
[2022-01-11] MEDS ORDERED: IRON SUCROSE INJECTION 100 MG in SODIUM CHLORIDE 95 ML IVPB ONE (13:00)
[2022-01-11] MEDS: FERROUS SO4 325 MG TABLET (FP) PO SCH (18:17)
[2022-01-11] MEDS: DOCUSATE SODIUM 100 MG CAPSULE (FP) PO SCH (21:27)
[2022-01-11] MEDS: ATORVASTATIN CA 20 MG TABLET (FP) PO SCH (21:28)
[2022-01-11] MEDS: MELATONIN 5 MG TABLETS PO PRN (21:28)
[2022-01-12] MEDS: CARVEDILOL 25 MG TABLET (FP) PO SCH ×3 (06:38→22:49)
[2022-01-12] MEDS: INSULIN SLIDING SCALE (NOVOLOG) 1 VIAL SQ SCH ×4 (06:40→22:46)
[2022-01-12] MEDS: SODIUM ZIRCONIUM CYCLOSILICATE (LOKELMA) 10 GM PACKET PO SCH ×2 (10:08→22:48)
[2022-01-12] MEDS: POLYETHYLENE GLYCOL (HEALTHYLAX) 3350 17 GM PACKET PO SCH (10:08)
[2022-01-12] MEDS: amLODIPine BESYLATE 10 MG TABLET (FP) PO SCH (10:09)
[2022-01-12] MEDS: SENNOSIDES 8.6MG TABLET (FP) PO SCH ×2 (10:09→22:49)
[2022-01-12] MEDS: CALCIUM ACETATE 667 MG CAPSULE (FP) PO SCH ×3 (10:09→18:01)
[2022-01-12] MEDS: FERROUS SO4 325 MG TABLET (FP) PO SCH ×2 (10:09→18:01)
[2022-01-12] MEDS: SODIUM BICARBONATE 650 MG TABLET PO SCH ×2 (10:09→22:49)
[2022-01-12 15:09] LABS: HEMOGLOBIN 7.8 GM/dL (10.7-15.3); MONO % 10.4 % (3.8-10.2)
[2022-01-12 15:25] LABS: ALBUMIN 2.2 g/dl (3.4-5.0); BLOOD UREA NITROGEN 85.3 mg/dL (7-18)
[2022-01-12 15:26] LABS: BASO % 0.9 % (0-2.0); CALCIUM 8.3 mg/dL (8.5-10.1); EOS % 4.2 % (0-4.5); LYMPH % 18.8 % (8-40); MCH 28.2 pg (25.7-33.7); MCHC 32.5 g/dl (32.0-36.0); MEAN CELL VOLUME 86.7 fl (80-96); MEAN PLT VOLUME 8.5 fl (7.5-11.1); NEUT % 65.7 % (42.8-82.8); PLATELET COUNT 215 10^3/uL (134-434); RBC 2.77 M/mm3 (3.60-5.2); RDW 14.8 % (11.6-15.6); WHITE BLOOD COUNT 3.9 K/mm3 (4.0-10.0)
[2022-01-12 15:28] LABS: CREATININE 4.1 mg/dL (0.55-1.3); PHOSPHOROUS 6.6 mg/dL (2.5-4.9)
[2022-01-12 15:29] LABS: BILIRUBIN,TOTAL 0.2 mg/dL (0.2-1); TOT PROT 5.8 g/dl (6.4-8.2)
[2022-01-12] MEDS ORDERED: IRON SUCROSE INJECTION 100 MG in SODIUM CHLORIDE 95 ML IVPB ONE (15:35)
[2022-01-12] MEDS ORDERED: EPOETIN ALFA-EPBX 10,000 UNIT/ML VIAL SQ ONE (15:35)
[2022-01-12] MEDS: MELATONIN 5 MG TABLETS PO PRN (22:46)
[2022-01-12] MEDS: ACETAMINOPHEN 325 MG TABLET (FP) PO PRN (22:48)
[2022-01-12] MEDS: DOCUSATE SODIUM 100 MG CAPSULE (FP) PO SCH (22:48)
[2022-01-12] MEDS: ATORVASTATIN CA 20 MG TABLET (FP) PO SCH (22:49)
[2022-01-13] MEDS: CARVEDILOL 25 MG TABLET (FP) PO SCH ×4 (06:32→21:44)
[2022-01-13] MEDS: INSULIN SLIDING SCALE (NOVOLOG) 1 VIAL SQ SCH ×4 (06:32→21:45)
[2022-01-13] MEDS: POLYETHYLENE GLYCOL (HEALTHYLAX) 3350 17 GM PACKET PO SCH (09:29)
[2022-01-13] MEDS: amLODIPine BESYLATE 10 MG TABLET (FP) PO SCH (09:30)
[2022-01-13] MEDS: CALCIUM ACETATE 667 MG CAPSULE (FP) PO SCH ×3 (09:30→18:31)
[2022-01-13] MEDS: SENNOSIDES 8.6MG TABLET (FP) PO SCH ×2 (09:31→21:44)
[2022-01-13] MEDS: SODIUM BICARBONATE 650 MG TABLET PO SCH ×2 (09:31→21:44)
[2022-01-13] MEDS: FERROUS SO4 325 MG TABLET (FP) PO SCH ×2 (09:31→18:31)
[2022-01-13] MEDS: SODIUM ZIRCONIUM CYCLOSILICATE (LOKELMA) 10 GM PACKET PO SCH ×2 (09:35→22:58)
[2022-01-13 13:46] LABS: BASO % 0.7 % (0-2.0); EOS % 4.6 % (0-4.5); HEMATOCRIT 24.4 % (32.4-45.2); HEMOGLOBIN 8.1 GM/dL (10.7-15.3); LYMPH % 17.4 % (8-40); MCH 28.7 pg (25.7-33.7); MCHC 33.3 g/dl (32.0-36.0); MEAN CELL VOLUME 86.2 fl (80-96); MEAN PLT VOLUME 8.6 fl (7.5-11.1); MONO % 11.4 % (3.8-10.2); NEUT % 65.9 % (42.8-82.8); PLATELET COUNT 213 10^3/uL (134-434); RBC 2.83 M/mm3 (3.60-5.2); RDW 14.7 % (11.6-15.6)
[2022-01-13 14:16] LABS: CALCIUM 8.4 mg/dL (8.5-10.1)
[2022-01-13 14:17] LABS: ALBUMIN 2.4 g/dl (3.4-5.0); MAGNESIUM 1.9 mg/dL (1.8-2.4)
[2022-01-13 14:20] LABS: CREATININE 4.1 mg/dL (0.55-1.3); PHOSPHOROUS 6.7 mg/dL (2.5-4.9)
[2022-01-13 14:22] LABS: BILIRUBIN,TOTAL 0.2 mg/dL (0.2-1); TOT PROT 5.9 g/dl (6.4-8.2)
[2022-01-13] MEDS: DOCUSATE SODIUM 100 MG CAPSULE (FP) PO SCH (21:44)
[2022-01-13] MEDS: ATORVASTATIN CA 20 MG TABLET (FP) PO SCH (21:45)
[2022-01-13] MEDS: MELATONIN 5 MG TABLETS PO PRN (21:49)
[2022-01-14] MEDS: CARVEDILOL 25 MG TABLET (FP) PO SCH ×3 (06:20→21:16)
[2022-01-14] MEDS: INSULIN SLIDING SCALE (NOVOLOG) 1 VIAL SQ SCH ×4 (06:20→21:17)
[2022-01-14] MEDS: CALCIUM ACETATE 667 MG CAPSULE (FP) PO SCH ×3 (10:33→17:43)
[2022-01-14] MEDS: FERROUS SO4 325 MG TABLET (FP) PO SCH ×2 (10:33→17:43)
[2022-01-14] MEDS: POLYETHYLENE GLYCOL (HEALTHYLAX) 3350 17 GM PACKET PO SCH (10:33)
[2022-01-14] MEDS: SODIUM ZIRCONIUM CYCLOSILICATE (LOKELMA) 10 GM PACKET PO SCH ×3 (10:33→23:15)
[2022-01-14] MEDS: amLODIPine BESYLATE 10 MG TABLET (FP) PO SCH (10:34)
[2022-01-14] MEDS: SODIUM BICARBONATE 650 MG TABLET PO SCH ×2 (10:34→21:16)
[2022-01-14] MEDS: SENNOSIDES 8.6MG TABLET (FP) PO SCH ×2 (10:34→21:15)
[2022-01-14 14:38] LABS: BASO % 0.6 % (0-2.0); HEMATOCRIT 23.5 % (32.4-45.2); HEMOGLOBIN 7.7 GM/dL (10.7-15.3); LYMPH % 16.1 % (8-40); MCH 28.2 pg (25.7-33.7); MCHC 32.9 g/dl (32.0-36.0); MEAN CELL VOLUME 85.6 fl (80-96); MEAN PLT VOLUME 8.3 fl (7.5-11.1); NEUT % 67.3 % (42.8-82.8); PLATELET COUNT 197 10^3/uL (134-434); RBC 2.75 M/mm3 (3.60-5.2); RDW 14.9 % (11.6-15.6); WHITE BLOOD COUNT 4.4 K/mm3 (4.0-10.0)
[2022-01-14 14:59] LABS: CALCIUM 8.3 mg/dL (8.5-10.1)
[2022-01-14 15:00] LABS: BLOOD UREA NITROGEN 90.5 mg/dL (7-18); MAGNESIUM 1.8 mg/dL (1.8-2.4)
[2022-01-14 15:03] LABS: CREATININE 4.7 mg/dL (0.55-1.3); PHOSPHOROUS 6.9 mg/dL (2.5-4.9)
[2022-01-14] MEDS: DOCUSATE SODIUM 100 MG CAPSULE (FP) PO SCH (21:15)
[2022-01-14] MEDS: MELATONIN 5 MG TABLETS PO PRN (21:16)
[2022-01-14] MEDS: ATORVASTATIN CA 20 MG TABLET (FP) PO SCH (21:16)
[2022-01-15] MEDS: INSULIN SLIDING SCALE (NOVOLOG) 1 VIAL SQ SCH ×4 (06:51→22:25)
[2022-01-15] MEDS: CARVEDILOL 25 MG TABLET (FP) PO SCH ×3 (06:51→21:19)
[2022-01-15] MEDS: FERROUS SO4 325 MG TABLET (FP) PO SCH ×2 (09:48→17:25)
[2022-01-15] MEDS: SENNOSIDES 8.6MG TABLET (FP) PO SCH ×2 (09:48→21:20)
[2022-01-15] MEDS: CALCIUM ACETATE 667 MG CAPSULE (FP) PO SCH ×3 (09:49→17:25)
[2022-01-15] MEDS: POLYETHYLENE GLYCOL (HEALTHYLAX) 3350 17 GM PACKET PO SCH (09:49)
[2022-01-15] MEDS: SODIUM ZIRCONIUM CYCLOSILICATE (LOKELMA) 10 GM PACKET PO SCH ×2 (09:49→22:26)
[2022-01-15] MEDS: amLODIPine BESYLATE 10 MG TABLET (FP) PO SCH (09:49)
[2022-01-15] MEDS: SODIUM BICARBONATE 650 MG TABLET PO SCH ×2 (09:49→21:19)
[2022-01-15] MEDS: DOCUSATE SODIUM 100 MG CAPSULE (FP) PO SCH (21:19)
[2022-01-15] MEDS: MELATONIN 5 MG TABLETS PO PRN (21:20)
[2022-01-15] MEDS: ATORVASTATIN CA 20 MG TABLET (FP) PO SCH (21:20)
[2022-01-16] MEDS: ACETAMINOPHEN 325 MG TABLET (FP) PO PRN ×2 (01:59→22:20)
[2022-01-16] MEDS: INSULIN SLIDING SCALE (NOVOLOG) 1 VIAL SQ SCH ×4 (06:59→22:22)
[2022-01-16] MEDS: CARVEDILOL 25 MG TABLET (FP) PO SCH ×3 (07:00→22:20)
[2022-01-16] MEDS: POLYETHYLENE GLYCOL (HEALTHYLAX) 3350 17 GM PACKET PO SCH (09:37)
[2022-01-16] MEDS: SODIUM BICARBONATE 650 MG TABLET PO SCH ×2 (09:37→22:20)
[2022-01-16] MEDS: amLODIPine BESYLATE 10 MG TABLET (FP) PO SCH (09:37)
[2022-01-16] MEDS: SODIUM ZIRCONIUM CYCLOSILICATE (LOKELMA) 10 GM PACKET PO SCH ×2 (09:37→23:49)
[2022-01-16] MEDS: FERROUS SO4 325 MG TABLET (FP) PO SCH ×2 (09:37→18:25)
[2022-01-16] MEDS: SENNOSIDES 8.6MG TABLET (FP) PO SCH ×2 (09:37→22:19)
[2022-01-16] MEDS: CALCIUM ACETATE 667 MG CAPSULE (FP) PO SCH ×3 (09:37→18:25)
[2022-01-16 12:32] LABS: BASO % 0.6 % (0-2.0); EOS % 4.8 % (0-4.5); HEMATOCRIT 25.5 % (32.4-45.2); HEMOGLOBIN 8.4 GM/dL (10.7-15.3); LYMPH % 18.7 % (8-40); MCH 28.7 pg (25.7-33.7); MCHC 32.8 g/dl (32.0-36.0); MEAN CELL VOLUME 87.6 fl (80-96); MEAN PLT VOLUME 8.6 fl (7.5-11.1); MONO % 11.7 % (3.8-10.2); NEUT % 64.2 % (42.8-82.8); PLATELET COUNT 206 10^3/uL (134-434); RBC 2.91 M/mm3 (3.60-5.2); RDW 15.4 % (11.6-15.6); WHITE BLOOD COUNT 4.9 K/mm3 (4.0-10.0)
[2022-01-16 13:33] LABS: ALBUMIN 2.5 g/dl (3.4-5.0); BILIRUBIN,TOTAL 0.2 mg/dL (0.2-1); BLOOD UREA NITROGEN 97.1 mg/dL (7-18); CALCIUM 8.4 mg/dL (8.5-10.1); CREATININE 5.2 mg/dL (0.55-1.3); MAGNESIUM 1.9 mg/dL (1.8-2.4); PHOSPHOROUS 6.5 mg/dL (2.5-4.9); TOT PROT 6.7 g/dl (6.4-8.2)
[2022-01-16] MEDS: ATORVASTATIN CA 20 MG TABLET (FP) PO SCH (22:19)
[2022-01-16] MEDS: MELATONIN 5 MG TABLETS PO PRN (22:19)
[2022-01-16] MEDS: DOCUSATE SODIUM 100 MG CAPSULE (FP) PO SCH (22:19)
[2022-01-17] MEDS: CARVEDILOL 25 MG TABLET (FP) PO SCH ×3 (07:04→22:07)
[2022-01-17] MEDS: INSULIN SLIDING SCALE (NOVOLOG) 1 VIAL SQ SCH ×4 (07:04→22:07)
[2022-01-17] MEDS: FERROUS SO4 325 MG TABLET (FP) PO SCH ×2 (09:24→18:40)
[2022-01-17] MEDS: CALCIUM ACETATE 667 MG CAPSULE (FP) PO SCH ×3 (09:24→18:40)
[2022-01-17] MEDS: amLODIPine BESYLATE 10 MG TABLET (FP) PO SCH (09:25)
[2022-01-17] MEDS: POLYETHYLENE GLYCOL (HEALTHYLAX) 3350 17 GM PACKET PO SCH (09:25)
[2022-01-17] MEDS: SENNOSIDES 8.6MG TABLET (FP) PO SCH ×2 (09:25→22:06)
[2022-01-17] MEDS: SODIUM ZIRCONIUM CYCLOSILICATE (LOKELMA) 10 GM PACKET PO SCH ×2 (09:25→21:20)
[2022-01-17] MEDS: SODIUM BICARBONATE 650 MG TABLET PO SCH ×2 (09:26→22:06)
[2022-01-17] MEDS ORDERED: MIDAZOLAM HCL 2 MG/2 ML SINGLE DOSE VIAL ONE (10:11)
[2022-01-17] MEDS ORDERED: SODIUM CHLORIDE 0.45% 1,000 ML IV SCH (11:00)
[2022-01-17] MEDS: MELATONIN 5 MG TABLETS PO PRN (22:06)
[2022-01-17] MEDS: ATORVASTATIN CA 20 MG TABLET (FP) PO SCH (22:06)
[2022-01-17] MEDS: DOCUSATE SODIUM 100 MG CAPSULE (FP) PO SCH (22:07)
[2022-01-18] MEDS: INSULIN SLIDING SCALE (NOVOLOG) 1 VIAL SQ SCH ×4 (07:07→22:15)
[2022-01-18] MEDS: CARVEDILOL 25 MG TABLET (FP) PO SCH ×3 (07:07→22:09)
[2022-01-18] MEDS: FERROUS SO4 325 MG TABLET (FP) PO SCH ×2 (10:20→17:09)
[2022-01-18] MEDS: POLYETHYLENE GLYCOL (HEALTHYLAX) 3350 17 GM PACKET PO SCH (10:21)
[2022-01-18] MEDS: CALCIUM ACETATE 667 MG CAPSULE (FP) PO SCH ×3 (10:21→17:09)
[2022-01-18] MEDS: SODIUM ZIRCONIUM CYCLOSILICATE (LOKELMA) 10 GM PACKET PO SCH ×2 (10:22→23:26)
[2022-01-18] MEDS: SENNOSIDES 8.6MG TABLET (FP) PO SCH ×2 (10:22→22:10)
[2022-01-18] MEDS: amLODIPine BESYLATE 10 MG TABLET (FP) PO SCH (10:22)
[2022-01-18] MEDS: SODIUM BICARBONATE 650 MG TABLET PO SCH ×2 (10:23→22:09)
[2022-01-18 14:24] LABS: BASO % 0.2 % (0-2.0); EOS % 0.8 % (0-4.5); HEMATOCRIT 22.7 % (32.4-45.2); HEMOGLOBIN 7.4 GM/dL (10.7-15.3); LYMPH % 7.7 % (8-40); MCH 28.2 pg (25.7-33.7); MCHC 32.5 g/dl (32.0-36.0); MEAN CELL VOLUME 86.7 fl (80-96); MEAN PLT VOLUME 8.5 fl (7.5-11.1); MONO % 10.2 % (3.8-10.2); NEUT % 81.1 % (42.8-82.8); PLATELET COUNT 202 10^3/uL (134-434); RBC 2.62 M/mm3 (3.60-5.2); RDW 15.2 % (11.6-15.6); WHITE BLOOD COUNT 7.4 K/mm3 (4.0-10.0)
[2022-01-18 14:42] LABS: ALBUMIN 2.1 g/dl (3.4-5.0); CALCIUM 8.3 mg/dL (8.5-10.1)
[2022-01-18 14:43] LABS: BLOOD UREA NITROGEN 84.4 mg/dL (7-18); MAGNESIUM 1.6 mg/dL (1.8-2.4)
[2022-01-18 14:46] LABS: CREATININE 5.4 mg/dL (0.55-1.3); PHOSPHOROUS 5.2 mg/dL (2.5-4.9)
[2022-01-18 14:47] LABS: BILIRUBIN,TOTAL 0.2 mg/dL (0.2-1)
[2022-01-18] MEDS: SODIUM CHLORIDE 0.45% 1,000 ML IV SCH (17:07)
[2022-01-18] MEDS: DOCUSATE SODIUM 100 MG CAPSULE (FP) PO SCH (22:09)
[2022-01-18] MEDS: ATORVASTATIN CA 20 MG TABLET (FP) PO SCH (22:10)
[2022-01-18] MEDS: MELATONIN 5 MG TABLETS PO PRN (22:10)
[2022-01-19] MEDS: INSULIN SLIDING SCALE (NOVOLOG) 1 VIAL SQ SCH ×4 (07:06→22:49)
[2022-01-19] MEDS: CARVEDILOL 25 MG TABLET (FP) PO SCH ×3 (07:06→22:46)
[2022-01-19 09:02] LABS: BASO % 0.3 % (0-2.0); EOS % 1.9 % (0-4.5); HEMATOCRIT 20.7 % (32.4-45.2); LYMPH % 12.4 % (8-40); MCH 28.7 pg (25.7-33.7); MCHC 33.1 g/dl (32.0-36.0); MEAN CELL VOLUME 86.8 fl (80-96); MEAN PLT VOLUME 8.6 fl (7.5-11.1); MONO % 12.8 % (3.8-10.2); NEUT % 72.6 % (42.8-82.8); PLATELET COUNT 170 10^3/uL (134-434); RBC 2.39 M/mm3 (3.60-5.2); RDW 14.8 % (11.6-15.6); WHITE BLOOD COUNT 7.6 K/mm3 (4.0-10.0)
[2022-01-19 09:11] LABS: HEMOGLOBIN 6.9 GM/dL (10.7-15.3)
[2022-01-19 09:47] LABS: ALBUMIN 1.9 g/dl (3.4-5.0)
[2022-01-19 09:50] LABS: CALCIUM 7.7 mg/dL (8.5-10.1); CREATININE 5.3 mg/dL (0.55-1.3)
[2022-01-19 09:51] LABS: MAGNESIUM 1.5 mg/dL (1.8-2.4); PHOSPHOROUS 4.8 mg/dL (2.5-4.9)
[2022-01-19 09:52] LABS: BILIRUBIN,TOTAL 0.5 mg/dL (0.2-1); TOT PROT 5.5 g/dl (6.4-8.2)
[2022-01-19] MEDS: FERROUS SO4 325 MG TABLET (FP) PO SCH ×2 (10:29→17:33)
[2022-01-19] MEDS: POLYETHYLENE GLYCOL (HEALTHYLAX) 3350 17 GM PACKET PO SCH (10:30)
[2022-01-19] MEDS: SODIUM ZIRCONIUM CYCLOSILICATE (LOKELMA) 10 GM PACKET PO SCH (10:30)
[2022-01-19] MEDS: CALCIUM ACETATE 667 MG CAPSULE (FP) PO SCH ×3 (10:30→17:33)
[2022-01-19] MEDS: SODIUM BICARBONATE 650 MG TABLET PO SCH ×2 (10:31→22:46)
[2022-01-19] MEDS: amLODIPine BESYLATE 10 MG TABLET (FP) PO SCH (10:31)
[2022-01-19] MEDS: SENNOSIDES 8.6MG TABLET (FP) PO SCH ×2 (10:31→22:47)
[2022-01-19] MEDS: SODIUM CHLORIDE 0.45% 1,000 ML IV SCH (17:32)
[2022-01-19] MEDS: DOCUSATE SODIUM 100 MG CAPSULE (FP) PO SCH (22:45)
[2022-01-19] MEDS: MELATONIN 5 MG TABLETS PO PRN (22:46)
[2022-01-19] MEDS: ATORVASTATIN CA 20 MG TABLET (FP) PO SCH (22:47)
[2022-01-20] MEDS: CARVEDILOL 25 MG TABLET (FP) PO SCH ×3 (05:38→22:11)
[2022-01-20] MEDS: INSULIN SLIDING SCALE (NOVOLOG) 1 VIAL SQ SCH ×4 (06:19→22:15)
[2022-01-20] MEDS: CALCIUM ACETATE 667 MG CAPSULE (FP) PO SCH ×3 (10:23→17:49)
[2022-01-20] MEDS: FERROUS SO4 325 MG TABLET (FP) PO SCH ×2 (10:23→17:46)
[2022-01-20] MEDS: SODIUM BICARBONATE 650 MG TABLET PO SCH ×2 (10:23→22:12)
[2022-01-20] MEDS: POLYETHYLENE GLYCOL (HEALTHYLAX) 3350 17 GM PACKET PO SCH (10:23)
[2022-01-20] MEDS: SENNOSIDES 8.6MG TABLET (FP) PO SCH ×2 (10:23→22:12)
[2022-01-20] MEDS: amLODIPine BESYLATE 10 MG TABLET (FP) PO SCH (10:23)
[2022-01-20 12:20] LABS: BASO % 0.3 % (0-2.0); HEMATOCRIT 21.7 % (32.4-45.2); HEMOGLOBIN 7.2 GM/dL (10.7-15.3); LYMPH % 10.8 % (8-40); MCH 28.9 pg (25.7-33.7); MCHC 33.2 g/dl (32.0-36.0); MEAN PLT VOLUME 8.7 fl (7.5-11.1); MONO % 11.2 % (3.8-10.2); NEUT % 73.7 % (42.8-82.8); PLATELET COUNT 180 10^3/uL (134-434); RDW 14.7 % (11.6-15.6); WHITE BLOOD COUNT 6.3 K/mm3 (4.0-10.0)
[2022-01-20 12:37] LABS: CALCIUM 8.2 mg/dL (8.5-10.1)
[2022-01-20 12:38] LABS: ALBUMIN 1.8 g/dl (3.4-5.0); BLOOD UREA NITROGEN 80.2 mg/dL (7-18); MAGNESIUM 1.7 mg/dL (1.8-2.4)
[2022-01-20 12:41] LABS: CREATININE 5.2 mg/dL (0.55-1.3); PHOSPHOROUS 5.2 mg/dL (2.5-4.9)
[2022-01-20 12:43] LABS: BILIRUBIN,TOTAL 0.2 mg/dL (0.2-1); TOT PROT 5.7 g/dl (6.4-8.2)
[2022-01-20] MEDS: SODIUM ZIRCONIUM CYCLOSILICATE (LOKELMA) 10 GM PACKET PO SCH (13:36)
[2022-01-20 14:22] LABS: HEMATOCRIT 22.6 % (32.4-45.2); HEMOGLOBIN 7.5 GM/dL (10.7-15.3); MCH 28.8 pg (25.7-33.7); MCHC 33.4 g/dl (32.0-36.0); MEAN CELL VOLUME 86.2 fl (80-96); MEAN PLT VOLUME 8.3 fl (7.5-11.1); PLATELET COUNT 182 10^3/uL (134-434); RBC 2.62 M/mm3 (3.60-5.2); RDW 14.9 % (11.6-15.6)
[2022-01-20 14:51] LABS: CALCIUM 8.4 mg/dL (8.5-10.1)
[2022-01-20 14:52] LABS: BLOOD UREA NITROGEN 80.8 mg/dL (7-18)
[2022-01-20 14:55] LABS: CREATININE 5.2 mg/dL (0.55-1.3)
[2022-01-20] MEDS: MELATONIN 5 MG TABLETS PO PRN (22:11)
[2022-01-20] MEDS: ATORVASTATIN CA 20 MG TABLET (FP) PO SCH (22:12)
[2022-01-20] MEDS: DOCUSATE SODIUM 100 MG CAPSULE (FP) PO SCH (22:12)
[2022-01-21] MEDS: INSULIN SLIDING SCALE (NOVOLOG) 1 VIAL SQ SCH ×4 (06:37→22:04)
[2022-01-21] MEDS: CARVEDILOL 25 MG TABLET (FP) PO SCH ×3 (06:37→22:07)
[2022-01-21] MEDS: CALCIUM ACETATE 667 MG CAPSULE (FP) PO SCH ×3 (09:26→17:35)
[2022-01-21] MEDS: SENNOSIDES 8.6MG TABLET (FP) PO SCH ×2 (11:27→22:07)
[2022-01-21] MEDS: FERROUS SO4 325 MG TABLET (FP) PO SCH ×2 (11:27→17:35)
[2022-01-21] MEDS: SODIUM BICARBONATE 650 MG TABLET PO SCH ×3 (11:27→22:08)
[2022-01-21] MEDS: amLODIPine BESYLATE 10 MG TABLET (FP) PO SCH (11:27)
[2022-01-21] MEDS: POLYETHYLENE GLYCOL (HEALTHYLAX) 3350 17 GM PACKET PO SCH (11:28)
[2022-01-21 14:20] VITALS: BMI 50.3
[2022-01-21] MEDS: ACETAMINOPHEN 325 MG TABLET (FP) PO PRN (15:53)
[2022-01-21] MEDS: SODIUM ZIRCONIUM CYCLOSILICATE (LOKELMA) 10 GM PACKET PO SCH (15:53)
[2022-01-21] MEDS: MELATONIN 5 MG TABLETS PO PRN (22:07)
[2022-01-21] MEDS: DOCUSATE SODIUM 100 MG CAPSULE (FP) PO SCH (22:07)
[2022-01-21] MEDS: ATORVASTATIN CA 20 MG TABLET (FP) PO SCH (22:07)
[2022-01-21] MEDS: BACITRACIN 15 GM TUBE TOPICAL OINTMENT TP SCH (22:08)
[2022-01-22] MEDS: SODIUM BICARBONATE 650 MG TABLET PO SCH ×3 (07:25→21:55)
[2022-01-22] MEDS: CARVEDILOL 25 MG TABLET (FP) PO SCH ×3 (07:25→21:55)
[2022-01-22] MEDS: INSULIN SLIDING SCALE (NOVOLOG) 1 VIAL SQ SCH ×4 (07:48→21:56)
[2022-01-22] MEDS: FERROUS SO4 325 MG TABLET (FP) PO SCH ×2 (08:54→17:37)
[2022-01-22] MEDS: CALCIUM ACETATE 667 MG CAPSULE (FP) PO SCH ×3 (08:54→17:37)
[2022-01-22] MEDS: ACETAMINOPHEN 325 MG TABLET (FP) PO PRN (09:32)
[2022-01-22] MEDS: SENNOSIDES 8.6MG TABLET (FP) PO SCH ×2 (10:43→21:55)
[2022-01-22] MEDS: amLODIPine BESYLATE 10 MG TABLET (FP) PO SCH (10:43)
[2022-01-22] MEDS: POLYETHYLENE GLYCOL (HEALTHYLAX) 3350 17 GM PACKET PO SCH (10:44)
[2022-01-22] MEDS: BACITRACIN 15 GM TUBE TOPICAL OINTMENT TP SCH ×2 (10:44→21:55)
[2022-01-22] MEDS: SODIUM ZIRCONIUM CYCLOSILICATE (LOKELMA) 10 GM PACKET PO SCH (14:00)
[2022-01-22] MEDS: oxyCODONE HCL 5 MG TABLET PO PRN ×2 (15:40→21:56)
[2022-01-22] MEDS: DOCUSATE SODIUM 100 MG CAPSULE (FP) PO SCH (21:55)
[2022-01-22] MEDS: ATORVASTATIN CA 20 MG TABLET (FP) PO SCH (21:55)
[2022-01-22] MEDS: MELATONIN 5 MG TABLETS PO PRN (21:55)
[2022-01-23] MEDS: CARVEDILOL 25 MG TABLET (FP) PO SCH ×3 (06:08→22:02)
[2022-01-23] MEDS: SODIUM BICARBONATE 650 MG TABLET PO SCH ×3 (06:08→22:02)
[2022-01-23] MEDS: INSULIN SLIDING SCALE (NOVOLOG) 1 VIAL SQ SCH ×4 (06:09→22:31)
[2022-01-23] MEDS: FERROUS SO4 325 MG TABLET (FP) PO SCH ×2 (11:39→17:16)
[2022-01-23] MEDS: SENNOSIDES 8.6MG TABLET (FP) PO SCH ×2 (11:39→22:02)
[2022-01-23] MEDS: amLODIPine BESYLATE 10 MG TABLET (FP) PO SCH (11:39)
[2022-01-23] MEDS: CALCIUM ACETATE 667 MG CAPSULE (FP) PO SCH ×3 (11:40→17:15)
[2022-01-23] MEDS: POLYETHYLENE GLYCOL (HEALTHYLAX) 3350 17 GM PACKET PO SCH (11:44)
[2022-01-23] MEDS: BACITRACIN 15 GM TUBE TOPICAL OINTMENT TP SCH ×2 (11:44→22:30)
[2022-01-23 13:23] LABS: BASO % 0.3 % (0-2.0); EOS % 2.7 % (0-4.5); HEMATOCRIT 26.8 % (32.4-45.2); HEMOGLOBIN 8.7 GM/dL (10.7-15.3); LYMPH % 13.2 % (8-40); MCH 28.3 pg (25.7-33.7); MCHC 32.6 g/dl (32.0-36.0); MEAN PLT VOLUME 8.5 fl (7.5-11.1); MONO % 9.3 % (3.8-10.2); NEUT % 74.5 % (42.8-82.8); PLATELET COUNT 262 10^3/uL (134-434); RBC 3.08 M/mm3 (3.60-5.2); RDW 15.1 % (11.6-15.6)
[2022-01-23 13:49] LABS: ALBUMIN 2.1 g/dl (3.4-5.0); BLOOD UREA NITROGEN 76.6 mg/dL (7-18); CALCIUM 8.6 mg/dL (8.5-10.1); MAGNESIUM 1.6 mg/dL (1.8-2.4)
[2022-01-23 13:52] LABS: CREATININE 4.9 mg/dL (0.55-1.3); PHOSPHOROUS 5.2 mg/dL (2.5-4.9)
[2022-01-23 13:53] LABS: BILIRUBIN,TOTAL 0.7 mg/dL (0.2-1); TOT PROT 6.5 g/dl (6.4-8.2)
[2022-01-23] MEDS: SODIUM ZIRCONIUM CYCLOSILICATE (LOKELMA) 10 GM PACKET PO SCH (13:58)
[2022-01-23] MEDS ORDERED: MAGNESIUM OXIDE 400 MG TABLET (FP) PO ONE ×2 (14:01→17:15)
[2022-01-23] MEDS: ATORVASTATIN CA 20 MG TABLET (FP) PO SCH (22:02)
[2022-01-23] MEDS: DOCUSATE SODIUM 100 MG CAPSULE (FP) PO SCH (22:02)
[2022-01-23] MEDS: MELATONIN 5 MG TABLETS PO PRN (22:02)
[2022-01-23] MEDS: oxyCODONE HCL 5 MG TABLET PO PRN (22:05)
[2022-01-24] MEDS: SODIUM BICARBONATE 650 MG TABLET PO SCH ×3 (07:52→22:29)
[2022-01-24] MEDS: CALCIUM ACETATE 667 MG CAPSULE (FP) PO SCH ×3 (07:53→17:41)
[2022-01-24] MEDS: CARVEDILOL 25 MG TABLET (FP) PO SCH ×3 (07:53→22:29)
[2022-01-24] MEDS: FERROUS SO4 325 MG TABLET (FP) PO SCH ×2 (07:53→17:41)
[2022-01-24] MEDS: INSULIN SLIDING SCALE (NOVOLOG) 1 VIAL SQ SCH ×4 (08:04→22:30)
[2022-01-24] MEDS: BACITRACIN 15 GM TUBE TOPICAL OINTMENT TP SCH ×2 (11:09→22:30)
[2022-01-24] MEDS: FUROSEMIDE 40 MG TABLET (FP) PO SCH (11:09)
[2022-01-24] MEDS: amLODIPine BESYLATE 10 MG TABLET (FP) PO SCH (11:09)
[2022-01-24] MEDS: SENNOSIDES 8.6MG TABLET (FP) PO SCH ×2 (11:09→22:29)
[2022-01-24] MEDS: POLYETHYLENE GLYCOL (HEALTHYLAX) 3350 17 GM PACKET PO SCH (11:10)
[2022-01-24 11:48] LABS: HEMATOCRIT 22.2 % (32.4-45.2); HEMOGLOBIN 7.3 GM/dL (10.7-15.3); MCH 28.4 pg (25.7-33.7); MCHC 32.6 g/dl (32.0-36.0); MEAN PLT VOLUME 8.4 fl (7.5-11.1); PLATELET COUNT 210 10^3/uL (134-434); RBC 2.55 M/mm3 (3.60-5.2); RDW 14.9 % (11.6-15.6); WHITE BLOOD COUNT 5.6 K/mm3 (4.0-10.0)
[2022-01-24 12:07] LABS: MAGNESIUM 1.6 mg/dL (1.8-2.4)
[2022-01-24 12:10] LABS: CALCIUM 8.4 mg/dL (8.5-10.1); CREATININE 4.7 mg/dL (0.55-1.3)
[2022-01-24] MEDS ORDERED: EPOETIN ALFA-EPBX 20,000 UNIT/ML VIAL SQ ONE (13:30)
[2022-01-24] MEDS ORDERED: IRON SUCROSE INJECTION 100 MG in SODIUM CHLORIDE 95 ML IVPB ONE (13:45)
[2022-01-24] MEDS: SODIUM ZIRCONIUM CYCLOSILICATE (LOKELMA) 10 GM PACKET PO SCH (15:09)
[2022-01-24 20:24] LABS: HEMATOCRIT 24.5 % (32.4-45.2); HEMOGLOBIN 7.9 GM/dL (10.7-15.3); MCH 27.9 pg (25.7-33.7); MCHC 32.2 g/dl (32.0-36.0); MEAN CELL VOLUME 86.4 fl (80-96); MEAN PLT VOLUME 8.4 fl (7.5-11.1); PLATELET COUNT 243 10^3/uL (134-434); RBC 2.83 M/mm3 (3.60-5.2); WHITE BLOOD COUNT 5.8 K/mm3 (4.0-10.0)
[2022-01-24] MEDS: DOCUSATE SODIUM 100 MG CAPSULE (FP) PO SCH (22:29)
[2022-01-24] MEDS: ATORVASTATIN CA 20 MG TABLET (FP) PO SCH (22:29)
[2022-01-24] MEDS: MELATONIN 5 MG TABLETS PO PRN (22:29)
[2022-01-24] MEDS: oxyCODONE HCL 5 MG TABLET PO PRN (23:38)
[2022-01-25] MEDS: SODIUM BICARBONATE 650 MG TABLET PO SCH ×3 (07:09→21:56)
[2022-01-25] MEDS: CARVEDILOL 25 MG TABLET (FP) PO SCH ×3 (07:09→21:57)
[2022-01-25] MEDS: INSULIN SLIDING SCALE (NOVOLOG) 1 VIAL SQ SCH ×4 (07:12→21:57)
[2022-01-25 09:12] LABS: HEMATOCRIT 20.5 % (32.4-45.2); MCH 28.4 pg (25.7-33.7); MCHC 32.5 g/dl (32.0-36.0); MEAN CELL VOLUME 87.5 fl (80-96); MEAN PLT VOLUME 8.7 fl (7.5-11.1); PLATELET COUNT 210 10^3/uL (134-434); RBC 2.35 M/mm3 (3.60-5.2); RDW 14.7 % (11.6-15.6); WHITE BLOOD COUNT 4.7 K/mm3 (4.0-10.0)
[2022-01-25] MEDS: CALCIUM ACETATE 667 MG CAPSULE (FP) PO SCH ×3 (09:14→17:30)
[2022-01-25] MEDS: FERROUS SO4 325 MG TABLET (FP) PO SCH ×2 (09:14→17:31)
[2022-01-25 09:36] LABS: HEMOGLOBIN 6.7 GM/dL (10.7-15.3)
[2022-01-25] MEDS: amLODIPine BESYLATE 10 MG TABLET (FP) PO SCH (10:34)
[2022-01-25] MEDS: FUROSEMIDE 40 MG TABLET (FP) PO SCH (10:34)
[2022-01-25] MEDS: BACITRACIN 15 GM TUBE TOPICAL OINTMENT TP SCH ×2 (10:34→21:57)
[2022-01-25] MEDS: SENNOSIDES 8.6MG TABLET (FP) PO SCH ×2 (10:34→21:57)
[2022-01-25] MEDS: POLYETHYLENE GLYCOL (HEALTHYLAX) 3350 17 GM PACKET PO SCH (10:34)
[2022-01-25 10:46] LABS: BLOOD UREA NITROGEN 82.8 mg/dL (7-18); MAGNESIUM 1.5 mg/dL (1.8-2.4)
[2022-01-25 10:49] LABS: CREATININE 4.7 mg/dL (0.55-1.3)
[2022-01-25] MEDS ORDERED: MAGNESIUM 2GM/50ML STERILE WATER IVPB IVPB ONE (11:30)
[2022-01-25] MEDS: SODIUM ZIRCONIUM CYCLOSILICATE (LOKELMA) 10 GM PACKET PO SCH (15:24)
[2022-01-25 21:02] LABS: EOS % 4.9 % (0-4.5); HEMATOCRIT 27.5 % (32.4-45.2); HEMOGLOBIN 9.2 GM/dL (10.7-15.3); LYMPH % 14.8 % (8-40); MCH 29.2 pg (25.7-33.7); MCHC 33.5 g/dl (32.0-36.0); MEAN CELL VOLUME 87.2 fl (80-96); MEAN PLT VOLUME 8.3 fl (7.5-11.1); MONO % 11.4 % (3.8-10.2); NEUT % 67.9 % (42.8-82.8); PLATELET COUNT 253 10^3/uL (134-434); RBC 3.15 M/mm3 (3.60-5.2); RDW 15.1 % (11.6-15.6); WHITE BLOOD COUNT 6.5 K/mm3 (4.0-10.0)
[2022-01-25] MEDS: DOCUSATE SODIUM 100 MG CAPSULE (FP) PO SCH (21:56)
[2022-01-25] MEDS: MELATONIN 5 MG TABLETS PO PRN (21:56)
[2022-01-25] MEDS: ATORVASTATIN CA 20 MG TABLET (FP) PO SCH (21:56)
[2022-01-25] MEDS: oxyCODONE HCL 5 MG TABLET PO PRN (23:55)
[2022-01-26] MEDS: CARVEDILOL 25 MG TABLET (FP) PO SCH ×3 (07:14→21:23)
[2022-01-26] MEDS: SODIUM BICARBONATE 650 MG TABLET PO SCH ×3 (07:14→21:23)
[2022-01-26] MEDS: INSULIN SLIDING SCALE (NOVOLOG) 1 VIAL SQ SCH ×4 (07:16→21:27)
[2022-01-26] MEDS: FERROUS SO4 325 MG TABLET (FP) PO SCH ×2 (10:00→17:32)
[2022-01-26] MEDS: BACITRACIN 15 GM TUBE TOPICAL OINTMENT TP SCH ×2 (10:00→21:19)
[2022-01-26] MEDS: POLYETHYLENE GLYCOL (HEALTHYLAX) 3350 17 GM PACKET PO SCH (10:00)
[2022-01-26] MEDS: FUROSEMIDE 40 MG TABLET (FP) PO SCH (10:00)
[2022-01-26] MEDS: CALCIUM ACETATE 667 MG CAPSULE (FP) PO SCH ×3 (10:00→17:32)
[2022-01-26] MEDS: amLODIPine BESYLATE 10 MG TABLET (FP) PO SCH (10:00)
[2022-01-26] MEDS: SENNOSIDES 8.6MG TABLET (FP) PO SCH ×2 (10:00→21:23)
[2022-01-26 10:38] LABS: HEMATOCRIT 24.5 % (32.4-45.2); MCH 28.7 pg (25.7-33.7); MCHC 32.8 g/dl (32.0-36.0); MEAN CELL VOLUME 87.4 fl (80-96); MEAN PLT VOLUME 8.4 fl (7.5-11.1); PLATELET COUNT 239 10^3/uL (134-434); RDW 15.1 % (11.6-15.6); WHITE BLOOD COUNT 5.1 K/mm3 (4.0-10.0)
[2022-01-26 11:01] LABS: CALCIUM 8.1 mg/dL (8.5-10.1)
[2022-01-26 11:02] LABS: BLOOD UREA NITROGEN 84.9 mg/dL (7-18); MAGNESIUM 1.8 mg/dL (1.8-2.4)
[2022-01-26 11:05] LABS: CREATININE 4.7 mg/dL (0.55-1.3)
[2022-01-26] MEDS: ACETAMINOPHEN 325 MG TABLET (FP) PO PRN (12:11)
[2022-01-26] MEDS: SODIUM ZIRCONIUM CYCLOSILICATE (LOKELMA) 10 GM PACKET PO SCH (15:16)
[2022-01-26] MEDS: DOCUSATE SODIUM 100 MG CAPSULE (FP) PO SCH (21:19)
[2022-01-26] MEDS: ATORVASTATIN CA 20 MG TABLET (FP) PO SCH (21:19)
[2022-01-26] MEDS: MELATONIN 5 MG TABLETS PO PRN (21:23)
[2022-01-26] MEDS: oxyCODONE HCL 5 MG TABLET PO PRN (23:38)
[2022-01-27] MEDS: SODIUM BICARBONATE 650 MG TABLET PO SCH ×3 (06:47→22:47)
[2022-01-27] MEDS: CARVEDILOL 25 MG TABLET (FP) PO SCH ×3 (06:48→22:47)
[2022-01-27] MEDS: INSULIN SLIDING SCALE (NOVOLOG) 1 VIAL SQ SCH ×4 (06:54→22:50)
[2022-01-27] MEDS: CALCIUM ACETATE 667 MG CAPSULE (FP) PO SCH ×3 (08:25→17:02)
[2022-01-27] MEDS: FERROUS SO4 325 MG TABLET (FP) PO SCH ×2 (08:25→17:02)
[2022-01-27] MEDS: POLYETHYLENE GLYCOL (HEALTHYLAX) 3350 17 GM PACKET PO SCH (11:03)
[2022-01-27] MEDS: FUROSEMIDE 40 MG TABLET (FP) PO SCH (11:03)
[2022-01-27] MEDS: amLODIPine BESYLATE 10 MG TABLET (FP) PO SCH (11:03)
[2022-01-27] MEDS: BACITRACIN 15 GM TUBE TOPICAL OINTMENT TP SCH ×2 (11:04→22:53)
[2022-01-27] MEDS: SENNOSIDES 8.6MG TABLET (FP) PO SCH ×2 (11:04→22:47)
[2022-01-27] MEDS ORDERED: SODIUM ZIRCONIUM CYCLOSILICATE (LOKELMA) 10 GM PACKET PO SCH (14:00)
[2022-01-27] MEDS ORDERED: MAG HYDROX/AL HYDROX/SIMETH 30 ML UNIT-DOSE CUP PO PRN (15:45)
[2022-01-27 16:25] LABS: BLOOD UREA NITROGEN 79.4 mg/dL (7-18); CALCIUM 8.2 mg/dL (8.5-10.1)
[2022-01-27 16:28] LABS: CREATININE 4.8 mg/dL (0.55-1.3)
[2022-01-27 17:44] LABS: HEMATOCRIT 26.9 % (32.4-45.2); HEMOGLOBIN 9.2 GM/dL (10.7-15.3); MCH 29.8 pg (25.7-33.7); MCHC 34.3 g/dl (32.0-36.0); MEAN PLT VOLUME 7.8 fl (7.5-11.1); PLATELET COUNT 259 10^3/uL (134-434); RDW 14.9 % (11.6-15.6); WHITE BLOOD COUNT 5.4 K/mm3 (4.0-10.0)
[2022-01-27] MEDS: MELATONIN 5 MG TABLETS PO PRN (22:46)
[2022-01-27] MEDS: DOCUSATE SODIUM 100 MG CAPSULE (FP) PO SCH (22:46)
[2022-01-27] MEDS: ATORVASTATIN CA 20 MG TABLET (FP) PO SCH (22:47)
[2022-01-27] MEDS: FAMOTIDINE 20 MG TABLET PO SCH (22:49)
[2022-01-28] MEDS: oxyCODONE HCL 5 MG TABLET PO PRN ×2 (03:18→21:41)
[2022-01-28] MEDS: CARVEDILOL 25 MG TABLET (FP) PO SCH ×3 (07:01→21:40)
[2022-01-28] MEDS: SODIUM BICARBONATE 650 MG TABLET PO SCH ×3 (07:02→21:40)
[2022-01-28] MEDS: INSULIN SLIDING SCALE (NOVOLOG) 1 VIAL SQ SCH ×2 (07:15→12:00)
[2022-01-28] MEDS: CALCIUM ACETATE 667 MG CAPSULE (FP) PO SCH ×3 (10:43→17:17)
[2022-01-28] MEDS: BACITRACIN 15 GM TUBE TOPICAL OINTMENT TP SCH ×2 (10:44→21:40)
[2022-01-28] MEDS: FERROUS SO4 325 MG TABLET (FP) PO SCH ×2 (10:44→17:17)
[2022-01-28] MEDS: FUROSEMIDE 40 MG TABLET (FP) PO SCH (10:44)
[2022-01-28] MEDS: SENNOSIDES 8.6MG TABLET (FP) PO SCH ×2 (10:44→21:40)
[2022-01-28] MEDS: amLODIPine BESYLATE 10 MG TABLET (FP) PO SCH (10:44)
[2022-01-28] MEDS: FAMOTIDINE 20 MG TABLET PO SCH ×2 (10:44→21:40)
[2022-01-28] MEDS: POLYETHYLENE GLYCOL (HEALTHYLAX) 3350 17 GM PACKET PO SCH (10:45)
[2022-01-28 12:26] LABS: HEMATOCRIT 27.4 % (32.4-45.2); HEMOGLOBIN 9.1 GM/dL (10.7-15.3); MCH 29.1 pg (25.7-33.7); MCHC 33.3 g/dl (32.0-36.0); MEAN CELL VOLUME 87.2 fl (80-96); MEAN PLT VOLUME 8.1 fl (7.5-11.1); PLATELET COUNT 289 10^3/uL (134-434); RBC 3.14 M/mm3 (3.60-5.2); WHITE BLOOD COUNT 5.2 K/mm3 (4.0-10.0)
[2022-01-28 12:46] LABS: CALCIUM 8.4 mg/dL (8.5-10.1)
[2022-01-28 12:47] LABS: BLOOD UREA NITROGEN 80.2 mg/dL (7-18)
[2022-01-28 12:50] LABS: CREATININE 4.4 mg/dL (0.55-1.3)
[2022-01-28] MEDS: NIFEdipine E.R. 30 MG TABLET PO SCH (13:33)
[2022-01-28] MEDS: SODIUM ZIRCONIUM CYCLOSILICATE (LOKELMA) 5 GM PACKET PO SCH (13:33)
[2022-01-28] MEDS: ATORVASTATIN CA 20 MG TABLET (FP) PO SCH (21:40)
[2022-01-28] MEDS: DOCUSATE SODIUM 100 MG CAPSULE (FP) PO SCH (21:40)
[2022-01-28] MEDS: MELATONIN 5 MG TABLETS PO PRN (21:41)
[2022-01-29] MEDS: SODIUM BICARBONATE 650 MG TABLET PO SCH ×3 (07:14→22:10)
[2022-01-29] MEDS: CARVEDILOL 25 MG TABLET (FP) PO SCH ×3 (07:14→22:10)
[2022-01-29] MEDS: CALCIUM ACETATE 667 MG CAPSULE (FP) PO SCH ×3 (11:22→17:29)
[2022-01-29] MEDS: FERROUS SO4 325 MG TABLET (FP) PO SCH ×2 (11:22→17:29)
[2022-01-29] MEDS: oxyCODONE HCL 5 MG TABLET PO PRN ×2 (11:32→23:35)
[2022-01-29] MEDS: FAMOTIDINE 20 MG TABLET PO SCH ×2 (11:37→22:10)
[2022-01-29] MEDS: POLYETHYLENE GLYCOL (HEALTHYLAX) 3350 17 GM PACKET PO SCH (11:37)
[2022-01-29] MEDS: BACITRACIN 15 GM TUBE TOPICAL OINTMENT TP SCH ×2 (11:38→22:10)
[2022-01-29] MEDS: SENNOSIDES 8.6MG TABLET (FP) PO SCH ×2 (11:38→22:10)
[2022-01-29] MEDS: NIFEdipine E.R. 30 MG TABLET PO SCH (11:38)
[2022-01-29] MEDS: FUROSEMIDE 40 MG TABLET (FP) PO SCH (11:38)
[2022-01-29] MEDS: SODIUM ZIRCONIUM CYCLOSILICATE (LOKELMA) 5 GM PACKET PO SCH (15:22)
[2022-01-29] MEDS: ATORVASTATIN CA 20 MG TABLET (FP) PO SCH (22:10)
[2022-01-29] MEDS: DOCUSATE SODIUM 100 MG CAPSULE (FP) PO SCH (22:10)
[2022-01-29] MEDS: MELATONIN 5 MG TABLETS PO PRN (23:35)
[2022-01-30] MEDS: SODIUM BICARBONATE 650 MG TABLET PO SCH (07:14)
[2022-01-30] MEDS: CARVEDILOL 25 MG TABLET (FP) PO SCH (07:15)
[2022-01-30] MEDS: BACITRACIN 15 GM TUBE TOPICAL OINTMENT TP SCH (10:35)
[2022-01-30] MEDS: FAMOTIDINE 20 MG TABLET PO SCH (10:35)
[2022-01-30] MEDS: CALCIUM ACETATE 667 MG CAPSULE (FP) PO SCH ×2 (10:35→12:18)
[2022-01-30] MEDS: FUROSEMIDE 40 MG TABLET (FP) PO SCH (10:35)
[2022-01-30] MEDS: FERROUS SO4 325 MG TABLET (FP) PO SCH (10:35)
[2022-01-30] MEDS: POLYETHYLENE GLYCOL (HEALTHYLAX) 3350 17 GM PACKET PO SCH (10:35)
[2022-01-30] MEDS: NIFEdipine E.R. 30 MG TABLET PO SCH (10:35)
[2022-01-30] MEDS: SENNOSIDES 8.6MG TABLET (FP) PO SCH (10:36)
[2022-01-30 12:31] VITALS: TEMP 98
[2022-01-30 12:32] VITALS: BP 191/70; PULSE 73; RESP 20
[2022-01-30] MEDS ORDERED: NIFEdipine E.R. 30 MG TABLET PO ONE (12:41)
== END 2022-01-30 13:06 | disposition home or self-care (01) | DRG 659 ==
LOC: JER 14:10 → JERBED 16:40 → OBSVTOIN 23:32 → J8W 01-03 15:28
PROVIDERS: ADMIT Internal Medicine
PROC: 0T788DZ Dilation of Bilateral Ureters with Intraluminal Device, Via Natural or Artificial Opening Endoscopic (ICD-10-PCS; 2022-01-03)
PROC: 0TP98DZ Removal of Intraluminal Device from Ureter, Via Natural or Artificial Opening Endoscopic (ICD-10-PCS; 2022-01-03)
PROC: BT14ZZZ Fluoroscopy of Kidneys, Ureters and Bladder (ICD-10-PCS; 2022-01-03)
PROC: 0TP98DZ Removal of Intraluminal Device from Ureter, Via Natural or Artificial Opening Endoscopic (ICD-10-PCS; principal; 2022-01-03 11:30)
PROC: 0T9030Z Drainage of Right Kidney with Drainage Device, Percutaneous Approach (ICD-10-PCS; 2022-01-17)
PROC: 30233N1 Transfusion of Nonautologous Red Blood Cells into Peripheral Vein, Percutaneous Approach (ICD-10-PCS; 2022-01-19)
DX: N13.6 Pyonephrosis (principal); G93.41 Metabolic encephalopathy; E87.2 Acidosis; Z68.43 Body mass index [BMI] 50.0-59.9, adult; T83.193A Other mechanical complication of other urinary stent, initial encounter; J44.9 Chronic obstructive pulmonary disease, unspecified; N18.4 Chronic kidney disease, stage 4 (severe); N17.9 Acute kidney failure, unspecified; E78.5 Hyperlipidemia, unspecified; I12.9 Hypertensive chronic kidney disease with stage 1 through stage 4 chronic kidney disease, or unspecified chronic kidney disease; E11.22 Type 2 diabetes mellitus with diabetic chronic kidney disease; E66.01 Morbid (severe) obesity due to excess calories; D63.8 Anemia in other chronic diseases classified elsewhere; W18.39XA Other fall on same level, initial encounter; R55 Syncope and collapse; E87.5 Hyperkalemia; Z86.73 Personal history of transient ischemic attack (TIA), and cerebral infarction without residual deficits; Y92.098 Other place in other non-institutional residence as the place of occurrence of the external cause; Y84.8 Other medical procedures as the cause of abnormal reaction of the patient, or of later complication, without mention of misadventure at the time of the procedure
CPT/HCPCS: 36415; 36430; 50432; 70450-TC; 71045-TC-FY; 72125-TC; 72170-TC-FY; 74176-TC; 76000-TC-FY; 76775-TC; 80048; 80053; 80061; 81003; 82272; 82607; 82728; 82746; 82962; 83036; 83540; 83550; 83735; 84100; 84443; 84484; 85025; 85027; 85610; 85730; 86850; 86900; 86901; 86922; 87040; 87070; 87075; 87077; 87086; 87102; 87116; 87184; 87186; 87205; 87206; 87210; 88300-TC; 93005; 93010; 93880-TC; 93970-TC; 94760; 97116-GP; 97161-GP; 99285-25; C9803-CS; G0378; J1756; P9058; Q5106; U0003; U0005

== ENCOUNTER 2022-03-04 20:26 | Inpatient (IN) | payer OTHER ==
[2022-03-04] MEDS ORDERED: ACETAMINOPHEN 1000 MG/100 ML BAG IVPB ONE (21:05)
[2022-03-04] MEDS ORDERED: ONDANSETRON 4 MG/2 ML VIAL IVPUSH ONE (21:05)
[2022-03-04] MEDS ORDERED: ACETAMINOPHEN INJECTION 100 ML IVPB ONE (21:08)
[2022-03-04] MEDS ORDERED: ONDANSETRON 4 MG/2 ML VIAL ONE (21:08)
[2022-03-04 21:55] LABS: EPI CELLS 14 /uL (0-25.1); HYALINE CASTS 13 /uL (0-3.1); PH,URINE 6.5 (5.0-8.0); URINE APPEARANCE TURBID; URINE BACTERIA 513 /uL (0-1359); URINE BILIRUBIN NEGATIVE (NEGATIVE); URINE COLOR YELLOW; URINE GLUCOSE (UA) TRACE (NEGATIVE); URINE KETONE NEGATIVE (NEGATIVE); URINE LEUK ESTERASE 3+ (NEGATIVE); URINE NITRITE NEGATIVE (NEGATIVE); URINE PROTEIN 4+ (NEGATIVE); URINE RBC 57 /uL (0-23.9); URINE UROBILINOGEN 0.2 mg/dL (0.2-1.0); URINE WBC 5188 /uL (0-25.8)
[2022-03-04 22:03] LABS: ALBUMIN 2.7 g/dl (3.4-5.0); BLOOD UREA NITROGEN 50.8 mg/dL (7-18); CALCIUM 8.3 mg/dL (8.5-10.1); MAGNESIUM 1.4 mg/dL (1.8-2.4)
[2022-03-04 22:06] LABS: CREATININE 3.4 mg/dL (0.55-1.3)
[2022-03-04 22:09] LABS: BILIRUBIN,TOTAL 0.3 mg/dL (0.2-1); TOT PROT 7.7 g/dl (6.4-8.2)
[2022-03-04 22:11] LABS: N-TERMINAL BNP 4979.9 pg/ml (5-125)
[2022-03-04 22:51] LABS: EOS % 5.1 % (0-4.5); HEMATOCRIT 26.4 % (32.4-45.2); HEMOGLOBIN 8.7 GM/dL (10.7-15.3); MEAN CELL VOLUME 87.9 fl (80-96); MEAN PLT VOLUME 7.9 fl (7.5-11.1); MONO % 9.9 % (3.8-10.2); PLATELET COUNT 191 10^3/uL (134-434); RDW 15.5 % (11.6-15.6); WHITE BLOOD COUNT 5.3 K/mm3 (4.0-10.0)
[2022-03-04] MEDS ORDERED: GENTAMICIN INJECTION 100 MG in SODIUM CHLORIDE 97.5 ML IVPB ONE (23:23)
[2022-03-04] MEDS ORDERED: GENTAMICIN SO4 80 MG/2 ML VIAL ONE (23:57)
[2022-03-05] MEDS ORDERED: MAGNESIUM SULF 50% (8.12 MEQ/2 ML-1 GM VIAL) IVPB ONE (00:12)
[2022-03-05] MEDS ORDERED: MAGNESIUM SULFATE IN WATER 2 GM/50 ML IVPB IVPB ONE ×3 (00:36→12:28)
[2022-03-05] MEDS ORDERED: ACETAMINOPHEN 325 MG TABLET (FP) PO PRN (03:59)
[2022-03-05] MEDS ORDERED: ALBUTEROL SO4 HFA INHALER IH PRN (04:07)
[2022-03-05] MEDS ORDERED: POLYETHYLENE GLYCOL (HEALTHYLAX) 3350 17 GM PACKET PO PRN (04:07)
[2022-03-05] MEDS ORDERED: ONDANSETRON 4 MG/2 ML VIAL IVPUSH PRN (04:07)
[2022-03-05] MEDS ORDERED: hydrALAZINE HCL 50 MG TABLET (FP) ONE ×3 (06:59→19:23)
[2022-03-05] MEDS: hydrALAZINE HCL 25 MG TABLET (FP) PO SCH ×3 (07:00→19:46)
[2022-03-05 07:11] LABS: BASO % 0.9 % (0-2.0); HEMATOCRIT 23.8 % (32.4-45.2); MCH 29.6 pg (25.7-33.7); MCHC 33.7 g/dl (32.0-36.0); MEAN CELL VOLUME 87.8 fl (80-96); MEAN PLT VOLUME 8.2 fl (7.5-11.1); MONO % 10.9 % (3.8-10.2); NEUT % 56.2 % (42.8-82.8); PLATELET COUNT 200 10^3/uL (134-434); RBC 2.71 M/mm3 (3.60-5.2); RDW 15.6 % (11.6-15.6); WHITE BLOOD COUNT 4.4 K/mm3 (4.0-10.0)
[2022-03-05 07:34] LABS: CALCIUM 7.2 mg/dL (8.5-10.1)
[2022-03-05] MEDS: INSULIN SLIDING SCALE (NOVOLOG) 1 VIAL SQ SCH ×4 (07:35→21:01)
[2022-03-05 07:36] LABS: BLOOD UREA NITROGEN 51.8 mg/dL (7-18); MAGNESIUM 1.6 mg/dL (1.8-2.4)
[2022-03-05 07:38] LABS: CREATININE 3.5 mg/dL (0.55-1.3)
[2022-03-05 07:41] LABS: ACTIVATED PTT 28.6 SECONDS (25.2-36.5)
[2022-03-05] MEDS: SODIUM BICARBONATE 650 MG TABLET PO SCH ×3 (08:13→21:30)
[2022-03-05] MEDS: CALCIUM ACETATE 667 MG CAPSULE (FP) PO SCH ×3 (08:14→20:29)
[2022-03-05 08:57] LABS: INR 0.98 (0.83-1.09); PROTHROMBIN TIME (PATIENT) 11.3 SEC (9.7-13.0)
[2022-03-05] MEDS ORDERED: NIFEdipine E.R 60 MG TABLET ONE ×2 (12:27→21:22)
[2022-03-05] MEDS ORDERED: cloNIDine HCL 0.1 MG TABLET ONE ×2 (12:27→21:22)
[2022-03-05] MEDS: cloNIDine HCL 0.1 MG TABLET PO SCH ×2 (12:42→21:30)
[2022-03-05] MEDS: NIFEdipine E.R 60 MG TABLET PO SCH ×2 (12:42→21:30)
[2022-03-05] MEDS ORDERED: SODIUM ZIRCONIUM CYCLOSILICATE (LOKELMA) 5 GM PACKET ONE ×2 (14:50→19:23)
[2022-03-05] MEDS ORDERED: GENTAMICIN SO4 80 MG/2 ML VIAL ONE (19:23)
[2022-03-05] MEDS: SODIUM ZIRCONIUM CYCLOSILICATE (LOKELMA) 5 GM PACKET PO SCH (19:46)
[2022-03-05] MEDS: GENTAMICIN INJECTION 100 MG in SODIUM CHLORIDE 97.5 ML IVPB SCH ×2 (20:30→21:01)
[2022-03-06] MEDS ORDERED: FERROUS SO4 325 MG TABLET (FP) ONE (04:45)
[2022-03-06] MEDS ORDERED: hydrALAZINE HCL 50 MG TABLET (FP) ONE ×2 (04:45→22:47)
[2022-03-06] MEDS: FERROUS SO4 325 MG TABLET (FP) PO SCH (04:51)
[2022-03-06] MEDS: hydrALAZINE HCL 25 MG TABLET (FP) PO SCH ×2 (04:51→12:41)
[2022-03-06] MEDS: SODIUM BICARBONATE 650 MG TABLET PO SCH ×2 (05:53→14:56)
[2022-03-06] MEDS: INSULIN SLIDING SCALE (NOVOLOG) 1 VIAL SQ SCH ×4 (08:46→23:34)
[2022-03-06] MEDS: CALCIUM ACETATE 667 MG CAPSULE (FP) PO SCH ×3 (08:47→16:29)
[2022-03-06] MEDS ORDERED: cloNIDine HCL 0.1 MG TABLET ONE ×2 (10:13→22:46)
[2022-03-06] MEDS ORDERED: NIFEdipine E.R 60 MG TABLET ONE ×2 (10:13→22:47)
[2022-03-06] MEDS: NIFEdipine E.R 60 MG TABLET PO SCH (10:30)
[2022-03-06] MEDS: cloNIDine HCL 0.1 MG TABLET PO SCH (10:30)
[2022-03-06] MEDS ORDERED: hydrALAZINE HCL 25 MG TABLET (FP) ONE (12:34)
[2022-03-06] MEDS ORDERED: SODIUM ZIRCONIUM CYCLOSILICATE (LOKELMA) 5 GM PACKET ONE (14:55)
[2022-03-06] MEDS: SODIUM ZIRCONIUM CYCLOSILICATE (LOKELMA) 5 GM PACKET PO SCH (14:55)
[2022-03-07] MEDS: CEFTAZIDIME/AVIBACTAM 1.25 GM in DEXTROSE 5%-WATER - 100 ML IVPB SCH ×4 (02:56→19:15)
[2022-03-07] MEDS: hydrALAZINE HCL 25 MG TABLET (FP) PO SCH ×3 (06:44→13:19)
[2022-03-07] MEDS: SODIUM BICARBONATE 650 MG TABLET PO SCH ×4 (07:16→21:38)
[2022-03-07] MEDS: INSULIN SLIDING SCALE (NOVOLOG) 1 VIAL SQ SCH ×4 (07:17→21:44)
[2022-03-07] MEDS: CALCIUM ACETATE 667 MG CAPSULE (FP) PO SCH ×3 (10:17→17:43)
[2022-03-07] MEDS: cloNIDine HCL 0.1 MG TABLET PO SCH ×2 (10:17)
[2022-03-07] MEDS: NIFEdipine E.R 60 MG TABLET PO SCH ×3 (10:17→21:37)
[2022-03-07 12:16] LABS: BASO % 0.9 % (0-2.0); EOS % 6.3 % (0-4.5); HEMATOCRIT 25.4 % (32.4-45.2); HEMOGLOBIN 8.2 GM/dL (10.7-15.3); MCH 28.1 pg (25.7-33.7); MCHC 32.2 g/dl (32.0-36.0); MEAN CELL VOLUME 87.3 fl (80-96); MEAN PLT VOLUME 8.5 fl (7.5-11.1); MONO % 11.6 % (3.8-10.2); NEUT % 58.2 % (42.8-82.8); PLATELET COUNT 205 10^3/uL (134-434); RBC 2.91 M/mm3 (3.60-5.2); RDW 15.5 % (11.6-15.6); WHITE BLOOD COUNT 4.3 K/mm3 (4.0-10.0)
[2022-03-07 12:34] LABS: BLOOD UREA NITROGEN 66.8 mg/dL (7-18); CALCIUM 8.1 mg/dL (8.5-10.1); MAGNESIUM 2.2 mg/dL (1.8-2.4)
[2022-03-07 12:39] LABS: BILIRUBIN,TOTAL 0.2 mg/dL (0.2-1)
[2022-03-07 12:41] LABS: TOT PROT 5.5 g/dl (6.4-8.2)
[2022-03-07] MEDS ORDERED: hydrALAZINE HCL 25 MG TABLET (FP) PO SCH (12:55)
[2022-03-07] MEDS: hydrALAZINE HCL 50 MG TABLET (FP) PO SCH ×2 (16:03→21:38)
[2022-03-07] MEDS: SODIUM ZIRCONIUM CYCLOSILICATE (LOKELMA) 5 GM PACKET PO SCH (19:15)
[2022-03-07] MEDS: TAMSULOSIN HCL 0.4 MG CAP PO SCH (21:38)
[2022-03-07] MEDS: CARVEDILOL 25 MG TABLET (FP) PO SCH (21:38)
[2022-03-07] MEDS ORDERED: DOCUSATE SODIUM 100 MG CAPSULE (FP) PO SCH (22:00)
[2022-03-08] MEDS: hydrALAZINE HCL 50 MG TABLET (FP) PO SCH ×3 (06:22→21:26)
[2022-03-08] MEDS: CARVEDILOL 25 MG TABLET (FP) PO SCH ×3 (06:22→21:26)
[2022-03-08] MEDS: SODIUM BICARBONATE 650 MG TABLET PO SCH ×3 (06:22→21:26)
[2022-03-08] MEDS ORDERED: UMECLIDINIUM/VILANTEROL (ANORO) 62.5/25 MCG INHALER IH SCH (10:00)
[2022-03-08] MEDS ORDERED: TORSEMIDE 20 MG TABLET (FP) PO SCH (10:00)
[2022-03-08] MEDS ORDERED: FUROSEMIDE 40 MG TABLET (FP) PO SCH (10:00)
[2022-03-08] MEDS ORDERED: PROPOFOL 20 ML ONE (10:10)
[2022-03-08] MEDS: FERROUS SO4 325 MG TABLET (FP) PO SCH ×2 (10:58→18:15)
[2022-03-08] MEDS ORDERED: LIDOCAINE HCL/PF (2%) 40 MG/2 ML VIAL ONE (11:19)
[2022-03-08] MEDS ORDERED: GLYCOPYRROLATE 0.2 MG/1 ML VIAL ONE (11:45)
[2022-03-08] MEDS: CEFTAZIDIME/AVIBACTAM 1.25 GM in DEXTROSE 5%-WATER - 100 ML IVPB SCH ×3 (12:08→17:56)
[2022-03-08] MEDS: INSULIN SLIDING SCALE (NOVOLOG) 1 VIAL SQ SCH ×4 (12:09→21:32)
[2022-03-08] MEDS: TAMSULOSIN HCL 0.4 MG CAP PO SCH ×2 (12:09→21:26)
[2022-03-08] MEDS: CALCIUM ACETATE 667 MG CAPSULE (FP) PO SCH ×2 (12:09→18:15)
[2022-03-08] MEDS: NIFEdipine E.R 60 MG TABLET PO SCH ×2 (12:10→21:26)
[2022-03-08] MEDS ORDERED: ONDANSETRON 4 MG/2 ML VIAL IVPUSH PRN ×2 (14:05→14:42)
[2022-03-08] MEDS ORDERED: ACETAMINOPHEN 1000 MG/100 ML BAG IVPB ONE (14:06)
[2022-03-08] MEDS ORDERED: ONDANSETRON 4 MG/2 ML VIAL ONE (14:13)
[2022-03-08] MEDS ORDERED: ONDANSETRON 4 MG/2 ML VIAL IVPUSH ONE (14:15)
[2022-03-08] MEDS ORDERED: PROMETHAZINE HCL 25 MG/1 ML VIAL IVPUSH ONE (14:23)
[2022-03-08] MEDS ORDERED: PROMETHAZINE HCL 25 MG/1 ML VIAL IVPB ONE (14:25)
[2022-03-08] MEDS ORDERED: ACETAMINOPHEN INJECTION 100 ML IVPB ONE (14:27)
[2022-03-08] MEDS ORDERED: ALBUTEROL SO4 HFA INHALER IH PRN (14:42)
[2022-03-08] MEDS: LACTATED RINGERS SOLUTION 1,000 ML IV SCH (17:03)
[2022-03-08] MEDS: SODIUM ZIRCONIUM CYCLOSILICATE (LOKELMA) 5 GM PACKET PO SCH (17:04)
[2022-03-08] MEDS ORDERED: ALBUTEROL SO4 2.5/IPRATROPIUM 0.5 INH SOL 3 ML VIAL.NEB. NEB ONE (20:55)
[2022-03-08] MEDS: DOCUSATE SODIUM 100 MG CAPSULE (FP) PO SCH (21:26)
[2022-03-09] MEDS: ACETAMINOPHEN 325 MG TABLET (FP) PO PRN ×2 (02:10→18:08)
[2022-03-09] MEDS: CEFTAZIDIME/AVIBACTAM 1.25 GM in DEXTROSE 5%-WATER - 100 ML IVPB SCH ×3 (05:32→16:59)
[2022-03-09] MEDS: CARVEDILOL 25 MG TABLET (FP) PO SCH ×3 (06:18→21:26)
[2022-03-09] MEDS: SODIUM BICARBONATE 650 MG TABLET PO SCH ×3 (06:19→21:26)
[2022-03-09] MEDS: hydrALAZINE HCL 50 MG TABLET (FP) PO SCH ×3 (06:20→21:27)
[2022-03-09] MEDS: INSULIN SLIDING SCALE (NOVOLOG) 1 VIAL SQ SCH ×4 (06:39→21:27)
[2022-03-09] MEDS: FUROSEMIDE 40 MG TABLET (FP) PO SCH (11:01)
[2022-03-09] MEDS: CALCIUM ACETATE 667 MG CAPSULE (FP) PO SCH ×3 (11:01→16:58)
[2022-03-09] MEDS: NIFEdipine E.R 60 MG TABLET PO SCH ×2 (11:02→21:26)
[2022-03-09] MEDS: TAMSULOSIN HCL 0.4 MG CAP PO SCH ×2 (11:02→21:27)
[2022-03-09] MEDS: UMECLIDINIUM/VILANTEROL (ANORO) 62.5/25 MCG INHALER IH SCH (11:02)
[2022-03-09] MEDS: LACTATED RINGERS SOLUTION 1,000 ML IV SCH (14:53)
[2022-03-09] MEDS: SODIUM ZIRCONIUM CYCLOSILICATE (LOKELMA) 5 GM PACKET PO SCH (14:55)
[2022-03-09 17:43] LABS: BASO % 0.3 % (0-2.0); EOS % 1.6 % (0-4.5); HEMATOCRIT 23.7 % (32.4-45.2); HEMOGLOBIN 7.7 GM/dL (10.7-15.3); LYMPH % 5.5 % (8-40); MCH 28.7 pg (25.7-33.7); MCHC 32.6 g/dl (32.0-36.0); MEAN CELL VOLUME 87.9 fl (80-96); MEAN PLT VOLUME 8.9 fl (7.5-11.1); MONO % 6.3 % (3.8-10.2); NEUT % 86.3 % (42.8-82.8); PLATELET COUNT 175 10^3/uL (134-434); RBC 2.69 M/mm3 (3.60-5.2); RDW 15.9 % (11.6-15.6); WHITE BLOOD COUNT 8.9 K/mm3 (4.0-10.0)
[2022-03-09 18:12] LABS: ALBUMIN 1.7 g/dl (3.4-5.0); BLOOD UREA NITROGEN 67.7 mg/dL (7-18); CALCIUM 7.6 mg/dL (8.5-10.1)
[2022-03-09 18:15] LABS: CREATININE 4.3 mg/dL (0.55-1.3)
[2022-03-09 18:17] LABS: BILIRUBIN,TOTAL 0.2 mg/dL (0.2-1); TOT PROT 5.2 g/dl (6.4-8.2)
[2022-03-09] MEDS ORDERED: ARTIFICIAL TEARS (POLYVINYL ALCOHOL) OPTH DROPS OU PRN (19:16)
[2022-03-09] MEDS: DOCUSATE SODIUM 100 MG CAPSULE (FP) PO SCH (21:26)
[2022-03-10] MEDS: CEFTAZIDIME/AVIBACTAM 1.25 GM in DEXTROSE 5%-WATER - 100 ML IVPB SCH ×3 (01:39→18:20)
[2022-03-10] MEDS: INSULIN SLIDING SCALE (NOVOLOG) 1 VIAL SQ SCH ×4 (06:43→21:52)
[2022-03-10] MEDS: SODIUM BICARBONATE 650 MG TABLET PO SCH ×3 (06:57→21:52)
[2022-03-10] MEDS: CARVEDILOL 25 MG TABLET (FP) PO SCH ×3 (06:57→21:52)
[2022-03-10] MEDS: hydrALAZINE HCL 50 MG TABLET (FP) PO SCH ×3 (06:57→21:52)
[2022-03-10] MEDS: CALCIUM ACETATE 667 MG CAPSULE (FP) PO SCH ×3 (09:00→17:46)
[2022-03-10] MEDS: AMINO ACIDS/PROTEIN HYDROLYS 30 ML LIQUID.PKT PO SCH ×2 (10:39→17:46)
[2022-03-10] MEDS: FUROSEMIDE 40 MG TABLET (FP) PO SCH (12:21)
[2022-03-10] MEDS: UMECLIDINIUM/VILANTEROL (ANORO) 62.5/25 MCG INHALER IH SCH (12:41)
[2022-03-10] MEDS: NIFEdipine E.R 60 MG TABLET PO SCH ×2 (12:41→21:52)
[2022-03-10] MEDS: TAMSULOSIN HCL 0.4 MG CAP PO SCH ×2 (12:41→21:52)
[2022-03-10] MEDS: SODIUM CHLORIDE 1,000 ML IV SCH (15:38)
[2022-03-10] MEDS: SODIUM ZIRCONIUM CYCLOSILICATE (LOKELMA) 5 GM PACKET PO SCH (15:39)
[2022-03-10 16:27] LABS: BASO % 0.5 % (0-2.0); EOS % 1.8 % (0-4.5); HEMOGLOBIN 7.3 GM/dL (10.7-15.3); LYMPH % 7.8 % (8-40); MCH 29.5 pg (25.7-33.7); MEAN CELL VOLUME 89.3 fl (80-96); MEAN PLT VOLUME 8.9 fl (7.5-11.1); MONO % 7.6 % (3.8-10.2); NEUT % 82.3 % (42.8-82.8); PLATELET COUNT 173 10^3/uL (134-434); RBC 2.46 M/mm3 (3.60-5.2); RDW 15.7 % (11.6-15.6); WHITE BLOOD COUNT 8.2 K/mm3 (4.0-10.0)
[2022-03-10 16:46] LABS: CALCIUM 8.1 mg/dL (8.5-10.1)
[2022-03-10 16:47] LABS: ALBUMIN 1.7 g/dl (3.4-5.0); MAGNESIUM 1.7 mg/dL (1.8-2.4)
[2022-03-10 16:50] LABS: CREATININE 4.6 mg/dL (0.55-1.3)
[2022-03-10 16:52] LABS: BILIRUBIN,TOTAL 0.2 mg/dL (0.2-1); TOT PROT 5.4 g/dl (6.4-8.2)
[2022-03-10] MEDS: FERROUS SO4 325 MG TABLET (FP) PO SCH (17:46)
[2022-03-10] MEDS: ACETAMINOPHEN 325 MG TABLET (FP) PO PRN (19:35)
[2022-03-10] MEDS: DOCUSATE SODIUM 100 MG CAPSULE (FP) PO SCH (21:52)
[2022-03-11] MEDS: CEFTAZIDIME/AVIBACTAM 1.25 GM in DEXTROSE 5%-WATER - 100 ML IVPB SCH ×3 (01:50→19:52)
[2022-03-11] MEDS: SODIUM BICARBONATE 650 MG TABLET PO SCH ×3 (05:57→22:27)
[2022-03-11] MEDS: CARVEDILOL 25 MG TABLET (FP) PO SCH ×3 (05:57→22:27)
[2022-03-11] MEDS: ACETAMINOPHEN 325 MG TABLET (FP) PO PRN ×2 (05:57→17:10)
[2022-03-11] MEDS: hydrALAZINE HCL 50 MG TABLET (FP) PO SCH ×3 (05:57→22:27)
[2022-03-11] MEDS: INSULIN SLIDING SCALE (NOVOLOG) 1 VIAL SQ SCH ×4 (07:41→22:32)
[2022-03-11 09:39] LABS: BASO % 0.5 % (0-2.0); EOS % 3.8 % (0-4.5); HEMATOCRIT 20.2 % (32.4-45.2); LYMPH % 13.8 % (8-40); MCHC 32.7 g/dl (32.0-36.0); MEAN CELL VOLUME 88.6 fl (80-96); MONO % 9.3 % (3.8-10.2); NEUT % 72.6 % (42.8-82.8); PLATELET COUNT 169 10^3/uL (134-434); RBC 2.28 M/mm3 (3.60-5.2); RDW 15.8 % (11.6-15.6); WHITE BLOOD COUNT 5.5 K/mm3 (4.0-10.0)
[2022-03-11 09:52] LABS: HEMOGLOBIN 6.6 GM/dL (10.7-15.3)
[2022-03-11 10:00] LABS: CALCIUM 7.8 mg/dL (8.5-10.1)
[2022-03-11 10:01] LABS: ALBUMIN 1.5 g/dl (3.4-5.0); BLOOD UREA NITROGEN 76.8 mg/dL (7-18); MAGNESIUM 1.9 mg/dL (1.8-2.4)
[2022-03-11 10:04] LABS: BILIRUBIN,TOTAL 0.2 mg/dL (0.2-1); CREATININE 4.8 mg/dL (0.55-1.3)
[2022-03-11] MEDS: AMINO ACIDS/PROTEIN HYDROLYS 30 ML LIQUID.PKT PO SCH ×2 (10:38→17:11)
[2022-03-11] MEDS: UMECLIDINIUM/VILANTEROL (ANORO) 62.5/25 MCG INHALER IH SCH (10:39)
[2022-03-11] MEDS: TAMSULOSIN HCL 0.4 MG CAP PO SCH ×2 (10:39→22:27)
[2022-03-11] MEDS: NIFEdipine E.R 60 MG TABLET PO SCH ×2 (10:39→22:27)
[2022-03-11] MEDS: CALCIUM ACETATE 667 MG CAPSULE (FP) PO SCH ×4 (10:39→17:11)
[2022-03-11] MEDS: POLYETHYLENE GLYCOL (HEALTHYLAX) 3350 17 GM PACKET PO PRN (10:39)
[2022-03-11] MEDS: SODIUM CHLORIDE 1,000 ML IV SCH (15:05)
[2022-03-11] MEDS: SODIUM ZIRCONIUM CYCLOSILICATE (LOKELMA) 5 GM PACKET PO SCH (15:31)
[2022-03-11] MEDS: DOCUSATE SODIUM 100 MG CAPSULE (FP) PO SCH (22:26)
[2022-03-12] MEDS: ACETAMINOPHEN 325 MG TABLET (FP) PO PRN ×2 (01:32→10:01)
[2022-03-12] MEDS: CEFTAZIDIME/AVIBACTAM 1.25 GM in DEXTROSE 5%-WATER - 100 ML IVPB SCH ×3 (05:53→18:09)
[2022-03-12] MEDS: hydrALAZINE HCL 50 MG TABLET (FP) PO SCH ×3 (06:56→22:15)
[2022-03-12] MEDS: SODIUM BICARBONATE 650 MG TABLET PO SCH ×3 (06:56→22:15)
[2022-03-12] MEDS: CARVEDILOL 25 MG TABLET (FP) PO SCH ×3 (06:56→22:15)
[2022-03-12] MEDS: INSULIN SLIDING SCALE (NOVOLOG) 1 VIAL SQ SCH (07:57)
[2022-03-12] MEDS: TAMSULOSIN HCL 0.4 MG CAP PO SCH ×2 (09:51→22:15)
[2022-03-12] MEDS: AMINO ACIDS/PROTEIN HYDROLYS 30 ML LIQUID.PKT PO SCH ×2 (09:51→18:09)
[2022-03-12] MEDS: POLYETHYLENE GLYCOL (HEALTHYLAX) 3350 17 GM PACKET PO PRN (09:51)
[2022-03-12] MEDS: CALCIUM ACETATE 667 MG CAPSULE (FP) PO SCH ×3 (09:51→18:09)
[2022-03-12] MEDS: UMECLIDINIUM/VILANTEROL (ANORO) 62.5/25 MCG INHALER IH SCH (09:51)
[2022-03-12] MEDS: NIFEdipine E.R 60 MG TABLET PO SCH ×2 (09:51→22:15)
[2022-03-12] MEDS: oxyCODONE HCL 5 MG TABLET PO PRN ×2 (10:02→22:14)
[2022-03-12 10:27] LABS: BASO % 0.8 % (0-2.0); EOS % 3.3 % (0-4.5); HEMATOCRIT 25.9 % (32.4-45.2); HEMOGLOBIN 8.9 GM/dL (10.7-15.3); LYMPH % 12.7 % (8-40); MCH 30.1 pg (25.7-33.7); MCHC 34.3 g/dl (32.0-36.0); MEAN CELL VOLUME 87.7 fl (80-96); MEAN PLT VOLUME 8.8 fl (7.5-11.1); MONO % 9.6 % (3.8-10.2); NEUT % 73.6 % (42.8-82.8); PLATELET COUNT 173 10^3/uL (134-434); RBC 2.96 M/mm3 (3.60-5.2); RDW 15.9 % (11.6-15.6); WHITE BLOOD COUNT 5.3 K/mm3 (4.0-10.0)
[2022-03-12 10:50] LABS: ALBUMIN 1.5 g/dl (3.4-5.0); CALCIUM 7.6 mg/dL (8.5-10.1)
[2022-03-12 10:51] LABS: BLOOD UREA NITROGEN 71.8 mg/dL (7-18); MAGNESIUM 1.7 mg/dL (1.8-2.4)
[2022-03-12 10:52] LABS: CREATININE 4.7 mg/dL (0.55-1.3)
[2022-03-12 10:54] LABS: BILIRUBIN,TOTAL 0.3 mg/dL (0.2-1)
[2022-03-12 10:57] LABS: TOT PROT 5.1 g/dl (6.4-8.2)
[2022-03-12] MEDS: SODIUM CHLORIDE 1,000 ML IV SCH (15:30)
[2022-03-12] MEDS: SODIUM ZIRCONIUM CYCLOSILICATE (LOKELMA) 5 GM PACKET PO SCH (15:36)
[2022-03-12] MEDS ORDERED: ZOLPIDEM TARTRATE 5 MG TABLET PO ONE (22:00)
[2022-03-12] MEDS: DOCUSATE SODIUM 100 MG CAPSULE (FP) PO SCH (22:13)
[2022-03-13] MEDS: CEFTAZIDIME/AVIBACTAM 1.25 GM in DEXTROSE 5%-WATER - 100 ML IVPB SCH ×2 (02:22→10:28)
[2022-03-13] MEDS: CARVEDILOL 25 MG TABLET (FP) PO SCH ×3 (07:59→21:14)
[2022-03-13] MEDS: hydrALAZINE HCL 50 MG TABLET (FP) PO SCH ×3 (07:59→21:13)
[2022-03-13] MEDS: SODIUM BICARBONATE 650 MG TABLET PO SCH ×3 (07:59→21:14)
[2022-03-13] MEDS: NIFEdipine E.R 60 MG TABLET PO SCH ×2 (10:27→21:14)
[2022-03-13] MEDS: AMINO ACIDS/PROTEIN HYDROLYS 30 ML LIQUID.PKT PO SCH ×2 (10:27→17:27)
[2022-03-13] MEDS: CALCIUM ACETATE 667 MG CAPSULE (FP) PO SCH ×3 (10:27→17:28)
[2022-03-13] MEDS: TAMSULOSIN HCL 0.4 MG CAP PO SCH ×2 (10:28→21:14)
[2022-03-13] MEDS: UMECLIDINIUM/VILANTEROL (ANORO) 62.5/25 MCG INHALER IH SCH (10:34)
[2022-03-13 12:41] LABS: HEMATOCRIT 30.8 % (32.4-45.2); HEMOGLOBIN 10.4 GM/dL (10.7-15.3); LYMPH % 16.6 % (8-40); MCH 29.7 pg (25.7-33.7); MCHC 33.7 g/dl (32.0-36.0); MEAN PLT VOLUME 8.5 fl (7.5-11.1); MONO % 11.4 % (3.8-10.2); PLATELET COUNT 211 10^3/uL (134-434); RDW 15.7 % (11.6-15.6); WHITE BLOOD COUNT 4.9 K/mm3 (4.0-10.0)
[2022-03-13 13:06] LABS: CALCIUM 7.8 mg/dL (8.5-10.1)
[2022-03-13 13:07] LABS: ALBUMIN 1.6 g/dl (3.4-5.0); BLOOD UREA NITROGEN 66.1 mg/dL (7-18); MAGNESIUM 1.9 mg/dL (1.8-2.4)
[2022-03-13 13:10] LABS: CREATININE 4.5 mg/dL (0.55-1.3)
[2022-03-13 13:11] LABS: BILIRUBIN,TOTAL 0.2 mg/dL (0.2-1); TOT PROT 5.7 g/dl (6.4-8.2)
[2022-03-13 13:22] LABS: ANISOCYTOSIS 0; HELMET CELLS 0; HOWELL-JOLLY BODIES 0; MACROCYTOSIS 0; OVALOCYTE 0; ROULEAU 0; SICKELED CELLS 0; TARGET CELLS 0; TEAR DROP CELLS 0; TOXIC GRANULATION 0
[2022-03-13] MEDS: SODIUM CHLORIDE 1,000 ML IV SCH ×2 (14:17→16:25)
[2022-03-13] MEDS: SODIUM ZIRCONIUM CYCLOSILICATE (LOKELMA) 5 GM PACKET PO SCH (14:17)
[2022-03-13] MEDS: ACETAMINOPHEN 325 MG TABLET (FP) PO PRN (16:27)
[2022-03-13] MEDS: FERROUS SO4 325 MG TABLET (FP) PO SCH (16:28)
[2022-03-13] MEDS: oxyCODONE HCL 5 MG TABLET PO PRN ×2 (16:28→19:44)
[2022-03-13] MEDS: POLYETHYLENE GLYCOL (HEALTHYLAX) 3350 17 GM PACKET PO PRN (18:28)
[2022-03-13] MEDS: DOCUSATE SODIUM 100 MG CAPSULE (FP) PO SCH (21:13)
[2022-03-14] MEDS: oxyCODONE HCL 5 MG TABLET PO PRN ×3 (03:20→15:42)
[2022-03-14] MEDS: hydrALAZINE HCL 50 MG TABLET (FP) PO SCH ×4 (06:46→22:00)
[2022-03-14] MEDS: SODIUM BICARBONATE 650 MG TABLET PO SCH ×4 (06:46→22:01)
[2022-03-14] MEDS: CARVEDILOL 25 MG TABLET (FP) PO SCH ×4 (06:46→22:00)
[2022-03-14] MEDS: NIFEdipine E.R 60 MG TABLET PO SCH ×2 (10:12→22:01)
[2022-03-14] MEDS: AMINO ACIDS/PROTEIN HYDROLYS 30 ML LIQUID.PKT PO SCH (10:13)
[2022-03-14] MEDS: CALCIUM ACETATE 667 MG CAPSULE (FP) PO SCH ×3 (10:13→18:33)
[2022-03-14] MEDS: TAMSULOSIN HCL 0.4 MG CAP PO SCH ×2 (10:13→22:01)
[2022-03-14] MEDS: UMECLIDINIUM/VILANTEROL (ANORO) 62.5/25 MCG INHALER IH SCH (10:14)
[2022-03-14] MEDS: SODIUM ZIRCONIUM CYCLOSILICATE (LOKELMA) 5 GM PACKET PO SCH (13:21)
[2022-03-14 13:25] LABS: HEMATOCRIT 32.2 % (32.4-45.2); HEMOGLOBIN 10.4 GM/dL (10.7-15.3); MCH 28.8 pg (25.7-33.7); MCHC 32.2 g/dl (32.0-36.0); MEAN CELL VOLUME 89.2 fl (80-96); MEAN PLT VOLUME 8.7 fl (7.5-11.1); PLATELET COUNT 227 10^3/uL (134-434); RBC 3.61 M/mm3 (3.60-5.2)
[2022-03-14 13:53] LABS: ANISOCYTOSIS 0; HELMET CELLS 0; HOWELL-JOLLY BODIES 0; MACROCYTOSIS 0; OVALOCYTE 0; ROULEAU 0; SICKELED CELLS 0; TARGET CELLS 0; TEAR DROP CELLS 0; TOXIC GRANULATION 0
[2022-03-14] MEDS: LACTATED RINGERS SOLUTION 1,000 ML/1,000 ML INFUS.BAG IV SCH (14:04)
[2022-03-14 14:07] LABS: ALBUMIN 1.6 g/dl (3.4-5.0)
[2022-03-14 14:08] LABS: TOT PROT 5.7 g/dl (6.4-8.2)
[2022-03-14 14:10] LABS: BLOOD UREA NITROGEN 61.8 mg/dL (7-18); CALCIUM 7.9 mg/dL (8.5-10.1); CREATININE 4.4 mg/dL (0.55-1.3); MAGNESIUM 1.6 mg/dL (1.8-2.4)
[2022-03-14 14:11] LABS: BILIRUBIN,TOTAL 0.2 mg/dL (0.2-1)
[2022-03-14 15:10] VITALS: BMI 41.3
[2022-03-14] MEDS: DOCUSATE SODIUM 100 MG CAPSULE (FP) PO SCH (22:00)
[2022-03-15] MEDS: CARVEDILOL 25 MG TABLET (FP) PO SCH ×3 (05:53→22:24)
[2022-03-15] MEDS: hydrALAZINE HCL 50 MG TABLET (FP) PO SCH ×3 (05:53→22:24)
[2022-03-15] MEDS: SODIUM BICARBONATE 650 MG TABLET PO SCH ×3 (05:54→22:24)
[2022-03-15] MEDS: oxyCODONE HCL 5 MG TABLET PO PRN ×3 (08:02→22:24)
[2022-03-15] MEDS: TAMSULOSIN HCL 0.4 MG CAP PO SCH ×2 (08:02→22:25)
[2022-03-15] MEDS: CALCIUM ACETATE 667 MG CAPSULE (FP) PO SCH ×3 (08:02→16:53)
[2022-03-15 08:25] LABS: BASO % 0.9 % (0-2.0); EOS % 4.2 % (0-4.5); HEMATOCRIT 27.3 % (32.4-45.2); HEMOGLOBIN 8.6 GM/dL (10.7-15.3); LYMPH % 20.1 % (8-40); MCH 28.4 pg (25.7-33.7); MCHC 31.6 g/dl (32.0-36.0); MEAN CELL VOLUME 89.7 fl (80-96); MEAN PLT VOLUME 8.4 fl (7.5-11.1); MONO % 13.1 % (3.8-10.2); NEUT % 61.7 % (42.8-82.8); PLATELET COUNT 194 10^3/uL (134-434); RBC 3.04 M/mm3 (3.60-5.2); WHITE BLOOD COUNT 4.9 K/mm3 (4.0-10.0)
[2022-03-15 08:57] LABS: CALCIUM 7.8 mg/dL (8.5-10.1)
[2022-03-15 08:58] LABS: ALBUMIN 1.5 g/dl (3.4-5.0); BLOOD UREA NITROGEN 63.8 mg/dL (7-18); MAGNESIUM 1.6 mg/dL (1.8-2.4)
[2022-03-15 09:01] LABS: CREATININE 4.5 mg/dL (0.55-1.3)
[2022-03-15 09:02] LABS: BILIRUBIN,TOTAL 0.2 mg/dL (0.2-1)
[2022-03-15 09:03] LABS: TOT PROT 4.9 g/dl (6.4-8.2)
[2022-03-15 09:14] LABS: ANISOCYTOSIS 0; HELMET CELLS 0; HOWELL-JOLLY BODIES 0; MACROCYTOSIS 0; OVALOCYTE 0; ROULEAU 0; SICKELED CELLS 0; TARGET CELLS 0; TEAR DROP CELLS 0; TOXIC GRANULATION 0
[2022-03-15] MEDS: NIFEdipine E.R 60 MG TABLET PO SCH ×2 (10:04→22:24)
[2022-03-15] MEDS: UMECLIDINIUM/VILANTEROL (ANORO) 62.5/25 MCG INHALER IH SCH (10:05)
[2022-03-15] MEDS ORDERED: oxyCODONE HCL 5 MG TABLET PO ONE (10:21)
[2022-03-15] MEDS: ACETAMINOPHEN 325 MG TABLET (FP) PO PRN (10:54)
[2022-03-15] MEDS ORDERED: PHENAZOPYRIDINE HCL 100 MG TABLET (FP) PO ONE (11:48)
[2022-03-15] MEDS: LACTATED RINGERS SOLUTION 1,000 ML/1,000 ML INFUS.BAG IV SCH (12:32)
[2022-03-15] MEDS: SODIUM ZIRCONIUM CYCLOSILICATE (LOKELMA) 5 GM PACKET PO SCH (14:28)
[2022-03-15] MEDS: FERROUS SO4 325 MG TABLET (FP) PO SCH (14:29)
[2022-03-15] MEDS ORDERED: MAGNESIUM OXIDE 400 MG TABLET (FP) PO ONE (15:39)
[2022-03-15] MEDS: DOCUSATE SODIUM 100 MG CAPSULE (FP) PO SCH (22:24)
[2022-03-16] MEDS: hydrALAZINE HCL 50 MG TABLET (FP) PO SCH ×4 (05:52→23:30)
[2022-03-16] MEDS: CARVEDILOL 25 MG TABLET (FP) PO SCH ×4 (05:52→23:31)
[2022-03-16] MEDS: SODIUM BICARBONATE 650 MG TABLET PO SCH ×4 (05:53→23:31)
[2022-03-16] MEDS: TAMSULOSIN HCL 0.4 MG CAP PO SCH ×2 (09:32→23:31)
[2022-03-16] MEDS: NIFEdipine E.R 60 MG TABLET PO SCH ×2 (09:32→23:31)
[2022-03-16] MEDS: oxyCODONE HCL 5 MG TABLET PO PRN (09:32)
[2022-03-16] MEDS: CALCIUM ACETATE 667 MG CAPSULE (FP) PO SCH ×3 (09:32→17:36)
[2022-03-16] MEDS: UMECLIDINIUM/VILANTEROL (ANORO) 62.5/25 MCG INHALER IH SCH (09:32)
[2022-03-16 10:03] LABS: HEMATOCRIT 30.9 % (32.4-45.2); HEMOGLOBIN 10.2 GM/dL (10.7-15.3); MCH 29.4 pg (25.7-33.7); MCHC 32.9 g/dl (32.0-36.0); MEAN CELL VOLUME 89.4 fl (80-96); MEAN PLT VOLUME 8.3 fl (7.5-11.1); PLATELET COUNT 232 10^3/uL (134-434); RBC 3.45 M/mm3 (3.60-5.2); WHITE BLOOD COUNT 4.6 K/mm3 (4.0-10.0)
[2022-03-16 10:34] LABS: ALBUMIN 1.7 g/dl (3.4-5.0); BLOOD UREA NITROGEN 59.7 mg/dL (7-18); CALCIUM 8.1 mg/dL (8.5-10.1); MAGNESIUM 1.9 mg/dL (1.8-2.4)
[2022-03-16 10:37] LABS: CREATININE 4.4 mg/dL (0.55-1.3)
[2022-03-16 10:39] LABS: TOT PROT 5.9 g/dl (6.4-8.2)
[2022-03-16 10:45] LABS: BILIRUBIN,TOTAL 0.2 mg/dL (0.2-1)
[2022-03-16 10:48] LABS: ANISOCYTOSIS 0; HELMET CELLS 0; HOWELL-JOLLY BODIES 0; MACROCYTOSIS 0; OVALOCYTE 0; ROULEAU 0; SICKELED CELLS 0; TARGET CELLS 0; TEAR DROP CELLS 0; TOXIC GRANULATION 0
[2022-03-16 11:11] LABS: CA OXALATE MONOHYDR. 90 % (.); SIZE 7x3 mm (.); WEIGHT 11 mg (.)
[2022-03-16 13:07] LABS: SIZE 5x2 mm (.); WEIGHT 3 mg (.)
[2022-03-16] MEDS: SODIUM ZIRCONIUM CYCLOSILICATE (LOKELMA) 5 GM PACKET PO SCH (14:27)
[2022-03-16 22:44] VITALS: RESP 18
[2022-03-16] MEDS: DOCUSATE SODIUM 100 MG CAPSULE (FP) PO SCH (23:30)
[2022-03-17] MEDS: CARVEDILOL 25 MG TABLET (FP) PO SCH ×2 (06:25→13:00)
[2022-03-17] MEDS: hydrALAZINE HCL 50 MG TABLET (FP) PO SCH ×2 (06:25→13:00)
[2022-03-17] MEDS: SODIUM BICARBONATE 650 MG TABLET PO SCH ×2 (06:26→13:00)
[2022-03-17] MEDS: TAMSULOSIN HCL 0.4 MG CAP PO SCH (08:56)
[2022-03-17] MEDS: CALCIUM ACETATE 667 MG CAPSULE (FP) PO SCH ×3 (08:56→17:27)
[2022-03-17] MEDS: NIFEdipine E.R 60 MG TABLET PO SCH (10:34)
[2022-03-17] MEDS: UMECLIDINIUM/VILANTEROL (ANORO) 62.5/25 MCG INHALER IH SCH (10:37)
[2022-03-17] MEDS: SODIUM ZIRCONIUM CYCLOSILICATE (LOKELMA) 5 GM PACKET PO SCH (13:00)
[2022-03-17] MEDS: FERROUS SO4 325 MG TABLET (FP) PO SCH (15:22)
[2022-03-17 17:49] VITALS: BP 186/90; PULSE 84; TEMP 98
== END 2022-03-17 19:08 | disposition home or self-care (01) | DRG 660 ==
LOC: JER 20:26 → JERBED 03-05 03:58 → J8W 03-07 06:00
PROVIDERS: ADMIT Internal Medicine; ATTEND Nurse Practitioner Family
PROC: BT14YZZ Fluoroscopy of Kidneys, Ureters and Bladder using Other Contrast (ICD-10-PCS; 2022-03-08)
PROC: 0TC78ZZ Extirpation of Matter from Left Ureter, Via Natural or Artificial Opening Endoscopic (ICD-10-PCS; 2022-03-08)
PROC: 0TC38ZZ Extirpation of Matter from Right Kidney Pelvis, Via Natural or Artificial Opening Endoscopic (ICD-10-PCS; 2022-03-08)
PROC: 0T768DZ Dilation of Right Ureter with Intraluminal Device, Via Natural or Artificial Opening Endoscopic (ICD-10-PCS; principal; 2022-03-08 11:30)
PROC: 30233N1 Transfusion of Nonautologous Red Blood Cells into Peripheral Vein, Percutaneous Approach (ICD-10-PCS; 2022-03-11)
DX: T83.022A Displacement of nephrostomy catheter, initial encounter (principal); N12 Tubulo-interstitial nephritis, not specified as acute or chronic; N39.0 Urinary tract infection, site not specified; Z68.41 Body mass index [BMI] 40.0-44.9, adult; N18.4 Chronic kidney disease, stage 4 (severe); N13.2 Hydronephrosis with renal and ureteral calculous obstruction; N13.8 Other obstructive and reflux uropathy; E83.42 Hypomagnesemia; J44.9 Chronic obstructive pulmonary disease, unspecified; I10 Essential (primary) hypertension; E78.5 Hyperlipidemia, unspecified; E87.5 Hyperkalemia; E11.610 Type 2 diabetes mellitus with diabetic neuropathic arthropathy; E87.70 Fluid overload, unspecified; Y83.9 Surgical procedure, unspecified as the cause of abnormal reaction of the patient, or of later complication, without mention of misadventure at the time of the procedure; E66.01 Morbid (severe) obesity due to excess calories; D64.9 Anemia, unspecified
CPT/HCPCS: 0241U-QW; 36415; 36430; 74176-TC; 76000-TC-FY; 80048; 80053; 81003; 82272; 82360; 82962; 83036; 83605; 83690; 83735; 83880; 84100; 84484; 85025; 85610; 85730; 86850; 86900; 86901; 86922; 87040; 87086; 87102; 87184; 87186; 87210; 88108; 88300-TC; 88304-TC; 88305-TC; 93005; 93010; 94640; 94760; 99285-25; C2617; P9058

== ENCOUNTER 2022-03-20 15:51 | Emergency (ER) | payer OTHER ==
[2022-03-20 17:07] VITALS: BP 166/96; PULSE 78; RESP 18; TEMP 98.6; BMI 43.0
[2022-03-20] MEDS ORDERED: ACETAMINOPHEN 500 MG TABLET (FP) PO ONE (18:49)
[2022-03-20] MEDS ORDERED: ACETAMINOPHEN 325 MG TABLET (FP) ONE (19:01)
== END 2022-03-21 08:03 | disposition home or self-care (01) ==
LOC: JER 15:51
DX: M54.50 Low back pain, unspecified (principal)
CPT/HCPCS: 99283-25

== ENCOUNTER 2023-01-08 20:39 | Inpatient (IN) | payer OTHER ==
[2023-01-08 20:52] VITALS: BMI 31.1
[2023-01-08] MEDS ORDERED: ALBUTEROL SO4 2.5/IPRATROPIUM 0.5 INH SOL 3 ML VIAL.NEB. NEB ONE (21:18)
[2023-01-08] MEDS ORDERED: methylPREDNISolone NA SUCC 125 MG/2 ML VIAL ONE (21:19)
[2023-01-08] MEDS ORDERED: MAGNESIUM SULFATE IN WATER 2 GM/50 ML IVPB IVPB ONE ×2 (21:19→21:25)
[2023-01-08] MEDS ORDERED: FUROSEMIDE 40 MG/4 ML INJECTABLE VIAL IVPUSH ONE (21:29)
[2023-01-08] MEDS: ALBUTEROL SO4 2.5/IPRATROPIUM 0.5 INH SOL 3 ML VIAL.NEB. NEB SCH ×4 (22:00→22:20)
[2023-01-08] MEDS ORDERED: MAGNESIUM SULF 50% (8.12 MEQ/2 ML-1 GM VIAL) IVPB ONE (22:29)
[2023-01-08] MEDS ORDERED: methylPREDNISolone NA SUCC 125 MG/2 ML VIAL IVPUSH ONE (22:29)
[2023-01-08 22:41] LABS: VENOUS BASE EXCESS 2.2 mmol/L (-2-2); VENOUS O2 SATURATION 57.4 % (70-80); VENOUS PH 7.262 (7.310-7.410)
[2023-01-08 22:46] LABS: BASO % 0.5 % (0-2.0); EOS % 2.8 % (0-4.5); HEMATOCRIT 31.6 % (32.4-45.2); HEMOGLOBIN 10.3 GM/dL (10.7-15.3); LYMPH % 5.7 % (8-40); MCH 31.3 pg (25.7-33.7); MCHC 32.6 g/dl (32.0-36.0); MEAN CELL VOLUME 96.1 fl (80-96); MEAN PLT VOLUME 8.3 fl (7.5-11.1); MONO % 5.7 % (3.8-10.2); NEUT % 85.3 % (42.8-82.8); PLATELET COUNT 162 10^3/uL (134-434); RBC 3.29 M/mm3 (3.60-5.2); WHITE BLOOD COUNT 6.8 K/mm3 (4.0-10.0)
[2023-01-08 22:54] LABS: INR 1.12 (0.83-1.09)
[2023-01-08 22:57] LABS: ACTIVATED PTT 31.2 SECONDS (25.2-36.5)
[2023-01-08] MEDS ORDERED: FUROSEMIDE 40 MG/4 ML INJECTABLE VIAL ONE (23:05)
[2023-01-08 23:10] LABS: ALBUMIN 3.8 g/dl (3.4-5.0); CHLORIDE 101 mmol/L (98-107); GLUCOSE,RANDOM 169 mg/dL (74-106); SODIUM 143 mmol/L (136-145)
[2023-01-08 23:11] LABS: BLOOD UREA NITROGEN 77.2 mg/dL (7-18); CO2 32 mmol/L (21-32)
[2023-01-08 23:14] LABS: CREATININE 6.3 mg/dL (0.55-1.3); SGOT/AST 22 U/L (15-37); SGPT/ALT 32 U/L (13-61)
[2023-01-08 23:15] LABS: CALCIUM 8.6 mg/dL (8.5-10.1)
[2023-01-08 23:16] LABS: BILIRUBIN,TOTAL 0.7 mg/dL (0.2-1); TOT PROT 7.3 g/dl (6.4-8.2)
[2023-01-08 23:17] LABS: ALK PHOS 69 U/L (45-117)
[2023-01-08 23:22] LABS: ANION GAP 10 MMOL/L (8-16); POTASSIUM 7.3 mmol/L (3.5-5.1)
[2023-01-08] MEDS ORDERED: CALCIUM GLUCONATE 10% - 1,000 MG/10 ML VIAL IVPUSH ONE (23:31)
[2023-01-08] MEDS ORDERED: INSULIN REGULAR HUMAN 100 UNITS/ML *VIAL IVPUSH ONE (23:35)
[2023-01-08] MEDS ORDERED: DEXTROSE 50%-WATER - 25 GM/50 ML VIAL IVPUSH ONE (23:35)
[2023-01-08] MEDS ORDERED: DEXTROSE 50%-WATER 25 GM/50 ML DISP.SYRIN ONE (23:41)
[2023-01-08] MEDS ORDERED: CALCIUM GLUCONATE 10% - 1,000 MG/10 ML VIAL ONE (23:48)
[2023-01-09] MEDS ORDERED: SODIUM ZIRCONIUM CYCLOSILICATE (LOKELMA) 5 GM PACKET PO ONE (01:00)
[2023-01-09] MEDS ORDERED: ALBUTEROL SO4 2.5/IPRATROPIUM 0.5 INH SOL 3 ML VIAL.NEB. NEB ONE (01:51)
[2023-01-09] MEDS: ALBUTEROL SO4 2.5/IPRATROPIUM 0.5 INH SOL 3 ML VIAL.NEB. NEB SCH ×5 (01:57→20:27)
[2023-01-09] MEDS: FUROSEMIDE 40 MG/4 ML INJECTABLE VIAL IVPUSH SCH ×3 (01:57→10:55)
[2023-01-09 02:17] LABS: CHLORIDE 103 mmol/L (98-107); SODIUM 141 mmol/L (136-145)
[2023-01-09 02:18] LABS: CALCIUM 8.4 mg/dL (8.5-10.1)
[2023-01-09 02:19] LABS: BLOOD UREA NITROGEN 80.7 mg/dL (7-18); CO2 29 mmol/L (21-32); GLUCOSE,RANDOM 155 mg/dL (74-106)
[2023-01-09 02:22] LABS: CREATININE 6.3 mg/dL (0.55-1.3)
[2023-01-09 02:30] LABS: ANION GAP 9 MMOL/L (8-16); POTASSIUM 7.1 mmol/L (3.5-5.1)
[2023-01-09] MEDS ORDERED: hydrALAZINE HCL 20 MG/ML VIAL IVPUSH ONE (03:00)
[2023-01-09] MEDS ORDERED: DEXTROSE 50%-WATER - 25 GM/50 ML VIAL IVPUSH ONE (03:00)
[2023-01-09] MEDS ORDERED: INSULIN (NOVOLOG) ASPART 100 UNITS/ML 10ML VIAL SQ ONE (03:00)
[2023-01-09] MEDS ORDERED: DEXTROSE 50%-WATER 25 GM/50 ML DISP.SYRIN ONE (03:52)
[2023-01-09] MEDS ORDERED: hydrALAZINE HCL 20 MG/ML VIAL ONE (03:52)
[2023-01-09] MEDS ORDERED: CALCIUM GLUCONATE 10% - 1,000 MG/10 ML VIAL IVPUSH ONE (04:18)
[2023-01-09] MEDS: hydrALAZINE HCL 10 MG TABLET PO SCH ×3 (05:09→22:43)
[2023-01-09] MEDS: INSULIN SLIDING SCALE (NOVOLOG) 1 VIAL SQ SCH ×4 (06:51→22:44)
[2023-01-09] MEDS: SODIUM BICARBONATE 650 MG TABLET PO SCH ×3 (06:53→16:43)
[2023-01-09] MEDS: BUDESONIDE 0.25 MG/2ML INH SUSP VIAL NEB SCH ×2 (08:00→20:28)
[2023-01-09] MEDS: SEVELAMER CARBONATE 800 MG TAB (FP) PO SCH ×3 (09:40→17:55)
[2023-01-09] MEDS ORDERED: SODIUM ZIRCONIUM CYCLOSILICATE (LOKELMA) 10 GM PACKET PO ONE (10:00)
[2023-01-09] MEDS ORDERED: cloNIDine-TTS 0.2 MG/24 HOURS PATCH.TDWK TD SCH (10:00)
[2023-01-09] MEDS: CARVEDILOL 25 MG TABLET (FP) PO SCH ×2 (10:54→22:43)
[2023-01-09] MEDS: ISOSORBIDE MONONITRATE 60 MG TAB.SR.24H (FP) PO SCH (10:54)
[2023-01-09] MEDS: LIDOCAINE 5% TOPICAL PATCH TP SCH (10:55)
[2023-01-09] MEDS ORDERED: SODIUM CHLORIDE 250 ML IV PRN (11:26)
[2023-01-09] MEDS: TICAGRELOR 90 MG TABLET PO SCH ×2 (12:29→22:43)
[2023-01-09 16:10] LABS: CHLORIDE 103 mmol/L (98-107); SODIUM 142 mmol/L (136-145)
[2023-01-09 16:11] LABS: BLOOD UREA NITROGEN 90.8 mg/dL (7-18); CALCIUM 8.5 mg/dL (8.5-10.1); CO2 31 mmol/L (21-32); GLUCOSE,RANDOM 126 mg/dL (74-106)
[2023-01-09 16:15] LABS: CREATININE 6.9 mg/dL (0.55-1.3)
[2023-01-09 17:01] LABS: ANION GAP 9 MMOL/L (8-16); POTASSIUM 6.3 mmol/L (3.5-5.1)
[2023-01-09] MEDS ORDERED: cloNIDine-TTS 0.1 MG/24 HRS PATCH.TDWK TD PRN (18:22)
[2023-01-09] MEDS: MELATONIN 5 MG TABLETS PO PRN (22:44)
[2023-01-09] MEDS: LIDOCAINE PATCH REMOVAL MC SCH (22:44)
[2023-01-09] MEDS: ATORVASTATIN CA 80 MG TABLET (FP) PO SCH (22:44)
[2023-01-09] MEDS: MIRTAZAPINE 15 MG TABLET (FP) PO SCH (22:44)
[2023-01-10] MEDS: INSULIN SLIDING SCALE (NOVOLOG) 1 VIAL SQ SCH ×4 (06:45→21:01)
[2023-01-10] MEDS: SODIUM BICARBONATE 650 MG TABLET PO SCH ×3 (06:45→17:17)
[2023-01-10] MEDS: hydrALAZINE HCL 10 MG TABLET PO SCH ×3 (06:45→21:00)
[2023-01-10] MEDS: SEVELAMER CARBONATE 800 MG TAB (FP) PO SCH ×3 (08:57→17:17)
[2023-01-10] MEDS: ALBUTEROL SO4 2.5/IPRATROPIUM 0.5 INH SOL 3 ML VIAL.NEB. NEB SCH ×3 (10:08→20:09)
[2023-01-10] MEDS: BUDESONIDE 0.25 MG/2ML INH SUSP VIAL NEB SCH ×2 (10:09→20:09)
[2023-01-10] MEDS: ISOSORBIDE MONONITRATE 60 MG TAB.SR.24H (FP) PO SCH (10:57)
[2023-01-10] MEDS: TICAGRELOR 90 MG TABLET PO SCH ×2 (10:57→21:00)
[2023-01-10] MEDS: CARVEDILOL 25 MG TABLET (FP) PO SCH ×2 (10:58→21:00)
[2023-01-10] MEDS: LIDOCAINE 5% TOPICAL PATCH TP SCH (10:59)
[2023-01-10] MEDS: ATORVASTATIN CA 80 MG TABLET (FP) PO SCH (21:00)
[2023-01-10] MEDS: MIRTAZAPINE 15 MG TABLET (FP) PO SCH (21:00)
[2023-01-10] MEDS: LIDOCAINE PATCH REMOVAL MC SCH (21:02)
[2023-01-10] MEDS: ARTIFICIAL TEARS (POLYVINYL ALCOHOL) OPTH DROPS OU PRN (22:07)
[2023-01-11] MEDS: SODIUM BICARBONATE 650 MG TABLET PO SCH ×3 (06:36→17:30)
[2023-01-11] MEDS: hydrALAZINE HCL 10 MG TABLET PO SCH ×3 (06:36→23:55)
[2023-01-11] MEDS: INSULIN SLIDING SCALE (NOVOLOG) 1 VIAL SQ SCH ×4 (06:39→23:56)
[2023-01-11] MEDS: ALBUTEROL SO4 2.5/IPRATROPIUM 0.5 INH SOL 3 ML VIAL.NEB. NEB SCH ×4 (08:00→20:00)
[2023-01-11] MEDS: BUDESONIDE 0.25 MG/2ML INH SUSP VIAL NEB SCH ×2 (08:00→20:00)
[2023-01-11] MEDS: SEVELAMER CARBONATE 800 MG TAB (FP) PO SCH ×3 (08:19→17:30)
[2023-01-11] MEDS: SODIUM ZIRCONIUM CYCLOSILICATE (LOKELMA) 5 GM PACKET PO SCH (10:31)
[2023-01-11] MEDS: ISOSORBIDE MONONITRATE 60 MG TAB.SR.24H (FP) PO SCH (10:31)
[2023-01-11] MEDS: LIDOCAINE 5% TOPICAL PATCH TP SCH (10:31)
[2023-01-11] MEDS: CARVEDILOL 25 MG TABLET (FP) PO SCH ×2 (10:32→23:56)
[2023-01-11] MEDS: TICAGRELOR 90 MG TABLET PO SCH ×2 (10:44→23:56)
[2023-01-11] MEDS ORDERED: LORazepam 2 MG/ML SDV VIAL IVPUSH ONE ×2 (12:30→18:00)
[2023-01-11] MEDS: PIPERACILLIN/TAZOB 2.25 GM 2.25 GM in DEXTROSE 5%-WATER - 50 ML IVPB SCH ×2 (15:31→17:30)
[2023-01-11 16:47] LABS: POTASSIUM 5.8 mmol/L (3.5-5.1)
[2023-01-11 16:48] LABS: CALCIUM 7.9 mg/dL (8.5-10.1)
[2023-01-11 16:49] LABS: ALBUMIN 3.2 g/dl (3.4-5.0); BLOOD UREA NITROGEN 77.8 mg/dL (7-18)
[2023-01-11 16:52] LABS: CREATININE 6.3 mg/dL (0.55-1.3)
[2023-01-11 16:54] LABS: BILIRUBIN,TOTAL 0.5 mg/dL (0.2-1)
[2023-01-11] MEDS ORDERED: SODIUM CHLORIDE 250 ML IV PRN (19:51)
[2023-01-11] MEDS ORDERED: EPOETIN ALFA-EPBX 4,000 UNIT/ML VIAL SQ ONE (20:00)
[2023-01-11 20:08] LABS: HEMATOCRIT 25.2 % (32.4-45.2); HEMOGLOBIN 8.1 GM/dL (10.7-15.3); MCH 30.4 pg (25.7-33.7); MCHC 32.3 g/dl (32.0-36.0); MEAN CELL VOLUME 94.2 fl (80-96); MEAN PLT VOLUME 7.9 fl (7.5-11.1); PLATELET COUNT 144 10^3/uL (134-434); RBC 2.67 M/mm3 (3.60-5.2); RDW 15.9 % (11.6-15.6)
[2023-01-11 20:54] LABS: ERYTHROCYTE SEDIMENTATION RATE 23 mm/hr (0-30)
[2023-01-11] MEDS: ATORVASTATIN CA 80 MG TABLET (FP) PO SCH (23:56)
[2023-01-11] MEDS: MIRTAZAPINE 15 MG TABLET (FP) PO SCH (23:56)
[2023-01-11] MEDS: LIDOCAINE PATCH REMOVAL MC SCH (23:56)
[2023-01-12] MEDS: PIPERACILLIN/TAZOB 2.25 GM 2.25 GM in DEXTROSE 5%-WATER - 50 ML IVPB SCH ×3 (01:15→17:02)
[2023-01-12] MEDS: INSULIN SLIDING SCALE (NOVOLOG) 1 VIAL SQ SCH ×4 (06:56→22:38)
[2023-01-12] MEDS: SODIUM BICARBONATE 650 MG TABLET PO SCH ×3 (06:59→17:03)
[2023-01-12] MEDS: hydrALAZINE HCL 10 MG TABLET PO SCH ×3 (06:59→22:32)
[2023-01-12] MEDS: BUDESONIDE 0.25 MG/2ML INH SUSP VIAL NEB SCH ×2 (07:40→21:05)
[2023-01-12] MEDS: ALBUTEROL SO4 2.5/IPRATROPIUM 0.5 INH SOL 3 ML VIAL.NEB. NEB SCH ×4 (07:40→20:05)
[2023-01-12] MEDS: LIDOCAINE 5% TOPICAL PATCH TP SCH (09:17)
[2023-01-12] MEDS: TICAGRELOR 90 MG TABLET PO SCH ×2 (09:17→22:33)
[2023-01-12] MEDS: ISOSORBIDE MONONITRATE 60 MG TAB.SR.24H (FP) PO SCH (09:17)
[2023-01-12] MEDS: CARVEDILOL 25 MG TABLET (FP) PO SCH ×2 (09:17→22:33)
[2023-01-12] MEDS: SEVELAMER CARBONATE 800 MG TAB (FP) PO SCH ×3 (09:17→17:02)
[2023-01-12] MEDS: SODIUM ZIRCONIUM CYCLOSILICATE (LOKELMA) 5 GM PACKET PO SCH (09:18)
[2023-01-12] MEDS ORDERED: amLODIPine BESYLATE 5 MG TABLET (FP) PO ONE (10:54)
[2023-01-12] MEDS: ARTIFICIAL TEARS (POLYVINYL ALCOHOL) OPTH DROPS OU PRN (19:10)
[2023-01-12] MEDS: MIRTAZAPINE 15 MG TABLET (FP) PO SCH (22:32)
[2023-01-12] MEDS: ATORVASTATIN CA 80 MG TABLET (FP) PO SCH (22:33)
[2023-01-12] MEDS: LIDOCAINE PATCH REMOVAL MC SCH (22:40)
[2023-01-13] MEDS: PIPERACILLIN/TAZOB 2.25 GM 2.25 GM in DEXTROSE 5%-WATER - 50 ML IVPB SCH ×3 (01:08→17:22)
[2023-01-13] MEDS: MELATONIN 5 MG TABLETS PO PRN (01:26)
[2023-01-13] MEDS: hydrALAZINE HCL 10 MG TABLET PO SCH ×3 (05:54→21:35)
[2023-01-13] MEDS: SODIUM BICARBONATE 650 MG TABLET PO SCH ×3 (06:01→17:22)
[2023-01-13] MEDS ORDERED: SODIUM CHLORIDE 250 ML IV PRN (07:10)
[2023-01-13] MEDS: INSULIN SLIDING SCALE (NOVOLOG) 1 VIAL SQ SCH ×4 (07:42→21:35)
[2023-01-13 08:27] LABS: BASO % 1.4 % (0-2.0); EOS % 3.8 % (0-4.5); HEMATOCRIT 22.1 % (32.4-45.2); HEMOGLOBIN 7.3 GM/dL (10.7-15.3); LYMPH % 11.1 % (8-40); MCH 31.2 pg (25.7-33.7); MEAN CELL VOLUME 94.8 fl (80-96); MEAN PLT VOLUME 8.2 fl (7.5-11.1); MONO % 9.6 % (3.8-10.2); NEUT % 74.1 % (42.8-82.8); PLATELET COUNT 130 10^3/uL (134-434); RBC 2.33 M/mm3 (3.60-5.2); RDW 15.8 % (11.6-15.6); WHITE BLOOD COUNT 4.1 K/mm3 (4.0-10.0)
[2023-01-13 08:47] LABS: POTASSIUM 5.1 mmol/L (3.5-5.1)
[2023-01-13 08:48] LABS: CALCIUM 7.8 mg/dL (8.5-10.1)
[2023-01-13] MEDS: ALBUTEROL SO4 2.5/IPRATROPIUM 0.5 INH SOL 3 ML VIAL.NEB. NEB SCH ×2 (08:51→20:10)
[2023-01-13] MEDS: BUDESONIDE 0.25 MG/2ML INH SUSP VIAL NEB SCH ×2 (08:51→20:11)
[2023-01-13 08:52] LABS: CREATININE 5.5 mg/dL (0.55-1.3)
[2023-01-13] MEDS ORDERED: EPOETIN ALFA EPBX SQ ONE (09:00)
[2023-01-13] MEDS: SODIUM ZIRCONIUM CYCLOSILICATE (LOKELMA) 5 GM PACKET PO SCH (09:25)
[2023-01-13] MEDS: CARVEDILOL 25 MG TABLET (FP) PO SCH ×2 (09:26→21:35)
[2023-01-13] MEDS: SEVELAMER CARBONATE 800 MG TAB (FP) PO SCH ×3 (09:26→17:23)
[2023-01-13] MEDS: TICAGRELOR 90 MG TABLET PO SCH ×2 (09:26→22:36)
[2023-01-13] MEDS: ISOSORBIDE MONONITRATE 60 MG TAB.SR.24H (FP) PO SCH (09:26)
[2023-01-13] MEDS: LIDOCAINE 5% TOPICAL PATCH TP SCH (09:26)
[2023-01-13] MEDS: MIRTAZAPINE 15 MG TABLET (FP) PO SCH (21:35)
[2023-01-13] MEDS: LIDOCAINE PATCH REMOVAL MC SCH (21:35)
[2023-01-13] MEDS: ATORVASTATIN CA 80 MG TABLET (FP) PO SCH (21:35)
[2023-01-13] MEDS ORDERED: EPOETIN ALFA-EPBX 4,000 UNIT/ML VIAL SQ ONE (22:09)
[2023-01-14] MEDS: PIPERACILLIN/TAZOB 2.25 GM 2.25 GM in DEXTROSE 5%-WATER - 50 ML IVPB SCH ×3 (01:21→17:48)
[2023-01-14] MEDS: MELATONIN 5 MG TABLETS PO PRN ×2 (02:45→21:02)
[2023-01-14] MEDS: SODIUM BICARBONATE 650 MG TABLET PO SCH ×3 (06:23→17:48)
[2023-01-14] MEDS: hydrALAZINE HCL 10 MG TABLET PO SCH (06:23)
[2023-01-14] MEDS: INSULIN SLIDING SCALE (NOVOLOG) 1 VIAL SQ SCH ×4 (06:23→21:03)
[2023-01-14] MEDS: BUDESONIDE 0.25 MG/2ML INH SUSP VIAL NEB SCH ×2 (07:35→20:05)
[2023-01-14] MEDS: ISOSORBIDE MONONITRATE 60 MG TAB.SR.24H (FP) PO SCH (09:25)
[2023-01-14] MEDS: SEVELAMER CARBONATE 800 MG TAB (FP) PO SCH ×3 (09:25→17:48)
[2023-01-14] MEDS: CARVEDILOL 25 MG TABLET (FP) PO SCH ×2 (09:26→21:01)
[2023-01-14] MEDS: LIDOCAINE 5% TOPICAL PATCH TP SCH (09:26)
[2023-01-14] MEDS: TICAGRELOR 90 MG TABLET PO SCH ×2 (09:26→21:05)
[2023-01-14 09:46] LABS: BASO % 0.9 % (0-2.0); EOS % 4.5 % (0-4.5); HEMATOCRIT 24.8 % (32.4-45.2); HEMOGLOBIN 8.5 GM/dL (10.7-15.3); LYMPH % 14.9 % (8-40); MCH 31.9 pg (25.7-33.7); MCHC 34.3 g/dl (32.0-36.0); MEAN CELL VOLUME 93.1 fl (80-96); MEAN PLT VOLUME 7.9 fl (7.5-11.1); MONO % 9.7 % (3.8-10.2); PLATELET COUNT 147 10^3/uL (134-434); RBC 2.67 M/mm3 (3.60-5.2); RDW 15.4 % (11.6-15.6); WHITE BLOOD COUNT 4.3 K/mm3 (4.0-10.0)
[2023-01-14 10:06] LABS: POTASSIUM 4.4 mmol/L (3.5-5.1)
[2023-01-14 10:11] LABS: ALBUMIN 3.2 g/dl (3.4-5.0); CALCIUM 8.2 mg/dL (8.5-10.1)
[2023-01-14 10:14] LABS: CREATININE 4.2 mg/dL (0.55-1.3)
[2023-01-14 10:15] LABS: BILIRUBIN,TOTAL 0.5 mg/dL (0.2-1); TOT PROT 6.5 g/dl (6.4-8.2)
[2023-01-14 10:19] LABS: N-TERMINAL BNP 28743.7 pg/ml (5-125)
[2023-01-14 10:27] LABS: ERYTHROCYTE SEDIMENTATION RATE 31 mm/hr (0-30)
[2023-01-14 10:35] LABS: BLOOD UREA NITROGEN 29.2 mg/dL (7-18)
[2023-01-14] MEDS: hydrALAZINE HCL 50 MG TABLET (FP) PO SCH ×2 (14:26→21:01)
[2023-01-14] MEDS: ARTIFICIAL TEARS (POLYVINYL ALCOHOL) OPTH DROPS OU PRN (14:56)
[2023-01-14] MEDS: ATORVASTATIN CA 80 MG TABLET (FP) PO SCH (21:00)
[2023-01-14] MEDS: LIDOCAINE PATCH REMOVAL MC SCH (21:01)
[2023-01-14] MEDS: MIRTAZAPINE 15 MG TABLET (FP) PO SCH (21:05)
[2023-01-15] MEDS: PIPERACILLIN/TAZOB 2.25 GM 2.25 GM in DEXTROSE 5%-WATER - 50 ML IVPB SCH ×3 (01:47→17:38)
[2023-01-15] MEDS: INSULIN SLIDING SCALE (NOVOLOG) 1 VIAL SQ SCH ×4 (06:10→21:47)
[2023-01-15] MEDS: hydrALAZINE HCL 50 MG TABLET (FP) PO SCH ×3 (06:10→21:47)
[2023-01-15] MEDS: SODIUM BICARBONATE 650 MG TABLET PO SCH ×3 (06:10→17:39)
[2023-01-15] MEDS: BUDESONIDE 0.25 MG/2ML INH SUSP VIAL NEB SCH ×2 (08:01→20:10)
[2023-01-15] MEDS: SEVELAMER CARBONATE 800 MG TAB (FP) PO SCH ×3 (08:47→17:39)
[2023-01-15] MEDS: TICAGRELOR 90 MG TABLET PO SCH ×2 (09:02→21:47)
[2023-01-15] MEDS: ISOSORBIDE MONONITRATE 60 MG TAB.SR.24H (FP) PO SCH (09:02)
[2023-01-15] MEDS: CARVEDILOL 25 MG TABLET (FP) PO SCH ×2 (09:02→21:47)
[2023-01-15] MEDS: LIDOCAINE 5% TOPICAL PATCH TP SCH (11:28)
[2023-01-15] MEDS: ALBUTEROL SO4 2.5/IPRATROPIUM 0.5 INH SOL 3 ML VIAL.NEB. NEB SCH (20:03)
[2023-01-15] MEDS: ATORVASTATIN CA 80 MG TABLET (FP) PO SCH (21:45)
[2023-01-15] MEDS: LIDOCAINE PATCH REMOVAL MC SCH (21:47)
[2023-01-15] MEDS: MIRTAZAPINE 15 MG TABLET (FP) PO SCH (21:47)
[2023-01-16] MEDS ORDERED: ACETAMINOPHEN 325 MG TABLET (FP) PO ONE (00:08)
[2023-01-16] MEDS: PIPERACILLIN/TAZOB 2.25 GM 2.25 GM in DEXTROSE 5%-WATER - 50 ML IVPB SCH ×2 (01:51→09:59)
[2023-01-16] MEDS: SODIUM BICARBONATE 650 MG TABLET PO SCH ×3 (06:06→16:45)
[2023-01-16] MEDS: INSULIN SLIDING SCALE (NOVOLOG) 1 VIAL SQ SCH ×4 (06:06→21:33)
[2023-01-16] MEDS: hydrALAZINE HCL 50 MG TABLET (FP) PO SCH ×3 (06:06→21:32)
[2023-01-16] MEDS: SEVELAMER CARBONATE 800 MG TAB (FP) PO SCH ×3 (08:06→16:46)
[2023-01-16] MEDS: BUDESONIDE 0.25 MG/2ML INH SUSP VIAL NEB SCH ×2 (08:54→20:30)
[2023-01-16] MEDS: CARVEDILOL 25 MG TABLET (FP) PO SCH ×2 (09:58→21:32)
[2023-01-16] MEDS: LIDOCAINE 5% TOPICAL PATCH TP SCH (09:59)
[2023-01-16] MEDS: ISOSORBIDE MONONITRATE 60 MG TAB.SR.24H (FP) PO SCH (09:59)
[2023-01-16] MEDS: TICAGRELOR 90 MG TABLET PO SCH ×2 (10:00→21:32)
[2023-01-16] MEDS ORDERED: SODIUM CHLORIDE 250 ML IV PRN (11:17)
[2023-01-16] MEDS ORDERED: EPOETIN ALFA-EPBX 4,000 UNIT/ML VIAL SQ ONE (12:00)
[2023-01-16] MEDS: CEFTRIAXONE 2 GM in DEXTROSE 5%-WATER 100 ML IVPB SCH (12:14)
[2023-01-16] MEDS ORDERED: HEPARIN NA (PORCINE) 5,000 UNITS/ML 1ML VIAL SQ SCH (14:00)
[2023-01-16 14:01] LABS: HEMATOCRIT 23.3 % (32.4-45.2); HEMOGLOBIN 7.9 GM/dL (10.7-15.3); MCH 31.7 pg (25.7-33.7); MEAN CELL VOLUME 93.1 fl (80-96); MEAN PLT VOLUME 8.2 fl (7.5-11.1); PLATELET COUNT 168 10^3/uL (134-434); RDW 15.9 % (11.6-15.6); WHITE BLOOD COUNT 4.9 K/mm3 (4.0-10.0)
[2023-01-16 14:42] LABS: POTASSIUM 4.7 mmol/L (3.5-5.1)
[2023-01-16 14:45] LABS: CALCIUM 7.8 mg/dL (8.5-10.1)
[2023-01-16 14:49] LABS: CREATININE 6.8 mg/dL (0.55-1.3)
[2023-01-16 14:50] LABS: BLOOD UREA NITROGEN 67.8 mg/dL (7-18)
[2023-01-16] MEDS: ATORVASTATIN CA 80 MG TABLET (FP) PO SCH (21:32)
[2023-01-16] MEDS: MIRTAZAPINE 15 MG TABLET (FP) PO SCH (21:32)
[2023-01-16] MEDS: LIDOCAINE PATCH REMOVAL MC SCH (21:33)
[2023-01-16] MEDS: MELATONIN 5 MG TABLETS PO PRN (23:49)
[2023-01-17] MEDS ORDERED: ACETAMINOPHEN 325 MG TABLET (FP) PO ONE (00:28)
[2023-01-17] MEDS: hydrALAZINE HCL 50 MG TABLET (FP) PO SCH ×3 (06:37→22:24)
[2023-01-17] MEDS: INSULIN SLIDING SCALE (NOVOLOG) 1 VIAL SQ SCH ×4 (06:38→22:23)
[2023-01-17] MEDS: SODIUM BICARBONATE 650 MG TABLET PO SCH ×3 (06:38→16:52)
[2023-01-17] MEDS: SEVELAMER CARBONATE 800 MG TAB (FP) PO SCH ×3 (08:07→16:53)
[2023-01-17] MEDS: BUDESONIDE 0.25 MG/2ML INH SUSP VIAL NEB SCH ×2 (08:40→20:05)
[2023-01-17] MEDS: CEFTRIAXONE 2 GM in DEXTROSE 5%-WATER 100 ML IVPB SCH (09:31)
[2023-01-17] MEDS: CARVEDILOL 25 MG TABLET (FP) PO SCH ×2 (09:31→22:24)
[2023-01-17] MEDS: ISOSORBIDE MONONITRATE 60 MG TAB.SR.24H (FP) PO SCH (09:31)
[2023-01-17] MEDS: LIDOCAINE 5% TOPICAL PATCH TP SCH (09:32)
[2023-01-17] MEDS: TICAGRELOR 90 MG TABLET PO SCH ×2 (09:54→22:26)
[2023-01-17 16:08] LABS: BASO % 0.9 % (0-2.0); EOS % 3.9 % (0-4.5); HEMATOCRIT 23.5 % (32.4-45.2); HEMOGLOBIN 7.9 GM/dL (10.7-15.3); LYMPH % 12.5 % (8-40); MCH 31.5 pg (25.7-33.7); MCHC 33.8 g/dl (32.0-36.0); MEAN CELL VOLUME 93.1 fl (80-96); MEAN PLT VOLUME 8.2 fl (7.5-11.1); MONO % 10.8 % (3.8-10.2); NEUT % 71.9 % (42.8-82.8); PLATELET COUNT 169 10^3/uL (134-434); RBC 2.52 M/mm3 (3.60-5.2); RDW 15.7 % (11.6-15.6); WHITE BLOOD COUNT 4.7 K/mm3 (4.0-10.0)
[2023-01-17 16:28] LABS: POTASSIUM 4.7 mmol/L (3.5-5.1)
[2023-01-17 16:30] LABS: CALCIUM 8.2 mg/dL (8.5-10.1)
[2023-01-17 16:31] LABS: BLOOD UREA NITROGEN 45.7 mg/dL (7-18)
[2023-01-17 16:34] LABS: CREATININE 5.1 mg/dL (0.55-1.3)
[2023-01-17 16:35] LABS: BILIRUBIN,TOTAL 0.3 mg/dL (0.2-1)
[2023-01-17] MEDS: LIDOCAINE PATCH REMOVAL MC SCH (22:24)
[2023-01-17] MEDS: ATORVASTATIN CA 80 MG TABLET (FP) PO SCH (22:24)
[2023-01-17] MEDS: MIRTAZAPINE 15 MG TABLET (FP) PO SCH (22:24)
[2023-01-17] MEDS: MELATONIN 5 MG TABLETS PO PRN (23:53)
[2023-01-18] MEDS ORDERED: ACETAMINOPHEN 325 MG TABLET (FP) PO ONE (00:39)
[2023-01-18] MEDS: INSULIN SLIDING SCALE (NOVOLOG) 1 VIAL SQ SCH ×4 (06:01→23:39)
[2023-01-18] MEDS: SODIUM BICARBONATE 650 MG TABLET PO SCH ×3 (06:01→17:50)
[2023-01-18] MEDS: hydrALAZINE HCL 50 MG TABLET (FP) PO SCH ×3 (06:01→23:38)
[2023-01-18] MEDS: SEVELAMER CARBONATE 800 MG TAB (FP) PO SCH ×3 (07:39→17:50)
[2023-01-18] MEDS: BUDESONIDE 0.25 MG/2ML INH SUSP VIAL NEB SCH ×2 (07:46→20:29)
[2023-01-18] MEDS ORDERED: SODIUM CHLORIDE 250 ML IV PRN (08:06)
[2023-01-18] MEDS ORDERED: EPOETIN ALFA-EPBX 10,000 UNIT/ML VIAL IVPUSH ONE (09:00)
[2023-01-18] MEDS ORDERED: LORazepam 1 MG TABLET PO ONE (13:01)
[2023-01-18] MEDS: LIDOCAINE 5% TOPICAL PATCH TP SCH (13:15)
[2023-01-18] MEDS: ISOSORBIDE MONONITRATE 60 MG TAB.SR.24H (FP) PO SCH (13:16)
[2023-01-18] MEDS: CARVEDILOL 25 MG TABLET (FP) PO SCH ×2 (13:16→23:38)
[2023-01-18] MEDS: CEFTRIAXONE 2 GM in DEXTROSE 5%-WATER 100 ML IVPB SCH (13:19)
[2023-01-18] MEDS: TICAGRELOR 90 MG TABLET PO SCH ×2 (13:25→23:38)
[2023-01-18] MEDS: LIDOCAINE PATCH REMOVAL MC SCH (23:38)
[2023-01-18] MEDS: ATORVASTATIN CA 80 MG TABLET (FP) PO SCH (23:39)
[2023-01-18] MEDS: MIRTAZAPINE 15 MG TABLET (FP) PO SCH (23:39)
[2023-01-19] MEDS: hydrALAZINE HCL 50 MG TABLET (FP) PO SCH ×3 (06:04→21:25)
[2023-01-19] MEDS: INSULIN SLIDING SCALE (NOVOLOG) 1 VIAL SQ SCH ×4 (06:05→21:26)
[2023-01-19] MEDS: SODIUM BICARBONATE 650 MG TABLET PO SCH ×3 (06:05→16:20)
[2023-01-19] MEDS: BUDESONIDE 0.25 MG/2ML INH SUSP VIAL NEB SCH ×2 (08:15→20:50)
[2023-01-19] MEDS: SEVELAMER CARBONATE 800 MG TAB (FP) PO SCH ×3 (08:21→16:33)
[2023-01-19] MEDS: CARVEDILOL 25 MG TABLET (FP) PO SCH ×2 (09:18→21:26)
[2023-01-19] MEDS: ISOSORBIDE MONONITRATE 60 MG TAB.SR.24H (FP) PO SCH (09:18)
[2023-01-19] MEDS: TICAGRELOR 90 MG TABLET PO SCH ×2 (09:18→21:25)
[2023-01-19] MEDS: LIDOCAINE 5% TOPICAL PATCH TP SCH (09:18)
[2023-01-19] MEDS ORDERED: VANCOMYCIN/WATER FOR INJ (PEG) 1,000 MG/200 ML BAG IVPB SCH (11:00)
[2023-01-19] MEDS: MIRTAZAPINE 15 MG TABLET (FP) PO SCH (21:25)
[2023-01-19] MEDS: ATORVASTATIN CA 80 MG TABLET (FP) PO SCH (21:25)
[2023-01-19] MEDS: LIDOCAINE PATCH REMOVAL MC SCH (21:26)
[2023-01-20] MEDS: hydrALAZINE HCL 50 MG TABLET (FP) PO SCH (05:35)
[2023-01-20] MEDS: SODIUM BICARBONATE 650 MG TABLET PO SCH (06:01)
[2023-01-20] MEDS: INSULIN SLIDING SCALE (NOVOLOG) 1 VIAL SQ SCH (06:01)
[2023-01-20 06:14] VITALS: RESP 18
[2023-01-20] MEDS: BUDESONIDE 0.25 MG/2ML INH SUSP VIAL NEB SCH (08:46)
[2023-01-20 09:31] VITALS: BP 162/82; PULSE 75; TEMP 98.2
== END 2023-01-20 09:30 | disposition short-term general hospital (02) | DRG 291 ==
LOC: JER 20:39 → JERBED 01-09 00:36 → J4S 01-09 06:31 → UNDODISIN 01-19 17:02
PROVIDERS: ADMIT Internal Medicine; ATTEND Internal Medicine
PROC: 5A1D70Z Performance of Urinary Filtration, Intermittent, Less than 6 Hours Per Day (ICD-10-PCS; principal; 2023-01-09)
DX: I13.2 Hypertensive heart and chronic kidney disease with heart failure and with stage 5 chronic kidney disease, or end stage renal disease (principal); G06.1 Intraspinal abscess and granuloma; G06.2 Extradural and subdural abscess, unspecified; I50.33 Acute on chronic diastolic (congestive) heart failure; N18.6 End stage renal disease; J96.21 Acute and chronic respiratory failure with hypoxia; J96.22 Acute and chronic respiratory failure with hypercapnia; J44.1 Chronic obstructive pulmonary disease with (acute) exacerbation; E87.29 Other acidosis; N17.9 Acute kidney failure, unspecified; M46.24 Osteomyelitis of vertebra, thoracic region; J98.11 Atelectasis; A04.72 Enterocolitis due to Clostridium difficile, not specified as recurrent; J44.9 Chronic obstructive pulmonary disease, unspecified; E11.69 Type 2 diabetes mellitus with other specified complication; Z99.2 Dependence on renal dialysis; E11.22 Type 2 diabetes mellitus with diabetic chronic kidney disease; E87.5 Hyperkalemia; Z99.81 Dependence on supplemental oxygen; D63.8 Anemia in other chronic diseases classified elsewhere; D69.6 Thrombocytopenia, unspecified
CPT/HCPCS: 36415; 71045-TC-FY; 71250-TC; 72146-TC; 80048; 80053; 82803; 82962; 83735; 83880; 84484; 85025; 85027; 85610; 85651; 85730; 86140; 87040; 87324; 87449; 87635; 93005; 93010; 93306-TC; 94640; 94660; 97116-GP; 97161-GP; 99285-25; Q5106

== ENCOUNTER 2023-01-29 15:05 | Inpatient (IN) | payer OTHER ==
[2023-01-29] MEDS ORDERED: ACETAMINOPHEN 325 MG TABLET (FP) PO ONE (18:13)
[2023-01-29] MEDS ORDERED: ACETAMINOPHEN 325 MG TABLET (FP) ONE (18:23)
[2023-01-29 19:06] LABS: POTASSIUM 5.8 mmol/L (3.5-5.1)
[2023-01-29 19:07] LABS: BASO % 1.1 % (0-2.0); EOS % 7.3 % (0-4.5); HEMOGLOBIN 7.1 GM/dL (10.7-15.3); LYMPH % 15.3 % (8-40); MCH 31.6 pg (25.7-33.7); MCHC 33.9 g/dl (32.0-36.0); MEAN CELL VOLUME 93.2 fl (80-96); MONO % 14.2 % (3.8-10.2); NEUT % 62.1 % (42.8-82.8); PLATELET COUNT 176 10^3/uL (134-434); RBC 2.25 M/mm3 (3.60-5.2); RDW 15.9 % (11.6-15.6)
[2023-01-29 19:08] LABS: ALBUMIN 3.4 g/dl (3.4-5.0); CALCIUM 8.6 mg/dL (8.5-10.1)
[2023-01-29 19:11] LABS: CREATININE 5.4 mg/dL (0.55-1.3)
[2023-01-29 19:13] LABS: BILIRUBIN,TOTAL 0.4 mg/dL (0.2-1); TOT PROT 6.5 g/dl (6.4-8.2)
[2023-01-29 19:16] LABS: BLOOD UREA NITROGEN 77.6 mg/dL (7-18)
[2023-01-29] MEDS ORDERED: ONDANSETRON 4 MG/2 ML VIAL IVPUSH ONE (19:57)
[2023-01-29] MEDS ORDERED: morphine CARPU-JECT 4 MG/1 ML DISP.SYRIN IVPUSH ONE (19:57)
[2023-01-29] MEDS ORDERED: morphine SULFATE 4 MG/ML VIAL ONE (20:06)
[2023-01-29] MEDS ORDERED: ONDANSETRON 4 MG/2 ML VIAL ONE (20:06)
[2023-01-29] MEDS ORDERED: ACETAMINOPHEN 120 MG SUPP.RECT RC ONE (22:09)
[2023-01-30 02:19] VITALS: BMI 39.0
[2023-01-30] MEDS ORDERED: ALBUTEROL SO4 HFA INHALER IH PRN (03:19)
[2023-01-30] MEDS ORDERED: LIDOCAINE HCL 4% TOPICAL SOLN (50 ML/BOTTLE) TP PRN (03:19)
[2023-01-30] MEDS ORDERED: POLYETHYLENE GLYCOL (HEALTHYLAX) 3350 17 GM PACKET PO PRN (03:19)
[2023-01-30] MEDS ORDERED: EPOETIN ALFA-EPBX 10,000 UNIT/ML VIAL SQ SCH (03:30)
[2023-01-30] MEDS: INSULIN SLIDING SCALE (NOVOLOG) 1 VIAL SQ SCH ×4 (06:40→21:24)
[2023-01-30] MEDS: hydrALAZINE HCL 50 MG TABLET (FP) PO SCH ×3 (06:42→21:23)
[2023-01-30] MEDS: ALBUTEROL SO4 2.5/IPRATROPIUM 0.5 INH SOL 3 ML VIAL.NEB. NEB SCH ×4 (08:22→20:51)
[2023-01-30] MEDS ORDERED: SEVELAMER CARBONATE 800 MG TAB (FP) PO SCH (10:00)
[2023-01-30] MEDS: CALCIUM ACETATE 667 MG CAPSULE (FP) PO SCH ×3 (11:07→17:43)
[2023-01-30] MEDS: ASPIRIN COATED 81 MG TABLET.EC PO SCH (11:08)
[2023-01-30] MEDS: FOLIC ACID 1 MG TABLET (FP) PO SCH (11:09)
[2023-01-30] MEDS: TICAGRELOR 90 MG TABLET PO SCH ×2 (11:09→21:24)
[2023-01-30] MEDS: SENNOSIDES 8.6MG TABLET (FP) PO SCH (11:09)
[2023-01-30] MEDS: ASCORBIC ACID 500 MG TABLET (FP) PO SCH (11:09)
[2023-01-30] MEDS: CARVEDILOL 25 MG TABLET (FP) PO SCH ×2 (11:09→21:24)
[2023-01-30] MEDS: CALCITRIOL 0.25 MCG CAPSULE (FP) PO SCH (11:09)
[2023-01-30] MEDS: FERROUS SO4 325 MG TABLET (FP) PO SCH (11:09)
[2023-01-30] MEDS: ISOSORBIDE MONONITRATE 60 MG TAB.SR.24H (FP) PO SCH (11:09)
[2023-01-30] MEDS: amLODIPine BESYLATE 10 MG TABLET (FP) PO SCH (11:09)
[2023-01-30] MEDS: VALSARTAN 160 MG TABLET PO SCH (11:10)
[2023-01-30] MEDS: BISACODYL 5 MG TABLET.DR (FP) PO SCH ×2 (11:10→21:24)
[2023-01-30] MEDS: ACETAMINOPHEN 325 MG TABLET (FP) PO SCH ×2 (11:10→21:25)
[2023-01-30] MEDS ORDERED: EPOETIN ALFA-EPBX 4,000 UNIT/ML VIAL SQ ONE (11:41)
[2023-01-30] MEDS: SEVELAMER CARBONATE 800 MG TAB (FP) PO SCH ×2 (12:14→17:44)
[2023-01-30] MEDS ORDERED: SODIUM CHLORIDE 250 ML IV PRN (14:35)
[2023-01-30] MEDS ORDERED: EPOETIN ALFA-EPBX 3,000 UNIT, EPOETIN ALFA-EPBX 2,000 UNIT IVPUSH ONE (14:45)
[2023-01-30] MEDS ORDERED: VANCOMYCIN/WATER FOR INJ (PEG) 1 GM/200 ML BAG IVPB ONE (15:30)
[2023-01-30] MEDS ORDERED: CEFEPIME 2 GM in DEXTROSE 5%-WATER 100 ML IVPB SCH (18:00)
[2023-01-30] MEDS ORDERED: VANCOMYCIN/WATER 1500 MG/300 ML PREMIXED BAG (RESTRICTED TO ID ONLY) IVPB SCH (18:00)
[2023-01-30] MEDS ORDERED: diphenhydrAMINE HCL 25 MG CAPSULE (FP) PO ONE (21:15)
[2023-01-30] MEDS: ATORVASTATIN CA 80 MG TABLET (FP) PO SCH (21:24)
[2023-01-30] MEDS: MELATONIN 5 MG TABLETS PO SCH (21:24)
[2023-01-30] MEDS: MIRTAZAPINE 15 MG TABLET (FP) PO SCH (21:25)
[2023-01-31] MEDS: hydrALAZINE HCL 50 MG TABLET (FP) PO SCH ×3 (06:58→21:27)
[2023-01-31] MEDS: INSULIN SLIDING SCALE (NOVOLOG) 1 VIAL SQ SCH ×4 (06:58→21:35)
[2023-01-31] MEDS: ALBUTEROL SO4 2.5/IPRATROPIUM 0.5 INH SOL 3 ML VIAL.NEB. NEB SCH ×4 (07:46→19:58)
[2023-01-31] MEDS: ASCORBIC ACID 500 MG TABLET (FP) PO SCH (10:12)
[2023-01-31] MEDS: amLODIPine BESYLATE 10 MG TABLET (FP) PO SCH (10:12)
[2023-01-31] MEDS: CALCIUM ACETATE 667 MG CAPSULE (FP) PO SCH ×3 (10:12→17:42)
[2023-01-31] MEDS: VALSARTAN 160 MG TABLET PO SCH (10:12)
[2023-01-31] MEDS: CALCITRIOL 0.25 MCG CAPSULE (FP) PO SCH (10:12)
[2023-01-31] MEDS: ASPIRIN COATED 81 MG TABLET.EC PO SCH (10:12)
[2023-01-31] MEDS: SEVELAMER CARBONATE 800 MG TAB (FP) PO SCH ×3 (10:12→17:42)
[2023-01-31] MEDS: SENNOSIDES 8.6MG TABLET (FP) PO SCH (10:12)
[2023-01-31] MEDS: TICAGRELOR 90 MG TABLET PO SCH ×2 (10:13→21:27)
[2023-01-31] MEDS: BISACODYL 5 MG TABLET.DR (FP) PO SCH ×2 (10:13→21:28)
[2023-01-31] MEDS: ACETAMINOPHEN 325 MG TABLET (FP) PO SCH ×2 (10:13→21:31)
[2023-01-31] MEDS: FOLIC ACID 1 MG TABLET (FP) PO SCH (10:14)
[2023-01-31] MEDS: CARVEDILOL 25 MG TABLET (FP) PO SCH ×2 (10:14→21:31)
[2023-01-31] MEDS: ISOSORBIDE MONONITRATE 60 MG TAB.SR.24H (FP) PO SCH (10:14)
[2023-01-31] MEDS: MELATONIN 5 MG TABLETS PO SCH (21:27)
[2023-01-31] MEDS: MIRTAZAPINE 15 MG TABLET (FP) PO SCH (21:28)
[2023-01-31] MEDS: ATORVASTATIN CA 80 MG TABLET (FP) PO SCH (21:28)
[2023-02-01] MEDS: hydrALAZINE HCL 50 MG TABLET (FP) PO SCH ×3 (06:05→22:15)
[2023-02-01] MEDS: INSULIN SLIDING SCALE (NOVOLOG) 1 VIAL SQ SCH ×4 (06:52→22:15)
[2023-02-01] MEDS: ALBUTEROL SO4 2.5/IPRATROPIUM 0.5 INH SOL 3 ML VIAL.NEB. NEB SCH ×4 (08:38→20:05)
[2023-02-01] MEDS: COLCHICINE 0.6 MG TAB PO SCH (10:04)
[2023-02-01] MEDS: SEVELAMER CARBONATE 800 MG TAB (FP) PO SCH ×3 (10:05→17:21)
[2023-02-01] MEDS: ACETAMINOPHEN 325 MG TABLET (FP) PO SCH ×2 (10:05→22:14)
[2023-02-01] MEDS: VALSARTAN 160 MG TABLET PO SCH (10:05)
[2023-02-01] MEDS: BISACODYL 5 MG TABLET.DR (FP) PO SCH ×2 (10:05→22:14)
[2023-02-01] MEDS: ASPIRIN COATED 81 MG TABLET.EC PO SCH (10:07)
[2023-02-01] MEDS: SENNOSIDES 8.6MG TABLET (FP) PO SCH (10:07)
[2023-02-01] MEDS: FOLIC ACID 1 MG TABLET (FP) PO SCH (10:07)
[2023-02-01] MEDS: amLODIPine BESYLATE 10 MG TABLET (FP) PO SCH (10:07)
[2023-02-01] MEDS: ISOSORBIDE MONONITRATE 60 MG TAB.SR.24H (FP) PO SCH (10:07)
[2023-02-01] MEDS: ASCORBIC ACID 500 MG TABLET (FP) PO SCH (10:07)
[2023-02-01] MEDS: CALCITRIOL 0.25 MCG CAPSULE (FP) PO SCH (10:07)
[2023-02-01] MEDS: TICAGRELOR 90 MG TABLET PO SCH ×2 (10:08→22:15)
[2023-02-01] MEDS: CARVEDILOL 25 MG TABLET (FP) PO SCH ×2 (10:08→22:14)
[2023-02-01] MEDS: CALCIUM ACETATE 667 MG CAPSULE (FP) PO SCH ×3 (10:08→17:21)
[2023-02-01] MEDS: FERROUS SO4 325 MG TABLET (FP) PO SCH (10:09)
[2023-02-01 12:09] LABS: HEMATOCRIT 20.1 % (32.4-45.2); MCH 31.3 pg (25.7-33.7); MCHC 33.2 g/dl (32.0-36.0); MEAN CELL VOLUME 94.2 fl (80-96); MEAN PLT VOLUME 8.8 fl (7.5-11.1); PLATELET COUNT 127 10^3/uL (134-434); RBC 2.14 M/mm3 (3.60-5.2); RDW 15.9 % (11.6-15.6); WHITE BLOOD COUNT 3.2 K/mm3 (4.0-10.0)
[2023-02-01 12:14] LABS: HEMOGLOBIN 6.7 GM/dL (10.7-15.3)
[2023-02-01 12:32] LABS: POTASSIUM 5.7 mmol/L (3.5-5.1)
[2023-02-01 12:35] LABS: BLOOD UREA NITROGEN 77.8 mg/dL (7-18); CALCIUM 8.7 mg/dL (8.5-10.1)
[2023-02-01 12:38] LABS: CREATININE 6.3 mg/dL (0.55-1.3)
[2023-02-01] MEDS ORDERED: EPOETIN ALFA-EPBX 10,000 UNIT/ML VIAL IVPUSH ONE (13:00)
[2023-02-01] MEDS ORDERED: SODIUM CHLORIDE 250 ML IV PRN (13:00)
[2023-02-01] MEDS ORDERED: VANCOMYCIN/WATER 1500 MG/300 ML PREMIXED BAG (RESTRICTED TO ID ONLY) IVPB SCH (18:00)
[2023-02-01] MEDS: ATORVASTATIN CA 80 MG TABLET (FP) PO SCH (22:14)
[2023-02-01] MEDS: MELATONIN 5 MG TABLETS PO SCH (22:14)
[2023-02-01] MEDS: MIRTAZAPINE 15 MG TABLET (FP) PO SCH (22:15)
[2023-02-02] MEDS: hydrALAZINE HCL 50 MG TABLET (FP) PO SCH ×3 (06:21→21:34)
[2023-02-02] MEDS: INSULIN SLIDING SCALE (NOVOLOG) 1 VIAL SQ SCH ×4 (06:21→22:06)
[2023-02-02] MEDS: SEVELAMER CARBONATE 800 MG TAB (FP) PO SCH ×3 (08:46→17:56)
[2023-02-02] MEDS: CALCIUM ACETATE 667 MG CAPSULE (FP) PO SCH ×3 (08:46→17:56)
[2023-02-02] MEDS: ALBUTEROL SO4 2.5/IPRATROPIUM 0.5 INH SOL 3 ML VIAL.NEB. NEB SCH ×4 (08:52→21:06)
[2023-02-02] MEDS: amLODIPine BESYLATE 10 MG TABLET (FP) PO SCH (10:53)
[2023-02-02] MEDS: FOLIC ACID 1 MG TABLET (FP) PO SCH (10:53)
[2023-02-02] MEDS: ASCORBIC ACID 500 MG TABLET (FP) PO SCH (10:53)
[2023-02-02] MEDS: ACETAMINOPHEN 325 MG TABLET (FP) PO SCH ×2 (10:53→21:34)
[2023-02-02] MEDS: CARVEDILOL 25 MG TABLET (FP) PO SCH ×2 (10:54→21:34)
[2023-02-02] MEDS: CALCITRIOL 0.25 MCG CAPSULE (FP) PO SCH (10:54)
[2023-02-02] MEDS: TICAGRELOR 90 MG TABLET PO SCH ×2 (10:54→21:34)
[2023-02-02] MEDS: ISOSORBIDE MONONITRATE 60 MG TAB.SR.24H (FP) PO SCH (10:54)
[2023-02-02] MEDS: ASPIRIN COATED 81 MG TABLET.EC PO SCH (10:54)
[2023-02-02] MEDS: VALSARTAN 160 MG TABLET PO SCH ×2 (10:55→11:44)
[2023-02-02] MEDS: BISACODYL 5 MG TABLET.DR (FP) PO SCH ×2 (10:55→22:05)
[2023-02-02] MEDS: SENNOSIDES 8.6MG TABLET (FP) PO SCH (10:55)
[2023-02-02] MEDS ORDERED: CEFEPIME 2 GM in DEXTROSE 5%-WATER 100 ML IVPB ONE (11:00)
[2023-02-02 13:33] LABS: HEMATOCRIT 24.2 % (32.4-45.2); HEMOGLOBIN 8.2 GM/dL (10.7-15.3); MCH 31.5 pg (25.7-33.7); MCHC 33.9 g/dl (32.0-36.0); MEAN PLT VOLUME 8.3 fl (7.5-11.1); PLATELET COUNT 137 10^3/uL (134-434); RBC 2.61 M/mm3 (3.60-5.2); RDW 15.9 % (11.6-15.6)
[2023-02-02 13:58] LABS: POTASSIUM 4.9 mmol/L (3.5-5.1)
[2023-02-02 14:05] LABS: CREATININE 4.4 mg/dL (0.55-1.3)
[2023-02-02 14:13] LABS: BLOOD UREA NITROGEN 39.4 mg/dL (7-18); CALCIUM 8.6 mg/dL (8.5-10.1)
[2023-02-02] MEDS ORDERED: SODIUM CHLORIDE 250 ML IV PRN ×2 (14:39→17:15)
[2023-02-02] MEDS ORDERED: VANCOMYCIN 1 GM PREMIX - 200 ML IVPB ONE (17:15)
[2023-02-02] MEDS: MELATONIN 5 MG TABLETS PO SCH (21:33)
[2023-02-02] MEDS: MIRTAZAPINE 15 MG TABLET (FP) PO SCH (21:33)
[2023-02-02] MEDS: ATORVASTATIN CA 80 MG TABLET (FP) PO SCH (21:34)
[2023-02-03] MEDS: hydrALAZINE HCL 50 MG TABLET (FP) PO SCH ×3 (06:10→22:19)
[2023-02-03] MEDS: INSULIN SLIDING SCALE (NOVOLOG) 1 VIAL SQ SCH ×4 (06:11→22:19)
[2023-02-03] MEDS: ALBUTEROL SO4 2.5/IPRATROPIUM 0.5 INH SOL 3 ML VIAL.NEB. NEB SCH ×4 (07:46→20:36)
[2023-02-03] MEDS: SEVELAMER CARBONATE 800 MG TAB (FP) PO SCH ×3 (09:12→16:31)
[2023-02-03] MEDS: CALCIUM ACETATE 667 MG CAPSULE (FP) PO SCH ×3 (09:12→16:31)
[2023-02-03] MEDS: VALSARTAN 160 MG TABLET PO SCH ×2 (10:36→16:33)
[2023-02-03] MEDS: CARVEDILOL 25 MG TABLET (FP) PO SCH ×2 (10:36→22:18)
[2023-02-03] MEDS: ACETAMINOPHEN 325 MG TABLET (FP) PO SCH ×2 (10:36→22:19)
[2023-02-03] MEDS: ASPIRIN COATED 81 MG TABLET.EC PO SCH ×2 (10:36→16:35)
[2023-02-03] MEDS: BISACODYL 5 MG TABLET.DR (FP) PO SCH ×2 (10:36→22:18)
[2023-02-03] MEDS: TICAGRELOR 90 MG TABLET PO SCH ×2 (10:36→22:18)
[2023-02-03] MEDS: ISOSORBIDE MONONITRATE 60 MG TAB.SR.24H (FP) PO SCH ×2 (10:37→16:35)
[2023-02-03] MEDS: FERROUS SO4 325 MG TABLET (FP) PO SCH ×2 (10:37→16:33)
[2023-02-03] MEDS: FOLIC ACID 1 MG TABLET (FP) PO SCH ×2 (10:37→16:33)
[2023-02-03] MEDS: amLODIPine BESYLATE 10 MG TABLET (FP) PO SCH ×2 (10:37→16:34)
[2023-02-03] MEDS: CALCITRIOL 0.25 MCG CAPSULE (FP) PO SCH ×2 (10:37→16:33)
[2023-02-03] MEDS: SENNOSIDES 8.6MG TABLET (FP) PO SCH (10:37)
[2023-02-03] MEDS: ASCORBIC ACID 500 MG TABLET (FP) PO SCH ×2 (10:37→16:32)
[2023-02-03 11:02] LABS: HEMATOCRIT 23.5 % (32.4-45.2); HEMOGLOBIN 7.9 GM/dL (10.7-15.3); MCH 31.4 pg (25.7-33.7); MCHC 33.8 g/dl (32.0-36.0); MEAN PLT VOLUME 8.1 fl (7.5-11.1); PLATELET COUNT 137 10^3/uL (134-434); RBC 2.52 M/mm3 (3.60-5.2); RDW 15.3 % (11.6-15.6); WHITE BLOOD COUNT 3.5 K/mm3 (4.0-10.0)
[2023-02-03 11:19] LABS: POTASSIUM 4.6 mmol/L (3.5-5.1)
[2023-02-03 11:21] LABS: BLOOD UREA NITROGEN 42.5 mg/dL (7-18); CALCIUM 8.8 mg/dL (8.5-10.1)
[2023-02-03 11:22] LABS: ALBUMIN 3.2 g/dl (3.4-5.0); MAGNESIUM 1.9 mg/dL (1.8-2.4)
[2023-02-03 11:25] LABS: CREATININE 4.7 mg/dL (0.55-1.3); PHOSPHOROUS 4.3 mg/dL (2.5-4.9)
[2023-02-03 11:26] LABS: BILIRUBIN,TOTAL 0.5 mg/dL (0.2-1)
[2023-02-03 11:27] LABS: TOT PROT 6.4 g/dl (6.4-8.2)
[2023-02-03] MEDS: VANCOMYCIN PREMIX 1.5 GM 1,500 MG/300 ML BAG IVPB SCH (17:17)
[2023-02-03] MEDS ORDERED: DEXTROSE 5% IVPB SCH (18:00)
[2023-02-03] MEDS ORDERED: WATER IVPB SCH (18:00)
[2023-02-03] MEDS ORDERED: CEFEPIME IVPB SCH (18:00)
[2023-02-03] MEDS ORDERED: VANCOMYCIN/WATER FOR INJ (PEG) 1,000 MG/200 ML BAG IVPB ONE (19:00)
[2023-02-03] MEDS: CEFEPIME 2 GM in DEXTROSE 5%-WATER 100 ML IVPB SCH (20:17)
[2023-02-03] MEDS: MELATONIN 5 MG TABLETS PO SCH (22:18)
[2023-02-03] MEDS: MIRTAZAPINE 15 MG TABLET (FP) PO SCH (22:18)
[2023-02-03] MEDS: ATORVASTATIN CA 80 MG TABLET (FP) PO SCH (22:18)
[2023-02-04] MEDS: INSULIN SLIDING SCALE (NOVOLOG) 1 VIAL SQ SCH ×4 (06:53→22:30)
[2023-02-04] MEDS: hydrALAZINE HCL 50 MG TABLET (FP) PO SCH (06:53)
[2023-02-04] MEDS: CARVEDILOL 25 MG TABLET (FP) PO SCH ×2 (09:34→22:11)
[2023-02-04] MEDS: TICAGRELOR 90 MG TABLET PO SCH ×2 (09:34→22:11)
[2023-02-04] MEDS: ASPIRIN COATED 81 MG TABLET.EC PO SCH (09:34)
[2023-02-04] MEDS: CALCIUM ACETATE 667 MG CAPSULE (FP) PO SCH ×3 (09:34→16:45)
[2023-02-04] MEDS: amLODIPine BESYLATE 10 MG TABLET (FP) PO SCH (09:35)
[2023-02-04] MEDS: ASCORBIC ACID 500 MG TABLET (FP) PO SCH (09:35)
[2023-02-04] MEDS: ACETAMINOPHEN 325 MG TABLET (FP) PO SCH ×2 (09:35→22:12)
[2023-02-04] MEDS: VALSARTAN 160 MG TABLET PO SCH (09:35)
[2023-02-04] MEDS: SEVELAMER CARBONATE 800 MG TAB (FP) PO SCH ×3 (09:36→16:45)
[2023-02-04] MEDS: ISOSORBIDE MONONITRATE 60 MG TAB.SR.24H (FP) PO SCH (09:36)
[2023-02-04] MEDS: CALCITRIOL 0.25 MCG CAPSULE (FP) PO SCH (09:36)
[2023-02-04] MEDS: FOLIC ACID 1 MG TABLET (FP) PO SCH (09:36)
[2023-02-04] MEDS: BISACODYL 5 MG TABLET.DR (FP) PO SCH ×2 (09:36→22:10)
[2023-02-04] MEDS: SENNOSIDES 8.6MG TABLET (FP) PO SCH (10:03)
[2023-02-04] MEDS ORDERED: INSULIN (NOVOLOG MIX 70/30) 100 UNITS/ML MDV SQ ONE ×2 (11:42→12:24)
[2023-02-04] MEDS ORDERED: INSULIN (NOVOLOG) ASPART 100 UNITS/ML 10ML VIAL ONE (12:23)
[2023-02-04] MEDS: hydrALAZINE HCL 25 MG TABLET (FP) PO SCH ×2 (14:26→22:11)
[2023-02-04] MEDS: MIRTAZAPINE 15 MG TABLET (FP) PO SCH (22:11)
[2023-02-04] MEDS: MELATONIN 5 MG TABLETS PO SCH (22:12)
[2023-02-04] MEDS: ATORVASTATIN CA 80 MG TABLET (FP) PO SCH (22:12)
[2023-02-05] MEDS: hydrALAZINE HCL 25 MG TABLET (FP) PO SCH ×3 (05:50→22:06)
[2023-02-05] MEDS: INSULIN SLIDING SCALE (NOVOLOG) 1 VIAL SQ SCH ×4 (06:11→22:14)
[2023-02-05] MEDS: SEVELAMER CARBONATE 800 MG TAB (FP) PO SCH ×3 (08:00→17:09)
[2023-02-05] MEDS: CALCIUM ACETATE 667 MG CAPSULE (FP) PO SCH ×3 (08:00→17:09)
[2023-02-05] MEDS: ISOSORBIDE MONONITRATE 60 MG TAB.SR.24H (FP) PO SCH (09:50)
[2023-02-05] MEDS: TICAGRELOR 90 MG TABLET PO SCH ×2 (09:50→22:07)
[2023-02-05] MEDS: CARVEDILOL 25 MG TABLET (FP) PO SCH ×2 (09:50→22:07)
[2023-02-05] MEDS: FERROUS SO4 325 MG TABLET (FP) PO SCH (09:50)
[2023-02-05] MEDS: FOLIC ACID 1 MG TABLET (FP) PO SCH (09:50)
[2023-02-05] MEDS: COLCHICINE 0.6 MG TAB PO SCH (09:51)
[2023-02-05] MEDS: amLODIPine BESYLATE 10 MG TABLET (FP) PO SCH (09:51)
[2023-02-05] MEDS: ASPIRIN COATED 81 MG TABLET.EC PO SCH (09:52)
[2023-02-05] MEDS: CALCITRIOL 0.25 MCG CAPSULE (FP) PO SCH (09:53)
[2023-02-05] MEDS: ASCORBIC ACID 500 MG TABLET (FP) PO SCH (09:53)
[2023-02-05] MEDS: ACETAMINOPHEN 325 MG TABLET (FP) PO SCH ×2 (09:53→22:07)
[2023-02-05] MEDS: VALSARTAN 160 MG TABLET PO SCH (09:53)
[2023-02-05] MEDS: BISACODYL 5 MG TABLET.DR (FP) PO SCH ×2 (10:01→22:09)
[2023-02-05] MEDS: SENNOSIDES 8.6MG TABLET (FP) PO SCH (10:01)
[2023-02-05] MEDS ORDERED: INSULIN (NOVOLOG) ASPART 100 UNITS/ML 10ML VIAL ONE (12:38)
[2023-02-05] MEDS ORDERED: LIDOCAINE 5% TOPICAL PATCH TP ONE (15:50)
[2023-02-05] MEDS ORDERED: LIDOCAINE PATCH REMOVAL MC SCH (22:00)
[2023-02-05] MEDS: MELATONIN 5 MG TABLETS PO SCH (22:07)
[2023-02-05] MEDS: ATORVASTATIN CA 80 MG TABLET (FP) PO SCH (22:07)
[2023-02-05] MEDS: MIRTAZAPINE 15 MG TABLET (FP) PO SCH (22:07)
[2023-02-05] MEDS ORDERED: MELATONIN 5 MG TABLETS PO PRN (23:37)
[2023-02-05] MEDS ORDERED: diphenhydrAMINE HCL 25 MG CAPSULE (FP) PO ONE (23:37)
[2023-02-06] MEDS: hydrALAZINE HCL 25 MG TABLET (FP) PO SCH ×2 (06:01→13:57)
[2023-02-06] MEDS: INSULIN SLIDING SCALE (NOVOLOG) 1 VIAL SQ SCH ×2 (06:55→13:56)
[2023-02-06] MEDS ORDERED: SODIUM CHLORIDE 250 ML IV PRN (07:00)
[2023-02-06] MEDS ORDERED: EPOETIN ALFA-EPBX 10,000 UNIT/ML VIAL SQ ONE (08:30)
[2023-02-06] MEDS: CALCIUM ACETATE 667 MG CAPSULE (FP) PO SCH ×2 (09:04→13:57)
[2023-02-06] MEDS: SEVELAMER CARBONATE 800 MG TAB (FP) PO SCH ×2 (09:04→13:55)
[2023-02-06] MEDS: VALSARTAN 160 MG TABLET PO SCH (10:05)
[2023-02-06 10:35] LABS: HEMOGLOBIN 7.4 GM/dL (10.7-15.3); MCH 31.3 pg (25.7-33.7); MCHC 33.7 g/dl (32.0-36.0); MEAN CELL VOLUME 92.9 fl (80-96); MEAN PLT VOLUME 8.2 fl (7.5-11.1); PLATELET COUNT 119 10^3/uL (134-434); RBC 2.37 M/mm3 (3.60-5.2); RDW 15.6 % (11.6-15.6); WHITE BLOOD COUNT 3.6 K/mm3 (4.0-10.0)
[2023-02-06 10:58] LABS: POTASSIUM 5.2 mmol/L (3.5-5.1)
[2023-02-06] MEDS: VANCOMYCIN PREMIX 1.5 GM 1,500 MG/300 ML BAG IVPB SCH (11:28)
[2023-02-06 11:30] LABS: BLOOD UREA NITROGEN 64.2 mg/dL (7-18)
[2023-02-06 11:32] LABS: BILIRUBIN,TOTAL 0.5 mg/dL (0.2-1); CREATININE 6.7 mg/dL (0.55-1.3)
[2023-02-06] MEDS: CEFEPIME 2 GM in DEXTROSE 5%-WATER 100 ML IVPB SCH (13:02)
[2023-02-06] MEDS: ACETAMINOPHEN 325 MG TABLET (FP) PO SCH (13:56)
[2023-02-06] MEDS: CARVEDILOL 25 MG TABLET (FP) PO SCH (13:56)
[2023-02-06] MEDS: ISOSORBIDE MONONITRATE 60 MG TAB.SR.24H (FP) PO SCH (13:58)
[2023-02-06] MEDS: FOLIC ACID 1 MG TABLET (FP) PO SCH (14:00)
[2023-02-06] MEDS: TICAGRELOR 90 MG TABLET PO SCH (14:01)
[2023-02-06] MEDS: ASCORBIC ACID 500 MG TABLET (FP) PO SCH (14:01)
[2023-02-06] MEDS: ASPIRIN COATED 81 MG TABLET.EC PO SCH (14:01)
[2023-02-06] MEDS: CALCITRIOL 0.25 MCG CAPSULE (FP) PO SCH (14:02)
[2023-02-06] MEDS: SENNOSIDES 8.6MG TABLET (FP) PO SCH (14:03)
[2023-02-06] MEDS: amLODIPine BESYLATE 10 MG TABLET (FP) PO SCH (14:06)
[2023-02-06] MEDS: BISACODYL 5 MG TABLET.DR (FP) PO SCH (14:10)
[2023-02-06 17:02] VITALS: BP 146/67; PULSE 72; RESP 18; TEMP 99.2
== END 2023-02-06 17:53 | DRG 539 ==
LOC: JER 15:05 → JERBED 20:06 → J4W 01-30 00:36
PROVIDERS: ADMIT Student in an Organized Health Care Education/Training Program; ATTEND Internal Medicine
PROC: 5A1D70Z Performance of Urinary Filtration, Intermittent, Less than 6 Hours Per Day (ICD-10-PCS; principal; 2023-01-30)
PROC: 5A1D70Z Performance of Urinary Filtration, Intermittent, Less than 6 Hours Per Day (ICD-10-PCS; 2023-02-01)
PROC: 30233N1 Transfusion of Nonautologous Red Blood Cells into Peripheral Vein, Percutaneous Approach (ICD-10-PCS; 2023-02-01)
PROC: 5A1D70Z Performance of Urinary Filtration, Intermittent, Less than 6 Hours Per Day (ICD-10-PCS; 2023-02-02)
PROC: 5A1D70Z Performance of Urinary Filtration, Intermittent, Less than 6 Hours Per Day (ICD-10-PCS; 2023-02-03)
PROC: 5A1D70Z Performance of Urinary Filtration, Intermittent, Less than 6 Hours Per Day (ICD-10-PCS; 2023-02-06)
DX: M46.24 Osteomyelitis of vertebra, thoracic region (principal); G06.1 Intraspinal abscess and granuloma; J18.9 Pneumonia, unspecified organism; N18.6 End stage renal disease; I69.354 Hemiplegia and hemiparesis following cerebral infarction affecting left non-dominant side; I12.0 Hypertensive chronic kidney disease with stage 5 chronic kidney disease or end stage renal disease; J96.11 Chronic respiratory failure with hypoxia; J44.9 Chronic obstructive pulmonary disease, unspecified; I25.10 Atherosclerotic heart disease of native coronary artery without angina pectoris; E11.22 Type 2 diabetes mellitus with diabetic chronic kidney disease; D63.1 Anemia in chronic kidney disease; E66.9 Obesity, unspecified; Z68.39 Body mass index [BMI] 39.0-39.9, adult; G47.33 Obstructive sleep apnea (adult) (pediatric); E78.5 Hyperlipidemia, unspecified; Z95.5 Presence of coronary angioplasty implant and graft; Z99.2 Dependence on renal dialysis
CPT/HCPCS: 0241U-QW; 36415; 36430; 71045-TC-FY; 71275-TC; 80048; 80053; 82962; 83735; 84100; 84484; 84703; 85025; 85027; 86803; 86850; 86900; 86901; 86922; 87340; 93005; 93010; 94640; 97116-GP; 97162-GP; 99285-25; G0480; P9058; Q5106; Q9967

== ENCOUNTER 2023-02-07 00:54 | Observation (INO) | payer OTHER ==
[2023-02-07 06:43] LABS: POTASSIUM 4.4 mmol/L (3.5-5.1)
[2023-02-07 06:45] LABS: CALCIUM 8.6 mg/dL (8.5-10.1)
[2023-02-07 06:46] LABS: ALBUMIN 3.3 g/dl (3.4-5.0)
[2023-02-07 06:49] LABS: CREATININE 4.3 mg/dL (0.55-1.3)
[2023-02-07 06:51] LABS: BILIRUBIN,TOTAL 0.5 mg/dL (0.2-1); TOT PROT 6.6 g/dl (6.4-8.2)
[2023-02-07 06:54] LABS: N-TERMINAL BNP 15532.9 pg/ml (5-125)
[2023-02-07 07:03] LABS: BASO % 0.8 % (0-2.0); EOS % 4.5 % (0-4.5); HEMATOCRIT 24.3 % (32.4-45.2); HEMOGLOBIN 8.2 GM/dL (10.7-15.3); LYMPH % 16.2 % (8-40); MCH 31.7 pg (25.7-33.7); MCHC 33.7 g/dl (32.0-36.0); MEAN CELL VOLUME 94.2 fl (80-96); MEAN PLT VOLUME 8.5 fl (7.5-11.1); MONO % 11.7 % (3.8-10.2); NEUT % 66.8 % (42.8-82.8); PLATELET COUNT 132 10^3/uL (134-434); RBC 2.57 M/mm3 (3.60-5.2); RDW 15.4 % (11.6-15.6); WHITE BLOOD COUNT 4.4 K/mm3 (4.0-10.0)
[2023-02-07 07:14] LABS: BLOOD UREA NITROGEN 30.1 mg/dL (7-18)
[2023-02-07 07:21] LABS: INR 1.16 (0.83-1.09); PROTHROMBIN TIME (PATIENT) 13.4 SEC (9.7-13.0)
[2023-02-07 07:24] LABS: ACTIVATED PTT 31.3 SECONDS (25.2-36.5)
[2023-02-07] MEDS ORDERED: LIDOCAINE 5% TOPICAL PATCH TP ONE (11:33)
[2023-02-07] MEDS ORDERED: ALBUTEROL SO4 HFA INHALER IH PRN (12:05)
[2023-02-07] MEDS ORDERED: POLYETHYLENE GLYCOL (HEALTHYLAX) 3350 17 GM PACKET PO PRN (12:05)
[2023-02-07] MEDS ORDERED: LIDOCAINE 5% TOPICAL PATCH ONE (12:08)
[2023-02-07] MEDS ORDERED: FERROUS SO4 325 MG TABLET (FP) ONE (12:47)
[2023-02-07] MEDS ORDERED: ALBUTEROL SO4 2.5/IPRATROPIUM 0.5 INH SOL 3 ML VIAL.NEB. NEB ONE ×2 (12:47→16:43)
[2023-02-07] MEDS ORDERED: hydrALAZINE HCL 50 MG TABLET (FP) ONE (13:41)
[2023-02-07] MEDS ORDERED: hydrALAZINE HCL 25 MG TABLET (FP) ONE (13:41)
[2023-02-07] MEDS: hydrALAZINE HCL 25 MG TABLET (FP) PO SCH (13:50)
[2023-02-07] MEDS: ALBUTEROL SO4 2.5/IPRATROPIUM 0.5 INH SOL 3 ML VIAL.NEB. NEB SCH ×3 (13:50→20:03)
[2023-02-07] MEDS: FERROUS SO4 325 MG TABLET (FP) PO SCH (13:50)
[2023-02-07] MEDS ORDERED: SEVELAMER CARBONATE 800 MG TAB (FP) PO SCH (14:00)
[2023-02-07] MEDS ORDERED: SEVELAMER CARBONATE 800 MG TAB (FP) ONE (16:43)
[2023-02-07] MEDS: SEVELAMER CARBONATE 800 MG TAB (FP) PO SCH (17:47)
[2023-02-07] MEDS: INSULIN SLIDING SCALE (NOVOLOG) 1 VIAL SQ SCH ×2 (17:47→21:16)
[2023-02-07] MEDS ORDERED: hydrALAZINE HCL 50 MG TABLET (FP) PO ONE (20:35)
[2023-02-07] MEDS: CARVEDILOL 25 MG TABLET (FP) PO SCH (21:08)
[2023-02-07] MEDS: ATORVASTATIN CA 80 MG TABLET (FP) PO SCH (21:08)
[2023-02-07] MEDS: BISACODYL 5 MG TABLET.DR (FP) PO SCH (21:12)
[2023-02-07] MEDS: TICAGRELOR 90 MG TABLET PO SCH (21:12)
[2023-02-07] MEDS: MELATONIN 5 MG TABLETS PO SCH (21:13)
[2023-02-07] MEDS: MIRTAZAPINE 15 MG TABLET (FP) PO SCH (21:13)
[2023-02-07] MEDS ORDERED: LIDOCAINE PATCH REMOVAL MC ONE (22:00)
[2023-02-08 04:59] VITALS: BMI 37.5
[2023-02-08] MEDS: INSULIN SLIDING SCALE (NOVOLOG) 1 VIAL SQ SCH ×4 (06:50→21:15)
[2023-02-08] MEDS: hydrALAZINE HCL 25 MG TABLET (FP) PO SCH ×3 (06:51→22:31)
[2023-02-08] MEDS: ALBUTEROL SO4 2.5/IPRATROPIUM 0.5 INH SOL 3 ML VIAL.NEB. NEB SCH ×4 (07:47→19:52)
[2023-02-08] MEDS ORDERED: SODIUM CHLORIDE 250 ML IV PRN (07:58)
[2023-02-08 08:40] LABS: BASO % 1.1 % (0-2.0); EOS % 5.4 % (0-4.5); HEMATOCRIT 23.3 % (32.4-45.2); HEMOGLOBIN 7.8 GM/dL (10.7-15.3); LYMPH % 14.1 % (8-40); MCH 31.1 pg (25.7-33.7); MCHC 33.4 g/dl (32.0-36.0); MEAN CELL VOLUME 93.1 fl (80-96); MEAN PLT VOLUME 8.1 fl (7.5-11.1); NEUT % 66.4 % (42.8-82.8); PLATELET COUNT 120 10^3/uL (134-434); RDW 15.8 % (11.6-15.6); WHITE BLOOD COUNT 4.3 K/mm3 (4.0-10.0)
[2023-02-08] MEDS ORDERED: EPOETIN ALFA-EPBX 10,000 UNIT/ML VIAL SQ ONE (09:00)
[2023-02-08 09:03] LABS: POTASSIUM 4.8 mmol/L (3.5-5.1)
[2023-02-08 09:06] LABS: ALBUMIN 3.1 g/dl (3.4-5.0); BLOOD UREA NITROGEN 52.2 mg/dL (7-18); CALCIUM 8.5 mg/dL (8.5-10.1); MAGNESIUM 1.9 mg/dL (1.8-2.4)
[2023-02-08 09:09] LABS: CREATININE 5.9 mg/dL (0.55-1.3); PHOSPHOROUS 5.4 mg/dL (2.5-4.9)
[2023-02-08 09:10] LABS: BILIRUBIN,TOTAL 0.4 mg/dL (0.2-1); TOT PROT 5.8 g/dl (6.4-8.2)
[2023-02-08] MEDS: SEVELAMER CARBONATE 800 MG TAB (FP) PO SCH ×3 (09:45→16:50)
[2023-02-08] MEDS ORDERED: SEVELAMER CARBONATE 800 MG TAB (FP) PO SCH (10:00)
[2023-02-08] MEDS: ISOSORBIDE MONONITRATE 60 MG TAB.SR.24H (FP) PO SCH (11:36)
[2023-02-08] MEDS: ASPIRIN COATED 81 MG TABLET.EC PO SCH (11:37)
[2023-02-08] MEDS: CALCITRIOL 0.25 MCG CAPSULE (FP) PO SCH (11:37)
[2023-02-08] MEDS: BISACODYL 5 MG TABLET.DR (FP) PO SCH ×2 (11:37→22:31)
[2023-02-08] MEDS: SENNOSIDES 8.6MG TABLET (FP) PO SCH (11:38)
[2023-02-08] MEDS: TICAGRELOR 90 MG TABLET PO SCH ×2 (11:38→22:31)
[2023-02-08] MEDS: CARVEDILOL 25 MG TABLET (FP) PO SCH ×2 (11:38→22:30)
[2023-02-08] MEDS: ASCORBIC ACID 500 MG TABLET (FP) PO SCH (11:39)
[2023-02-08] MEDS: amLODIPine BESYLATE 10 MG TABLET (FP) PO SCH (11:39)
[2023-02-08] MEDS: VALSARTAN 160 MG TABLET PO SCH (11:39)
[2023-02-08] MEDS: FOLIC ACID 1 MG TABLET (FP) PO SCH (11:39)
[2023-02-08] MEDS ORDERED: CEFEPIME 2 GM in DEXTROSE 5%-WATER 100 ML IVPB SCH (16:00)
[2023-02-08] MEDS: CEFEPIME 2 GM in DEXTROSE 5%-WATER 100 ML IVPB SCH (17:17)
[2023-02-08] MEDS ORDERED: CEFEPIME HCL 2 GM VIAL (RESTRICTED TO ID) IVPB SCH (18:00)
[2023-02-08] MEDS: VANCOMYCIN PREMIX 1.5 GM 1,500 MG/300 ML BAG IVPB SCH (18:27)
[2023-02-08] MEDS: MELATONIN 5 MG TABLETS PO SCH (22:30)
[2023-02-08] MEDS: ATORVASTATIN CA 80 MG TABLET (FP) PO SCH (22:30)
[2023-02-08] MEDS: MIRTAZAPINE 15 MG TABLET (FP) PO SCH (22:31)
[2023-02-09] MEDS: hydrALAZINE HCL 25 MG TABLET (FP) PO SCH ×3 (05:57→23:15)
[2023-02-09] MEDS: INSULIN SLIDING SCALE (NOVOLOG) 1 VIAL SQ SCH ×4 (06:19→23:16)
[2023-02-09] MEDS: ALBUTEROL SO4 2.5/IPRATROPIUM 0.5 INH SOL 3 ML VIAL.NEB. NEB SCH ×4 (07:36→20:06)
[2023-02-09] MEDS: FERROUS SO4 325 MG TABLET (FP) PO SCH (10:36)
[2023-02-09] MEDS: ASPIRIN COATED 81 MG TABLET.EC PO SCH (10:36)
[2023-02-09] MEDS: ISOSORBIDE MONONITRATE 60 MG TAB.SR.24H (FP) PO SCH (10:36)
[2023-02-09] MEDS: CARVEDILOL 25 MG TABLET (FP) PO SCH ×2 (10:36→23:15)
[2023-02-09] MEDS: VALSARTAN 160 MG TABLET PO SCH (10:36)
[2023-02-09] MEDS: ASCORBIC ACID 500 MG TABLET (FP) PO SCH (10:36)
[2023-02-09] MEDS: CALCITRIOL 0.25 MCG CAPSULE (FP) PO SCH (10:36)
[2023-02-09] MEDS: BISACODYL 5 MG TABLET.DR (FP) PO SCH ×2 (10:36→23:15)
[2023-02-09] MEDS: TICAGRELOR 90 MG TABLET PO SCH ×2 (10:36→23:15)
[2023-02-09] MEDS: amLODIPine BESYLATE 10 MG TABLET (FP) PO SCH (10:36)
[2023-02-09] MEDS: SEVELAMER CARBONATE 800 MG TAB (FP) PO SCH ×3 (10:36→16:57)
[2023-02-09] MEDS: SENNOSIDES 8.6MG TABLET (FP) PO SCH (10:36)
[2023-02-09] MEDS: FOLIC ACID 1 MG TABLET (FP) PO SCH (10:36)
[2023-02-09 12:19] LABS: BASO % 0.9 % (0-2.0); EOS % 5.4 % (0-4.5); HEMATOCRIT 26.5 % (32.4-45.2); HEMOGLOBIN 8.6 GM/dL (10.7-15.3); MCH 31.4 pg (25.7-33.7); MCHC 32.6 g/dl (32.0-36.0); MEAN CELL VOLUME 96.2 fl (80-96); MEAN PLT VOLUME 8.7 fl (7.5-11.1); MONO % 11.2 % (3.8-10.2); NEUT % 69.5 % (42.8-82.8); PLATELET COUNT 132 10^3/uL (134-434); RBC 2.75 M/mm3 (3.60-5.2); RDW 15.8 % (11.6-15.6); WHITE BLOOD COUNT 3.9 K/mm3 (4.0-10.0)
[2023-02-09 12:42] LABS: POTASSIUM 4.2 mmol/L (3.5-5.1)
[2023-02-09 12:44] LABS: CALCIUM 8.9 mg/dL (8.5-10.1)
[2023-02-09 12:46] LABS: ALBUMIN 3.3 g/dl (3.4-5.0); BLOOD UREA NITROGEN 42.5 mg/dL (7-18)
[2023-02-09 12:49] LABS: CREATININE 4.8 mg/dL (0.55-1.3)
[2023-02-09 12:50] LABS: BILIRUBIN,TOTAL 0.4 mg/dL (0.2-1); TOT PROT 6.3 g/dl (6.4-8.2)
[2023-02-09] MEDS ORDERED: SODIUM CHLORIDE 250 ML IV PRN (16:13)
[2023-02-09] MEDS: ATORVASTATIN CA 80 MG TABLET (FP) PO SCH (23:15)
[2023-02-09] MEDS: MELATONIN 5 MG TABLETS PO SCH (23:15)
[2023-02-09] MEDS: MIRTAZAPINE 15 MG TABLET (FP) PO SCH (23:16)
[2023-02-10] MEDS: hydrALAZINE HCL 25 MG TABLET (FP) PO SCH ×3 (06:48→21:29)
[2023-02-10] MEDS: INSULIN SLIDING SCALE (NOVOLOG) 1 VIAL SQ SCH ×4 (06:49→21:26)
[2023-02-10] MEDS: SEVELAMER CARBONATE 800 MG TAB (FP) PO SCH ×4 (08:10→18:25)
[2023-02-10] MEDS: ALBUTEROL SO4 2.5/IPRATROPIUM 0.5 INH SOL 3 ML VIAL.NEB. NEB SCH ×4 (08:51→20:22)
[2023-02-10] MEDS: SENNOSIDES 8.6MG TABLET (FP) PO SCH (10:46)
[2023-02-10] MEDS: ASCORBIC ACID 500 MG TABLET (FP) PO SCH (10:47)
[2023-02-10] MEDS: FOLIC ACID 1 MG TABLET (FP) PO SCH (10:47)
[2023-02-10] MEDS: ASPIRIN COATED 81 MG TABLET.EC PO SCH (10:47)
[2023-02-10] MEDS: CALCITRIOL 0.25 MCG CAPSULE (FP) PO SCH (10:47)
[2023-02-10] MEDS: ISOSORBIDE MONONITRATE 60 MG TAB.SR.24H (FP) PO SCH (10:47)
[2023-02-10] MEDS: TICAGRELOR 90 MG TABLET PO SCH ×2 (10:47→21:25)
[2023-02-10] MEDS: BISACODYL 5 MG TABLET.DR (FP) PO SCH ×3 (10:47→21:28)
[2023-02-10 11:44] LABS: EOS % 6.1 % (0-4.5); HEMATOCRIT 25.7 % (32.4-45.2); HEMOGLOBIN 8.5 GM/dL (10.7-15.3); LYMPH % 13.2 % (8-40); MCH 31.3 pg (25.7-33.7); MCHC 33.1 g/dl (32.0-36.0); MEAN CELL VOLUME 94.6 fl (80-96); MEAN PLT VOLUME 8.2 fl (7.5-11.1); MONO % 11.6 % (3.8-10.2); NEUT % 68.1 % (42.8-82.8); PLATELET COUNT 135 10^3/uL (134-434); RBC 2.71 M/mm3 (3.60-5.2); RDW 16.1 % (11.6-15.6); WHITE BLOOD COUNT 4.1 K/mm3 (4.0-10.0)
[2023-02-10 12:05] LABS: BLOOD UREA NITROGEN 56.3 mg/dL (7-18)
[2023-02-10 12:06] LABS: ALBUMIN 3.4 g/dl (3.4-5.0)
[2023-02-10 12:08] LABS: CREATININE 5.9 mg/dL (0.55-1.3)
[2023-02-10 12:12] LABS: BILIRUBIN,TOTAL 0.4 mg/dL (0.2-1); TOT PROT 6.6 g/dl (6.4-8.2)
[2023-02-10] MEDS: diphenhydrAMINE HCL 25 MG CAPSULE (FP) PO PRN ×2 (16:27→21:42)
[2023-02-10] MEDS ORDERED: EPOETIN ALFA-EPBX 10,000 UNIT/ML VIAL SQ ONE (17:00)
[2023-02-10] MEDS: CARVEDILOL 25 MG TABLET (FP) PO SCH ×2 (17:17→21:25)
[2023-02-10] MEDS ORDERED: CEFEPIME IVPB SCH (18:00)
[2023-02-10] MEDS ORDERED: CEFEPIME HCL 1 GM VIAL (RESTRICTED TO ID) IVPB SCH (18:00)
[2023-02-10] MEDS ORDERED: DEXTROSE 5% IVPB SCH (18:00)
[2023-02-10] MEDS ORDERED: WATER IVPB SCH (18:00)
[2023-02-10] MEDS: amLODIPine BESYLATE 10 MG TABLET (FP) PO SCH (18:24)
[2023-02-10] MEDS: VALSARTAN 160 MG TABLET PO SCH (18:25)
[2023-02-10] MEDS: MIRTAZAPINE 15 MG TABLET (FP) PO SCH (21:25)
[2023-02-10] MEDS: ATORVASTATIN CA 80 MG TABLET (FP) PO SCH (21:25)
[2023-02-10] MEDS: MELATONIN 5 MG TABLETS PO SCH (21:25)
[2023-02-10] MEDS: VANCOMYCIN PREMIX 1.5 GM 1,500 MG/300 ML BAG IVPB SCH (21:31)
[2023-02-11] MEDS ORDERED: ACETAMINOPHEN 325 MG TABLET (FP) ONE (00:22)
[2023-02-11] MEDS ORDERED: LIDOCAINE 5% TOPICAL PATCH TP ONE (01:12)
[2023-02-11] MEDS ORDERED: ACETAMINOPHEN 325 MG TABLET (FP) PO ONE (01:15)
[2023-02-11] MEDS: hydrALAZINE HCL 25 MG TABLET (FP) PO SCH ×4 (05:51→22:19)
[2023-02-11] MEDS: INSULIN SLIDING SCALE (NOVOLOG) 1 VIAL SQ SCH ×4 (06:13→22:24)
[2023-02-11] MEDS: ALBUTEROL SO4 2.5/IPRATROPIUM 0.5 INH SOL 3 ML VIAL.NEB. NEB SCH ×4 (09:53→20:16)
[2023-02-11] MEDS: ISOSORBIDE MONONITRATE 60 MG TAB.SR.24H (FP) PO SCH (09:54)
[2023-02-11] MEDS: ASCORBIC ACID 500 MG TABLET (FP) PO SCH (09:54)
[2023-02-11] MEDS: FERROUS SO4 325 MG TABLET (FP) PO SCH (09:54)
[2023-02-11] MEDS: CARVEDILOL 25 MG TABLET (FP) PO SCH ×2 (09:54→22:23)
[2023-02-11] MEDS: VALSARTAN 160 MG TABLET PO SCH (09:54)
[2023-02-11] MEDS: TICAGRELOR 90 MG TABLET PO SCH ×2 (09:54→22:23)
[2023-02-11] MEDS: CALCITRIOL 0.25 MCG CAPSULE (FP) PO SCH (09:54)
[2023-02-11] MEDS: FOLIC ACID 1 MG TABLET (FP) PO SCH (09:54)
[2023-02-11] MEDS: ASPIRIN COATED 81 MG TABLET.EC PO SCH (09:54)
[2023-02-11] MEDS: amLODIPine BESYLATE 10 MG TABLET (FP) PO SCH (09:54)
[2023-02-11] MEDS: SENNOSIDES 8.6MG TABLET (FP) PO SCH (10:00)
[2023-02-11] MEDS: BISACODYL 5 MG TABLET.DR (FP) PO SCH ×2 (10:00→22:23)
[2023-02-11] MEDS: SEVELAMER CARBONATE 800 MG TAB (FP) PO SCH ×3 (10:14→17:32)
[2023-02-11] MEDS ORDERED: LIDOCAINE PATCH REMOVAL MC ONE (14:00)
[2023-02-11] MEDS: ATORVASTATIN CA 80 MG TABLET (FP) PO SCH (22:23)
[2023-02-11] MEDS: MELATONIN 5 MG TABLETS PO SCH (22:24)
[2023-02-11] MEDS: MIRTAZAPINE 15 MG TABLET (FP) PO SCH (22:24)
[2023-02-12] MEDS: hydrALAZINE HCL 25 MG TABLET (FP) PO SCH ×3 (06:42→21:37)
[2023-02-12] MEDS: INSULIN SLIDING SCALE (NOVOLOG) 1 VIAL SQ SCH ×4 (06:42→21:47)
[2023-02-12] MEDS: ALBUTEROL SO4 2.5/IPRATROPIUM 0.5 INH SOL 3 ML VIAL.NEB. NEB SCH ×2 (07:30→11:41)
[2023-02-12] MEDS: CALCITRIOL 0.25 MCG CAPSULE (FP) PO SCH (09:42)
[2023-02-12] MEDS: ASCORBIC ACID 500 MG TABLET (FP) PO SCH (09:43)
[2023-02-12] MEDS: ASPIRIN COATED 81 MG TABLET.EC PO SCH (09:43)
[2023-02-12] MEDS: amLODIPine BESYLATE 10 MG TABLET (FP) PO SCH (09:43)
[2023-02-12] MEDS: CARVEDILOL 25 MG TABLET (FP) PO SCH ×2 (09:43→21:37)
[2023-02-12] MEDS: TICAGRELOR 90 MG TABLET PO SCH ×2 (09:43→21:38)
[2023-02-12] MEDS: VALSARTAN 160 MG TABLET PO SCH (09:43)
[2023-02-12] MEDS: SEVELAMER CARBONATE 800 MG TAB (FP) PO SCH ×3 (09:43→17:32)
[2023-02-12] MEDS: BISACODYL 5 MG TABLET.DR (FP) PO SCH ×2 (09:43→21:47)
[2023-02-12] MEDS: FOLIC ACID 1 MG TABLET (FP) PO SCH (09:43)
[2023-02-12] MEDS: ISOSORBIDE MONONITRATE 60 MG TAB.SR.24H (FP) PO SCH (09:43)
[2023-02-12] MEDS: SENNOSIDES 8.6MG TABLET (FP) PO SCH (09:44)
[2023-02-12 12:45] LABS: HEMOGLOBIN 8.3 GM/dL (10.7-15.3); MCH 31.8 pg (25.7-33.7); MCHC 33.3 g/dl (32.0-36.0); MEAN CELL VOLUME 95.4 fl (80-96); PLATELET COUNT 146 10^3/uL (134-434); RBC 2.62 M/mm3 (3.60-5.2); RDW 16.1 % (11.6-15.6); WHITE BLOOD COUNT 3.6 K/mm3 (4.0-10.0)
[2023-02-12 13:01] LABS: POTASSIUM 4.4 mmol/L (3.5-5.1)
[2023-02-12 13:11] LABS: ALBUMIN 3.3 g/dl (3.4-5.0)
[2023-02-12 13:14] LABS: CREATININE 5.7 mg/dL (0.55-1.3)
[2023-02-12 13:16] LABS: BILIRUBIN,TOTAL 0.5 mg/dL (0.2-1); TOT PROT 6.5 g/dl (6.4-8.2)
[2023-02-12 13:27] LABS: PHOSPHOROUS 4.6 mg/dL (2.5-4.9)
[2023-02-12] MEDS: MELATONIN 5 MG TABLETS PO SCH (21:37)
[2023-02-12] MEDS: ATORVASTATIN CA 80 MG TABLET (FP) PO SCH (21:37)
[2023-02-12] MEDS: MIRTAZAPINE 15 MG TABLET (FP) PO SCH (21:37)
[2023-02-13] MEDS: INSULIN SLIDING SCALE (NOVOLOG) 1 VIAL SQ SCH ×3 (06:34→16:14)
[2023-02-13] MEDS: hydrALAZINE HCL 25 MG TABLET (FP) PO SCH ×2 (06:34→16:19)
[2023-02-13 08:53] VITALS: RESP 18
[2023-02-13] MEDS: SEVELAMER CARBONATE 800 MG TAB (FP) PO SCH ×3 (08:59→17:29)
[2023-02-13] MEDS: CARVEDILOL 25 MG TABLET (FP) PO SCH (09:55)
[2023-02-13] MEDS: ASPIRIN COATED 81 MG TABLET.EC PO SCH (09:57)
[2023-02-13] MEDS: SENNOSIDES 8.6MG TABLET (FP) PO SCH (09:57)
[2023-02-13] MEDS: ASCORBIC ACID 500 MG TABLET (FP) PO SCH (09:57)
[2023-02-13] MEDS: FOLIC ACID 1 MG TABLET (FP) PO SCH (09:57)
[2023-02-13] MEDS: TICAGRELOR 90 MG TABLET PO SCH (09:58)
[2023-02-13] MEDS: BISACODYL 5 MG TABLET.DR (FP) PO SCH (09:58)
[2023-02-13] MEDS: CALCITRIOL 0.25 MCG CAPSULE (FP) PO SCH (09:58)
[2023-02-13] MEDS: FERROUS SO4 325 MG TABLET (FP) PO SCH (09:58)
[2023-02-13] MEDS: ISOSORBIDE MONONITRATE 60 MG TAB.SR.24H (FP) PO SCH (09:58)
[2023-02-13] MEDS: diphenhydrAMINE HCL 25 MG CAPSULE (FP) PO PRN (10:55)
[2023-02-13] MEDS ORDERED: INSULIN SLIDING SCALE (NOVOLOG) 1 VIAL SQ ONE (11:34)
[2023-02-13 14:11] LABS: POTASSIUM 4.7 mmol/L (3.5-5.1)
[2023-02-13 14:12] LABS: CALCIUM 8.7 mg/dL (8.5-10.1)
[2023-02-13 14:13] LABS: BLOOD UREA NITROGEN 59.7 mg/dL (7-18)
[2023-02-13 14:16] LABS: CREATININE 6.9 mg/dL (0.55-1.3)
[2023-02-13] MEDS ORDERED: SODIUM CHLORIDE 250 ML IV PRN (14:25)
[2023-02-13] MEDS ORDERED: EPOETIN ALFA-EPBX 4,000 UNIT/ML VIAL IVPUSH ONE (15:00)
[2023-02-13 16:09] VITALS: BP 147/82; PULSE 66
[2023-02-13] MEDS: VALSARTAN 160 MG TABLET PO SCH (16:20)
[2023-02-13] MEDS: amLODIPine BESYLATE 10 MG TABLET (FP) PO SCH (16:20)
[2023-02-13] MEDS: CEFEPIME 2 GM in DEXTROSE 5%-WATER 100 ML IVPB SCH (17:08)
[2023-02-13 18:17] VITALS: TEMP 98.5
[2023-02-13] MEDS: VANCOMYCIN PREMIX 1.5 GM 1,500 MG/300 ML BAG IVPB SCH (18:19)
== END 2023-02-13 21:00 ==
LOC: JER 00:54 → JERBED 10:46 → UNDOADMOB 10:46 → INTOOBSV 10:46 → JERBED 11:30 → J4S 19:59
PROVIDERS: ADMIT Internal Medicine; ATTEND Internal Medicine
PROC: 3E03329 Introduction of Other Anti-infective into Peripheral Vein, Percutaneous Approach (ICD-10-PCS; principal; 2023-02-07)
PROC: 3E03329 Introduction of Other Anti-infective into Peripheral Vein, Percutaneous Approach (ICD-10-PCS; 2023-02-07)
PROC: 3E023GC Introduction of Other Therapeutic Substance into Muscle, Percutaneous Approach (ICD-10-PCS; 2023-02-07)
PROC: 3E033GC Introduction of Other Therapeutic Substance into Peripheral Vein, Percutaneous Approach (ICD-10-PCS; 2023-02-07)
DX: R07.9 Chest pain, unspecified (principal); M46.20 Osteomyelitis of vertebra, site unspecified; J90 Pleural effusion, not elsewhere classified; I13.11 Hypertensive heart and chronic kidney disease without heart failure, with stage 5 chronic kidney disease, or end stage renal disease; E11.22 Type 2 diabetes mellitus with diabetic chronic kidney disease; N18.6 End stage renal disease; Z99.2 Dependence on renal dialysis; D64.9 Anemia, unspecified; E87.70 Fluid overload, unspecified; J81.0 Acute pulmonary edema; J44.9 Chronic obstructive pulmonary disease, unspecified; E66.8 Other obesity; Z68.37 Body mass index [BMI] 37.0-37.9, adult; I25.10 Atherosclerotic heart disease of native coronary artery without angina pectoris; Z88.8 Allergy status to other drugs, medicaments and biological substances
CPT/HCPCS: 36415; 71045-TC-FY; 76830-TC; 80048; 80053; 82962; 83735; 83880; 84100; 84484; 85025; 85027; 85610; 85730; 86304; 87635; 93005; 93010; 94640; 96365; 96366; 96368; 96372; 96375; 99285-25; G0378; Q5106

== ENCOUNTER 2023-02-15 09:51 | Emergency (ER) | payer OTHER ==
[2023-02-15 10:34] VITALS: BMI 37.5
[2023-02-15] MEDS ORDERED: ACETAMINOPHEN 500 MG TABLET (FP) PO ONE (11:49)
[2023-02-15] MEDS ORDERED: ACETAMINOPHEN 1000 MG/100 ML BAG IVPB ONE (11:50)
[2023-02-15 12:11] LABS: BASO % 0.8 % (0-2.0); EOS % 5.4 % (0-4.5); HEMATOCRIT 24.5 % (32.4-45.2); HEMOGLOBIN 8.3 GM/dL (10.7-15.3); MCH 32.7 pg (25.7-33.7); MCHC 33.8 g/dl (32.0-36.0); MEAN CELL VOLUME 96.6 fl (80-96); MEAN PLT VOLUME 8.7 fl (7.5-11.1); MONO % 10.6 % (3.8-10.2); NEUT % 73.2 % (42.8-82.8); PLATELET COUNT 161 10^3/uL (134-434); RBC 2.53 M/mm3 (3.60-5.2); RDW 15.8 % (11.6-15.6); WHITE BLOOD COUNT 4.1 K/mm3 (4.0-10.0)
[2023-02-15 12:18] LABS: INR 1.15 (0.83-1.09); PROTHROMBIN TIME (PATIENT) 13.3 SEC (9.7-13.0)
[2023-02-15 12:20] LABS: ACTIVATED PTT 32.6 SECONDS (25.2-36.5)
[2023-02-15 12:29] LABS: CHLORIDE 103 mmol/L (98-107); SODIUM 136 mmol/L (136-145)
[2023-02-15] MEDS ORDERED: ACETAMINOPHEN INJECTION 100 ML IVPB ONE (12:29)
[2023-02-15 12:31] LABS: ALBUMIN 3.1 g/dl (3.4-5.0); BLOOD UREA NITROGEN 41.8 mg/dL (7-18); CO2 27 mmol/L (21-32); MAGNESIUM 2.1 mg/dL (1.8-2.4)
[2023-02-15 12:32] LABS: GLUCOSE,RANDOM 109 mg/dL (74-106); LIPASE 58 U/L (73-393)
[2023-02-15 12:35] LABS: CREATININE 6.2 mg/dL (0.55-1.3); SGOT/AST 86 U/L (15-37)
[2023-02-15 12:36] LABS: BILIRUBIN,TOTAL 0.4 mg/dL (0.2-1); TOT PROT 7.1 g/dl (6.4-8.2)
[2023-02-15 12:37] LABS: ALK PHOS 75 U/L (45-117)
[2023-02-15 12:38] LABS: ANION GAP 7 MMOL/L (8-16); POTASSIUM 7.4 mmol/L (3.5-5.1); SGPT/ALT 25 U/L (13-61)
[2023-02-15 15:29] LABS: POTASSIUM 4.8 mmol/L (3.5-5.1)
[2023-02-15 15:31] LABS: ALBUMIN 3.4 g/dl (3.4-5.0); CALCIUM 9.1 mg/dL (8.5-10.1)
[2023-02-15 15:32] LABS: BLOOD UREA NITROGEN 47.2 mg/dL (7-18)
[2023-02-15 15:34] LABS: CREATININE 6.3 mg/dL (0.55-1.3)
[2023-02-15 15:36] LABS: BILIRUBIN,TOTAL 0.5 mg/dL (0.2-1); TOT PROT 6.9 g/dl (6.4-8.2)
[2023-02-16 13:28] VITALS: BP 174/66; PULSE 81; RESP 22; TEMP 98.7
== END 2023-02-16 13:44 ==
LOC: JER 09:51
PROC: 3E033NZ Introduction of Analgesics, Hypnotics, Sedatives into Peripheral Vein, Percutaneous Approach (ICD-10-PCS; principal; 2023-02-15)
DX: M54.50 Low back pain, unspecified (principal); R10.84 Generalized abdominal pain; R11.2 Nausea with vomiting, unspecified; Z20.822 Contact with and (suspected) exposure to COVID-19
CPT/HCPCS: 0241U-QW; 36415; 72070-TC-FY; 72100-TC-FY; 74176-TC; 80053; 83605; 83690; 83735; 85025; 85610; 85730; 93005; 93010; 99285-25

== ENCOUNTER 2023-08-11 09:04 | Inpatient (IN) | payer OTHER ==
[2023-08-11 10:05] VITALS: BMI 36.6
[2023-08-11 10:13] LABS: HEMATOCRIT 34.7 % (32.4-45.2); HEMOGLOBIN 11.1 GM/dL (10.7-15.3); MCH 32.4 pg (25.7-33.7); MCHC 31.9 g/dl (32.0-36.0); MEAN CELL VOLUME 101.6 fl (80-96); MEAN PLT VOLUME 7.5 fl (7.5-11.1); PLATELET COUNT 231 10^3/uL (134-434); RBC 3.42 M/mm3 (3.60-5.2); RDW 15.3 % (11.6-15.6); WHITE BLOOD COUNT 13.7 K/mm3 (4.0-10.0)
[2023-08-11] MEDS ORDERED: ACETAMINOPHEN INJECTION 100 ML IVPB ONE (10:19)
[2023-08-11] MEDS ORDERED: FAMOTIDINE 10 MG/ML VIAL IVPB ONE (10:20)
[2023-08-11 10:22] LABS: INR 1.18 (0.83-1.09); PROTHROMBIN TIME (PATIENT) 13.7 SEC (9.7-13.0)
[2023-08-11 10:25] LABS: ACTIVATED PTT 24.5 SECONDS (25.2-36.5)
[2023-08-11] MEDS: SODIUM CHLORIDE 0.9% 500 ML INFUS.BAG IV ONE (10:31)
[2023-08-11] MEDS: ACETAMINOPHEN 1000 MG/100 ML BAG IVPB ONE (10:31)
[2023-08-11] MEDS: FAMOTIDINE 20 MG/50 ML IVPB 20 MG/50 ML MG IVPB ONE (10:32)
[2023-08-11 10:46] LABS: CHLORIDE 104 mmol/L (98-107); SODIUM 140 mmol/L (136-145)
[2023-08-11 10:48] LABS: ALBUMIN 2.1 g/dl (3.4-5.0); CALCIUM 8.7 mg/dL (8.5-10.1); CO2 26 mmol/L (21-32); GLUCOSE,RANDOM 136 mg/dL (74-106); MAGNESIUM 1.9 mg/dL (1.8-2.4)
[2023-08-11 10:52] LABS: CREATININE 4.7 mg/dL (0.55-1.3); PHOSPHOROUS 3.8 mg/dL (2.5-4.9); SGOT/AST 17 U/L (15-37); SGPT/ALT 16 U/L (13-61)
[2023-08-11 10:53] LABS: BILIRUBIN,TOTAL 0.6 mg/dL (0.2-1); TOT PROT 5.3 g/dl (6.4-8.2)
[2023-08-11 10:54] LABS: ALK PHOS 71 U/L (45-117)
[2023-08-11 10:57] LABS: N-TERMINAL BNP 6277.7 pg/ml (5-125)
[2023-08-11 11:05] LABS: ANION GAP 10 mmol/L (4-13); POTASSIUM 2.8 mmol/L (3.5-5.1)
[2023-08-11 11:18] LABS: ANISOCYTOSIS 1+; MACROCYTOSIS 1+
[2023-08-11] MEDS ORDERED: POTASSIUM CHLORIDE ORAL LIQUID 20 MEQ/15 ML ONE (11:40)
[2023-08-11] MEDS: POTASSIUM CHLORIDE ORAL LIQUID 20 MEQ/15 ML PO ONE (11:44)
[2023-08-11] MEDS ORDERED: LIDOCAINE 2.5%/PRILOCAINE 2.5% (5 Gram/TUBE) TP ONE (12:25)
[2023-08-11] MEDS ORDERED: LIDOCAINE 2.5%/PRILOCAINE 2.5% 30 GRAM TUBE TP SCH (13:15)
[2023-08-11] MEDS: LIDOCAINE HCL 2% JELLY 10 ML CARTRIDGE PR ONE (13:17)
[2023-08-11] MEDS ORDERED: ALBUTEROL SO4 HFA INHALER IH PRN (14:25)
[2023-08-11] MEDS: SEVELAMER CARBONATE 800 MG TAB (FP) PO SCH ×2 (18:31→18:59)
[2023-08-11] MEDS: SODIUM CHLORIDE 1,000 ML IV SCH (20:12)
[2023-08-11] MEDS: VANCOMYCIN 250 MG/5 ML ORAL SOLUTION (RESTRICTED TO ID ONLY) PO SCH (20:13)
[2023-08-11] MEDS: ALBUTEROL SO4 2.5/IPRATROPIUM 0.5 INH SOL 3 ML VIAL.NEB. NEB SCH (20:55)
[2023-08-11] MEDS: MIRTAZAPINE 15 MG TABLET (FP) PO SCH (21:43)
[2023-08-11] MEDS: ATORVASTATIN CA 80 MG TABLET (FP) PO SCH (21:43)
[2023-08-11] MEDS: TICAGRELOR 90 MG TABLET PO SCH (21:43)
[2023-08-11] MEDS: MELATONIN 5 MG TABLETS PO SCH (21:44)
[2023-08-11] MEDS: HEPARIN NA (PORCINE) 5,000 UNITS/ML 1ML VIAL SQ SCH (21:44)
[2023-08-11] MEDS: NYSTATIN POWDER 100,000 UNITS/GM - 15 GM TOPICAL POWDER TP SCH (22:02)
[2023-08-12] MEDS ORDERED: SODIUM ZIRCONIUM CYCLOSILICATE (LOKELMA) 5 GM PACKET PO SCH (10:00)
[2023-08-12] MEDS: ASPIRIN COATED 81 MG TABLET.EC PO SCH (10:07)
[2023-08-12] MEDS: EZETIMIBE 10 MG TABLET (FP) PO SCH (10:07)
[2023-08-12 19:29] LABS: BASO % 0.4 % (0-2.0); EOS % 2.1 % (0-4.5); HEMATOCRIT 35.2 % (32.4-45.2); HEMOGLOBIN 11.2 GM/dL (10.7-15.3); LYMPH % 6.1 % (8-40); MCH 32.7 pg (25.7-33.7); MCHC 31.8 g/dl (32.0-36.0); MEAN PLT VOLUME 7.9 fl (7.5-11.1); MONO % 5.2 % (3.8-10.2); NEUT % 86.2 % (42.8-82.8); PLATELET COUNT 199 10^3/uL (134-434); RBC 3.42 M/mm3 (3.60-5.2); RDW 15.9 % (11.6-15.6); WHITE BLOOD COUNT 14.9 K/mm3 (4.0-10.0)
[2023-08-12 19:45] LABS: POTASSIUM 3.2 mmol/L (3.5-5.1)
[2023-08-12 19:47] LABS: CALCIUM 7.6 mg/dL (8.5-10.1)
[2023-08-12 19:48] LABS: BLOOD UREA NITROGEN 27.4 mg/dL (7-18)
[2023-08-12 19:51] LABS: CREATININE 6.5 mg/dL (0.55-1.3)
[2023-08-12] MEDS ORDERED: SODIUM CHLORIDE 250 ML IV PRN (22:02)
[2023-08-12 22:11] LABS: MAGNESIUM 1.8 mg/dL (1.8-2.4)
[2023-08-12 22:16] LABS: PHOSPHOROUS 4.1 mg/dL (2.5-4.9)
[2023-08-12] MEDS: SODIUM CHLORIDE 500 ML IV STA (23:53)
[2023-08-12] MEDS: POTASSIUM CHLORIDE ORAL LIQUID 20 MEQ/15 ML PO ONE (23:53)
[2023-08-13] MEDS: ALBUTEROL SO4 2.5/IPRATROPIUM 0.5 INH SOL 3 ML VIAL.NEB. NEB SCH (07:58)
[2023-08-14] MEDS: BANATROL PLUS POWDER PACKET PO SCH (06:00)
[2023-08-14] MEDS: FAMOTIDINE 10 MG TABLET PO SCH (12:20)
[2023-08-14 14:47] LABS: HEMATOCRIT 38.3 % (32.4-45.2); HEMOGLOBIN 12.3 GM/dL (10.7-15.3); MCH 32.4 pg (25.7-33.7); MCHC 32.1 g/dl (32.0-36.0); MEAN PLT VOLUME 7.8 fl (7.5-11.1); PLATELET COUNT 231 10^3/uL (134-434); RBC 3.79 M/mm3 (3.60-5.2); RDW 16.3 % (11.6-15.6); WHITE BLOOD COUNT 11.3 K/mm3 (4.0-10.0)
[2023-08-14 15:08] LABS: ANISOCYTOSIS 2+; MACROCYTOSIS 2+
[2023-08-15] MEDS: PNEUMOC 20-VAL CONJ-DIP CRM/PF 0.5 ML SYRINGE IM ONE (11:30)
[2023-08-15] MEDS: CARVEDILOL 3.125 MG TABLET (FP) PO SCH (11:30)
[2023-08-15] MEDS: EPOETIN ALFA-EPBX 4,000 UNIT/ML VIAL SQ ONE (11:31)
[2023-08-15] MEDS ORDERED: SODIUM CHLORIDE 250 ML IV PRN (16:12)
[2023-08-15 16:58] VITALS: TEMP 97.8
[2023-08-15 17:38] VITALS: RESP 18
[2023-08-15 18:30] VITALS: BP 119/68; PULSE 70
== END 2023-08-15 20:40 | disposition home health service (06) | DRG 371 ==
LOC: JER 09:04 → JERBED 11:08 → J4W 18:29
PROVIDERS: ADMIT Family Medicine; ATTEND Family Medicine
PROC: 5A1D70Z Performance of Urinary Filtration, Intermittent, Less than 6 Hours Per Day (ICD-10-PCS; principal; 2023-08-15)
DX: A04.72 Enterocolitis due to Clostridium difficile, not specified as recurrent (principal); N18.6 End stage renal disease; J44.1 Chronic obstructive pulmonary disease with (acute) exacerbation; I13.2 Hypertensive heart and chronic kidney disease with heart failure and with stage 5 chronic kidney disease, or end stage renal disease; I69.354 Hemiplegia and hemiparesis following cerebral infarction affecting left non-dominant side; I50.32 Chronic diastolic (congestive) heart failure; J96.11 Chronic respiratory failure with hypoxia; E11.22 Type 2 diabetes mellitus with diabetic chronic kidney disease; Z99.2 Dependence on renal dialysis; I25.10 Atherosclerotic heart disease of native coronary artery without angina pectoris; E78.5 Hyperlipidemia, unspecified; E66.9 Obesity, unspecified; Z68.36 Body mass index [BMI] 36.0-36.9, adult; E86.0 Dehydration; E87.6 Hypokalemia; Z95.5 Presence of coronary angioplasty implant and graft
CPT/HCPCS: 0241U-QW; 36415; 71045-TC-FY; 74177-TC; 80048; 80053; 83735; 83880; 84100; 84484; 85025; 85610; 85730; 86704; 86803; 86850; 86900; 86901; 87040; 87324; 87340; 87449; 87517; 90677; 93005; 93010; 94640; 99285-25; G0009; J0131; J1644; Q9967

== ENCOUNTER 2023-09-07 10:27 | Inpatient (IN) | payer OTHER ==
[2023-09-07 13:07] LABS: HEMATOCRIT 34.5 % (32.4-45.2); HEMOGLOBIN 11.1 GM/dL (10.7-15.3); MCH 33.1 pg (25.7-33.7); MCHC 32.3 g/dl (32.0-36.0); MEAN CELL VOLUME 102.6 fl (80-96); MEAN PLT VOLUME 7.5 fl (7.5-11.1); PLATELET COUNT 199 10^3/uL (134-434); RBC 3.37 M/mm3 (3.60-5.2); RDW 17.6 % (11.6-15.6); WHITE BLOOD COUNT 10.7 K/mm3 (4.0-10.0)
[2023-09-07 13:28] LABS: ANISOCYTOSIS 2+; MACROCYTOSIS 2+
[2023-09-07 13:35] LABS: CHLORIDE 112 mmol/L (98-107); SODIUM 144 mmol/L (136-145)
[2023-09-07 13:37] LABS: ALBUMIN 2.7 g/dl (3.4-5.0); BLOOD UREA NITROGEN 100.3 mg/dL (7-18); CALCIUM 8.1 mg/dL (8.5-10.1); GLUCOSE,RANDOM 84 mg/dL (74-106)
[2023-09-07 13:38] LABS: ANION GAP 19 mmol/L (4-13); CO2 12 mmol/L (21-32); MAGNESIUM 2.2 mg/dL (1.8-2.4)
[2023-09-07 13:41] LABS: SGOT/AST 16 U/L (15-37); SGPT/ALT 27 U/L (13-61)
[2023-09-07 13:42] LABS: TOT PROT 6.4 g/dl (6.4-8.2)
[2023-09-07 13:43] LABS: ALK PHOS 89 U/L (45-117); BILIRUBIN,TOTAL 0.5 mg/dL (0.2-1)
[2023-09-07 14:47] LABS: CREATININE 14.6 mg/dL (0.55-1.3); PHOSPHOROUS 13.1 mg/dL (2.5-4.9)
[2023-09-07] MEDS ORDERED: SODIUM CHLORIDE 250 ML IV PRN ×2 (15:23→18:56)
[2023-09-07] MEDS ORDERED: ALBUTEROL SO4 HFA INHALER IH PRN (17:02)
[2023-09-07] MEDS: ALBUTEROL SO4 2.5/IPRATROPIUM 0.5 INH SOL 3 ML VIAL.NEB. NEB SCH (20:33)
[2023-09-07] MEDS: HEPARIN NA (PORCINE) 5,000 UNITS/ML 1ML VIAL SQ SCH (21:40)
[2023-09-07] MEDS: ATORVASTATIN CA 80 MG TABLET (FP) PO SCH (21:40)
[2023-09-07] MEDS: TICAGRELOR 90 MG TABLET PO SCH (21:40)
[2023-09-07] MEDS: MIRTAZAPINE 15 MG TABLET (FP) PO SCH (21:40)
[2023-09-07] MEDS: INSULIN ASPART SLIDING SCALE (NOVOLOG) 1 VIAL SQ SCH (21:54)
[2023-09-08] MEDS: VANCOMYCIN 250 MG/5 ML ORAL SOLUTION PO SCH (00:15)
[2023-09-08] MEDS: EZETIMIBE 10 MG TABLET (FP) PO SCH (09:25)
[2023-09-08] MEDS: ISOSORBIDE MONONITRATE 60 MG TAB.SR.24H (FP) PO SCH (09:26)
[2023-09-08] MEDS: SEVELAMER CARBONATE 800 MG TAB (FP) PO SCH (09:26)
[2023-09-08] MEDS: diphenhydrAMINE HCL 25 MG CAPSULE (FP) PO ONE (10:40)
[2023-09-08 10:55] LABS: BASO % 0.1 % (0-2.0); EOS % 0.9 % (0-4.5); HEMATOCRIT 27.2 % (32.4-45.2); HEMOGLOBIN 8.9 GM/dL (10.7-15.3); LYMPH % 4.4 % (8-40); MCH 32.5 pg (25.7-33.7); MCHC 32.9 g/dl (32.0-36.0); MEAN CELL VOLUME 98.8 fl (80-96); MEAN PLT VOLUME 7.2 fl (7.5-11.1); NEUT % 88.6 % (42.8-82.8); PLATELET COUNT 166 10^3/uL (134-434); RBC 2.75 M/mm3 (3.60-5.2); RDW 16.8 % (11.6-15.6); WHITE BLOOD COUNT 8.3 K/mm3 (4.0-10.0)
[2023-09-08 11:05] VITALS: BMI 37.0
[2023-09-08 11:22] LABS: CHLORIDE 108 mmol/L (98-107); SODIUM 142 mmol/L (136-145)
[2023-09-08 11:24] LABS: CALCIUM 7.6 mg/dL (8.5-10.1); GLUCOSE,RANDOM 110 mg/dL (74-106)
[2023-09-08 11:25] LABS: ANION GAP 14 mmol/L (4-13); CO2 20 mmol/L (21-32)
[2023-09-08 11:28] LABS: SGOT/AST 15 U/L (15-37); SGPT/ALT 20 U/L (13-61)
[2023-09-08 11:29] LABS: BILIRUBIN,TOTAL 0.5 mg/dL (0.2-1)
[2023-09-08 11:30] LABS: TOT PROT 5.2 g/dl (6.4-8.2)
[2023-09-08 11:31] LABS: ALK PHOS 72 U/L (45-117)
[2023-09-08 11:34] LABS: ALBUMIN 2.1 g/dl (3.4-5.0); BLOOD UREA NITROGEN 66.7 mg/dL (7-18); CREATININE 10.7 mg/dL (0.55-1.3)
[2023-09-09] MEDS: SEVELAMER CARBONATE 800 MG TAB (FP) PO SCH (17:23)
[2023-09-09] MEDS ORDERED: SODIUM CHLORIDE 250 ML IV PRN (23:59)
[2023-09-10] MEDS: ACETAMINOPHEN 325 MG TABLET (FP) PO SCH (00:58)
[2023-09-10] MEDS: diphenhydrAMINE HCL 25 MG CAPSULE (FP) PO ONE (00:59)
[2023-09-10 12:18] LABS: BASO % 0.4 % (0-2.0); EOS % 7.2 % (0-4.5); HEMATOCRIT 31.7 % (32.4-45.2); HEMOGLOBIN 10.6 GM/dL (10.7-15.3); LYMPH % 6.6 % (8-40); MCH 32.8 pg (25.7-33.7); MCHC 33.3 g/dl (32.0-36.0); MEAN CELL VOLUME 98.4 fl (80-96); MEAN PLT VOLUME 7.3 fl (7.5-11.1); MONO % 5.1 % (3.8-10.2); NEUT % 80.7 % (42.8-82.8); PLATELET COUNT 219 10^3/uL (134-434); RBC 3.22 M/mm3 (3.60-5.2); RDW 15.8 % (11.6-15.6); WHITE BLOOD COUNT 6.5 K/mm3 (4.0-10.0)
[2023-09-10 12:49] LABS: CHLORIDE 102 mmol/L (98-107); POTASSIUM 3.7 mmol/L (3.5-5.1); SODIUM 140 mmol/L (136-145)
[2023-09-10 12:51] LABS: ANION GAP 13 mmol/L (4-13); BLOOD UREA NITROGEN 48.7 mg/dL (7-18); CALCIUM 7.9 mg/dL (8.5-10.1); CO2 25 mmol/L (21-32); GLUCOSE,RANDOM 112 mg/dL (74-106)
[2023-09-10 12:54] LABS: SGOT/AST 26 U/L (15-37); SGPT/ALT 27 U/L (13-61)
[2023-09-10 12:56] LABS: BILIRUBIN,TOTAL 0.6 mg/dL (0.2-1); TOT PROT 6.4 g/dl (6.4-8.2)
[2023-09-10 12:57] LABS: ALK PHOS 84 U/L (45-117)
[2023-09-10 12:59] LABS: ALBUMIN 2.6 g/dl (3.4-5.0); CREATININE 8.6 mg/dL (0.55-1.3)
[2023-09-10] MEDS: EPOETIN ALFA-EPBX 4,000 UNIT/ML VIAL IM ONE (17:48)
[2023-09-11] MEDS ORDERED: ACETAMINOPHEN 325 MG TABLET (FP) ONE (01:05)
[2023-09-11] MEDS: MELATONIN 5 MG TABLETS PO PRN (03:01)
[2023-09-11 12:14] VITALS: BP 165/93; PULSE 82; RESP 18; TEMP 97.6
== END 2023-09-11 13:49 | DRG 291 ==
LOC: JER 10:27 → JERBED 12:07 → J4W 15:32 → OBSVTOIN 15:34
PROVIDERS: ADMIT Internal Medicine; ATTEND Internal Medicine
PROC: 5A1D70Z Performance of Urinary Filtration, Intermittent, Less than 6 Hours Per Day (ICD-10-PCS; principal; 2023-09-07)
PROC: 5A1D70Z Performance of Urinary Filtration, Intermittent, Less than 6 Hours Per Day (ICD-10-PCS; 2023-09-08)
PROC: 5A1D70Z Performance of Urinary Filtration, Intermittent, Less than 6 Hours Per Day (ICD-10-PCS; 2023-09-10)
DX: I13.2 Hypertensive heart and chronic kidney disease with heart failure and with stage 5 chronic kidney disease, or end stage renal disease (principal); N18.6 End stage renal disease; A04.72 Enterocolitis due to Clostridium difficile, not specified as recurrent; J44.9 Chronic obstructive pulmonary disease, unspecified; E11.22 Type 2 diabetes mellitus with diabetic chronic kidney disease; I50.9 Heart failure, unspecified; E78.5 Hyperlipidemia, unspecified; I25.10 Atherosclerotic heart disease of native coronary artery without angina pectoris; D64.9 Anemia, unspecified; E87.5 Hyperkalemia; G47.33 Obstructive sleep apnea (adult) (pediatric); E66.9 Obesity, unspecified; Z68.37 Body mass index [BMI] 37.0-37.9, adult; Z95.5 Presence of coronary angioplasty implant and graft; Z99.2 Dependence on renal dialysis
CPT/HCPCS: 36415; 71045-TC-FY; 80053; 82140; 82962; 83735; 84100; 84484; 85025; 93005; 93010; 94640; 99285-25; G0378; J1644; Q5106

== ENCOUNTER 2023-09-17 20:21 | Inpatient (IN) | payer OTHER ==
[2023-09-17 20:59] VITALS: BMI 38.2
[2023-09-17] MEDS ORDERED: ACETAMINOPHEN INJECTION 100 ML IVPB ONE (21:29)
[2023-09-17] MEDS: ACETAMINOPHEN 1000 MG/100 ML BAG IVPB ONE (22:30)
[2023-09-17 22:42] LABS: BASO % 0.3 % (0-2.0); HEMATOCRIT 23.4 % (32.4-45.2); HEMOGLOBIN 7.7 GM/dL (10.7-15.3); MCH 32.2 pg (25.7-33.7); MEAN CELL VOLUME 97.7 fl (80-96); MEAN PLT VOLUME 7.3 fl (7.5-11.1); MONO % 6.3 % (3.8-10.2); NEUT % 87.4 % (42.8-82.8); PLATELET COUNT 142 10^3/uL (134-434); RDW 17.1 % (11.6-15.6); WHITE BLOOD COUNT 6.5 K/mm3 (4.0-10.0)
[2023-09-17 22:49] LABS: INR 1.16 (0.83-1.09); PROTHROMBIN TIME (PATIENT) 13.4 SEC (9.7-13.0)
[2023-09-17 22:52] LABS: ACTIVATED PTT 32.3 SECONDS (25.2-36.5)
[2023-09-17 23:01] LABS: POTASSIUM 3.7 mmol/L (3.5-5.1)
[2023-09-17 23:04] LABS: ALBUMIN 2.5 g/dl (3.4-5.0)
[2023-09-17 23:07] LABS: CREATININE 4.7 mg/dL (0.55-1.3)
[2023-09-17 23:09] LABS: BILIRUBIN,TOTAL 0.7 mg/dL (0.2-1)
[2023-09-18] MEDS ORDERED: PANTOPRAZOLE SODIUM 40 MG VIAL ONE (02:31)
[2023-09-18] MEDS: PANTOPRAZOLE SODIUM 40 MG VIAL IVPUSH ONE (02:40)
[2023-09-18] MEDS: ACETAMINOPHEN 500 MG TABLET (FP) PO ONE (03:16)
[2023-09-18] MEDS ORDERED: ACETAMINOPHEN 500 MG TABLET (FP) ONE (03:23)
[2023-09-18] MEDS ORDERED: ALBUTEROL SO4 HFA INHALER IH PRN (06:19)
[2023-09-18] MEDS ORDERED: ALBUTEROL SO4 2.5/IPRATROPIUM 0.5 INH SOL 3 ML VIAL.NEB. NEB ONE (06:53)
[2023-09-18] MEDS: ALBUTEROL SO4 2.5/IPRATROPIUM 0.5 INH SOL 3 ML VIAL.NEB. NEB SCH ×2 (06:56→15:32)
[2023-09-18 07:26] LABS: POTASSIUM 4.5 mmol/L (3.5-5.1)
[2023-09-18 07:27] LABS: BLOOD UREA NITROGEN 31.2 mg/dL (7-18); CALCIUM 7.6 mg/dL (8.5-10.1)
[2023-09-18 07:29] LABS: ALBUMIN 2.4 g/dl (3.4-5.0)
[2023-09-18 07:31] LABS: BILIRUBIN,DIRECT 0.3 mg/dL (0.0-0.2); CREATININE 5.2 mg/dL (0.55-1.3)
[2023-09-18 07:33] LABS: TOT PROT 5.7 g/dl (6.4-8.2)
[2023-09-18] MEDS: SEVELAMER CARBONATE 800 MG TAB (FP) PO SCH (08:00)
[2023-09-18] MEDS ORDERED: ISOSORBIDE MONONITRATE 60 MG TAB.SR.24H (FP) PO ONE (11:39)
[2023-09-18] MEDS ORDERED: methylPREDNISolone NA SUCC 40 MG/1 ML VIAL ONE (11:39)
[2023-09-18] MEDS ORDERED: OSELTAMIVIR PHOSPHATE 30 MG CAPSULE ONE (11:39)
[2023-09-18] MEDS ORDERED: ACETAMINOPHEN INJECTION 100 ML IVPB ONE (11:40)
[2023-09-18] MEDS: ACETAMINOPHEN 325 MG TABLET (FP) PO PRN (11:40)
[2023-09-18] MEDS: ISOSORBIDE MONONITRATE 60 MG TAB.SR.24H (FP) PO SCH (11:50)
[2023-09-18] MEDS: methylPREDNISolone NA SUCC 40 MG/1 ML VIAL IVPUSH SCH (11:50)
[2023-09-18] MEDS: OSELTAMIVIR PHOSPHATE 30 MG CAPSULE PO SCH (11:50)
[2023-09-18] MEDS ORDERED: PANTOPRAZOLE 40 MG TABLET PO SCH (15:00)
[2023-09-18 15:35] LABS: HEMATOCRIT 23.4 % (32.4-45.2); HEMOGLOBIN 7.7 GM/dL (10.7-15.3); MCH 32.1 pg (25.7-33.7); MCHC 32.9 g/dl (32.0-36.0); MEAN CELL VOLUME 97.4 fl (80-96); MEAN PLT VOLUME 8.1 fl (7.5-11.1); PLATELET COUNT 131 10^3/uL (134-434); RBC 2.41 M/mm3 (3.60-5.2); RDW 17.3 % (11.6-15.6); WHITE BLOOD COUNT 8.5 K/mm3 (4.0-10.0)
[2023-09-18 15:58] LABS: POTASSIUM 4.2 mmol/L (3.5-5.1)
[2023-09-18 16:02] LABS: ALBUMIN 2.5 g/dl (3.4-5.0)
[2023-09-18 16:04] LABS: PHOSPHOROUS 5.8 mg/dL (2.5-4.9)
[2023-09-18 16:06] LABS: BILIRUBIN,TOTAL 0.9 mg/dL (0.2-1)
[2023-09-18 16:12] LABS: ANISOCYTOSIS 0; HELMET CELLS 0; HOWELL-JOLLY BODIES 0; MACROCYTOSIS 0; OVALOCYTE 0; ROULEAU 0; SICKELED CELLS 0; TARGET CELLS 0; TEAR DROP CELLS 0; TOXIC GRANULATION 0
[2023-09-18] MEDS: VANCOMYCIN 250 MG/5 ML ORAL SOLUTION (RESTRICTED TO ID ONLY) PO SCH (17:19)
[2023-09-18] MEDS: VANCOMYCIN/WATER FOR INJ (PEG) 1,000 MG/200 ML BAG IVPB ONE (17:23)
[2023-09-18] MEDS: BUDESONIDE/FORMETEROL FUMARATE 160/4.5 mcg INHALER IH SCH (21:22)
[2023-09-18] MEDS: ATORVASTATIN CA 80 MG TABLET (FP) PO SCH (21:23)
[2023-09-18] MEDS: MELATONIN 5 MG TABLETS PO SCH (21:23)
[2023-09-18] MEDS: MIRTAZAPINE 15 MG TABLET (FP) PO SCH (21:23)
[2023-09-18] MEDS: EZETIMIBE 10 MG TABLET (FP) PO SCH (21:24)
[2023-09-19 08:31] LABS: HEMATOCRIT 24.2 % (32.4-45.2); HEMOGLOBIN 7.9 GM/dL (10.7-15.3); MCH 31.7 pg (25.7-33.7); MCHC 32.7 g/dl (32.0-36.0); MEAN PLT VOLUME 8.7 fl (7.5-11.1); PLATELET COUNT 145 10^3/uL (134-434); RDW 17.2 % (11.6-15.6); WHITE BLOOD COUNT 8.1 K/mm3 (4.0-10.0)
[2023-09-19 09:46] LABS: ANISOCYTOSIS 0; MACROCYTOSIS 0
[2023-09-19] MEDS ORDERED: SODIUM CHLORIDE 250 ML IV PRN (14:43)
[2023-09-19] MEDS: EPOETIN ALFA-EPBX 10,000 UNIT/ML VIAL IVPUSH ONE (17:07)
[2023-09-19] MEDS: VANCOMYCIN/WATER FOR INJ (PEG) 1,000 MG/200 ML BAG IVPB ONE (17:08)
[2023-09-19] MEDS: PANTOPRAZOLE 40 MG TABLET PO ONE (19:04)
[2023-09-19] MEDS ORDERED: predniSONE 20 MG TABLET (UD) PO SCH (22:00)
[2023-09-19] MEDS: diphenhydrAMINE HCL 25 MG CAPSULE (FP) PO PRN (23:33)
[2023-09-20] MEDS: PANTOPRAZOLE 40 MG TABLET PO SCH ×2 (08:35→18:46)
[2023-09-20] MEDS: predniSONE 20 MG TABLET (UD) PO SCH (10:59)
[2023-09-20] MEDS: FAMOTIDINE 20 MG TABLET PO SCH (11:00)
[2023-09-20] MEDS: IRON SUCROSE INJECTION 200 MG in SODIUM CHLORIDE 100 ML IVPB ONE (11:31)
[2023-09-20] MEDS: DAPTOMYCIN IVPB ONE (18:43)
[2023-09-20] MEDS: SODIUM CHLORIDE IVPB ONE (18:43)
[2023-09-21] MEDS: predniSONE 20 MG TABLET (UD) PO SCH (09:48)
[2023-09-21] MEDS ORDERED: SODIUM CHLORIDE 250 ML IV PRN (13:22)
[2023-09-21] MEDS: EPOETIN ALFA-EPBX 10,000 UNIT/ML VIAL IVPUSH ONE (14:17)
[2023-09-21] MEDS: oxyCODONE HCL 5 MG TABLET PO PRN (21:28)
[2023-09-22 06:59] VITALS: RESP 18
[2023-09-22 08:28] LABS: BASO % 0.2 % (0-2.0); EOS % 0.3 % (0-4.5); HEMATOCRIT 22.6 % (32.4-45.2); HEMOGLOBIN 7.3 GM/dL (10.7-15.3); LYMPH % 9.9 % (8-40); MCH 31.5 pg (25.7-33.7); MCHC 32.2 g/dl (32.0-36.0); MEAN CELL VOLUME 97.6 fl (80-96); MEAN PLT VOLUME 8.4 fl (7.5-11.1); MONO % 11.6 % (3.8-10.2); PLATELET COUNT 178 10^3/uL (134-434); RBC 2.31 M/mm3 (3.60-5.2); RDW 16.6 % (11.6-15.6); WHITE BLOOD COUNT 7.2 K/mm3 (4.0-10.0)
[2023-09-22 08:45] LABS: POTASSIUM 3.2 mmol/L (3.5-5.1)
[2023-09-22 08:50] LABS: CALCIUM 7.6 mg/dL (8.5-10.1)
[2023-09-22 08:51] LABS: ALBUMIN 2.1 g/dl (3.4-5.0); BLOOD UREA NITROGEN 28.4 mg/dL (7-18)
[2023-09-22 08:54] LABS: CREATININE 3.7 mg/dL (0.55-1.3)
[2023-09-22 08:56] LABS: BILIRUBIN,TOTAL 0.6 mg/dL (0.2-1); TOT PROT 5.9 g/dl (6.4-8.2)
[2023-09-22] MEDS: SODIUM CHLORIDE IVPB ONE (10:25)
[2023-09-22] MEDS: DAPTOMYCIN IVPB ONE (10:25)
[2023-09-22] MEDS: POTASSIUM CHLORIDE ORAL LIQUID 20 MEQ/15 ML PO ONE (11:55)
[2023-09-24 08:00] LABS: HEMATOCRIT 25.5 % (32.4-45.2); HEMOGLOBIN 8.1 GM/dL (10.7-15.3); MCH 31.8 pg (25.7-33.7); MCHC 31.8 g/dl (32.0-36.0); MEAN PLT VOLUME 8.1 fl (7.5-11.1); PLATELET COUNT 240 10^3/uL (134-434); RBC 2.55 M/mm3 (3.60-5.2); RDW 17.3 % (11.6-15.6); WHITE BLOOD COUNT 6.2 K/mm3 (4.0-10.0)
[2023-09-24 08:03] LABS: POTASSIUM 5.1 mmol/L (3.5-5.1)
[2023-09-24 08:04] LABS: CALCIUM 8.2 mg/dL (8.5-10.1)
[2023-09-24 08:08] LABS: CREATININE 7.2 mg/dL (0.55-1.3)
[2023-09-24 08:33] LABS: BLOOD UREA NITROGEN 55.1 mg/dL (7-18)
[2023-09-24] MEDS: EPOETIN ALFA-EPBX 10,000 UNIT/ML VIAL IVPUSH ONE (15:39)
[2023-09-24] MEDS: DAPTOMYCIN IVPB ONE (16:48)
[2023-09-24] MEDS: SODIUM CHLORIDE IVPB ONE (16:48)
[2023-09-24 23:31] VITALS: BP 147/91; PULSE 91; TEMP 98.7
== END 2023-09-24 23:45 | DRG 280 ==
LOC: JER 20:21 → JERBED 09-18 00:58 → J4S 09-18 13:14
PROVIDERS: ADMIT Internal Medicine; ATTEND Internal Medicine
PROC: 5A1D70Z Performance of Urinary Filtration, Intermittent, Less than 6 Hours Per Day (ICD-10-PCS; principal; 2023-09-18)
PROC: 30233P1 Transfusion of Nonautologous Frozen Red Cells into Peripheral Vein, Percutaneous Approach (ICD-10-PCS; 2023-09-18)
DX: I21.A1 Myocardial infarction type 2 (principal); N18.6 End stage renal disease; R78.81 Bacteremia; I13.2 Hypertensive heart and chronic kidney disease with heart failure and with stage 5 chronic kidney disease, or end stage renal disease; J44.1 Chronic obstructive pulmonary disease with (acute) exacerbation; K92.1 Melena; I25.10 Atherosclerotic heart disease of native coronary artery without angina pectoris; J10.1 Influenza due to other identified influenza virus with other respiratory manifestations; E11.22 Type 2 diabetes mellitus with diabetic chronic kidney disease; I50.9 Heart failure, unspecified; Z99.2 Dependence on renal dialysis; E87.6 Hypokalemia; R19.7 Diarrhea, unspecified; E78.5 Hyperlipidemia, unspecified; Z79.4 Long term (current) use of insulin; D64.9 Anemia, unspecified; E11.610 Type 2 diabetes mellitus with diabetic neuropathic arthropathy; B95.62 Methicillin resistant Staphylococcus aureus infection as the cause of diseases classified elsewhere; Z87.891 Personal history of nicotine dependence
CPT/HCPCS: 0241U-QW; 36415; 36430; 71045-TC-FY; 76882-TC-RT-FY; 80048; 80053; 82248; 82272; 82550; 82553; 82728; 82962; 83516; 83540; 83550; 83735; 84100; 84484; 85025; 85027; 85610; 85730; 86038; 86078; 86704; 86708; 86803; 86850; 86900; 86901; 86922; 87040; 87077; 87186; 87324; 87340; 87449; 87517; 93005; 93010; 93306-TC; 94640; 97116-GP; 99285-25; G0480; J0131; J0878; J1756; P9058; Q5106

== ENCOUNTER 2023-09-26 09:04 | Emergency (ER) | payer OTHER ==
[2023-09-26 09:36] VITALS: BP 127/81; PULSE 84; RESP 20; TEMP 98.1; BMI 29.2
[2023-09-26] MEDS ORDERED: ALBUTEROL SO4 2.5/IPRATROPIUM 0.5 INH SOL 3 ML VIAL.NEB. NEB ONE (11:22)
[2023-09-26] MEDS: ALBUTEROL SO4 2.5/IPRATROPIUM 0.5 INH SOL 3 ML VIAL.NEB. NEB SCH (11:27)
[2023-09-26 11:29] LABS: BASO % 0.6 % (0-2.0); EOS % 1.7 % (0-4.5); HEMATOCRIT 26.5 % (32.4-45.2); HEMOGLOBIN 8.4 GM/dL (10.7-15.3); LYMPH % 10.6 % (8-40); MCH 31.2 pg (25.7-33.7); MCHC 31.7 g/dl (32.0-36.0); MEAN CELL VOLUME 98.6 fl (80-96); MEAN PLT VOLUME 8.9 fl (7.5-11.1); MONO % 9.5 % (3.8-10.2); NEUT % 77.6 % (42.8-82.8); PLATELET COUNT 192 10^3/uL (134-434); RBC 2.68 M/mm3 (3.60-5.2); RDW 17.7 % (11.6-15.6); WHITE BLOOD COUNT 6.7 K/mm3 (4.0-10.0)
[2023-09-26 11:31] LABS: INR 1.36 (0.83-1.09); PROTHROMBIN TIME (PATIENT) 15.7 SEC (9.7-13.0)
[2023-09-26 11:50] LABS: ALBUMIN 2.5 g/dl (3.4-5.0); CALCIUM 8.9 mg/dL (8.5-10.1); POTASSIUM 5.2 mmol/L (3.5-5.1)
[2023-09-26 11:51] LABS: BLOOD UREA NITROGEN 38.3 mg/dL (7-18)
[2023-09-26 11:53] LABS: CREATININE 6.1 mg/dL (0.55-1.3)
[2023-09-26 11:56] LABS: BILIRUBIN,TOTAL 0.7 mg/dL (0.2-1); TOT PROT 7.1 g/dl (6.4-8.2)
[2023-09-26] MEDS ORDERED: AZITHROMYCIN 500 MG TABLET ONE (14:18)
[2023-09-26] MEDS: AZITHROMYCIN 500 MG TABLET PO ONE (14:21)
== END 2023-09-26 19:00 ==
LOC: JER 09:04
PROC: 3E0F7GC Introduction of Other Therapeutic Substance into Respiratory Tract, Via Natural or Artificial Opening (ICD-10-PCS; principal; 2023-09-26)
DX: R06.02 Shortness of breath (principal); J44.9 Chronic obstructive pulmonary disease, unspecified; R05.9 Cough, unspecified; Z20.822 Contact with and (suspected) exposure to COVID-19
CPT/HCPCS: 0241U-QW; 36415; 71045-TC-FY; 80053; 84484; 85025; 85610; 93005; 93010; 99285-25

== ENCOUNTER 2023-09-28 17:28 | Inpatient (IN) | payer OTHER ==
[2023-09-28 17:50] VITALS: BMI 30.2
[2023-09-28 19:14] LABS: VENOUS BASE EXCESS 6.4 mmol/L (-2-2); VENOUS O2 SATURATION 49.2 % (70-80); VENOUS PCO2 42.4 mmHg (38-52); VENOUS PH 7.476 (7.310-7.410)
[2023-09-28 19:26] LABS: INR 1.16 (0.83-1.09); PROTHROMBIN TIME (PATIENT) 13.4 SEC (9.7-13.0)
[2023-09-28 19:29] LABS: ACTIVATED PTT 26.7 SECONDS (25.2-36.5)
[2023-09-28 20:29] LABS: POTASSIUM 3.6 mmol/L (3.5-5.1)
[2023-09-28 20:30] LABS: ALBUMIN 2.5 g/dl (3.4-5.0); CALCIUM 8.7 mg/dL (8.5-10.1)
[2023-09-28] MEDS ORDERED: PIPERACILLIN/TAZOB 4.5 GM 4.5 GM/100 ML BAG IVPB ONE (20:33)
[2023-09-28 20:35] LABS: BILIRUBIN,TOTAL 0.6 mg/dL (0.2-1); TOT PROT 6.7 g/dl (6.4-8.2)
[2023-09-28 20:38] LABS: N-TERMINAL BNP 30699.5 pg/ml (5-125)
[2023-09-28 20:43] LABS: BLOOD UREA NITROGEN 10.7 mg/dL (7-18)
[2023-09-28] MEDS: PIPERACILLIN/TAZOB 4.5 GM 4.5 GM in DEXTROSE 5%-WATER 100 ML IVPB ONE (20:45)
[2023-09-28 20:59] LABS: BASO % 0.8 % (0-2.0); EOS % 1.1 % (0-4.5); HEMATOCRIT 19.3 % (32.4-45.2); LYMPH % 11.2 % (8-40); MCH 31.6 pg (25.7-33.7); MCHC 31.8 g/dl (32.0-36.0); MEAN CELL VOLUME 99.4 fl (80-96); MONO % 9.4 % (3.8-10.2); NEUT % 77.5 % (42.8-82.8); PLATELET COUNT 194 10^3/uL (134-434); RBC 1.95 M/mm3 (3.60-5.2); RDW 18.2 % (11.6-15.6); WHITE BLOOD COUNT 5.5 K/mm3 (4.0-10.0)
[2023-09-28 21:03] LABS: HEMOGLOBIN 6.1 GM/dL (10.7-15.3)
[2023-09-29] MEDS: ACETAMINOPHEN 325 MG TABLET (FP) PO PRN (01:46)
[2023-09-29] MEDS: INSULIN ASPART SLIDING SCALE (NOVOLOG) 1 VIAL SQ SCH ×2 (06:10→07:42)
[2023-09-29] MEDS: PIPERACILLIN/TAZOB 2.25 GM 2.25 GM in DEXTROSE 5%-WATER - 50 ML IVPB SCH (08:56)
[2023-09-29] MEDS ORDERED: ALBUTEROL SO4 HFA INHALER IH PRN (09:03)
[2023-09-29] MEDS: FAMOTIDINE 10 MG TABLET PO SCH (10:35)
[2023-09-29] MEDS: ASCORBIC ACID 500 MG TABLET (FP) PO SCH (10:35)
[2023-09-29] MEDS: FOLIC ACID 1 MG TABLET (FP) PO SCH (10:35)
[2023-09-29] MEDS: ISOSORBIDE MONONITRATE 60 MG TAB.SR.24H (FP) PO SCH (10:35)
[2023-09-29] MEDS: CALCITRIOL 0.25 MCG CAPSULE (FP) PO SCH (10:35)
[2023-09-29] MEDS: ALBUTEROL SO4 2.5/IPRATROPIUM 0.5 INH SOL 3 ML VIAL.NEB. NEB SCH (11:20)
[2023-09-29] MEDS: SEVELAMER CARBONATE 800 MG TAB (FP) PO SCH (12:57)
[2023-09-29] MEDS: MIRTAZAPINE 15 MG TABLET (FP) PO SCH (21:15)
[2023-09-29] MEDS: ATORVASTATIN CA 80 MG TABLET (FP) PO SCH (21:15)
[2023-09-29] MEDS: EZETIMIBE 10 MG TABLET (FP) PO SCH (21:15)
[2023-09-29] MEDS: MELATONIN 5 MG TABLETS PO SCH (21:16)
[2023-09-30 10:16] LABS: BASO % 0.7 % (0-2.0); EOS % 1.8 % (0-4.5); HEMATOCRIT 25.8 % (32.4-45.2); HEMOGLOBIN 8.3 GM/dL (10.7-15.3); LYMPH % 10.3 % (8-40); MCH 30.7 pg (25.7-33.7); MCHC 32.3 g/dl (32.0-36.0); MEAN CELL VOLUME 95.1 fl (80-96); MEAN PLT VOLUME 7.9 fl (7.5-11.1); MONO % 6.5 % (3.8-10.2); NEUT % 80.7 % (42.8-82.8); PLATELET COUNT 242 10^3/uL (134-434); RBC 2.71 M/mm3 (3.60-5.2); RDW 20.9 % (11.6-15.6); WHITE BLOOD COUNT 6.8 K/mm3 (4.0-10.0)
[2023-09-30 10:40] LABS: POTASSIUM 4.4 mmol/L (3.5-5.1)
[2023-09-30 10:41] LABS: CALCIUM 8.7 mg/dL (8.5-10.1)
[2023-09-30 10:42] LABS: ALBUMIN 2.4 g/dl (3.4-5.0)
[2023-09-30 10:45] LABS: CREATININE 5.6 mg/dL (0.55-1.3)
[2023-09-30 10:47] LABS: BILIRUBIN,TOTAL 0.6 mg/dL (0.2-1); TOT PROT 6.7 g/dl (6.4-8.2)
[2023-09-30] MEDS: FERROUS SO4 325 MG TABLET (FP) PO SCH (10:50)
[2023-09-30 13:47] LABS: ANISOCYTOSIS 2+; MACROCYTOSIS 0
[2023-09-30] MEDS: VANCOMYCIN/WATER FOR INJ (PEG) 1,000 MG/200 ML BAG IVPB ONE (15:25)
[2023-09-30] MEDS: PIPERACILLIN/TAZOB 2.25 GM 2.25 GM in DEXTROSE 5%-WATER - 50 ML IVPB SCH (15:32)
[2023-09-30] MEDS: CEFTAROLINE FOSAMIL ACETATE 200 MG in DEXTROSE 5%-WATER - 100 ML IVPB SCH (17:36)
[2023-10-01] MEDS: ACETAMINOPHEN 1000 MG/100 ML BAG IVPB ONE (02:00)
[2023-10-01] MEDS ORDERED: SODIUM CHLORIDE 250 ML IV PRN (11:29)
[2023-10-01] MEDS: EPOETIN ALFA-EPBX 4,000 UNIT/ML VIAL IVPUSH ONE (12:30)
[2023-10-02] MEDS ORDERED: INSULIN (NOVOLOG) ASPART 100 UNITS/ML 10ML VIAL ONE (11:40)
[2023-10-03 08:22] LABS: HEMATOCRIT 21.1 % (32.4-45.2); MCH 31.2 pg (25.7-33.7); MCHC 33.3 g/dl (32.0-36.0); MEAN CELL VOLUME 93.8 fl (80-96); MEAN PLT VOLUME 7.3 fl (7.5-11.1); PLATELET COUNT 224 10^3/uL (134-434); RBC 2.25 M/mm3 (3.60-5.2); RDW 19.1 % (11.6-15.6); WHITE BLOOD COUNT 5.2 K/mm3 (4.0-10.0)
[2023-10-03 08:41] LABS: ALBUMIN 2.2 g/dl (3.4-5.0); BLOOD UREA NITROGEN 32.1 mg/dL (7-18); CALCIUM 8.1 mg/dL (8.5-10.1)
[2023-10-03 08:44] LABS: CREATININE 6.1 mg/dL (0.55-1.3)
[2023-10-03 08:46] LABS: BILIRUBIN,TOTAL 0.9 mg/dL (0.2-1); TOT PROT 5.6 g/dl (6.4-8.2)
[2023-10-03] MEDS ORDERED: SODIUM CHLORIDE 250 ML IV PRN (09:09)
[2023-10-03] MEDS: EPOETIN ALFA-EPBX 4,000 UNIT/ML VIAL IVPUSH ONE (10:47)
[2023-10-03] MEDS: VANCOMYCIN/WATER 1250 MG 1,250 MG/250 ML BAG IVPB ONE (10:48)
[2023-10-03] MEDS: MINERAL OIL/PET HY-PHL TOPICAL OINTMENT 454 GM JAR TP SCH (14:53)
[2023-10-04] MEDS: diphenhydrAMINE HCL 25 MG CAPSULE (FP) PO PRN (16:48)
[2023-10-04] MEDS ORDERED: SODIUM CHLORIDE 250 ML IV PRN (17:45)
[2023-10-05] MEDS: EPOETIN ALFA-EPBX 10,000 UNIT/ML VIAL IVPUSH ONE (09:15)
[2023-10-05] MEDS: VANCOMYCIN/WATER 1250 MG 1,250 MG/250 ML BAG IVPB ONE (13:31)
[2023-10-06 13:49] VITALS: BP 168/78; PULSE 86; RESP 16; TEMP 99
== END 2023-10-06 14:30 | DRG 175 ==
LOC: JER 17:28 → JERBED 20:41 → J4S 09-29 02:10 → OBSVTOIN 10-01 10:17 → J7W 10-01 17:20
PROVIDERS: ADMIT Internal Medicine; ATTEND Family Medicine
PROC: 30233N1 Transfusion of Nonautologous Red Blood Cells into Peripheral Vein, Percutaneous Approach (ICD-10-PCS; 2023-10-03)
PROC: 5A1D70Z Performance of Urinary Filtration, Intermittent, Less than 6 Hours Per Day (ICD-10-PCS; principal; 2023-10-05)
DX: I26.90 Septic pulmonary embolism without acute cor pulmonale (principal); J18.9 Pneumonia, unspecified organism; N18.6 End stage renal disease; I13.2 Hypertensive heart and chronic kidney disease with heart failure and with stage 5 chronic kidney disease, or end stage renal disease; R78.81 Bacteremia; I38 Endocarditis, valve unspecified; J98.4 Other disorders of lung; I25.10 Atherosclerotic heart disease of native coronary artery without angina pectoris; J44.9 Chronic obstructive pulmonary disease, unspecified; E11.9 Type 2 diabetes mellitus without complications; A49.02 Methicillin resistant Staphylococcus aureus infection, unspecified site; D64.9 Anemia, unspecified; E78.5 Hyperlipidemia, unspecified; Z95.5 Presence of coronary angioplasty implant and graft; Z99.2 Dependence on renal dialysis
CPT/HCPCS: 0241U-QW; 36415; 36430; 71045-TC-FY; 71250-TC; 80053; 82272; 82550; 82728; 82803; 82962; 83540; 83550; 83880; 84484; 85025; 85027; 85610; 85730; 86480; 86850; 86870; 86880; 86900; 86901; 86902; 86922; 87040; 93005; 93010; 93306-TC; 94640; 99285-25; G0378; G0480; J0131; P9058; Q5106

== ENCOUNTER 2023-10-07 19:38 | Emergency (ER) | payer OTHER ==
[2023-10-07 19:42] VITALS: BMI 34.9
[2023-10-07] MEDS ORDERED: ACETAMINOPHEN 325 MG TABLET (FP) ONE (21:01)
[2023-10-07 21:33] LABS: BASO % 0.8 % (0-2.0); EOS % 2.3 % (0-4.5); HEMATOCRIT 24.3 % (32.4-45.2); LYMPH % 11.6 % (8-40); MCH 30.9 pg (25.7-33.7); MCHC 32.8 g/dl (32.0-36.0); MEAN CELL VOLUME 94.1 fl (80-96); MEAN PLT VOLUME 6.8 fl (7.5-11.1); MONO % 8.5 % (3.8-10.2); NEUT % 76.8 % (42.8-82.8); PLATELET COUNT 184 10^3/uL (134-434); RBC 2.58 M/mm3 (3.60-5.2); RDW 19.3 % (11.6-15.6); WHITE BLOOD COUNT 6.1 K/mm3 (4.0-10.0)
[2023-10-07] MEDS: ACETAMINOPHEN 325 MG TABLET (FP) PO ONE (21:33)
[2023-10-07 21:48] LABS: POTASSIUM 4.5 mmol/L (3.5-5.1)
[2023-10-07 21:51] LABS: ALBUMIN 2.5 g/dl (3.4-5.0); BLOOD UREA NITROGEN 48.9 mg/dL (7-18); CALCIUM 8.4 mg/dL (8.5-10.1)
[2023-10-07 21:55] LABS: BILIRUBIN,TOTAL 0.6 mg/dL (0.2-1)
[2023-10-07 21:56] LABS: TOT PROT 6.3 g/dl (6.4-8.2)
[2023-10-08 06:46] VITALS: BP 155/74; PULSE 75; RESP 15; TEMP 96
== END 2023-10-08 06:57 | disposition home or self-care (01) ==
LOC: JER 19:38
DX: R07.9 Chest pain, unspecified (principal)
CPT/HCPCS: 36415; 80053; 84484; 85025; 93005; 93010; 99284-25

== ENCOUNTER 2023-10-15 03:53 | Emergency (ER) | payer OTHER ==
[2023-10-15 04:01] VITALS: BMI 34.7
[2023-10-15] MEDS: morphine CARPU-JECT 2 MG/1 ML DISP.SYRIN IVPUSH ONE (04:50)
[2023-10-15] MEDS: morphine CARPU-JECT 2 MG/1 ML DISP.SYRIN IM ONE (04:50)
[2023-10-15 06:35] LABS: POTASSIUM 5.1 mmol/L (3.5-5.1)
[2023-10-15 06:38] LABS: ALBUMIN 2.9 g/dl (3.4-5.0); BLOOD UREA NITROGEN 53.6 mg/dL (7-18); MAGNESIUM 2.3 mg/dL (1.8-2.4)
[2023-10-15 06:41] LABS: CREATININE 7.2 mg/dL (0.55-1.3)
[2023-10-15 06:42] LABS: BILIRUBIN,TOTAL 0.6 mg/dL (0.2-1); TOT PROT 6.3 g/dl (6.4-8.2)
[2023-10-15 06:45] LABS: BASO % 1.1 % (0-2.0); EOS % 7.9 % (0-4.5); HEMATOCRIT 23.1 % (32.4-45.2); HEMOGLOBIN 7.5 GM/dL (10.7-15.3); LYMPH % 11.5 % (8-40); MCH 31.6 pg (25.7-33.7); MCHC 32.3 g/dl (32.0-36.0); MEAN CELL VOLUME 97.9 fl (80-96); MEAN PLT VOLUME 7.6 fl (7.5-11.1); MONO % 7.7 % (3.8-10.2); NEUT % 71.8 % (42.8-82.8); PLATELET COUNT 149 10^3/uL (134-434); RBC 2.36 M/mm3 (3.60-5.2); RDW 21.2 % (11.6-15.6); WHITE BLOOD COUNT 5.6 K/mm3 (4.0-10.0)
[2023-10-15 08:23] VITALS: TEMP 98.3
[2023-10-15 09:05] LABS: ANISOCYTOSIS 2+; MACROCYTOSIS 0
[2023-10-15 11:14] VITALS: RESP 20
[2023-10-15 13:55] VITALS: BP 160/91; PULSE 91
[2023-10-15] MEDS ORDERED: ALBUTEROL SO4 2.5/IPRATROPIUM 0.5 INH SOL 3 ML VIAL.NEB. NEB ONE (14:03)
[2023-10-15] MEDS: ALBUTEROL SO4 2.5/IPRATROPIUM 0.5 INH SOL 3 ML VIAL.NEB. NEB ONE (14:07)
== END 2023-10-15 17:48 | disposition home or self-care (01) ==
LOC: JER 03:53
PROC: 3E030GC Introduction of Other Therapeutic Substance into Peripheral Vein, Open Approach (ICD-10-PCS; principal; 2023-10-15)
PROC: 3E0F7GC Introduction of Other Therapeutic Substance into Respiratory Tract, Via Natural or Artificial Opening (ICD-10-PCS; 2023-10-15)
DX: R07.9 Chest pain, unspecified (principal); I12.0 Hypertensive chronic kidney disease with stage 5 chronic kidney disease or end stage renal disease; E11.22 Type 2 diabetes mellitus with diabetic chronic kidney disease; N18.6 End stage renal disease; Z99.2 Dependence on renal dialysis; Z79.4 Long term (current) use of insulin; R06.02 Shortness of breath; M79.10 Myalgia, unspecified site
CPT/HCPCS: 36415; 71045-TC-FY; 80053; 83735; 84484; 85025; 86780; 93005; 93010; 99285-25

== ENCOUNTER 2023-10-15 23:46 | Observation (INO) | payer OTHER ==
[2023-10-16 01:21] LABS: BASO % 0.5 % (0-2.0); HEMATOCRIT 24.3 % (32.4-45.2); HEMOGLOBIN 7.9 GM/dL (10.7-15.3); LYMPH % 6.2 % (8-40); MCH 31.9 pg (25.7-33.7); MCHC 32.5 g/dl (32.0-36.0); MEAN PLT VOLUME 7.2 fl (7.5-11.1); MONO % 7.9 % (3.8-10.2); NEUT % 82.4 % (42.8-82.8); PLATELET COUNT 160 10^3/uL (134-434); RBC 2.48 M/mm3 (3.60-5.2); RDW 21.4 % (11.6-15.6); WHITE BLOOD COUNT 6.4 K/mm3 (4.0-10.0)
[2023-10-16 06:22] LABS: ALBUMIN 2.8 g/dl (3.4-5.0); ALK PHOS 107 U/L (45-117); ANION GAP 6 mmol/L (4-13); BILIRUBIN,TOTAL 0.6 mg/dL (0.2-1); BLOOD UREA NITROGEN 69.4 mg/dL (7-18); CALCIUM 8.7 mg/dL (8.5-10.1); CHLORIDE 107 mmol/L (98-107); CO2 23 mmol/L (21-32); CREATININE 8.6 mg/dL (0.55-1.3); GLUCOSE,RANDOM 93 mg/dL (74-106); POTASSIUM 6.6 mmol/L (3.5-5.1); SGOT/AST 21 U/L (15-37); SGPT/ALT 12 U/L (13-61); SODIUM 137 mmol/L (136-145); TOT PROT 6.2 g/dl (6.4-8.2)
[2023-10-16] MEDS ORDERED: SODIUM ZIRCONIUM CYCLOSILICATE (LOKELMA) 5 GM PACKET ONE (06:45)
[2023-10-16] MEDS ORDERED: DEXTROSE 50%-WATER 25 GM/50 ML DISP.SYRIN ONE (06:45)
[2023-10-16] MEDS ORDERED: CALCIUM GLUCONATE 10% - 1,000 MG/10 ML VIAL ONE (06:45)
[2023-10-16] MEDS ORDERED: INSULIN REGULAR HUMAN 100 UNITS/ML *VIAL ONE (06:46)
[2023-10-16] MEDS: INSULIN REGULAR HUMAN 100 UNITS/ML *VIAL IVPUSH ONE (06:57)
[2023-10-16] MEDS: CALCIUM GLUCONATE 10% - 1,000 MG/10 ML VIAL IVPB ONE (06:57)
[2023-10-16] MEDS: DEXTROSE 50%-WATER - 25 GM/50 ML VIAL IVPUSH ONE (06:57)
[2023-10-16 09:14] LABS: MAGNESIUM 2.8 mg/dL (1.8-2.4)
[2023-10-16 09:18] LABS: PHOSPHOROUS 5.8 mg/dL (2.5-4.9)
[2023-10-16] MEDS ORDERED: SODIUM ZIRCONIUM CYCLOSILICATE (LOKELMA) 5 GM PACKET PO SCH (10:00)
[2023-10-16] MEDS ORDERED: SODIUM CHLORIDE 250 ML IV PRN (10:05)
[2023-10-16] MEDS: ACETAMINOPHEN 325 MG TABLET (FP) PO PRN (10:10)
[2023-10-16] MEDS ORDERED: ACETAMINOPHEN 325 MG TABLET (FP) ONE (10:10)
[2023-10-16] MEDS: EPOETIN ALFA-EPBX 4,000 UNIT/ML VIAL IVPUSH ONE (13:44)
[2023-10-16] MEDS: INSULIN ASPART SLIDING SCALE (NOVOLOG) 1 VIAL SQ SCH (15:34)
[2023-10-16] MEDS: SEVELAMER CARBONATE 800 MG TAB (FP) PO SCH (15:34)
[2023-10-16] MEDS ORDERED: ASPIRIN COATED 81 MG TABLET.EC ONE (15:36)
[2023-10-16] MEDS: ASPIRIN COATED 81 MG TABLET.EC PO SCH (15:37)
[2023-10-16] MEDS ORDERED: ISOSORBIDE MONONITRATE 60 MG TAB.SR.24H (FP) PO ONE (15:37)
[2023-10-16] MEDS: ISOSORBIDE MONONITRATE 60 MG TAB.SR.24H (FP) PO SCH (15:38)
[2023-10-16] MEDS: ALBUTEROL SO4 2.5/IPRATROPIUM 0.5 INH SOL 3 ML VIAL.NEB. NEB SCH (15:39)
[2023-10-16 18:22] VITALS: BMI 40.2
[2023-10-16] MEDS: ATORVASTATIN CA 80 MG TABLET (FP) PO SCH (21:56)
[2023-10-16] MEDS: HEPARIN NA (PORCINE) 5,000 UNITS/ML 1ML VIAL SQ SCH (21:56)
[2023-10-16] MEDS: MELATONIN 5 MG TABLETS PO SCH (21:56)
[2023-10-16] MEDS: MIRTAZAPINE 15 MG TABLET (FP) PO SCH (21:56)
[2023-10-16] MEDS: CALCIUM GLUCONATE 10% - 1,000 MG/10 ML VIAL IVPUSH ONE (21:57)
[2023-10-16] MEDS: SODIUM ZIRCONIUM CYCLOSILICATE (LOKELMA) 5 GM PACKET PO ONE (21:57)
[2023-10-17] MEDS ORDERED: VANCOMYCIN/WATER 1250 MG 1,250 MG/250 ML BAG IVPB SCH (10:00)
[2023-10-17] MEDS: VANCOMYCIN/WATER 1250 MG 1,250 MG/250 ML BAG IVPB SCH (10:17)
[2023-10-17] MEDS: CALCITRIOL 0.25 MCG CAPSULE (FP) PO SCH (10:19)
[2023-10-17] MEDS: FOLIC ACID 1 MG TABLET (FP) PO SCH (10:20)
[2023-10-17] MEDS: FAMOTIDINE 10 MG TABLET PO SCH (10:20)
[2023-10-17] MEDS: EZETIMIBE 10 MG TABLET (FP) PO SCH (10:20)
[2023-10-17 12:45] LABS: EOS % 8.5 % (0-4.5); HEMATOCRIT 24.7 % (32.4-45.2); LYMPH % 11.9 % (8-40); MCHC 32.5 g/dl (32.0-36.0); MEAN CELL VOLUME 98.3 fl (80-96); MEAN PLT VOLUME 7.9 fl (7.5-11.1); NEUT % 69.6 % (42.8-82.8); PLATELET COUNT 179 10^3/uL (134-434); RBC 2.51 M/mm3 (3.60-5.2); RDW 21.6 % (11.6-15.6)
[2023-10-17 13:54] LABS: BLOOD UREA NITROGEN 32.8 mg/dL (7-18); CALCIUM 9.1 mg/dL (8.5-10.1); CREATININE 5.3 mg/dL (0.55-1.3); POTASSIUM 4.6 mmol/L (3.5-5.1)
[2023-10-17 15:33] VITALS: RESP 18
[2023-10-17] MEDS ORDERED: SODIUM CHLORIDE 250 ML IV PRN (17:01)
[2023-10-18] MEDS: EPOETIN ALFA-EPBX 3,000 UNIT/ML VIAL IVPUSH ONE (09:50)
[2023-10-18 20:37] VITALS: BP 172/93; PULSE 80; TEMP 98.5
[2023-10-19] MEDS ORDERED: SODIUM CHLORIDE 250 ML IV PRN (15:35)
[2023-10-19] MEDS ORDERED: EPOETIN ALFA-EPBX 10,000 UNIT/ML VIAL SQ ONE (15:35)
== END 2023-10-19 18:47 ==
LOC: JER 23:46 → JERBED 10-16 05:24 → J6S 10-16 16:26
PROVIDERS: ADMIT Internal Medicine; ATTEND Internal Medicine
PROC: 3E0337Z Introduction of Electrolytic and Water Balance Substance into Peripheral Vein, Percutaneous Approach (ICD-10-PCS; principal; 2023-10-16)
PROC: 3E033GC Introduction of Other Therapeutic Substance into Peripheral Vein, Percutaneous Approach (ICD-10-PCS; 2023-10-16)
PROC: 3E033VG Introduction of Insulin into Peripheral Vein, Percutaneous Approach (ICD-10-PCS; 2023-10-16)
DX: N18.6 End stage renal disease (principal); I12.0 Hypertensive chronic kidney disease with stage 5 chronic kidney disease or end stage renal disease; Z99.2 Dependence on renal dialysis; I25.10 Atherosclerotic heart disease of native coronary artery without angina pectoris; I11.9 Hypertensive heart disease without heart failure; J44.9 Chronic obstructive pulmonary disease, unspecified; E11.22 Type 2 diabetes mellitus with diabetic chronic kidney disease; N20.0 Calculus of kidney; D64.9 Anemia, unspecified; Z88.8 Allergy status to other drugs, medicaments and biological substances; R07.9 Chest pain, unspecified; Z87.440 Personal history of urinary (tract) infections; Z87.891 Personal history of nicotine dependence; E78.5 Hyperlipidemia, unspecified; Z86.14 Personal history of Methicillin resistant Staphylococcus aureus infection
CPT/HCPCS: 36415; 71045-TC-FY; 71250-TC; 80048; 80053; 82962; 83735; 84100; 84484; 85025; 93005; 93010; 94640; 96361; 96365; 96367; 96375; 96376; 99285-25; G0378; J1644; Q5106

== ENCOUNTER 2023-11-11 07:20 | Inpatient (IN) | payer OTHER ==
[2023-11-11] MEDS ORDERED: ALBUTEROL SO4 2.5/IPRATROPIUM 0.5 INH SOL 3 ML VIAL.NEB. NEB ONE (08:58)
[2023-11-11] MEDS: ALBUTEROL SO4 2.5/IPRATROPIUM 0.5 INH SOL 3 ML VIAL.NEB. NEB ONE (09:15)
[2023-11-11 09:38] LABS: BASO % 0.8 % (0-2.0); EOS % 5.1 % (0-4.5); HEMATOCRIT 29.6 % (32.4-45.2); HEMOGLOBIN 9.8 GM/dL (10.7-15.3); LYMPH % 12.8 % (8-40); MCH 33.2 pg (25.7-33.7); MCHC 33.1 g/dl (32.0-36.0); MEAN CELL VOLUME 100.4 fl (80-96); MONO % 14.6 % (3.8-10.2); NEUT % 66.7 % (42.8-82.8); PLATELET COUNT 167 10^3/uL (134-434); RBC 2.95 M/mm3 (3.60-5.2); RDW 17.8 % (11.6-15.6); WHITE BLOOD COUNT 3.5 K/mm3 (4.0-10.0)
[2023-11-11 09:45] LABS: INR 1.01 (0.83-1.09); PROTHROMBIN TIME (PATIENT) 11.4 SEC (9.7-13.0)
[2023-11-11 09:48] LABS: ACTIVATED PTT 33.2 SECONDS (25.2-36.5)
[2023-11-11 09:51] LABS: POTASSIUM 4.5 mmol/L (3.5-5.1)
[2023-11-11 09:53] LABS: BLOOD UREA NITROGEN 65.9 mg/dL (7-18); CALCIUM 9.2 mg/dL (8.5-10.1)
[2023-11-11 09:54] LABS: ALBUMIN 3.7 g/dl (3.4-5.0); MAGNESIUM 2.4 mg/dL (1.8-2.4)
[2023-11-11 09:58] LABS: BILIRUBIN,TOTAL 0.5 mg/dL (0.2-1); CREATININE 6.5 mg/dL (0.55-1.3); PHOSPHOROUS 8.2 mg/dL (2.5-4.9); TOT PROT 7.6 g/dl (6.4-8.2)
[2023-11-11 10:02] LABS: N-TERMINAL BNP 16348.6 pg/ml (5-125)
[2023-11-11] MEDS ORDERED: ACETAMINOPHEN INJECTION 100 ML IVPB ONE (10:24)
[2023-11-11] MEDS ORDERED: ALBUTEROL SO4 0.083% IH SOL 2.5 MG/3 ML VIAL.NEB. NEB ONE (10:24)
[2023-11-11] MEDS: ALBUTEROL SO4 0.083% IH SOL 2.5 MG/3 ML VIAL.NEB. NEB ONE (10:29)
[2023-11-11] MEDS: ACETAMINOPHEN 1000 MG/100 ML BAG IVPB ONE (10:29)
[2023-11-11] MEDS ORDERED: cefTRIAXone SODIUM 1 GM VIAL ONE (10:42)
[2023-11-11] MEDS ORDERED: methylPREDNISolone NA SUCC 125 MG/2 ML VIAL ONE ×2 (10:43→10:50)
[2023-11-11] MEDS ORDERED: AZITHROMYCIN IVPB 500 MG/250 ML BAG IVPB ONE (10:43)
[2023-11-11] MEDS: methylPREDNISolone NA SUCC 125 MG/2 ML VIAL IVPB ONE (11:05)
[2023-11-11] MEDS: AZITHROMYCIN IVPB 500 MG in DEXTROSE 5%-WATER - 250 ML IVPB ONE (11:48)
[2023-11-11] MEDS ORDERED: PATIENT'S OWN MEDICATION (NON-FORMULARY) (Ferrous Sulfate [Ferrous Sulfate] 325 MG Tablet) PO SCH (16:30)
[2023-11-11] MEDS ORDERED: SEVELAMER CARBONATE 800 MG TAB (FP) ONE (17:58)
[2023-11-11] MEDS: SEVELAMER CARBONATE 800 MG TAB (FP) PO SCH (18:00)
[2023-11-11] MEDS: ALBUTEROL SO4 2.5/IPRATROPIUM 0.5 INH SOL 3 ML VIAL.NEB. NEB PRN (20:27)
[2023-11-11] MEDS: guaiFENesin/D-METHORPHAN HB 10 ML UNIT-DOSE CUPS PO PRN (21:53)
[2023-11-11] MEDS: ATORVASTATIN CA 80 MG TABLET (FP) PO SCH (21:53)
[2023-11-11] MEDS: MIRTAZAPINE 15 MG TABLET (FP) PO SCH (21:53)
[2023-11-12] MEDS ORDERED: SODIUM CHLORIDE 250 ML IV PRN (08:44)
[2023-11-12 09:29] VITALS: BMI 38.0
[2023-11-12 11:06] LABS: HEMATOCRIT 26.2 % (32.4-45.2); HEMOGLOBIN 8.6 GM/dL (10.7-15.3); MCHC 32.9 g/dl (32.0-36.0); MEAN CELL VOLUME 100.6 fl (80-96); MEAN PLT VOLUME 7.8 fl (7.5-11.1); PLATELET COUNT 157 10^3/uL (134-434); RDW 17.7 % (11.6-15.6)
[2023-11-12 11:28] LABS: CHLORIDE 103 mmol/L (98-107); POTASSIUM 4.4 mmol/L (3.5-5.1); SODIUM 138 mmol/L (136-145)
[2023-11-12 11:30] LABS: CALCIUM 8.7 mg/dL (8.5-10.1)
[2023-11-12 11:31] LABS: ALBUMIN 3.5 g/dl (3.4-5.0); ANION GAP 14 mmol/L (4-13); BLOOD UREA NITROGEN 88.8 mg/dL (7-18); CO2 21 mmol/L (21-32); GLUCOSE,RANDOM 93 mg/dL (74-106)
[2023-11-12 11:34] LABS: SGOT/AST 16 U/L (15-37); SGPT/ALT 18 U/L (13-61)
[2023-11-12 11:36] LABS: BILIRUBIN,TOTAL 0.5 mg/dL (0.2-1)
[2023-11-12 11:37] LABS: ALK PHOS 90 U/L (45-117)
[2023-11-12 11:38] LABS: CREATININE 8.1 mg/dL (0.55-1.3)
[2023-11-12] MEDS: FOLIC ACID 1 MG TABLET (FP) PO SCH (13:31)
[2023-11-12] MEDS: CALCITRIOL 0.25 MCG CAPSULE (FP) PO SCH (13:32)
[2023-11-12] MEDS: ASPIRIN COATED 81 MG TABLET.EC PO SCH (13:32)
[2023-11-12] MEDS: EZETIMIBE 10 MG TABLET (FP) PO SCH (13:32)
[2023-11-12] MEDS: FLUTICASONE/UMECLIDIN/VILANTER(200-62.5-25 TRELEGY ELLIPTA) INAHLER IH SCH (13:32)
[2023-11-12] MEDS: ISOSORBIDE MONONITRATE 60 MG TAB.SR.24H (FP) PO SCH (13:32)
[2023-11-12] MEDS: diphenhydrAMINE HCL 25 MG CAPSULE (FP) PO PRN (21:56)
[2023-11-13] MEDS: FERROUS SO4 325 MG TABLET (FP) PO SCH (10:06)
[2023-11-13 12:23] LABS: BASO % 0.7 % (0-2.0); EOS % 3.9 % (0-4.5); HEMATOCRIT 27.6 % (32.4-45.2); HEMOGLOBIN 9.3 GM/dL (10.7-15.3); LYMPH % 15.9 % (8-40); MCH 33.2 pg (25.7-33.7); MCHC 33.8 g/dl (32.0-36.0); MEAN CELL VOLUME 98.4 fl (80-96); MEAN PLT VOLUME 7.4 fl (7.5-11.1); MONO % 13.6 % (3.8-10.2); NEUT % 65.9 % (42.8-82.8); PLATELET COUNT 156 10^3/uL (134-434); RDW 17.3 % (11.6-15.6); WHITE BLOOD COUNT 4.1 K/mm3 (4.0-10.0)
[2023-11-13 12:40] LABS: POTASSIUM 3.7 mmol/L (3.5-5.1)
[2023-11-13 12:42] LABS: CALCIUM 9.2 mg/dL (8.5-10.1)
[2023-11-13 12:43] LABS: ALBUMIN 3.5 g/dl (3.4-5.0)
[2023-11-13 12:46] LABS: CREATININE 5.2 mg/dL (0.55-1.3)
[2023-11-13 12:47] LABS: TOT PROT 7.1 g/dl (6.4-8.2)
[2023-11-13 12:48] LABS: BILIRUBIN,TOTAL 0.7 mg/dL (0.2-1)
[2023-11-13] MEDS ORDERED: SODIUM CHLORIDE 250 ML IV PRN (13:02)
[2023-11-13] MEDS ORDERED: SIMETHICONE 80 MG TAB.CHEW (FP) PO PRN (13:04)
[2023-11-13 16:32] VITALS: TEMP 97.8
[2023-11-14 07:52] VITALS: RESP 20
[2023-11-14] MEDS: EPOETIN ALFA-EPBX 4,000 UNIT/ML VIAL IVPUSH ONE (10:44)
[2023-11-14 11:35] VITALS: PULSE 72
[2023-11-14 12:07] LABS: BASO % 0.5 % (0-2.0); EOS % 6.2 % (0-4.5); HEMATOCRIT 23.4 % (32.4-45.2); HEMOGLOBIN 7.9 GM/dL (10.7-15.3); LYMPH % 23.4 % (8-40); MCH 33.1 pg (25.7-33.7); MCHC 33.6 g/dl (32.0-36.0); MEAN CELL VOLUME 98.3 fl (80-96); MEAN PLT VOLUME 7.7 fl (7.5-11.1); MONO % 12.1 % (3.8-10.2); NEUT % 57.8 % (42.8-82.8); PLATELET COUNT 132 10^3/uL (134-434); RBC 2.38 M/mm3 (3.60-5.2); WHITE BLOOD COUNT 3.9 K/mm3 (4.0-10.0)
[2023-11-14 12:41] LABS: POTASSIUM 3.8 mmol/L (3.5-5.1)
[2023-11-14 12:45] LABS: BLOOD UREA NITROGEN 61.5 mg/dL (7-18); CALCIUM 8.4 mg/dL (8.5-10.1)
[2023-11-14 12:48] LABS: CREATININE 6.4 mg/dL (0.55-1.3)
[2023-11-14 12:50] LABS: BILIRUBIN,TOTAL 0.6 mg/dL (0.2-1); TOT PROT 6.1 g/dl (6.4-8.2)
[2023-11-14] MEDS: diphenhydrAMINE HCL 25 MG CAPSULE (FP) PO PRN (14:05)
[2023-11-14] MEDS ORDERED: ALBUTEROL SO4 0.083% IH SOL 2.5 MG/3 ML VIAL.NEB. NEB PRN (15:19)
[2023-11-14 22:15] VITALS: BP 121/64
[2023-11-15] MEDS: methylPREDNISolone NA SUCC 125 MG/2 ML VIAL IVPUSH ONE (06:57)
[2023-11-15] MEDS ORDERED: SODIUM CHLORIDE 250 ML IV PRN (10:13)
[2023-11-15] MEDS ORDERED: EPOETIN ALFA-EPBX 4,000 UNIT/ML VIAL IVPUSH ONE (10:13)
[2023-11-15] MEDS ORDERED: amLODIPine BESYLATE 5 MG TABLET (FP) PO ONE (10:22)
[2023-11-15] MEDS: amLODIPine BESYLATE 5 MG TABLET (FP) PO ONE (10:32)
== END 2023-11-15 10:35 | DRG 190 ==
LOC: JER 07:20 → JERBED 08:50 → J2W 19:13
PROVIDERS: ADMIT Family Medicine; ATTEND Family Medicine
PROC: 5A1D70Z Performance of Urinary Filtration, Intermittent, Less than 6 Hours Per Day (ICD-10-PCS; principal; 2023-11-12)
DX: J44.1 Chronic obstructive pulmonary disease with (acute) exacerbation (principal); N18.6 End stage renal disease; I13.2 Hypertensive heart and chronic kidney disease with heart failure and with stage 5 chronic kidney disease, or end stage renal disease; J44.9 Chronic obstructive pulmonary disease, unspecified; E11.22 Type 2 diabetes mellitus with diabetic chronic kidney disease; I50.9 Heart failure, unspecified; Z99.2 Dependence on renal dialysis; Z99.81 Dependence on supplemental oxygen; D64.9 Anemia, unspecified; I25.10 Atherosclerotic heart disease of native coronary artery without angina pectoris
CPT/HCPCS: 0241U-QW; 36415; 71045-TC-FY; 80053; 82550; 82962; 83735; 83880; 84100; 84484; 85025; 85027; 85610; 85730; 86705; 87040; 87340; 87633; 93005; 93010; 94640; 99285-25; J0131; Q5106

== ENCOUNTER 2023-12-03 01:58 | Observation (INO) | payer OTHER ==
[2023-12-03] MEDS ORDERED: ALBUTEROL SO4 2.5/IPRATROPIUM 0.5 INH SOL 3 ML VIAL.NEB. NEB ONE ×2 (02:37→17:38)
[2023-12-03] MEDS ORDERED: methylPREDNISolone NA SUCC 125 MG/2 ML VIAL ONE (02:37)
[2023-12-03 03:13] LABS: VENOUS BASE EXCESS -4.3 mmol/L (-2-2); VENOUS O2 SATURATION 38.1 % (70-80); VENOUS PCO2 54.3 mmHg (38-52); VENOUS PH 7.253 (7.310-7.410)
[2023-12-03] MEDS: methylPREDNISolone NA SUCC 125 MG/2 ML VIAL IVPUSH ONE (03:14)
[2023-12-03] MEDS: ALBUTEROL SO4 2.5/IPRATROPIUM 0.5 INH SOL 3 ML VIAL.NEB. NEB ONE (03:14)
[2023-12-03 03:20] LABS: INR 0.86 (0.83-1.09); PROTHROMBIN TIME (PATIENT) 9.9 SEC (9.7-13.0)
[2023-12-03 03:23] LABS: ACTIVATED PTT 34.6 SECONDS (25.2-36.5)
[2023-12-03 03:42] LABS: POTASSIUM 4.3 mmol/L (3.5-5.1)
[2023-12-03 03:44] LABS: ALBUMIN 4.7 g/dl (3.4-5.0); BLOOD UREA NITROGEN 96.1 mg/dL (7-18); CALCIUM 10.6 mg/dL (8.5-10.1)
[2023-12-03 03:45] LABS: MAGNESIUM 3.3 mg/dL (1.8-2.4)
[2023-12-03 03:47] LABS: CREATININE 6.7 mg/dL (0.55-1.3)
[2023-12-03 03:48] LABS: PHOSPHOROUS 7.6 mg/dL (2.5-4.9)
[2023-12-03 03:49] LABS: BILIRUBIN,TOTAL 0.6 mg/dL (0.2-1); TOT PROT 9.3 g/dl (6.4-8.2)
[2023-12-03 03:52] LABS: N-TERMINAL BNP 12169.7 pg/ml (5-125)
[2023-12-03 03:53] LABS: BASO % 1.1 % (0-2.0); EOS % 4.4 % (0-4.5); HEMATOCRIT 37.5 % (32.4-45.2); HEMOGLOBIN 12.3 GM/dL (10.7-15.3); LYMPH % 9.4 % (8-40); MCH 32.8 pg (25.7-33.7); MCHC 32.8 g/dl (32.0-36.0); MEAN CELL VOLUME 100.1 fl (80-96); MONO % 5.1 % (3.8-10.2); PLATELET COUNT 222 10^3/uL (134-434); RBC 3.75 M/mm3 (3.60-5.2); RDW 17.1 % (11.6-15.6); WHITE BLOOD COUNT 6.8 K/mm3 (4.0-10.0)
[2023-12-03] MEDS ORDERED: ALBUTEROL SO4 HFA INHALER IH PRN (05:39)
[2023-12-03] MEDS: SEVELAMER CARBONATE 800 MG TAB (FP) PO SCH (08:59)
[2023-12-03] MEDS ORDERED: SODIUM CHLORIDE 250 ML IV PRN (10:29)
[2023-12-03] MEDS: FOLIC ACID 1 MG TABLET (FP) PO SCH (10:42)
[2023-12-03] MEDS: FAMOTIDINE 10 MG TABLET PO SCH (10:42)
[2023-12-03] MEDS: ASPIRIN COATED 81 MG TABLET.EC PO SCH (10:42)
[2023-12-03] MEDS: ASCORBIC ACID 500 MG TABLET (FP) PO SCH (10:43)
[2023-12-03] MEDS: ISOSORBIDE MONONITRATE 60 MG TAB.SR.24H (FP) PO SCH (10:43)
[2023-12-03] MEDS: EZETIMIBE 10 MG TABLET (FP) PO SCH (10:43)
[2023-12-03] MEDS: ALBUTEROL SO4 2.5/IPRATROPIUM 0.5 INH SOL 3 ML VIAL.NEB. NEB SCH (17:54)
[2023-12-03] MEDS: BUDESONIDE/FORMETEROL FUMARATE 160/4.5 mcg INHALER IH SCH (21:53)
[2023-12-03] MEDS: MELATONIN 5 MG TABLETS PO PRN (21:53)
[2023-12-03] MEDS: MIRTAZAPINE 15 MG TABLET (FP) PO SCH (21:53)
[2023-12-03] MEDS: ATORVASTATIN CA 80 MG TABLET (FP) PO SCH (21:53)
[2023-12-03 22:56] VITALS: BMI 36.9
[2023-12-04] MEDS: hydrALAZINE HCL 50 MG TABLET (FP) PO SCH (13:45)
[2023-12-04] MEDS ORDERED: HEPARIN NA (PORCINE) 5,000 UNITS/ML 1ML VIAL SQ SCH (14:00)
[2023-12-04 15:46] VITALS: BP 150/73; PULSE 77; RESP 16; TEMP 98.4
== END 2023-12-04 14:45 ==
LOC: JER 01:58 → INTOOBSV 04:01 → UNDOADMOB 04:01 → JERBED 04:01 → J4W 19:48
PROVIDERS: ADMIT Internal Medicine; ATTEND Internal Medicine
PROC: 3E033GC Introduction of Other Therapeutic Substance into Peripheral Vein, Percutaneous Approach (ICD-10-PCS; principal; 2023-12-03)
PROC: 3E0F7SF Introduction of Other Gas into Respiratory Tract, Via Natural or Artificial Opening (ICD-10-PCS; 2023-12-03)
DX: J96.11 Chronic respiratory failure with hypoxia (principal); J44.1 Chronic obstructive pulmonary disease with (acute) exacerbation; E11.22 Type 2 diabetes mellitus with diabetic chronic kidney disease; I13.2 Hypertensive heart and chronic kidney disease with heart failure and with stage 5 chronic kidney disease, or end stage renal disease; I50.9 Heart failure, unspecified; N18.6 End stage renal disease; Z99.2 Dependence on renal dialysis; Z79.4 Long term (current) use of insulin; E78.5 Hyperlipidemia, unspecified; I45.81 Long QT syndrome; J81.0 Acute pulmonary edema; I25.10 Atherosclerotic heart disease of native coronary artery without angina pectoris; Z86.14 Personal history of Methicillin resistant Staphylococcus aureus infection; Z86.19 Personal history of other infectious and parasitic diseases; Z99.81 Dependence on supplemental oxygen; Z95.5 Presence of coronary angioplasty implant and graft; Z88.8 Allergy status to other drugs, medicaments and biological substances
CPT/HCPCS: 0241U-QW; 36415; 71045-TC-FY; 80053; 82803; 82962; 83735; 83880; 84100; 84484; 85025; 85610; 85730; 86705; 86803; 87340; 93005; 93010; 94640; 96374; 99285-25; G0378

== ENCOUNTER 2024-01-07 04:24 | Inpatient (IN) | payer OTHER ==
[2024-01-07 04:30] VITALS: BMI 47.5
[2024-01-07] MEDS ORDERED: methylPREDNISolone NA SUCC 125 MG/2 ML VIAL ONE (05:04)
[2024-01-07] MEDS: ALBUTEROL SO4 2.5/IPRATROPIUM 0.5 INH SOL 3 ML VIAL.NEB. NEB SCH ×2 (05:28→11:18)
[2024-01-07] MEDS: methylPREDNISolone NA SUCC 125 MG/2 ML VIAL IVPUSH ONE (05:28)
[2024-01-07 05:52] LABS: VENOUS BASE EXCESS -8.3 mmol/L (-2-2); VENOUS O2 SATURATION 55.2 % (70-80); VENOUS PCO2 56.7 mmHg (38-52)
[2024-01-07 05:55] LABS: VENOUS PH 7.175 (7.310-7.410)
[2024-01-07 06:07] LABS: POTASSIUM 4.8 mmol/L (3.5-5.1)
[2024-01-07 06:08] LABS: BASO % 0.8 % (0-2.0); EOS % 3.5 % (0-4.5); HEMATOCRIT 35.4 % (32.4-45.2); HEMOGLOBIN 11.4 GM/dL (10.7-15.3); INR 0.99 (0.83-1.09); LYMPH % 7.7 % (8-40); MCH 32.5 pg (25.7-33.7); MCHC 32.2 g/dl (32.0-36.0); MEAN CELL VOLUME 100.9 fl (80-96); MONO % 8.7 % (3.8-10.2); NEUT % 79.3 % (42.8-82.8); PLATELET COUNT 188 10^3/uL (134-434); PROTHROMBIN TIME (PATIENT) 11.2 SEC (9.7-13.0); RDW 17.3 % (11.6-15.6); WHITE BLOOD COUNT 6.5 K/mm3 (4.0-10.0)
[2024-01-07 06:10] LABS: CALCIUM 9.1 mg/dL (8.5-10.1)
[2024-01-07 06:11] LABS: ACTIVATED PTT 33.9 SECONDS (25.2-36.5); ALBUMIN 3.6 g/dl (3.4-5.0); BLOOD UREA NITROGEN 89.7 mg/dL (7-18); MAGNESIUM 2.4 mg/dL (1.8-2.4)
[2024-01-07 06:14] LABS: CREATININE 7.3 mg/dL (0.55-1.3)
[2024-01-07 06:15] LABS: BILIRUBIN,TOTAL 0.6 mg/dL (0.2-1); TOT PROT 6.9 g/dl (6.4-8.2)
[2024-01-07] MEDS ORDERED: ALBUTEROL SO4 HFA INHALER IH PRN (09:28)
[2024-01-07] MEDS ORDERED: SODIUM CHLORIDE 250 ML IV PRN ×2 (10:03→10:26)
[2024-01-07 10:36] LABS: ALLENS TEST POSITIVE; ARTERIAL BLD GAS O2 SATURATION 92.3 % (95-98); ARTERIAL BLOOD GAS BASE EXCESS -8.5 mmol/L (-2-2); ARTERIAL BLOOD GAS PO2 70.7 mmHg (80-100); ARTERIAL BLOOD GAS pH 7.277 (7.350-7.450)
[2024-01-07] MEDS ORDERED: methylPREDNISolone NA SUCC 40 MG/1 ML VIAL ONE ×2 (11:00→20:04)
[2024-01-07] MEDS ORDERED: ASPIRIN COATED 81 MG TABLET.EC ONE (11:00)
[2024-01-07] MEDS ORDERED: ASCORBIC ACID 500 MG TABLET (FP) ONE (11:00)
[2024-01-07] MEDS ORDERED: ALBUTEROL SO4 2.5/IPRATROPIUM 0.5 INH SOL 3 ML VIAL.NEB. NEB ONE ×2 (11:00→21:36)
[2024-01-07] MEDS ORDERED: ISOSORBIDE MONONITRATE 60 MG TAB.SR.24H (FP) PO ONE (11:00)
[2024-01-07] MEDS: ASPIRIN COATED 81 MG TABLET.EC PO SCH (11:18)
[2024-01-07] MEDS: ISOSORBIDE MONONITRATE 60 MG TAB.SR.24H (FP) PO SCH (11:18)
[2024-01-07] MEDS: ASCORBIC ACID 500 MG TABLET (FP) PO SCH (11:18)
[2024-01-07] MEDS: MINERAL OIL/PET HY-PHL TOPICAL OINTMENT 454 GM JAR TP SCH (11:43)
[2024-01-07] MEDS: EZETIMIBE 10 MG TABLET (FP) PO SCH (11:43)
[2024-01-07] MEDS: ALBUTEROL SULFATE 0.021% (0.63 MG/3 ML) VIAL.NEB NEB ONE (12:35)
[2024-01-07] MEDS: methylPREDNISolone NA SUCC 40 MG/1 ML VIAL IVPUSH SCH (12:35)
[2024-01-07] MEDS ORDERED: SEVELAMER CARBONATE 800 MG TAB (FP) ONE ×2 (13:45→20:04)
[2024-01-07] MEDS ORDERED: INSULIN ASPART SLIDING SCALE (NOVOLOG) 1 VIAL SQ ONE (13:46)
[2024-01-07] MEDS: INSULIN ASPART SLIDING SCALE (NOVOLOG) 1 VIAL SQ SCH (13:50)
[2024-01-07] MEDS: SEVELAMER CARBONATE 800 MG TAB (FP) PO SCH (13:51)
[2024-01-07 16:14] VITALS: RESP 18
[2024-01-07] MEDS ORDERED: MELATONIN 5 MG TABLETS ONE (21:36)
[2024-01-07] MEDS ORDERED: ATORVASTATIN CA 80 MG TABLET (FP) ONE (21:36)
[2024-01-07] MEDS ORDERED: MIRTAZAPINE 15 MG TABLET (FP) ONE (21:37)
[2024-01-07] MEDS: MELATONIN 5 MG TABLETS PO SCH (23:10)
[2024-01-07] MEDS: ATORVASTATIN CA 80 MG TABLET (FP) PO SCH (23:10)
[2024-01-07] MEDS: MIRTAZAPINE 15 MG TABLET (FP) PO SCH (23:10)
[2024-01-08] MEDS ORDERED: methylPREDNISolone NA SUCC 40 MG/1 ML VIAL ONE (02:26)
[2024-01-08] MEDS ORDERED: SEVELAMER CARBONATE 800 MG TAB (FP) ONE (08:38)
[2024-01-08] MEDS ORDERED: INSULIN ASPART SLIDING SCALE (NOVOLOG) 1 VIAL SQ ONE ×5 (08:39→19:05)
[2024-01-08] MEDS ORDERED: ALBUTEROL SO4 2.5/IPRATROPIUM 0.5 INH SOL 3 ML VIAL.NEB. NEB ONE ×2 (09:29→15:24)
[2024-01-08 11:21] LABS: HEMATOCRIT 33.5 % (32.4-45.2); HEMOGLOBIN 10.9 GM/dL (10.7-15.3); MCH 32.4 pg (25.7-33.7); MCHC 32.5 g/dl (32.0-36.0); MEAN CELL VOLUME 99.7 fl (80-96); MEAN PLT VOLUME 7.8 fl (7.5-11.1); PLATELET COUNT 178 10^3/uL (134-434); RBC 3.36 M/mm3 (3.60-5.2); WHITE BLOOD COUNT 8.6 K/mm3 (4.0-10.0)
[2024-01-08 11:43] LABS: POTASSIUM 5.1 mmol/L (3.5-5.1)
[2024-01-08 11:45] LABS: CALCIUM 9.2 mg/dL (8.5-10.1)
[2024-01-08 11:46] LABS: ALBUMIN 3.8 g/dl (3.4-5.0); BLOOD UREA NITROGEN 77.1 mg/dL (7-18); MAGNESIUM 2.3 mg/dL (1.8-2.4)
[2024-01-08 11:49] LABS: CREATININE 6.3 mg/dL (0.55-1.3); PHOSPHOROUS 6.7 mg/dL (2.5-4.9)
[2024-01-08 11:50] LABS: TOT PROT 7.3 g/dl (6.4-8.2)
[2024-01-08 11:51] LABS: BILIRUBIN,TOTAL 0.5 mg/dL (0.2-1)
[2024-01-08 12:05] LABS: ANISOCYTOSIS 0; MACROCYTOSIS 0
[2024-01-08 12:06] LABS: PLATELET ESTIMATE ADEQUATE
[2024-01-08] MEDS: FLUTICASONE/UMECLIDIN/VILANTER(200-62.5-25 TRELEGY ELLIPTA) INAHLER IH SCH (15:27)
[2024-01-08] MEDS ORDERED: ALBUTEROL SO4 2.5/IPRATROPIUM 0.5 INH SOL 3 ML VIAL.NEB. NEB SCH (21:07)
[2024-01-09] MEDS: ALBUTEROL SO4 2.5/IPRATROPIUM 0.5 INH SOL 3 ML VIAL.NEB. NEB SCH (07:46)
[2024-01-09 08:55] VITALS: TEMP 98.2
[2024-01-09] MEDS ORDERED: SODIUM CHLORIDE 250 ML IV PRN (10:00)
[2024-01-09 12:33] VITALS: BP 160/96; PULSE 80
== END 2024-01-09 18:50 | DRG 190 ==
LOC: JER 04:24 → JERBED 06:43 → OBSVTOIN 09:26 → J4S 01-08 20:27
PROVIDERS: ADMIT Family Medicine; ATTEND Family Medicine
PROC: 5A1D70Z Performance of Urinary Filtration, Intermittent, Less than 6 Hours Per Day (ICD-10-PCS; principal; 2024-01-07)
DX: J44.1 Chronic obstructive pulmonary disease with (acute) exacerbation (principal); N18.6 End stage renal disease; I13.2 Hypertensive heart and chronic kidney disease with heart failure and with stage 5 chronic kidney disease, or end stage renal disease; I50.32 Chronic diastolic (congestive) heart failure; E78.5 Hyperlipidemia, unspecified; Z99.81 Dependence on supplemental oxygen; I25.10 Atherosclerotic heart disease of native coronary artery without angina pectoris; E11.22 Type 2 diabetes mellitus with diabetic chronic kidney disease; Z99.2 Dependence on renal dialysis; Z79.4 Long term (current) use of insulin; G47.33 Obstructive sleep apnea (adult) (pediatric)
CPT/HCPCS: 0241U-QW; 36415; 36600; 71045-TC-FY; 71250-TC; 80053; 82803; 82962; 83036; 83735; 84100; 84443; 84484; 85025; 85610; 85730; 86705; 86803; 87340; 93005; 93010; 99285-25; G0378

== ENCOUNTER 2024-02-20 03:05 | Inpatient (IN) | payer OTHER ==
[2024-02-20 03:11] VITALS: BMI 54.8
[2024-02-20] MEDS ORDERED: ACETAMINOPHEN INJECTION 100 ML ONE (03:20)
[2024-02-20] MEDS: ACETAMINOPHEN 1000 MG/100 ML BAG IVPB ONE (03:34)
[2024-02-20 03:43] LABS: HEMOGLOBIN 11.8 GM/dL (10.7-15.3)
[2024-02-20 03:51] LABS: EOS % 4.2 % (0-4.5); HEMATOCRIT 36.8 % (32.4-45.2); LYMPH % 10.9 % (8-40); MCH 32.3 pg (25.7-33.7); MCHC 32.1 g/dl (32.0-36.0); MEAN CELL VOLUME 100.7 fl (80-96); MEAN PLT VOLUME 8.2 fl (7.5-11.1); MONO % 11.1 % (3.8-10.2); NEUT % 72.8 % (42.8-82.8); PLATELET COUNT 159 10^3/uL (134-434); RBC 3.66 M/mm3 (3.60-5.2); RDW 17.8 % (11.6-15.6); WHITE BLOOD COUNT 5.8 K/mm3 (4.0-10.0)
[2024-02-20 04:00] LABS: CHLORIDE 107 mmol/L (98-107); SODIUM 140 mmol/L (136-145)
[2024-02-20 04:02] LABS: ALBUMIN 4.2 g/dl (3.4-5.0); CALCIUM 9.6 mg/dL (8.5-10.1); CO2 17 mmol/L (21-32); GLUCOSE,RANDOM 124 mg/dL (74-106)
[2024-02-20 04:05] LABS: SGOT/AST 35 U/L (15-37); SGPT/ALT 33 U/L (13-61)
[2024-02-20 04:07] LABS: BILIRUBIN,TOTAL 0.7 mg/dL (0.2-1); TOT PROT 7.5 g/dl (6.4-8.2)
[2024-02-20 04:08] LABS: ALK PHOS 100 U/L (45-117)
[2024-02-20 04:10] LABS: INR 1.03 (0.83-1.09); PROTHROMBIN TIME (PATIENT) 11.6 SEC (9.7-13.0)
[2024-02-20 04:13] LABS: ACTIVATED PTT 37.1 SECONDS (25.2-36.5)
[2024-02-20 04:29] LABS: ANION GAP 16 mmol/L (4-13); BLOOD UREA NITROGEN 124.4 mg/dL (7-18); CREATININE 9.3 mg/dL (0.55-1.3); POTASSIUM 6.3 mmol/L (3.5-5.1)
[2024-02-20 05:49] LABS: CHLORIDE 109 mmol/L (98-107); SODIUM 140 mmol/L (136-145)
[2024-02-20 05:51] LABS: CALCIUM 9.1 mg/dL (8.5-10.1); CO2 18 mmol/L (21-32)
[2024-02-20 05:52] LABS: GLUCOSE,RANDOM 100 mg/dL (74-106)
[2024-02-20 06:12] LABS: ANION GAP 14 mmol/L (4-13); BLOOD UREA NITROGEN 124.8 mg/dL (7-18); CREATININE 9.1 mg/dL (0.55-1.3); POTASSIUM 6.2 mmol/L (3.5-5.1)
[2024-02-20] MEDS ORDERED: DEXTROSE 50%-WATER 25 GM/50 ML DISP.SYRIN ONE ×2 (06:45→19:30)
[2024-02-20] MEDS ORDERED: INSULIN ASPART SLIDING SCALE (NOVOLOG) 1 VIAL SQ ONE (06:45)
[2024-02-20] MEDS: DEXTROSE 50%-WATER - 25 GM/50 ML VIAL IVPUSH ONE ×2 (06:56→19:51)
[2024-02-20] MEDS: INSULIN (NOVOLOG) ASPART 100 UNITS/ML 10ML VIAL SQ ONE (06:57)
[2024-02-20] MEDS: INSULIN ASPART SLIDING SCALE (NOVOLOG) 1 VIAL SQ SCH (11:11)
[2024-02-20] MEDS ORDERED: ALBUTEROL SO4 HFA INHALER IH PRN (11:23)
[2024-02-20] MEDS ORDERED: SODIUM CHLORIDE 250 ML IV PRN (13:22)
[2024-02-20] MEDS: SEVELAMER CARBONATE 800 MG TAB (FP) PO SCH (14:39)
[2024-02-20] MEDS: ALBUTEROL SO4 2.5/IPRATROPIUM 0.5 INH SOL 3 ML VIAL.NEB. NEB SCH (14:39)
[2024-02-20 15:07] LABS: CHLORIDE 106 mmol/L (98-107); SODIUM 140 mmol/L (136-145)
[2024-02-20 15:08] LABS: POTASSIUM 7.1 mmol/L (3.5-5.1)
[2024-02-20 15:09] LABS: CALCIUM 9.1 mg/dL (8.5-10.1)
[2024-02-20 15:10] LABS: ANION GAP 16 mmol/L (4-13); CO2 18 mmol/L (21-32); GLUCOSE,RANDOM 93 mg/dL (74-106)
[2024-02-20 15:20] LABS: CREATININE 9.9 mg/dL (0.55-1.3)
[2024-02-20] MEDS ORDERED: ALBUTEROL SO4 2.5/IPRATROPIUM 0.5 INH SOL 3 ML VIAL.NEB. NEB ONE (18:44)
[2024-02-20] MEDS ORDERED: SEVELAMER CARBONATE 800 MG TAB (FP) ONE (18:45)
[2024-02-20] MEDS ORDERED: CALCIUM GLUC IN NACL, ISO-OSM 1 GM/50 ML BAG IVPB ONE (19:30)
[2024-02-20] MEDS ORDERED: SODIUM ZIRCONIUM CYCLOSILICATE (LOKELMA) 10 GM PACKET ONE (19:30)
[2024-02-20] MEDS: INSULIN REGULAR HUMAN 100 UNITS/ML *VIAL IVPUSH ONE (19:50)
[2024-02-20] MEDS: SODIUM ZIRCONIUM CYCLOSILICATE (LOKELMA) 5 GM PACKET PO SCH (19:50)
[2024-02-20] MEDS: CALCIUM GLUCONATE 10% - 1,000 MG/10 ML VIAL IVPB ONE (19:51)
[2024-02-20] MEDS: INSULIN REGULAR HUMAN 100 UNITS/ML *VIAL SQ ONE (19:51)
[2024-02-20] MEDS ORDERED: ATORVASTATIN CA 80 MG TABLET (FP) ONE (21:08)
[2024-02-20] MEDS ORDERED: MELATONIN 5 MG TABLETS ONE (21:08)
[2024-02-20] MEDS ORDERED: MIRTAZAPINE 15 MG TABLET (FP) ONE (21:09)
[2024-02-20] MEDS: ATORVASTATIN CA 80 MG TABLET (FP) PO SCH (22:16)
[2024-02-20] MEDS: ISOSORBIDE MONONITRATE 10 MG TABLET PO SCH (22:16)
[2024-02-20] MEDS: MELATONIN 5 MG TABLETS PO SCH (22:16)
[2024-02-20] MEDS: MIRTAZAPINE 15 MG TABLET (FP) PO SCH (22:16)
[2024-02-20] MEDS: EZETIMIBE 10 MG TABLET (FP) PO SCH (22:16)
[2024-02-21 02:03] LABS: POTASSIUM 4.3 mmol/L (3.5-5.1)
[2024-02-21 02:04] LABS: CALCIUM 9.1 mg/dL (8.5-10.1)
[2024-02-21 02:08] LABS: CREATININE 5.3 mg/dL (0.55-1.3)
[2024-02-21 02:21] LABS: BLOOD UREA NITROGEN 50.9 mg/dL (7-18)
[2024-02-21] MEDS: ASCORBIC ACID 500 MG TABLET (FP) PO SCH (09:06)
[2024-02-21] MEDS: ISOSORBIDE MONONITRATE 30 MG TAB.SR.24H (FP) PO SCH (09:07)
[2024-02-21] MEDS: ASPIRIN COATED 81 MG TABLET.EC PO SCH (09:07)
[2024-02-21 10:14] LABS: BASO % 1.1 % (0-2.0); EOS % 5.3 % (0-4.5); HEMATOCRIT 35.5 % (32.4-45.2); HEMOGLOBIN 11.5 GM/dL (10.7-15.3); LYMPH % 10.3 % (8-40); MCH 32.5 pg (25.7-33.7); MCHC 32.4 g/dl (32.0-36.0); MEAN CELL VOLUME 100.1 fl (80-96); MEAN PLT VOLUME 8.2 fl (7.5-11.1); MONO % 11.5 % (3.8-10.2); NEUT % 71.8 % (42.8-82.8); PLATELET COUNT 138 10^3/uL (134-434); RBC 3.54 M/mm3 (3.60-5.2); RDW 17.5 % (11.6-15.6); WHITE BLOOD COUNT 4.6 K/mm3 (4.0-10.0)
[2024-02-21 10:30] LABS: POTASSIUM 4.3 mmol/L (3.5-5.1)
[2024-02-21 10:34] LABS: CALCIUM 8.9 mg/dL (8.5-10.1)
[2024-02-21 10:35] LABS: ALBUMIN 3.5 g/dl (3.4-5.0); BLOOD UREA NITROGEN 55.8 mg/dL (7-18); MAGNESIUM 2.2 mg/dL (1.8-2.4)
[2024-02-21 10:38] LABS: PHOSPHOROUS 6.6 mg/dL (2.5-4.9)
[2024-02-21 10:39] LABS: BILIRUBIN,TOTAL 1.3 mg/dL (0.2-1); TOT PROT 6.5 g/dl (6.4-8.2)
[2024-02-22] MEDS: ACETAMINOPHEN 325 MG TABLET (FP) PO ONE
[2024-02-22 07:28] LABS: CHLORIDE 100 mmol/L (98-107); POTASSIUM 4.4 mmol/L (3.5-5.1); SODIUM 140 mmol/L (136-145)
[2024-02-22 07:30] LABS: ALBUMIN 3.4 g/dl (3.4-5.0); ANION GAP 15 mmol/L (4-13); CALCIUM 8.8 mg/dL (8.5-10.1); CO2 25 mmol/L (21-32); GLUCOSE,RANDOM 89 mg/dL (74-106); HEMATOCRIT 29.6 % (32.4-45.2); HEMOGLOBIN 9.8 GM/dL (10.7-15.3); MCH 32.6 pg (25.7-33.7); MEAN CELL VOLUME 98.8 fl (80-96); MEAN PLT VOLUME 8.1 fl (7.5-11.1); PLATELET COUNT 142 10^3/uL (134-434); RDW 16.7 % (11.6-15.6)
[2024-02-22 07:33] LABS: SGOT/AST 19 U/L (15-37); SGPT/ALT 26 U/L (13-61)
[2024-02-22 07:35] LABS: BILIRUBIN,TOTAL 0.6 mg/dL (0.2-1)
[2024-02-22 07:36] LABS: ALK PHOS 74 U/L (45-117)
[2024-02-22 07:59] LABS: BLOOD UREA NITROGEN 81.8 mg/dL (7-18); CREATININE 7.6 mg/dL (0.55-1.3)
[2024-02-22 12:49] VITALS: RESP 18
[2024-02-22] MEDS: morphine CARPU-JECT 2 MG/1 ML DISP.SYRIN IVPUSH ONE (13:31)
[2024-02-22] MEDS ORDERED: SODIUM CHLORIDE 250 ML IV PRN (14:00)
[2024-02-22] MEDS: EPOETIN ALFA-EPBX 4,000 UNIT/ML VIAL IVPUSH ONE (14:11)
[2024-02-22 18:15] VITALS: BP 153/81; PULSE 85; TEMP 98.6
== END 2024-02-22 18:13 | DRG 291 ==
LOC: JER 03:05 → JERBED 06:23 → J4W 02-21 00:08
PROVIDERS: ADMIT Internal Medicine; ATTEND Internal Medicine
PROC: 5A1D70Z Performance of Urinary Filtration, Intermittent, Less than 6 Hours Per Day (ICD-10-PCS; principal; 2024-02-20)
DX: I13.2 Hypertensive heart and chronic kidney disease with heart failure and with stage 5 chronic kidney disease, or end stage renal disease (principal); N18.6 End stage renal disease; I69.354 Hemiplegia and hemiparesis following cerebral infarction affecting left non-dominant side; J44.9 Chronic obstructive pulmonary disease, unspecified; E11.9 Type 2 diabetes mellitus without complications; E78.5 Hyperlipidemia, unspecified; E87.5 Hyperkalemia; I25.10 Atherosclerotic heart disease of native coronary artery without angina pectoris; I50.32 Chronic diastolic (congestive) heart failure; E11.22 Type 2 diabetes mellitus with diabetic chronic kidney disease; R07.89 Other chest pain; E87.70 Fluid overload, unspecified
CPT/HCPCS: 0241U-QW; 36415; 71045-TC-FY; 80048; 80053; 82962; 83036; 83735; 84100; 84484; 85025; 85027; 85610; 85730; 87340; 93005; 93010; 94640; 99285-25; J0131; Q5106

== ENCOUNTER 2024-03-10 09:48 | Observation (INO) | payer OTHER ==
[2024-03-10 10:52] VITALS: BMI 38.0
[2024-03-10] MEDS: ALBUTEROL SO4 2.5/IPRATROPIUM 0.5 INH SOL 3 ML VIAL.NEB. NEB SCH (12:00)
[2024-03-10] MEDS ORDERED: ALBUTEROL SO4 2.5/IPRATROPIUM 0.5 INH SOL 3 ML VIAL.NEB. NEB ONE (12:13)
[2024-03-10] MEDS ORDERED: methylPREDNISolone NA SUCC 125 MG/2 ML VIAL ONE (12:14)
[2024-03-10] MEDS: methylPREDNISolone NA SUCC 125 MG/2 ML VIAL IVPUSH ONE (12:24)
[2024-03-10 12:27] LABS: BASO % 0.8 % (0-2.0); EOS % 1.3 % (0-4.5); HEMATOCRIT 32.6 % (32.4-45.2); HEMOGLOBIN 10.4 GM/dL (10.7-15.3); LYMPH % 4.1 % (8-40); MCHC 31.8 g/dl (32.0-36.0); MEAN CELL VOLUME 100.5 fl (80-96); MEAN PLT VOLUME 8.1 fl (7.5-11.1); MONO % 6.3 % (3.8-10.2); NEUT % 87.5 % (42.8-82.8); PLATELET COUNT 173 10^3/uL (134-434); RBC 3.24 M/mm3 (3.60-5.2); RDW 16.9 % (11.6-15.6); WHITE BLOOD COUNT 8.2 K/mm3 (4.0-10.0)
[2024-03-10 12:56] LABS: VENOUS BASE EXCESS -4.2 mmol/L (-2-2); VENOUS PCO2 53.7 mmHg (38-52); VENOUS PH 7.262 (7.310-7.410)
[2024-03-10 13:05] LABS: CHLORIDE 99 mmol/L (98-107); SODIUM 136 mmol/L (136-145)
[2024-03-10 13:08] LABS: ALBUMIN 3.8 g/dl (3.4-5.0); BLOOD UREA NITROGEN 96.3 mg/dL (7-18); CALCIUM 8.8 mg/dL (8.5-10.1); CO2 24 mmol/L (21-32); GLUCOSE,RANDOM 100 mg/dL (74-106)
[2024-03-10 13:11] LABS: SGOT/AST 29 U/L (15-37); SGPT/ALT 50 U/L (13-61)
[2024-03-10 13:14] LABS: ALK PHOS 86 U/L (45-117); BILIRUBIN,TOTAL 0.6 mg/dL (0.2-1); TOT PROT 6.8 g/dl (6.4-8.2)
[2024-03-10 13:49] LABS: CREATININE 7.7 mg/dL (0.55-1.3)
[2024-03-10 13:55] LABS: ANION GAP 12 mmol/L (4-13); POTASSIUM 7.7 mmol/L (3.5-5.1)
[2024-03-10] MEDS ORDERED: SODIUM ZIRCONIUM CYCLOSILICATE (LOKELMA) 10 GM PACKET ONE (14:31)
[2024-03-10] MEDS ORDERED: DEXTROSE 50%-WATER 25 GM/50 ML DISP.SYRIN ONE (14:31)
[2024-03-10] MEDS ORDERED: INSULIN REGULAR HUMAN 100 UNITS/ML *VIAL ONE (14:32)
[2024-03-10] MEDS ORDERED: CALCIUM GLUC IN NACL, ISO-OSM 1 GM/50 ML BAG IVPB ONE (14:34)
[2024-03-10] MEDS: INSULIN REGULAR HUMAN 100 UNITS/ML *VIAL IVPUSH ONE (14:55)
[2024-03-10] MEDS: DEXTROSE 50%-WATER - 25 GM/50 ML VIAL IVPUSH ONE (14:55)
[2024-03-10] MEDS: CALCIUM GLUCONATE 10% - 1,000 MG/10 ML VIAL IVPB ONE (14:55)
[2024-03-10] MEDS ORDERED: SODIUM CHLORIDE 250 ML IV PRN (15:06)
[2024-03-10] MEDS: SODIUM ZIRCONIUM CYCLOSILICATE (LOKELMA) 5 GM PACKET PO ONE (15:18)
[2024-03-10] MEDS ORDERED: morphine CARPU-JECT 2 MG/1 ML DISP.SYRIN IVPUSH PRN (18:13)
[2024-03-10] MEDS ORDERED: MORPHINE SULFATE 2 MG/ML SYRINGE IVPUSH PRN (18:19)
[2024-03-10] MEDS: ACETAMINOPHEN 500 MG TABLET (FP) PO PRN (18:34)
[2024-03-10] MEDS: MIRTAZAPINE 15 MG TABLET (FP) PO SCH (22:14)
[2024-03-10] MEDS: MELATONIN 5 MG TABLETS PO SCH (22:14)
[2024-03-10] MEDS: ATORVASTATIN CA 80 MG TABLET (FP) PO SCH (22:14)
[2024-03-10] MEDS: ALBUTEROL SO4 2.5/IPRATROPIUM 0.5 INH SOL 3 ML VIAL.NEB. NEB PRN (23:10)
[2024-03-10] MEDS: EZETIMIBE 10 MG TABLET (FP) PO SCH (23:14)
[2024-03-10 23:42] LABS: BASO % 0.3 % (0-2.0); HEMATOCRIT 30.7 % (32.4-45.2); LYMPH % 4.6 % (8-40); MCH 31.7 pg (25.7-33.7); MCHC 32.5 g/dl (32.0-36.0); MEAN CELL VOLUME 97.6 fl (80-96); MEAN PLT VOLUME 7.3 fl (7.5-11.1); MONO % 3.8 % (3.8-10.2); NEUT % 91.3 % (42.8-82.8); PLATELET COUNT 157 10^3/uL (134-434); RBC 3.15 M/mm3 (3.60-5.2); RDW 16.9 % (11.6-15.6); WHITE BLOOD COUNT 3.8 K/mm3 (4.0-10.0)
[2024-03-11 00:01] LABS: POTASSIUM 5.2 mmol/L (3.5-5.1)
[2024-03-11 00:04] LABS: ALBUMIN 3.7 g/dl (3.4-5.0)
[2024-03-11 00:07] LABS: CREATININE 4.6 mg/dL (0.55-1.3)
[2024-03-11 00:08] LABS: BILIRUBIN,TOTAL 0.6 mg/dL (0.2-1)
[2024-03-11 00:09] LABS: TOT PROT 6.8 g/dl (6.4-8.2)
[2024-03-11 00:57] LABS: BLOOD UREA NITROGEN 54.9 mg/dL (7-18)
[2024-03-11 02:17] LABS: ANISOCYTOSIS 3+; HELMET CELLS 1+; MACROCYTOSIS 0; OVALOCYTE 1+; TEAR DROP CELLS 1+
[2024-03-11] MEDS ORDERED: NIFEdipine E.R. 30 MG TABLET PO SCH (10:00)
[2024-03-11] MEDS ORDERED: SODIUM CHLORIDE 250 ML IV PRN (10:10)
[2024-03-11] MEDS: ASPIRIN COATED 81 MG TABLET.EC PO SCH (10:49)
[2024-03-11] MEDS: SEVELAMER CARBONATE 800 MG TAB (FP) PO SCH (10:49)
[2024-03-11] MEDS: ISOSORBIDE MONONITRATE 30 MG TAB.SR.24H (FP) PO SCH (10:49)
[2024-03-11] MEDS: FAMOTIDINE 10 MG TABLET PO SCH (10:49)
[2024-03-11] MEDS: CALCIUM ACETATE 667 MG CAPSULE (FP) PO SCH (10:49)
[2024-03-11] MEDS: INSULIN ASPART SLIDING SCALE (NOVOLOG) 1 VIAL SQ SCH (11:27)
[2024-03-11] MEDS ORDERED: SODIUM ZIRCONIUM CYCLOSILICATE (LOKELMA) 5 GM PACKET PO ONE (14:22)
[2024-03-11 15:37] VITALS: RESP 18
[2024-03-12] MEDS ORDERED: SODIUM CHLORIDE 250 ML IV PRN (09:42)
[2024-03-12] MEDS: EPOETIN ALFA-EPBX 4,000 UNIT/ML VIAL IVPUSH ONE (10:16)
[2024-03-12 10:43] LABS: HEMATOCRIT 30.5 % (32.4-45.2); HEMOGLOBIN 9.8 GM/dL (10.7-15.3); MCH 32.2 pg (25.7-33.7); MCHC 32.1 g/dl (32.0-36.0); MEAN CELL VOLUME 100.1 fl (80-96); MEAN PLT VOLUME 7.7 fl (7.5-11.1); PLATELET COUNT 149 10^3/uL (134-434); RBC 3.05 M/mm3 (3.60-5.2); RDW 17.5 % (11.6-15.6); WHITE BLOOD COUNT 5.1 K/mm3 (4.0-10.0)
[2024-03-12 11:01] LABS: POTASSIUM 5.2 mmol/L (3.5-5.1)
[2024-03-12 11:05] LABS: BLOOD UREA NITROGEN 62.2 mg/dL (7-18); MAGNESIUM 2.2 mg/dL (1.8-2.4)
[2024-03-12 11:08] LABS: CREATININE 5.4 mg/dL (0.55-1.3)
[2024-03-12 11:09] LABS: PHOSPHOROUS 7.1 mg/dL (2.5-4.9)
[2024-03-12] MEDS ORDERED: CALCITRIOL 0.25 MCG CAPSULE (FP) PO SCH (12:00)
[2024-03-12] MEDS: FERROUS SO4 325 MG TABLET (FP) PO SCH (12:04)
[2024-03-12 12:12] VITALS: TEMP 98.1
[2024-03-12 12:14] VITALS: PULSE 80
[2024-03-12 12:15] VITALS: BP 135/82
[2024-03-12] MEDS: ALBUTEROL SO4 HFA INHALER IH PRN (16:57)
== END 2024-03-12 17:42 ==
LOC: JER 09:48 → JERBED 15:02 → J4S 20:38
PROVIDERS: ADMIT Internal Medicine; ATTEND Internal Medicine
PROC: 3E0F7GC Introduction of Other Therapeutic Substance into Respiratory Tract, Via Natural or Artificial Opening (ICD-10-PCS; principal; 2024-03-10)
PROC: 3E033GC Introduction of Other Therapeutic Substance into Peripheral Vein, Percutaneous Approach (ICD-10-PCS; 2024-03-10)
PROC: 3E013VG Introduction of Insulin into Subcutaneous Tissue, Percutaneous Approach (ICD-10-PCS; 2024-03-10)
DX: E87.5 Hyperkalemia (principal); E87.70 Fluid overload, unspecified; I13.2 Hypertensive heart and chronic kidney disease with heart failure and with stage 5 chronic kidney disease, or end stage renal disease; I25.10 Atherosclerotic heart disease of native coronary artery without angina pectoris; N18.6 End stage renal disease; Z99.2 Dependence on renal dialysis; Z91.158 Patient's noncompliance with renal dialysis for other reason; M79.662 Pain in left lower leg; E78.5 Hyperlipidemia, unspecified; Z87.440 Personal history of urinary (tract) infections; J44.9 Chronic obstructive pulmonary disease, unspecified; D64.9 Anemia, unspecified; N20.0 Calculus of kidney; Z87.891 Personal history of nicotine dependence
CPT/HCPCS: 0241U-QW; 36415; 71045-TC-FY; 80048; 80053; 82550; 82803; 82962; 83735; 84100; 84484; 85025; 85027; 93005; 93010; 93922; 93971-TC; 94150; 94640; 96374; 96375; 99285-25; G0378; Q5106

== ENCOUNTER 2024-04-14 06:28 | Emergency (ER) | payer OTHER ==
[2024-04-14 06:47] VITALS: BMI 45.7
[2024-04-14 09:56] LABS: HEMATOCRIT 33.6 % (32.4-45.2); HEMOGLOBIN 11.1 GM/dL (10.7-15.3); MCHC 33.1 g/dl (32.0-36.0); MEAN CELL VOLUME 99.8 fl (80-96); MEAN PLT VOLUME 7.6 fl (7.5-11.1); PLATELET COUNT 188 10^3/uL (134-434); RBC 3.37 M/mm3 (3.60-5.2); RDW 17.5 % (11.6-15.6); WHITE BLOOD COUNT 5.5 K/mm3 (4.0-10.0)
[2024-04-14 10:55] LABS: CHLORIDE 100 mmol/L (98-107); SODIUM 137 mmol/L (136-145)
[2024-04-14 10:56] LABS: CALCIUM 8.9 mg/dL (8.5-10.1)
[2024-04-14 10:57] LABS: ALBUMIN 3.8 g/dl (3.4-5.0); CO2 24 mmol/L (21-32); GLUCOSE,RANDOM 87 mg/dL (74-106)
[2024-04-14 11:00] LABS: SGOT/AST 28 U/L (15-37); SGPT/ALT 39 U/L (13-61)
[2024-04-14 11:02] LABS: BILIRUBIN,TOTAL 0.5 mg/dL (0.2-1); TOT PROT 6.9 g/dl (6.4-8.2)
[2024-04-14 11:03] LABS: ALK PHOS 85 U/L (45-117)
[2024-04-14 11:08] LABS: ANION GAP 12 mmol/L (4-13); CREATININE 8.6 mg/dL (0.55-1.3); POTASSIUM 7.4 mmol/L (3.5-5.1)
[2024-04-14] MEDS ORDERED: CALCIUM GLUC IN NACL, ISO-OSM 1 GM/50 ML BAG IVPB ONE (12:18)
[2024-04-14] MEDS ORDERED: DEXTROSE 50%-WATER 25 GM/50 ML DISP.SYRIN ONE (12:18)
[2024-04-14] MEDS ORDERED: INSULIN REGULAR HUMAN 100 UNITS/ML *VIAL ONE (12:19)
[2024-04-14] MEDS: INSULIN REGULAR HUMAN 100 UNITS/ML *VIAL IVPUSH ONE (12:30)
[2024-04-14] MEDS: DEXTROSE 50%-WATER - 25 GM/50 ML VIAL IVPUSH ONE (12:30)
[2024-04-14] MEDS ORDERED: SODIUM CHLORIDE 250 ML IV PRN (12:33)
[2024-04-14 12:35] LABS: POTASSIUM 7.5 mmol/L (3.5-5.1)
[2024-04-14] MEDS: CALCIUM GLUC IN NACL, ISO-OSM 1 GM/50 ML BAG IVPB ONE (12:35)
[2024-04-14 13:13] VITALS: BP 161/72; PULSE 78; RESP 18; TEMP 97.8
== END 2024-04-14 13:23 | disposition home or self-care (01) ==
LOC: JER 06:28
PROC: 3E033GC Introduction of Other Therapeutic Substance into Peripheral Vein, Percutaneous Approach (ICD-10-PCS; principal; 2024-04-14)
PROC: 3E033GC Introduction of Other Therapeutic Substance into Peripheral Vein, Percutaneous Approach (ICD-10-PCS; 2024-04-14)
PROC: 3E033GC Introduction of Other Therapeutic Substance into Peripheral Vein, Percutaneous Approach (ICD-10-PCS; 2024-04-14)
DX: R06.02 Shortness of breath (principal); R05.9 Cough, unspecified; R09.81 Nasal congestion; R50.9 Fever, unspecified; M79.10 Myalgia, unspecified site; Z20.822 Contact with and (suspected) exposure to COVID-19
CPT/HCPCS: 0241U-QW; 36415; 71045-TC-FY; 80053; 82962; 84132; 85027; 93005; 93010; 99285-25

== ENCOUNTER 2024-04-28 05:40 | Emergency (ER) | payer OTHER ==
[2024-04-28 05:57] VITALS: BP 105/46; PULSE 82; RESP 14; TEMP 98; BMI 40.2
[2024-04-28] MEDS ORDERED: ALBUTEROL SO4 2.5/IPRATROPIUM 0.5 INH SOL 3 ML VIAL.NEB. NEB ONE (06:16)
[2024-04-28] MEDS: ALBUTEROL SO4 2.5/IPRATROPIUM 0.5 INH SOL 3 ML VIAL.NEB. NEB ONE (06:48)
[2024-04-28 08:16] LABS: CHLORIDE 105 mmol/L (98-107); SODIUM 140 mmol/L (136-145)
[2024-04-28 08:18] LABS: BASO % 0.6 % (0-2.0); CALCIUM 9.2 mg/dL (8.5-10.1); HEMATOCRIT 35.2 % (32.4-45.2); HEMOGLOBIN 11.5 GM/dL (10.7-15.3); LYMPH % 8.4 % (8-40); MCH 33.1 pg (25.7-33.7); MCHC 32.7 g/dl (32.0-36.0); MEAN CELL VOLUME 101.3 fl (80-96); MEAN PLT VOLUME 7.8 fl (7.5-11.1); MONO % 7.2 % (3.8-10.2); NEUT % 80.8 % (42.8-82.8); PLATELET COUNT 177 10^3/uL (134-434); RBC 3.47 M/mm3 (3.60-5.2); RDW 17.1 % (11.6-15.6); WHITE BLOOD COUNT 6.5 K/mm3 (4.0-10.0)
[2024-04-28 08:19] LABS: ALBUMIN 3.9 g/dl (3.4-5.0); CO2 21 mmol/L (21-32); GLUCOSE,RANDOM 113 mg/dL (74-106); MAGNESIUM 2.4 mg/dL (1.8-2.4)
[2024-04-28 08:20] LABS: ANION GAP 15 mmol/L (4-13); BLOOD UREA NITROGEN 105.9 mg/dL (7-18); POTASSIUM 6.4 mmol/L (3.5-5.1)
[2024-04-28 08:22] LABS: SGOT/AST 20 U/L (15-37); SGPT/ALT 36 U/L (13-61)
[2024-04-28 08:23] LABS: BILIRUBIN,TOTAL 0.5 mg/dL (0.2-1); CREATININE 8.2 mg/dL (0.55-1.3); TOT PROT 6.8 g/dl (6.4-8.2)
[2024-04-28 08:25] LABS: ALK PHOS 80 U/L (45-117)
== END 2024-04-28 10:42 ==
LOC: JER 05:40
PROC: 3E0F7GC Introduction of Other Therapeutic Substance into Respiratory Tract, Via Natural or Artificial Opening (ICD-10-PCS; principal; 2024-04-28)
DX: R06.02 Shortness of breath (principal); E11.22 Type 2 diabetes mellitus with diabetic chronic kidney disease; N18.6 End stage renal disease; Z99.2 Dependence on renal dialysis; Z20.822 Contact with and (suspected) exposure to COVID-19
CPT/HCPCS: 0241U-QW; 36415; 71045-TC-FY; 80053; 83735; 85025; 93005; 93010; 99285-25

== ENCOUNTER 2024-05-05 07:42 | Inpatient (IN) | payer OTHER ==
[2024-05-05 09:25] LABS: BASO % 0.6 % (0-2.0); EOS % 3.7 % (0-4.5); HEMATOCRIT 36.3 % (32.4-45.2); HEMOGLOBIN 11.9 GM/dL (10.7-15.3); LYMPH % 7.2 % (8-40); MCH 32.7 pg (25.7-33.7); MCHC 32.7 g/dl (32.0-36.0); MEAN CELL VOLUME 99.9 fl (80-96); MEAN PLT VOLUME 7.6 fl (7.5-11.1); MONO % 8.6 % (3.8-10.2); NEUT % 79.9 % (42.8-82.8); PLATELET COUNT 174 10^3/uL (134-434); RBC 3.64 M/mm3 (3.60-5.2); RDW 16.6 % (11.6-15.6); WHITE BLOOD COUNT 6.9 K/mm3 (4.0-10.0)
[2024-05-05 09:30] VITALS: BMI 43.9
[2024-05-05 09:30] LABS: VENOUS BASE EXCESS -2.4 mmol/L (-2-2); VENOUS O2 SATURATION 62.2 % (70-80); VENOUS PCO2 56.8 mmHg (38-52); VENOUS PH 7.266 (7.310-7.410)
[2024-05-05] MEDS ORDERED: BACITRACIN ZINC 15 GM TUBE TOPICAL OINTMENT ONE (09:34)
[2024-05-05] MEDS ORDERED: SODIUM CHLORIDE 250 ML IV PRN (09:40)
[2024-05-05] MEDS ORDERED: methylPREDNISolone NA SUCC 125 MG/2 ML VIAL ONE (09:40)
[2024-05-05] MEDS: methylPREDNISolone NA SUCC 125 MG/2 ML VIAL IVPB ONE (09:54)
[2024-05-05] MEDS: ALBUTEROL SO4 2.5/IPRATROPIUM 0.5 INH SOL 3 ML VIAL.NEB. NEB SCH ×2 (09:54→13:00)
[2024-05-05 10:07] LABS: CHLORIDE 106 mmol/L (98-107); POTASSIUM 6.7 mmol/L (3.5-5.1); SODIUM 141 mmol/L (136-145)
[2024-05-05 10:09] LABS: CALCIUM 9.2 mg/dL (8.5-10.1)
[2024-05-05 10:11] LABS: ANION GAP 11 mmol/L (4-13); BLOOD UREA NITROGEN 100.7 mg/dL (7-18); CO2 24 mmol/L (21-32); GLUCOSE,RANDOM 107 mg/dL (74-106); MAGNESIUM 2.6 mg/dL (1.8-2.4)
[2024-05-05 10:13] LABS: SGOT/AST 25 U/L (15-37)
[2024-05-05 10:14] LABS: BILIRUBIN,TOTAL 0.7 mg/dL (0.2-1); PHOSPHOROUS 8.9 mg/dL (2.5-4.9); TOT PROT 7.6 g/dl (6.4-8.2)
[2024-05-05 10:15] LABS: ALK PHOS 90 U/L (45-117)
[2024-05-05 10:22] LABS: CREATININE 9.2 mg/dL (0.55-1.3)
[2024-05-05 11:16] LABS: SGPT/ALT 37 U/L (13-61)
[2024-05-05] MEDS ORDERED: ALBUTEROL SO4 2.5/IPRATROPIUM 0.5 INH SOL 3 ML VIAL.NEB. NEB ONE ×2 (12:08→18:34)
[2024-05-05] MEDS ORDERED: SODIUM ZIRCONIUM CYCLOSILICATE (LOKELMA) 10 GM PACKET ONE (12:09)
[2024-05-05] MEDS ORDERED: CALCIUM GLUC IN NACL, ISO-OSM 1 GM/50 ML BAG IVPB ONE (12:09)
[2024-05-05] MEDS ORDERED: INSULIN REGULAR HUMAN 100 UNITS/ML *VIAL ONE (12:09)
[2024-05-05] MEDS ORDERED: DEXTROSE 50%-WATER 25 GM/50 ML DISP.SYRIN ONE (12:10)
[2024-05-05] MEDS: DEXTROSE 50%-WATER - 25 GM/50 ML VIAL IVPUSH ONE (13:00)
[2024-05-05] MEDS: INSULIN REGULAR HUMAN 100 UNITS/ML *VIAL IVPUSH ONE (13:00)
[2024-05-05] MEDS: SODIUM ZIRCONIUM CYCLOSILICATE (LOKELMA) 5 GM PACKET PO ONE (13:00)
[2024-05-05] MEDS: CALCIUM GLUCONATE 10% - 1,000 MG/10 ML VIAL IVPB ONE (13:00)
[2024-05-05] MEDS: INSULIN ASPART SLIDING SCALE (NOVOLOG) 1 VIAL SQ SCH ×2 (16:30→21:23)
[2024-05-05] MEDS: ACETAMINOPHEN 325 MG TABLET (FP) PO PRN (17:23)
[2024-05-05] MEDS ORDERED: NIFEdipine E.R. 30 MG TABLET PO ONE (18:34)
[2024-05-05] MEDS ORDERED: methylPREDNISolone NA SUCC 40 MG/1 ML VIAL ONE ×2 (18:34→21:12)
[2024-05-05] MEDS: methylPREDNISolone NA SUCC 40 MG/1 ML VIAL IVPUSH SCH (18:44)
[2024-05-05] MEDS: NIFEdipine E.R. 30 MG TABLET PO ONE (18:44)
[2024-05-05] MEDS ORDERED: ATORVASTATIN CA 20 MG TABLET (FP) ONE (21:11)
[2024-05-05] MEDS ORDERED: MIRTAZAPINE 15 MG TABLET (FP) ONE (21:12)
[2024-05-05] MEDS ORDERED: INSULIN ASPART SLIDING SCALE (NOVOLOG) 1 VIAL SQ ONE (21:22)
[2024-05-05] MEDS: ATORVASTATIN CA 80 MG TABLET (FP) PO SCH (21:23)
[2024-05-05] MEDS: MIRTAZAPINE 15 MG TABLET (FP) PO SCH (21:24)
[2024-05-06 07:22] LABS: BASO % 0.2 % (0-2.0); HEMATOCRIT 33.2 % (32.4-45.2); HEMOGLOBIN 11.2 GM/dL (10.7-15.3); LYMPH % 5.1 % (8-40); MCH 33.2 pg (25.7-33.7); MCHC 33.6 g/dl (32.0-36.0); MEAN CELL VOLUME 98.7 fl (80-96); MEAN PLT VOLUME 7.5 fl (7.5-11.1); MONO % 6.9 % (3.8-10.2); NEUT % 87.8 % (42.8-82.8); PLATELET COUNT 193 10^3/uL (134-434); RBC 3.37 M/mm3 (3.60-5.2); RDW 15.9 % (11.6-15.6); WHITE BLOOD COUNT 6.6 K/mm3 (4.0-10.0)
[2024-05-06 07:39] LABS: POTASSIUM 5.8 mmol/L (3.5-5.1)
[2024-05-06 07:41] LABS: BLOOD UREA NITROGEN 72.3 mg/dL (7-18)
[2024-05-06 07:44] LABS: CREATININE 6.6 mg/dL (0.55-1.3)
[2024-05-06] MEDS: ISOSORBIDE MONONITRATE 30 MG TAB.SR.24H (FP) PO SCH (10:38)
[2024-05-06] MEDS: NIFEdipine E.R. 30 MG TABLET PO SCH (10:39)
[2024-05-06] MEDS: ASPIRIN COATED 81 MG TABLET.EC PO SCH (10:39)
[2024-05-06] MEDS ORDERED: SODIUM CHLORIDE 250 ML IV PRN (13:27)
[2024-05-06] MEDS: SEVELAMER CARBONATE 800 MG TAB (FP) PO SCH (18:29)
[2024-05-06] MEDS: SODIUM ZIRCONIUM CYCLOSILICATE (LOKELMA) 5 GM PACKET PO SCH (22:03)
[2024-05-06] MEDS: guaiFENesin/D-METHORPHAN TAB.ER.12H PO SCH (22:04)
[2024-05-07 01:36] VITALS: RESP 18
[2024-05-07] MEDS: predniSONE 20 MG TABLET (UD) PO SCH (09:06)
[2024-05-07 10:17] LABS: CHLORIDE 102 mmol/L (98-107); POTASSIUM 5.8 mmol/L (3.5-5.1); SODIUM 138 mmol/L (136-145)
[2024-05-07 10:19] LABS: ANION GAP 15 mmol/L (4-13); CALCIUM 8.5 mg/dL (8.5-10.1); CO2 22 mmol/L (21-32)
[2024-05-07 10:20] LABS: GLUCOSE,RANDOM 110 mg/dL (74-106)
[2024-05-07 10:37] LABS: BLOOD UREA NITROGEN 115.2 mg/dL (7-18); CREATININE 8.2 mg/dL (0.55-1.3)
[2024-05-07] MEDS ORDERED: EPOETIN ALFA-EPBX 4,000 UNIT/ML VIAL IVPUSH ONE (13:27)
[2024-05-07 21:07] VITALS: BP 130/68; PULSE 91; TEMP 99
[2024-05-08] MEDS ORDERED: SODIUM ZIRCONIUM CYCLOSILICATE (LOKELMA) 5 GM PACKET PO SCH (10:00)
== END 2024-05-07 22:16 | DRG 640 ==
LOC: JER 07:42 → JERBED 10:34 → J4S 05-06 01:50
PROVIDERS: ADMIT Internal Medicine; ATTEND Internal Medicine
PROC: 5A1D70Z Performance of Urinary Filtration, Intermittent, Less than 6 Hours Per Day (ICD-10-PCS; principal; 2024-05-07)
DX: E87.70 Fluid overload, unspecified (principal); N18.6 End stage renal disease; I13.2 Hypertensive heart and chronic kidney disease with heart failure and with stage 5 chronic kidney disease, or end stage renal disease; J81.1 Chronic pulmonary edema; E87.29 Other acidosis; E11.22 Type 2 diabetes mellitus with diabetic chronic kidney disease; J45.909 Unspecified asthma, uncomplicated; Z99.2 Dependence on renal dialysis; E87.5 Hyperkalemia; I25.10 Atherosclerotic heart disease of native coronary artery without angina pectoris; Z95.5 Presence of coronary angioplasty implant and graft
CPT/HCPCS: 36415; 71045-TC-FY; 80048; 80053; 82803; 82962; 83735; 84100; 84484; 85025; 86803; 87340; 93005; 93010; 94640; 94660; 99285-25

== ENCOUNTER 2024-06-30 09:13 | Observation (INO) | payer OTHER ==
[2024-06-30 10:30] VITALS: BMI 43.7
[2024-06-30 14:10] LABS: VENOUS BASE EXCESS -4.4 mmol/L (-2-2); VENOUS O2 SATURATION 90.5 % (70-80); VENOUS PH 7.339 (7.310-7.410)
[2024-06-30 14:16] LABS: BASO % 0.3 % (0-2.0); EOS % 1.9 % (0-4.5); HEMATOCRIT 31.5 % (32.4-45.2); HEMOGLOBIN 10.2 GM/dL (10.7-15.3); LYMPH % 10.2 % (8-40); MCH 33.4 pg (25.7-33.7); MCHC 32.5 g/dl (32.0-36.0); MEAN CELL VOLUME 102.9 fl (80-96); MEAN PLT VOLUME 7.3 fl (7.5-11.1); MONO % 6.3 % (3.8-10.2); NEUT % 81.3 % (42.8-82.8); PLATELET COUNT 145 10^3/uL (134-434); RBC 3.06 M/mm3 (3.60-5.2); RDW 16.8 % (11.6-15.6); WHITE BLOOD COUNT 7.5 K/mm3 (4.0-10.0)
[2024-06-30 14:21] LABS: INR 0.96 (0.83-1.09); PROTHROMBIN TIME (PATIENT) 11.1 SEC (9.7-13.0)
[2024-06-30 14:24] LABS: ACTIVATED PTT 30.4 SECONDS (25.2-36.5)
[2024-06-30 14:28] LABS: CHLORIDE 107 mmol/L (98-107); POTASSIUM 5.6 mmol/L (3.5-5.1); SODIUM 143 mmol/L (136-145)
[2024-06-30 14:30] LABS: CALCIUM 8.4 mg/dL (8.5-10.1)
[2024-06-30 14:31] LABS: ALBUMIN 3.2 g/dl (3.4-5.0); ANION GAP 11 mmol/L (4-13); BLOOD UREA NITROGEN 103.8 mg/dL (7-18); CO2 26 mmol/L (21-32); GLUCOSE,RANDOM 92 mg/dL (74-106)
[2024-06-30 14:32] LABS: MAGNESIUM 2.8 mg/dL (1.8-2.4)
[2024-06-30 14:35] LABS: BILIRUBIN,TOTAL 0.8 mg/dL (0.2-1); CREATININE 10.8 mg/dL (0.55-1.3); PHOSPHOROUS 7.2 mg/dL (2.5-4.9); SGOT/AST 23 U/L (15-37); SGPT/ALT 53 U/L (13-61); TOT PROT 6.2 g/dl (6.4-8.2)
[2024-06-30 14:37] LABS: ALK PHOS 61 U/L (45-117)
[2024-06-30 14:40] LABS: N-TERMINAL BNP 13882.3 pg/ml (5-125)
[2024-06-30] MEDS: PIPERACILLIN/TAZOB 2.25 GM 2.25 GM in DEXTROSE 5%-WATER - 50 ML IVPB ONE ×2 (14:49→16:14)
[2024-06-30] MEDS: VANCOMYCIN HCL 1,500 MG in DEXTROSE 5%-WATER - 500 ML IVPB ONE ×2 (14:49→16:33)
[2024-06-30] MEDS: PIPERACILLIN/TAZOB 3.375 GM 3.375 GM in DEXTROSE 5%-WATER - 50 ML IVPB ONE (14:49)
[2024-06-30] MEDS ORDERED: PIPERACILLIN/TAZOB 2.25 GM 2.25 GM/50 ML BAG IVPB ONE (15:51)
[2024-06-30] MEDS ORDERED: SODIUM CHLORIDE 250 ML IV PRN (16:23)
[2024-06-30] MEDS: LIDOCAINE 5% TOPICAL PATCH TP ONE (17:39)
[2024-06-30] MEDS ORDERED: PIPERACILLIN/TAZOB 2.25 GM 2.25 GM/50 ML BAG IVPB SCH (18:30)
[2024-06-30] MEDS ORDERED: NIFEdipine E.R. 30 MG TABLET PO ONE (22:04)
[2024-06-30] MEDS ORDERED: ATORVASTATIN CA 80 MG TABLET (FP) ONE (22:05)
[2024-06-30] MEDS ORDERED: MIRTAZAPINE 15 MG TABLET (FP) ONE (22:05)
[2024-06-30] MEDS: MIRTAZAPINE 15 MG TABLET (FP) PO SCH (22:08)
[2024-06-30] MEDS: LIDOCAINE PATCH REMOVAL MC SCH (22:08)
[2024-06-30] MEDS: ATORVASTATIN CA 80 MG TABLET (FP) PO SCH (22:08)
[2024-06-30] MEDS: EZETIMIBE 10 MG TABLET (FP) PO SCH (22:08)
[2024-06-30] MEDS: NIFEdipine E.R. 30 MG TABLET PO SCH (22:08)
[2024-06-30] MEDS: INSULIN ASPART SLIDING SCALE (NOVOLOG) 1 VIAL SQ SCH (23:23)
[2024-06-30] MEDS ORDERED: ACETAMINOPHEN 325 MG TABLET (FP) ONE (23:47)
[2024-06-30] MEDS: ACETAMINOPHEN 650 MG/20.3 ML ORAL SOLUTION (CUPS) PO PRN (23:53)
[2024-07-01] MEDS ORDERED: PIPERACILLIN/TAZOB 2.25 GM 2.25 GM/50 ML BAG IVPB ONE ×2 (02:00→10:45)
[2024-07-01] MEDS: PIPERACILLIN/TAZOB 2.25 GM 2.25 GM/50 ML BAG IVPB SCH ×2 (02:06→18:25)
[2024-07-01] MEDS: ASPIRIN COATED 81 MG TABLET.EC PO SCH (10:46)
[2024-07-01] MEDS: FAMOTIDINE 10 MG TABLET PO SCH (10:46)
[2024-07-01] MEDS: SODIUM ZIRCONIUM CYCLOSILICATE (LOKELMA) 10 GM PACKET PO SCH (10:46)
[2024-07-01] MEDS: predniSONE 10 MG TABLET (UD) PO SCH (10:46)
[2024-07-01 13:07] LABS: HEMATOCRIT 31.8 % (32.4-45.2); HEMOGLOBIN 10.1 GM/dL (10.7-15.3); MCH 32.8 pg (25.7-33.7); MCHC 31.6 g/dl (32.0-36.0); MEAN CELL VOLUME 103.6 fl (80-96); MEAN PLT VOLUME 7.9 fl (7.5-11.1); PLATELET COUNT 147 10^3/uL (134-434); RBC 3.07 M/mm3 (3.60-5.2); RDW 16.5 % (11.6-15.6); WHITE BLOOD COUNT 6.2 K/mm3 (4.0-10.0)
[2024-07-01 13:48] LABS: CHLORIDE 102 mmol/L (98-107); POTASSIUM 4.7 mmol/L (3.5-5.1); SODIUM 141 mmol/L (136-145)
[2024-07-01 13:56] LABS: ALBUMIN 3.1 g/dl (3.4-5.0)
[2024-07-01 13:57] LABS: ANION GAP 9 mmol/L (4-13); CO2 29 mmol/L (21-32); GLUCOSE,RANDOM 179 mg/dL (74-106); MAGNESIUM 2.3 mg/dL (1.8-2.4)
[2024-07-01 13:59] LABS: BLOOD UREA NITROGEN 66.3 mg/dL (7-18)
[2024-07-01 14:00] LABS: SGOT/AST 25 U/L (15-37); SGPT/ALT 47 U/L (13-61)
[2024-07-01 14:02] LABS: BILIRUBIN,TOTAL 0.7 mg/dL (0.2-1); TOT PROT 6.1 g/dl (6.4-8.2)
[2024-07-01 14:03] LABS: ALK PHOS 58 U/L (45-117)
[2024-07-01 14:04] LABS: CREATININE 8.1 mg/dL (0.55-1.3)
[2024-07-01] MEDS ORDERED: SODIUM CHLORIDE 250 ML IV PRN (15:41)
[2024-07-01] MEDS: ACETAMINOPHEN 500 MG TABLET (FP) PO PRN (22:58)
[2024-07-02] MEDS: MELATONIN 5 MG TABLETS PO ONE ×2 (00:15→01:55)
[2024-07-02] MEDS: ALBUTEROL SO4 HFA INHALER IH PRN (01:14)
[2024-07-03 03:39] VITALS: RESP 18
[2024-07-03 06:31] VITALS: TEMP 98.4
[2024-07-03 13:30] VITALS: BP 145/78; PULSE 78
== END 2024-07-03 13:34 ==
LOC: JER 09:13 → JERBED 15:23 → J4S 07-01 15:01
PROVIDERS: ADMIT Internal Medicine; ATTEND Internal Medicine
PROC: 3E03329 Introduction of Other Anti-infective into Peripheral Vein, Percutaneous Approach (ICD-10-PCS; principal; 2024-06-30)
PROC: 3E013VG Introduction of Insulin into Subcutaneous Tissue, Percutaneous Approach (ICD-10-PCS; 2024-06-30)
DX: R79.89 Other specified abnormal findings of blood chemistry (principal); J18.9 Pneumonia, unspecified organism; E11.22 Type 2 diabetes mellitus with diabetic chronic kidney disease; N18.6 End stage renal disease; Z99.2 Dependence on renal dialysis; E78.5 Hyperlipidemia, unspecified; J44.9 Chronic obstructive pulmonary disease, unspecified; I11.9 Hypertensive heart disease without heart failure
CPT/HCPCS: 0241U-QW; 36415; 71045-TC-FY; 80053; 82803; 82962; 83735; 83880; 84100; 84484; 85025; 85027; 85610; 85730; 87340; 93005; 93010; 96365; 96367; 96372; 99285-25; G0378

== ENCOUNTER 2024-08-26 21:10 | Inpatient (IN) | payer OTHER ==
[2024-08-26 21:16] VITALS: BMI 36.6
[2024-08-26] MEDS: ALBUTEROL SO4 2.5/IPRATROPIUM 0.5 INH SOL 3 ML VIAL.NEB. NEB SCH (23:50)
[2024-08-27] MEDS ORDERED: ALBUTEROL SO4 2.5/IPRATROPIUM 0.5 INH SOL 3 ML VIAL.NEB. NEB ONE (00:03)
[2024-08-27] MEDS ORDERED: DEXAMETHASONE SOD PHOSPHATE 10 MG/1 ML VIAL ONE (00:03)
[2024-08-27] MEDS: DEXAMETHASONE SOD PHOSPHATE 10 MG/1 ML VIAL IM ONE (00:14)
[2024-08-27] MEDS ORDERED: PIPERACILLIN/TAZOB 3.375 GM 3.375 GM/50 ML BAG IVPB ONE (02:02)
[2024-08-27] MEDS: PIPERACILLIN/TAZOB 3.375 GM 3.375 GM in DEXTROSE 5%-WATER - 50 ML IVPB ONE (02:11)
[2024-08-27] MEDS: HEPARIN NA (PORCINE) 5,000 UNITS/ML 1ML VIAL SQ ONE (03:16)
[2024-08-27] MEDS ORDERED: ALBUTEROL SO4 HFA INHALER IH PRN (03:40)
[2024-08-27 08:54] VITALS: RESP 18
[2024-08-27] MEDS ORDERED: INSULIN ASPART SLIDING SCALE (NOVOLOG) 1 VIAL SQ ONE (09:01)
[2024-08-27] MEDS: INSULIN ASPART SLIDING SCALE (NOVOLOG) 1 VIAL SQ SCH (09:06)
[2024-08-27] MEDS: ASPIRIN COATED 81 MG TABLET.EC PO SCH (09:56)
[2024-08-27] MEDS: FAMOTIDINE 10 MG TABLET PO SCH (09:56)
[2024-08-27] MEDS: SEVELAMER CARBONATE 800 MG TAB (FP) PO SCH (09:56)
[2024-08-27] MEDS: FLUTICASONE/UMECLIDIN/VILANTER(100-62.5-25 TRELEGY ELLIPTA) INAHLER IH SCH (09:56)
[2024-08-27] MEDS ORDERED: FUROSEMIDE 40 MG/4 ML INJECTABLE VIAL IVPUSH SCH (10:00)
[2024-08-27] MEDS ORDERED: ALBUTEROL SO4 2.5/IPRATROPIUM 0.5 INH SOL 3 ML VIAL.NEB. NEB PRN (10:41)
[2024-08-27] MEDS ORDERED: predniSONE 20 MG TABLET (UD) PO SCH (10:45)
[2024-08-27] MEDS ORDERED: SODIUM CHLORIDE 250 ML IV PRN ×2 (11:14→19:21)
[2024-08-27] MEDS: ALBUTEROL SO4 0.083% IH SOL 2.5 MG/3 ML VIAL.NEB. NEB SCH (11:35)
[2024-08-27] MEDS ORDERED: ALBUTEROL SO4 2.5/IPRATROPIUM 0.5 INH SOL 3 ML VIAL.NEB. NEB SCH ×2 (12:00→14:00)
[2024-08-27 12:01] LABS: HEMATOCRIT 30.6 % (32.4-45.2); HEMOGLOBIN 9.9 GM/dL (10.7-15.3); MCH 34.2 pg (25.7-33.7); MCHC 32.5 g/dl (32.0-36.0); MEAN CELL VOLUME 105.4 fl (80-96); MEAN PLT VOLUME 7.6 fl (7.5-11.1); PLATELET COUNT 160 10^3/uL (134-434); RDW 17.3 % (11.6-15.6); WHITE BLOOD COUNT 6.7 K/mm3 (4.0-10.0)
[2024-08-27 12:20] LABS: CHLORIDE 100 mmol/L (98-107); POTASSIUM 5.1 mmol/L (3.5-5.1); SODIUM 139 mmol/L (136-145)
[2024-08-27 12:27] LABS: ALBUMIN 3.7 g/dl (3.4-5.0); ANION GAP 11 mmol/L (4-13); CO2 28 mmol/L (21-32); GLUCOSE,RANDOM 173 mg/dL (74-106); MAGNESIUM 2.5 mg/dL (1.8-2.4)
[2024-08-27 12:30] LABS: PHOSPHOROUS 7.8 mg/dL (2.5-4.9)
[2024-08-27 12:31] LABS: CREATININE 8.8 mg/dL (0.55-1.3); SGOT/AST 33 U/L (15-37)
[2024-08-27 12:32] LABS: ALK PHOS 59 U/L (45-117); BILIRUBIN,TOTAL 0.8 mg/dL (0.2-1); SGPT/ALT 23 U/L (13-61); TOT PROT 7.1 g/dl (6.4-8.2)
[2024-08-27 12:46] LABS: ANISOCYTOSIS 1+; MACROCYTOSIS 2+
[2024-08-27] MEDS: ZINC OXIDE TP SCH (12:53)
[2024-08-27 12:58] LABS: BASO % 0.5 % (0-2.0); HEMATOCRIT 27.9 % (32.4-45.2); HEMOGLOBIN 9.1 GM/dL (10.7-15.3); LYMPH % 5.2 % (8-40); MCH 34.1 pg (25.7-33.7); MCHC 32.6 g/dl (32.0-36.0); MEAN CELL VOLUME 104.5 fl (80-96); MONO % 3.7 % (3.8-10.2); NEUT % 90.6 % (42.8-82.8); PLATELET COUNT 161 10^3/uL (134-434); RBC 2.67 M/mm3 (3.60-5.2); WHITE BLOOD COUNT 6.2 K/mm3 (4.0-10.0)
[2024-08-27 13:09] LABS: INR 1.03 (0.83-1.09); PROTHROMBIN TIME (PATIENT) 11.3 SEC (9.7-13.0)
[2024-08-27 13:12] LABS: ACTIVATED PTT 26.1 SECONDS (25.2-36.5)
[2024-08-27 13:19] LABS: CHLORIDE 102 mmol/L (98-107); POTASSIUM 5.1 mmol/L (3.5-5.1); SODIUM 139 mmol/L (136-145)
[2024-08-27 13:22] LABS: ALBUMIN 3.3 g/dl (3.4-5.0); ANION GAP 11 mmol/L (4-13); BLOOD UREA NITROGEN 79.2 mg/dL (7-18); CO2 26 mmol/L (21-32); GLUCOSE,RANDOM 168 mg/dL (74-106)
[2024-08-27 13:25] LABS: SGOT/AST 29 U/L (15-37); SGPT/ALT 21 U/L (13-61)
[2024-08-27 13:26] LABS: BILIRUBIN,TOTAL 0.4 mg/dL (0.2-1); TOT PROT 6.5 g/dl (6.4-8.2)
[2024-08-27 13:27] LABS: ALK PHOS 54 U/L (45-117); CREATININE 8.9 mg/dL (0.55-1.3)
[2024-08-27 13:29] LABS: N-TERMINAL BNP 23571.5 pg/ml (5-125)
[2024-08-27] MEDS: predniSONE 10 MG TABLET (UD) PO SCH (16:52)
[2024-08-27] MEDS: CALCITRIOL 0.25 MCG CAPSULE (FP) PO SCH (16:57)
[2024-08-27 17:21] VITALS: TEMP 98.4
[2024-08-27] MEDS: ZINC OXIDE 20% TOPICAL OINTMENT 30 GM TUBE TP SCH (22:41)
[2024-08-27] MEDS: EZETIMIBE 10 MG TABLET (FP) PO SCH (22:42)
[2024-08-27] MEDS: ATORVASTATIN CA 80 MG TABLET (FP) PO SCH (22:42)
[2024-08-27] MEDS: NIFEdipine E.R. 30 MG TABLET PO SCH (22:42)
[2024-08-27] MEDS: MIRTAZAPINE 15 MG TABLET (FP) PO SCH (22:42)
[2024-08-28] MEDS: SODIUM ZIRCONIUM CYCLOSILICATE (LOKELMA) 5 GM PACKET PO SCH (11:34)
[2024-08-28 12:00] VITALS: BP 154/77; PULSE 75
== END 2024-08-28 13:02 | DRG 291 ==
LOC: JER 21:10 → JERBED 08-27 02:32 → J8W 08-27 06:54
PROVIDERS: ADMIT Student in an Organized Health Care Education/Training Program; ATTEND Internal Medicine
PROC: 5A1D70Z Performance of Urinary Filtration, Intermittent, Less than 6 Hours Per Day (ICD-10-PCS; principal; 2024-08-27)
DX: I13.2 Hypertensive heart and chronic kidney disease with heart failure and with stage 5 chronic kidney disease, or end stage renal disease (principal); N18.6 End stage renal disease; J96.11 Chronic respiratory failure with hypoxia; I50.32 Chronic diastolic (congestive) heart failure; J44.9 Chronic obstructive pulmonary disease, unspecified; Z99.2 Dependence on renal dialysis; E11.22 Type 2 diabetes mellitus with diabetic chronic kidney disease; E87.70 Fluid overload, unspecified; E78.5 Hyperlipidemia, unspecified; E66.9 Obesity, unspecified; Z68.36 Body mass index [BMI] 36.0-36.9, adult
CPT/HCPCS: 36415; 71045-TC-FY; 80053; 82962; 83605; 83735; 83880; 84100; 85025; 85610; 85730; 86140; 86803; 87340; 94640; 99285-25; J1100

== ENCOUNTER 2024-10-12 18:45 | Emergency (ER) | payer OTHER ==
[2024-10-12 19:29] VITALS: TEMP 98.2; BMI 43.5
[2024-10-12 20:45] LABS: ABSOLUTE IMMATURE GRANULOCYTES 0.03 x10^3/uL (0.0-0.031); BASOPHILS # 0.03 x10^3/uL (0.01-0.08); EOSINOPHIL % 0.6 % (0.7-5.8); EOSINOPHILS # 0.05 x10^3/uL (0.04-0.36); HEMATOCRIT 36.3 % (34.1-44.9); HEMOGLOBIN 11.3 g/dL (11.2-15.7); MCHC 31.1 g/dl (32.2-35.5); MEAN CELL VOLUME 104.9 fl (79.4-94.8); MEAN PLT VOLUME 9.5 fl (9.4-12.3); MONOCYTE # 0.57 x10^3/uL (0.24-0.86); MONOCYTE % 7.3 % (4.7-12.5); PLATELET COUNT 165 x10^3/uL (182-369); RDW 15.7 % (12.3-16.6)
[2024-10-12 20:57] LABS: INR 0.96 (0.83-1.09); PROTHROMBIN TIME (PATIENT) 10.5 SEC (9.7-13.0)
[2024-10-12 21:01] LABS: ACTIVATED PTT 29.3 SECONDS (25.2-36.5)
[2024-10-12] MEDS: OXYMETAZOLINE 0.05% NASAL SOLUTION 15 ML BOTTLE NS ONE (21:01)
[2024-10-12 21:12] LABS: CHLORIDE 97 mmol/L (98-107); POTASSIUM 5.2 mmol/L (3.5-5.1); SODIUM 137 mmol/L (136-145)
[2024-10-12 21:14] LABS: ALBUMIN 3.9 g/dl (3.4-5.0); ANION GAP 11 mmol/L (4-13); BLOOD UREA NITROGEN 94.9 mg/dL (7-18); CALCIUM 10.3 mg/dL (8.5-10.1); CO2 29 mmol/L (21-32); GLUCOSE,RANDOM 118 mg/dL (74-106)
[2024-10-12 21:16] LABS: SGPT/ALT 20 U/L (13-61)
[2024-10-12 21:17] LABS: SGOT/AST 16 U/L (15-37)
[2024-10-12 21:18] LABS: BILIRUBIN,TOTAL 0.5 mg/dL (0.2-1); CREATININE 9.8 mg/dL (0.55-1.3); TOT PROT 7.2 g/dl (6.4-8.2)
[2024-10-12 21:20] LABS: ALK PHOS 63 U/L (45-117)
[2024-10-12 23:45] VITALS: BP 170/95; PULSE 86; RESP 17
== END 2024-10-13 00:01 ==
LOC: JER 18:45
DX: R04.0 Epistaxis (principal); R06.02 Shortness of breath; R07.9 Chest pain, unspecified
CPT/HCPCS: 36415; 71045-TC-FY; 80053; 84484; 85025; 85610; 85730; 93005; 93010; 99285-25

== ENCOUNTER 2025-02-08 11:24 | Emergency (ER) | payer OTHER ==
[2025-02-08 11:52] VITALS: RESP 19; BMI 43.9
[2025-02-08] MEDS ORDERED: ACETAMINOPHEN 500 MG TABLET (FP) ONE (13:02)
[2025-02-08] MEDS ORDERED: LIDOCAINE 4% PATCH TP ONE (13:03)
[2025-02-08] MEDS: LIDOCAINE 5% TOPICAL PATCH TP ONE (13:05)
[2025-02-08] MEDS: ACETAMINOPHEN 500 MG TABLET (FP) PO ONE (13:05)
[2025-02-08] MEDS ORDERED: MAG HYDROX/AL HYDROX/SIMETH 30 ML UNIT-DOSE CUP ONE (13:53)
[2025-02-08] MEDS: MAG HYDROX/AL HYDROX/SIMETH 30 ML UNIT-DOSE CUP PO ONE (13:56)
[2025-02-08 18:09] VITALS: BP 110/66; PULSE 76; TEMP 98.6
[2025-02-08] MEDS ORDERED: LIDOCAINE PATCH REMOVAL MC SCH (22:00)
== END 2025-02-08 17:29 ==
LOC: JER 11:24
DX: R07.89 Other chest pain (principal)
CPT/HCPCS: 93005; 93010; 99283-25